=== PATIENT | female | born 1950 | race Caucasian/White ===

== ENCOUNTER → 2016-10-23 | Day surgery (SDC) | payer MEDICARE ==
[2016-10-18 12:47] VITALS: BMI 34.7
[~2016-10-23] MED LIST: ALPRAZolam 0.25 MG TAB PO PRN; ASPIRIN 325 MG TAB PO STA; IODIXANOL 320 MG/ML 100 ML INTRAARTER ONE; LIDOCAINE 2% INJ 20 MG/ML SQ ONE; LISINOPRIL 10 MG TAB PO STA; METOPROLOL TARTRATE 50 MG TAB PO STA; MIDAZOLAM 2 MG/2 ML VIAL IV ONE; SODIUM CHLORIDE 0.9% 1,000 ML IV SCH; SODIUM CHLORIDE 0.9% 1,000 ML in EMPTY BAG 1 BAG IV ONE; VERAPAMIL SYRINGE (5 MG/10 ML) INTRAARTER ONE
[2016-10-23 07:08] VITALS: TEMP 97.9
[2016-10-23 07:23] LABS: INR 1.1 (<1.1); Prothrombin Time 11.2 sec (9.0-12.0)
--- NOTE | 2016-10-23 09:34 | IR ---
EXAMINATION TYPE: IR angio abdominal w runoff DATE OF EXAM: 10/23/2016 9:15 AM CLINICAL HISTORY: Bilateral leg pain TECHNIQUE: Fluoroscopy. COMPARISON: None. FINDINGS: Fluoroscopic guidance was provided during abdominal angiogram with extremity runoff proced ure performed by Dr. Kingsley. A total of 240 seconds of fluoroscopic time was utilized during the proce dure and multiple spot images are acquired. Access is from upper extremity. Please refer to procedure note for further details as I was not present nor performed procedure. IMPRESSION: As Above.
[2016-10-23 13:07] VITALS: RESP 18
[2016-10-23 13:10] VITALS: PULSE 60
[2016-10-23 14:16] VITALS: BP 176/79
--- NOTE | 2016-10-23 17:39 | PCN ---
DATE OF PROCEDURE: 10/23/2016 Performing physician: Geovanni Kingsley, mail handlers supervisor. PROCEDURES PERFORMED: 1. Abdominal aortogram. 2. Bilateral lower extremity runoff. INDICATION: This is a pleasant 66-year-old female patient who sees Dr. Lala as an outpatient who was experiencing bilateral lower extremity discomfort consistent with intermittent claudication. She underwent an arterial duplex study which showed severe bilateral SFA disease. She was admitted today to undergo a peripheral angiogram for more clarification. Approach: Right radial artery. COMPLICATIONS: None. Level of sedation: Moderate. PROCEDURE DESCRIPTION: After obtaining informed, the patient was brought to the cardiac porcelain enamel laborer. Right radial artery was cannulated using micropuncture technique. Micropuncture wire passed easily and then I placed 5 Italian sheath in the right radial artery. Subsequently I gave the patient 2 mg of Verapamil IM and 3000 mL heparin IV. After that, I did an abdominal aortogram and bilateral lower extremity runoff using 5 Italian pigtail catheter which was initially placed at the level of the renal arteries and it was advanced into above the bifurcation of the aorta to right and left common iliac arteries: The procedure was completed without any complication. SELECTIVE PERIPHERAL ANGIOGRAM: 1. The aorta seems to be angiographically normal. 2. Common iliac arteries. The right and left common iliac arteries appeared to be angiographically normal. 3. The external iliac arteries: The right and left external iliac arteries appeared to be angiographically normal. 4. Internal iliac arteries: Right and left internal iliac arteries appeared to be angiographically normal. 5. Common femoral arteries. The right and left common femoral arteries are angiographically normal. 6. PROFUNDA: The right and left profunda are angiographically normal. 7. SFA: The right and left SFA appeared to have short area of severe disease in the range of 70%. 8. Popliteal: The right and left popliteal appeared to be angiographically normal. 9. Below the knee: There is likely 3 vessel runoff below the knee bilaterally. CONCLUSION: Severe bilateral SFA disease with calcified SFA and short area of severe disease. POSTPROCEDURE MANAGEMENT: I will discuss with the patient the symptoms and if her symptoms consistent with re-claudication, I will consider doing a SPEED READING TEACHER of the right and left SFA.
== END ==
LOC: CATHCVL 06:17
PROVIDERS: ATTEND Internal Medicine Interventional Cardiology
DX: I70.213 Atherosclerosis of native arteries of extremities with intermittent claudication, bilateral legs (principal); I73.9 Peripheral vascular disease, unspecified; I25.10 Atherosclerotic heart disease of native coronary artery without angina pectoris; Z95.2 Presence of prosthetic heart valve; I10 Essential (primary) hypertension; E78.5 Hyperlipidemia, unspecified; M19.90 Unspecified osteoarthritis, unspecified site; Z95.1 Presence of aortocoronary bypass graft; Z86.718 Personal history of other venous thrombosis and embolism; Z79.01 Long term (current) use of anticoagulants; Z79.82 Long term (current) use of aspirin; Z79.891 Long term (current) use of opiate analgesic; Z79.899 Other long term (current) drug therapy; Z88.1 Allergy status to other antibiotic agents; Z91.040 Latex allergy status; Z88.2 Allergy status to sulfonamides; Z91.048 Other nonmedicinal substance allergy status; Z87.891 Personal history of nicotine dependence
CPT/HCPCS: 36200; 75625; 75716; 85610; 99156; 99157; C1769; C1894; J2001; J2250; Q9967; J1644

== ENCOUNTER 2016-11-21 07:12 | Day surgery (SDC) | payer MEDICARE ==
[2016-11-16 14:20] VITALS: BMI 39.3
[~2016-11-21 07:12] MED LIST changes: -ALPRAZolam 0.25 MG TAB PO PRN; -IODIXANOL 320 MG/ML 100 ML INTRAARTER ONE; -LIDOCAINE 2% INJ 20 MG/ML SQ ONE; -LISINOPRIL 10 MG TAB PO STA; -METOPROLOL TARTRATE 50 MG TAB PO STA; -MIDAZOLAM 2 MG/2 ML VIAL IV ONE; -SODIUM CHLORIDE 0.9% 1,000 ML IV SCH; -VERAPAMIL SYRINGE (5 MG/10 ML) INTRAARTER ONE
[2016-11-21] MEDS ORDERED: HYDROcodone/APAP 10-325MG 1 EACH TAB ONE ×2 (07:51→13:00)
[2016-11-21] MEDS ORDERED: METOPROLOL TARTRATE 50 MG TAB ONE (07:52)
[2016-11-21] MEDS ORDERED: ALPRAZolam 0.25 MG TAB ONE (07:53)
[2016-11-21 08:12] LABS: Basophils # (A) 0.1 k/uL (0-0.2); Basophils % (A) 1 %; CH 29.6; CHCM 32.6; Eosinophils # (A) 0.2 k/uL (0-0.7); Eosinophils % (A) 3 %; HDW 2.51; HGB 14.5 gm/dL (11.4-16.0); Luc # (Auto) 0.22; Luc % (Auto) 3; Lymphocytes # (A) 2.3 k/uL (1.0-4.8); Lymphocytes % (A) 31 %; MCH 29.3 pg (25.0-35.0); MCHC 32.1 g/dL (31.0-37.0); MCV 91.2 fL (80.0-100.0); Mean Platelet Volume 8.2; Monocytes # (A) 0.4 k/uL (0-1.0); Monocytes % (A) 6 %; Neutrophils # (A) 4.3 k/uL (1.3-7.7); Neutrophils % (A) 57 %; RBC 4.94 m/uL (3.80-5.40); RDW 14.6 % (11.5-15.5); WBC 7.5 k/uL (3.8-10.6); WBC (Perox) 7.37
[2016-11-21 08:18] LABS: Anion Gap 15 mmol/L; Calcium 9.9 mg/dL (8.4-10.2); Carbon Dioxide 24 mmol/L (22-30); Chloride 102 mmol/L (98-107); Glucose 124 mg/dL (74-99); Non-African American GFR(MDRD) 53 (>60 ml/min/1.73 sqM); Sodium 141 mmol/L (137-145)
[2016-11-21 08:21] LABS: INR 1.1 (<1.1); Prothrombin Time 11.4 sec (9.0-12.0)
[2016-11-21 08:23] LABS: Blood Urea Nitrogen 19 mg/dL (7-17); Potassium 4.4 mmol/L (3.5-5.1)
[2016-11-21] MEDS ORDERED: LIDOCAINE 2% INJ 20 MG/ML SQ ONE (08:51)
[2016-11-21] MEDS ORDERED: MIDAZOLAM 2 MG/2 ML VIAL IV ONE ×2 (08:53→13:50)
[2016-11-21] MEDS ORDERED: HEPARIN SODIUM 1,000 UNIT/ML VIAL IV ONE (08:59)
[2016-11-21] MEDS ORDERED: CLOPIDOGREL 75 MG TAB PO ONE (09:12)
[2016-11-21] MEDS: NITROGLYCERIN 1000MCG/10ML SYRINGE INTRAARTER ONE ×3 (09:37→09:47)
[2016-11-21] MEDS ORDERED: fentaNYL (PF) 50 MCG/ML 2 ML AMP IV ONE (09:44)
[2016-11-21] MEDS ORDERED: hydrALAZINE HCL 20 MG/ML 1 ML VIAL IV ONE (09:47)
[2016-11-21] MEDS ORDERED: niCARdipine Syringe (1,000 mcg/10 mL) INTRACORON ONE (09:48)
[2016-11-21] MEDS ORDERED: IODIXANOL 320 MG/ML 100 ML INTRAARTER ONE (09:49)
[2016-11-21] MEDS ORDERED: SYMBICORT 160-4.5 MCG INHALER INHALATION PRN (10:01)
[2016-11-21] MEDS ORDERED: CYCLOBENZAPRINE 10 MG TAB PO PRN (10:01)
[2016-11-21] MEDS ORDERED: SODIUM CHLORIDE 0.9% 1,000 ML IV SCH (10:15)
--- NOTE | 2016-11-21 10:40 | PTCA ---
DATE OF SERVICE: PERFORMING PHYSICIAN: Blanche Nielsen, Slag Wheeler. PROCEDURE PERFORMED: 1. Selective left okqfj-zuu-oygk angiogram. 2. Selective left SFA angiogram. 3. An atherectomy of the left SFA using the TurboHawk device. 4. Successful balloon angioplasty of the left SFA using 6.0 x 80 and 6.0 x 60 mm drug-coated balloon with a good angiographic results. 5. Selective right common femoral artery angiogram. INDICATION: This is a pleasant 66-year-old female patient who sees Dr. Lala as an outpatient with a known history of coronary artery disease, hypertension, dyslipidemia, was experiencing bilateral lower extremity discomfort consistent with claudication. She underwent an arterial duplex study which showed severe bilateral SFA disease. Subsequently she underwent a peripheral angiogram which showed severe bilateral SFA disease worse on the right side. APPROACH: Right common femoral artery. COMPLICATIONS: None. LEVEL OF SEDATION: Moderate with a sedation length of 2 hours. PROCEDURE DESCRIPTION: After obtaining an informed consent, the patient was brought to the Cardiac Stock Preparer. Right common femoral artery was cannulated using micropuncture technique. The micropuncture wire passed easily. Then I placed 6 Guamanian sheath in the right common femoral artery. Subsequently, I did the left SFA using a 0.035 advantage wire with a 5 Guamanian rim catheter. Subsequently, I exchanged my 11 cm 6 Guamanian sheath into 55 cm 6 Guamanian Rabi sheath using Amplatzer wire because I was unable to advance the sheath over the Advantage wire and for support I used over the Amplatzer wire a 5 Guamanian multipurpose catheter. I positioned the long sheath at the left common femoral artery. Subsequently, I did selective left dtkye-szi-fqhj angiogram and selective left SFA angiogram. Subsequently, I did exchange my 0.035 Amplatzer wire into 0.014 Advantage wire using a 0.035 catheter. Of course, in the beginning we started anticoagulation using heparin. The patient was given 10,000 units of heparin IV. Subsequently, I did multiple runs of directional atherectomy using the TurboHawk device. I was able to extract plaque from the left SFA. Subsequently, I did balloon angioplasty of the left SFA using 6.0 x 60, 6.0 x 80 mm drug-coated balloon. The following angiogram showed good angiographic results. After that, I did exchange my 55 cm 6 Guamanian Rabi sheath to a 6 Guamanian 11 cm sheath over the Advantage wire. The procedure was completed without any complication. By the end of the procedure, I took selective right common femoral artery angiogram. POSTPROCEDURE MANAGEMENT: 1. Dual antiplatelet therapy. 2. Risk factor modifications. 3. CUSTOMER SUPPORT CONSULTANT of the right SFA in the next couple of weeks.
--- NOTE | 2016-11-21 10:55 | LTR ---
November 21, 2016 CÉSAR PANDYA MD RE: Adali lOivia Dear Billy: Ms. Adali Olivia underwent successful atherectomy and balloon angioplasty of the left femoral artery with a good angiographic result and without any complication. Thank you for allowing me to participate in her care and please do not hesitate to call if you have any questions or concerns. Sincerely, CARINA RIZO MD
[2016-11-21] MEDS ORDERED: LISINOPRIL 10 MG TAB PO STA (11:14)
[2016-11-21] MEDS ORDERED: amLODIPine 10 MG TAB PO STA (11:32)
[2016-11-21] MEDS ORDERED: amLODIPine 5 MG TAB ONE (11:33)
[2016-11-21] MEDS: HYDROcodone/APAP 10-325MG 1 EACH TAB PO SCH ×2 (13:00→23:30)
[2016-11-21] MEDS ORDERED: hydrALAZINE HCL 20 MG/ML 1 ML VIAL IVP STA (13:05)
[2016-11-21] MEDS ORDERED: hydrALAZINE HCL 20 MG/ML 1 ML VIAL ONE (13:06)
--- NOTE | 2016-11-21 14:44 | IR ---
Fluoroscopy HISTORY: Pain 14.8 minutes fluoroscopy time supplied to the referring clinician. 487 intraoperative C-arm images d ocument the procedure. See dictated report from cardiology.
[2016-11-21] MEDS: FUROSEMIDE 40 MG TAB PO SCH (17:16)
[2016-11-21] MEDS: METOPROLOL TARTRATE 50 MG TAB PO SCH (20:33)
[2016-11-21] MEDS: GABAPENTIN 100 MG CAP PO SCH (20:33)
[2016-11-21] MEDS ORDERED: ATORVASTATIN 10 MG TAB PO SCH (21:00)
[2016-11-21] MEDS: HYDROmorphone 1 MG/ML 1 ML SYRINGE IVP PRN (23:30)
[2016-11-22 00:14] VITALS: RESP 18
[2016-11-22 04:25] VITALS: PULSE 94
[2016-11-22 06:35] LABS: Non-African American GFR(MDRD) 56 (>60 ml/min/1.73 sqM)
[2016-11-22] MEDS: HYDROmorphone 1 MG/ML 1 ML SYRINGE IVP PRN (06:56)
[2016-11-22] MEDS: HYDROcodone/APAP 10-325MG 1 EACH TAB PO SCH (07:47)
[2016-11-22] MEDS: METOPROLOL TARTRATE 50 MG TAB PO SCH (07:48)
[2016-11-22] MEDS: GABAPENTIN 100 MG CAP PO SCH (07:49)
[2016-11-22] MEDS: FUROSEMIDE 40 MG TAB PO SCH (07:49)
[2016-11-22 07:54] VITALS: BP 139/85; TEMP 98.1
[2016-11-22 08:51] LABS: Basophils % (A) 1 %; CH 29.1; CHCM 31.7; Eosinophils # (A) 0.1 k/uL (0-0.7); Eosinophils % (A) 2 %; HCT 44.8 % (34.0-46.0); HDW 2.35; HGB 13.9 gm/dL (11.4-16.0); Luc # (Auto) 0.18; Luc % (Auto) 2; Lymphocytes # (A) 1.6 k/uL (1.0-4.8); Lymphocytes % (A) 21 %; MCH 28.6 pg (25.0-35.0); MCHC 31.1 g/dL (31.0-37.0); MCV 92.1 fL (80.0-100.0); Mean Platelet Volume 7.5; Monocytes # (A) 0.5 k/uL (0-1.0); Monocytes % (A) 7 %; Neutrophils % (A) 67 %; RBC 4.86 m/uL (3.80-5.40); RDW 14.6 % (11.5-15.5); WBC 7.5 k/uL (3.8-10.6); WBC (Perox) 7.68
[2016-11-22] MEDS ORDERED: DOXYCYCLINE 50 MG CAP PO SCH (09:00)
[2016-11-22] MEDS ORDERED: CLOPIDOGREL 75 MG TAB PO SCH (09:00)
[2016-11-22] MEDS ORDERED: ASPIRIN 325 MG TAB PO SCH (09:00)
[2016-11-22] MEDS ORDERED: LISINOPRIL 20 MG TAB PO SCH (09:00)
[2016-11-22 09:06] LABS: Anion Gap 13 mmol/L; Blood Urea Nitrogen 14 mg/dL (7-17); Calcium 9.3 mg/dL (8.4-10.2); Carbon Dioxide 24 mmol/L (22-30); Chloride 102 mmol/L (98-107); Glucose 116 mg/dL (74-99); Potassium 4.3 mmol/L (3.5-5.1); Sodium 139 mmol/L (137-145)
--- NOTE | 2016-11-23 08:22 | DS ---
DATE OF ADMISSION: 11/21/2016 DATE OF DISCHARGE: 11/22/2016 BRIEF HISTORY: This is a pleasant 66-year-old female patient who sees me in the office as an outpatient who was experiencing bilateral lower extremity discomfort consistent with claudication and underwent a peripheral angiogram showed severe bilateral SFA disease. The patient was admitted to the hospital yesterday and underwent successful balloon angioplasty of the left SFA with good angiographic results and without any complication. She is going to discharge home on dual antiplatelet therapy and I will follow up with the patient as an outpatient in the office.
[2016-11-25] MEDS ORDERED: ERGOCALCIFEROL 50,000 UNIT CAP PO SCH (12:00)
== END 2016-11-22 09:26 ==
LOC: CATHCVL 07:12 → 6SEL 14:04 → CATHCVL 11-22 09:26
PROVIDERS: ATTEND Internal Medicine Interventional Cardiology
DX: I73.9 Peripheral vascular disease, unspecified (principal); I25.10 Atherosclerotic heart disease of native coronary artery without angina pectoris; Z95.1 Presence of aortocoronary bypass graft; E78.5 Hyperlipidemia, unspecified; I10 Essential (primary) hypertension; Z95.2 Presence of prosthetic heart valve; Z86.718 Personal history of other venous thrombosis and embolism; Z79.01 Long term (current) use of anticoagulants; Z79.82 Long term (current) use of aspirin; Z79.891 Long term (current) use of opiate analgesic; Z79.899 Other long term (current) drug therapy; Z88.1 Allergy status to other antibiotic agents; Z91.040 Latex allergy status; Z88.2 Allergy status to sulfonamides; Z91.048 Other nonmedicinal substance allergy status; Z87.891 Personal history of nicotine dependence
CPT/HCPCS: 37225; 85347; 80048 ×2; 85025 ×2; 85610; 99152; 99153; C1769 ×6; C1894 ×2; C1725; C1714; C2623; J2001; J2250; J0360; Q9967; J3010; J1644; J1170 ×2

== ENCOUNTER 2016-12-19 10:45 | Day surgery (SDC) | payer MEDICARE ==
[2016-12-17 12:13] VITALS: BMI 40.9
[2016-12-19] MEDS ORDERED: ALPRAZolam 0.25 MG TAB ONE (11:31)
[2016-12-19] MEDS ORDERED: ALPRAZolam 0.25 MG TAB PO STA (11:32)
[2016-12-19] MEDS ORDERED: ALPRAZolam 0.25 MG TAB PO ONE (11:32)
[2016-12-19] MEDS ORDERED: IV FLUID CONTINUATION 1,000 ML IV ONE (12:07)
[2016-12-19] MEDS ORDERED: MIDAZOLAM 2 MG/2 ML VIAL ONE (12:18)
[2016-12-19] MEDS ORDERED: MIDAZOLAM 2 MG/2 ML VIAL IV ONE (12:22)
[2016-12-19] MEDS ORDERED: LIDOCAINE 2% INJ 20 MG/ML SQ ONE (12:30)
[2016-12-19] MEDS ORDERED: HEPARIN SODIUM 1,000 UNIT/ML VIAL ONE (12:34)
[2016-12-19] MEDS: NITROGLYCERIN 1000MCG/10ML SYRINGE INTRAARTER ONE ×2 (13:07→13:19)
[2016-12-19] MEDS ORDERED: hydrALAZINE HCL 20 MG/ML 1 ML VIAL ONE ×2 (13:11→13:22)
[2016-12-19] MEDS ORDERED: METOPROLOL TARTRATE 5 MG/5 ML VIAL IVP ONE ×2 (13:12→13:18)
[2016-12-19] MEDS ORDERED: HYDROmorphone 2 MG/ML 1 ML SYRINGE ONE (13:16)
[2016-12-19] MEDS ORDERED: hydrALAZINE HCL 20 MG/ML 1 ML VIAL IV ONE (13:18)
[2016-12-19] MEDS ORDERED: HYDROmorphone 2 MG/ML 1 ML SYRINGE IV ONE (13:19)
[2016-12-19] MEDS ORDERED: niCARdipine Syringe (1,000 mcg/10 mL) INTRACORON ONE (13:20)
[2016-12-19] MEDS ORDERED: IODIXANOL 320 MG/ML 100 ML INTRAARTER ONE (13:39)
[2016-12-19] MEDS ORDERED: CYCLOBENZAPRINE 10 MG TAB PO PRN (13:50)
[2016-12-19] MEDS ORDERED: SODIUM CHLORIDE 0.9% 1,000 ML IV SCH (14:00)
[2016-12-19] MEDS: HYDROcodone/APAP 10-325MG 1 EACH TAB PO SCH ×2 (17:00→21:24)
[2016-12-19] MEDS: HYDROmorphone 1 MG/ML 1 ML SYRINGE IVP PRN ×2 (18:09→22:47)
--- NOTE | 2016-12-19 19:26 | PCN ---
DATE OF PROCEDURE: 12/19/2016 PERFORMING PHYSICIAN: Geovanni Kingsley M.D., air conditioning service technician. PROCEDURES PERFORMED: 1. Selective right superficial femoral artery angiogram. 2. Atherectomy of the right superficial femoral artery using the CSI device. 3. Successful balloon angioplasty of the right superficial femoral artery using a 6.0 x 60 drug-coated balloon which was ( ) balloon, with good angiographic results. 4. Selective left superficial femoral artery angiogram. INDICATION: This is a pleasant 66-year-old female patient who was experiencing bilateral lower extremity intermittent claudication. She underwent peripheral angiogram a few weeks ago and that showed severe bilateral SFA disease where she underwent balloon angioplasty of the left SFA and she was brought today to undergo balloon angioplasty of the right SFA. APPROACH: Left common femoral artery. LEVEL OF SEDATION: Moderate with a sedation length about an hour and a half. PROCEDURE DESCRIPTION: After obtaining informed consent, the patient was brought to the cardiac photo lab manager. The left common femoral artery was cannulated using micropuncture technique. The micropuncture wire passed easily. Then I placed an 11 cm 6 Saudi Arabian sheath in the left common femoral artery. Subsequently I started anticoagulation using heparin, and the patient was given 10,000 units of heparin intravenously. After that, I selected the right SFA using an 0.035 Advantage wire with a 5 Saudi Arabian RIM catheter. The Advantage wire was advanced all the way to the right popliteal. After that I exchanged my 11 cm 6 Saudi Arabian sheath for a 70 cm 6 Saudi Arabian Rabi sheath over the Advantage wire. I had some difficulties in making the sheath turn up the aortic bifurcation, so I had to use a 5 Saudi Arabian multipurpose catheter to give me support. The tip of the long sheath was positioned in the right external iliac artery. After that I did selective right SFA angiogram. After that I exchanged my 0.035 Advantage wire for an 0.014 ViperWire, preparing for rotational atherectomy using the CSI device. After that I did 4 runs of rotational atherectomy using the CSI device. The atherectomy was performed at low, medium and two high speeds. After that I did balloon angioplasty, initially using a 5.0 x 60 and then a 6 x 60 mm drug-coated balloon, where the balloon was inflated under 8 atmospheres for 3 minutes. The following angiogram showed good angiographic results with [id number] dissection, which I left alone. After that I did selective left SFA angiogram after I exchanged my 70 cm 6 Saudi Arabian sheath for an 11 cm 6 Saudi Arabian sheath over the Advantage wire. Subsequently I did selective left SFA angiogram. After that I closed the groin using the Perclose device. I achieved good hemostasis. POST-PROCEDURE MANAGEMENT: 1. Dual antiplatelet therapy. 2. Risk factor modification. 3. ( ) with possible stenting of the left SFA from the brachial approach or an antegrade approach on the left side, keeping in mind that the patient has an ALLERGY TO NICKEL.
--- NOTE | 2016-12-19 19:28 | LTR ---
December 19, 2016 RE: Adali Olivia Dear Nick, Ms. Adali Olivia underwent successful atherectomy and balloon angioplasty of the right superficial femoral artery with good angiographic results and without any complication. I want to thank you for allowing me to participate in her care. Please do not hesitate to call with questions or concerns. Sincerely, CARINA RIZO MD
[2016-12-19] MEDS ORDERED: ATORVASTATIN 10 MG TAB PO SCH (21:00)
[2016-12-19] MEDS: GABAPENTIN 100 MG CAP PO SCH (21:24)
[2016-12-19] MEDS: METOPROLOL TARTRATE 50 MG TAB PO SCH (21:24)
[2016-12-19] MEDS: FUROSEMIDE 40 MG TAB PO SCH (21:24)
[2016-12-20] MEDS: HYDROmorphone 1 MG/ML 1 ML SYRINGE IVP PRN (02:09)
[2016-12-20 06:43] LABS: Basophils % (A) 1 %; CH 29.3; CHCM 31.4; Eosinophils # (A) 0.2 k/uL (0-0.7); Eosinophils % (A) 3 %; HCT 38.9 % (34.0-46.0); HDW 2.35; HGB 12.3 gm/dL (11.4-16.0); Luc # (Auto) 0.13; Luc % (Auto) 2; Lymphocytes # (A) 1.2 k/uL (1.0-4.8); Lymphocytes % (A) 22 %; MCH 29.8 pg (25.0-35.0); MCHC 31.7 g/dL (31.0-37.0); MCV 93.9 fL (80.0-100.0); Mean Platelet Volume 7.4; Monocytes # (A) 0.4 k/uL (0-1.0); Monocytes % (A) 6 %; Neutrophils # (A) 3.6 k/uL (1.3-7.7); Neutrophils % (A) 66 %; RBC 4.14 m/uL (3.80-5.40); RDW 14.9 % (11.5-15.5); WBC 5.6 k/uL (3.8-10.6); WBC (Perox) 5.92
[2016-12-20 07:02] LABS: Anion Gap 9 mmol/L; Blood Urea Nitrogen 11 mg/dL (7-17); Calcium 8.6 mg/dL (8.4-10.2); Carbon Dioxide 26 mmol/L (22-30); Chloride 105 mmol/L (98-107); Glucose 114 mg/dL (74-99); Non-African American GFR(MDRD) >60 (>60 ml/min/1.73 sqM); Potassium 4.1 mmol/L (3.5-5.1); Sodium 140 mmol/L (137-145)
[2016-12-20 08:24] VITALS: BP 127/85; PULSE 85; RESP 20; TEMP 98.3
[2016-12-20] MEDS ORDERED: CLOPIDOGREL 75 MG TAB PO SCH (09:00)
[2016-12-20] MEDS ORDERED: LISINOPRIL 20 MG TAB PO SCH (09:00)
[2016-12-20] MEDS ORDERED: DOXYCYCLINE 50 MG CAP PO SCH (09:00)
[2016-12-20] MEDS ORDERED: ASPIRIN 325 MG TAB PO SCH (09:00)
[2016-12-20] MEDS: HYDROcodone/APAP 10-325MG 1 EACH TAB PO SCH (10:20)
[2016-12-20] MEDS: GABAPENTIN 100 MG CAP PO SCH (10:20)
[2016-12-20] MEDS: FUROSEMIDE 40 MG TAB PO SCH (10:20)
[2016-12-20] MEDS: METOPROLOL TARTRATE 50 MG TAB PO SCH (10:21)
--- NOTE | 2016-12-21 07:31 | DS ---
DATE OF ADMISSION: 12/19/2016 DATE OF DISCHARGE: 12/20/2016 BRIEF HISTORY: This is a pleasant 66-year-old female patient who was admitted to the hospital and underwent successful balloon angioplasty and successful atherectomy and balloon angioplasty of the right superficial femoral artery from a left groin approach. The procedure was performed with a good angiographic result and without any complication. The patient is going to be discharged home on dual antiplatelet therapy and I will follow up with the patient as an outpatient in the office.
[2016-12-23] MEDS ORDERED: ERGOCALCIFEROL 50,000 UNIT CAP PO SCH (12:00)
== END 2016-12-20 11:20 | disposition home or self-care (01) ==
LOC: CATHCVL 10:45 → 6SEL 13:33 → CATHCVL 12-20 11:20
PROVIDERS: ATTEND Internal Medicine Interventional Cardiology
DX: I73.9 Peripheral vascular disease, unspecified (principal); I77.9 Disorder of arteries and arterioles, unspecified; Z98.62 Peripheral vascular angioplasty status; I25.10 Atherosclerotic heart disease of native coronary artery without angina pectoris; Z95.1 Presence of aortocoronary bypass graft; Z95.2 Presence of prosthetic heart valve; M19.90 Unspecified osteoarthritis, unspecified site; I10 Essential (primary) hypertension; E78.5 Hyperlipidemia, unspecified; Z86.718 Personal history of other venous thrombosis and embolism; Z79.01 Long term (current) use of anticoagulants; Z79.02 Long term (current) use of antithrombotics/antiplatelets; Z79.82 Long term (current) use of aspirin; Z79.891 Long term (current) use of opiate analgesic; Z79.899 Other long term (current) drug therapy; Z88.1 Allergy status to other antibiotic agents; Z91.040 Latex allergy status; Z88.2 Allergy status to sulfonamides; Z91.048 Other nonmedicinal substance allergy status; Z87.891 Personal history of nicotine dependence
CPT/HCPCS: 37225; 85347; 80048; 85025; 99152; 99153; C1769 ×8; C1894 ×2; C1714; C1725; C1887; C2623; C1760; J2001; J2250; J1170 ×3; J0360; Q9967; J1644

== ENCOUNTER → 2017-01-21 | Outpatient (CLI) | payer MEDICARE ==
[2017-01-21 08:20] LABS: CHCM 31.4; HCT 41.3 % (34.0-46.0); HDW 2.62; HGB 13.3 gm/dL (11.4-16.0); Hypochromasia Slight; MCH 29.9 pg (25.0-35.0); MCHC 32.3 g/dL (31.0-37.0); MCV 92.6 fL (80.0-100.0); Mean Platelet Volume 6.9; RBC 4.46 m/uL (3.80-5.40); RDW 14.4 % (11.5-15.5); WBC 6.4 k/uL (3.8-10.6)
[2017-01-21 08:44] LABS: Anion Gap 10 mmol/L; Blood Urea Nitrogen 14 mg/dL (7-17); Carbon Dioxide 27 mmol/L (22-30); Chloride 108 mmol/L (98-107); Non-African American GFR(MDRD) >60 (>60 ml/min/1.73 sqM); Potassium 4.4 mmol/L (3.5-5.1); Sodium 145 mmol/L (137-145)
== END | disposition home or self-care (01) ==
LOC: LABWHC1 07:55
PROVIDERS: ATTEND Internal Medicine Interventional Cardiology
DX: Z01.812 Encounter for preprocedural laboratory examination (principal); I73.9 Peripheral vascular disease, unspecified
CPT/HCPCS: 80051; 82565; 84520; 85027

== ENCOUNTER 2017-01-30 07:47 | Day surgery (SDC) | payer MEDICARE ==
[2017-01-25 10:34] VITALS: BMI 30.7
[~2017-01-30 07:47] MED LIST changes: +ALPRAZolam 0.25 MG TAB PO PRN; +ALPRAZolam 0.5 MG TAB PO PRN
[2017-01-30 08:45] LABS: INR 1.1 (<1.1); Prothrombin Time 10.8 sec (9.0-12.0)
[2017-01-30] MEDS ORDERED: MIDAZOLAM 2 MG/2 ML VIAL IVP ONE ×2 (10:50→11:15)
[2017-01-30] MEDS ORDERED: fentaNYL (PF) 50 MCG/ML 2 ML AMP IV ONE (11:15)
[2017-01-30] MEDS ORDERED: HEPARIN SODIUM 1,000 UNIT/ML VIAL IV ONE ×2 (11:18→12:15)
[2017-01-30] MEDS: NITROGLYCERIN 1000MCG/10ML SYRINGE INTRAARTER ONE ×2 (12:24→12:42)
[2017-01-30] MEDS: niCARdipine Syringe (1,000 mcg/10 mL) INTRAARTER ONE ×2 (12:24→12:42)
[2017-01-30] MEDS ORDERED: IODIXANOL 320 MG/ML 100 ML INTRAARTER ONE (12:45)
[2017-01-30] MEDS ORDERED: CLOPIDOGREL 75 MG TAB PO ONE (12:45)
[2017-01-30] MEDS ORDERED: SODIUM CHLORIDE 0.9% 1,000 ML IV SCH (13:00)
--- NOTE | 2017-01-30 13:16 | LTR ---
January 30, 2017 CÉSAR PANDYA MD RE: Adali Olviia Dear Billy: Ms. Adali Olivia underwent successful balloon angioplasty of the left femoral artery with a good angiographic result and without any complication. Thank you for allowing me to participate in her care. Sincerely, CARINA RIZO MD
[2017-01-30] MEDS ORDERED: PROTAMINE SULFATE 10 MG/ML 5 ML VIAL IV STA (13:27)
[2017-01-30] MEDS ORDERED: hydrALAZINE HCL 20 MG/ML 1 ML VIAL ONE (13:49)
[2017-01-30] MEDS ORDERED: hydrALAZINE HCL 20 MG/ML 1 ML VIAL IVP STA ×2 (13:50→14:43)
[2017-01-30] MEDS ORDERED: METOPROLOL TARTRATE 5 MG/5 ML VIAL IVP ONE (15:20)
[2017-01-30] MEDS: HYDROcodone/APAP 10-325MG 1 EACH TAB PO PRN (15:49)
[2017-01-30] MEDS ORDERED: FUROSEMIDE 40 MG TAB PO SCH (18:00)
[2017-01-30] MEDS: CYCLOBENZAPRINE 10 MG TAB PO SCH ×2 (18:38→21:29)
[2017-01-30] MEDS ORDERED: ATORVASTATIN 10 MG TAB PO SCH (21:00)
[2017-01-30] MEDS: METOPROLOL TARTRATE 50 MG TAB PO SCH (21:29)
[2017-01-30] MEDS: GABAPENTIN 100 MG CAP PO SCH (21:29)
[2017-01-31] MEDS: HYDROcodone/APAP 10-325MG 1 EACH TAB PO PRN (03:43)
[2017-01-31 04:48] VITALS: PULSE 87
[2017-01-31 07:05] LABS: Basophils % (A) 1 %; CH 28.7; CHCM 31.8; Eosinophils # (A) 0.1 k/uL (0-0.7); Eosinophils % (A) 2 %; HCT 39.1 % (34.0-46.0); HDW 2.43; HGB 12.6 gm/dL (11.4-16.0); Luc % (Auto) 4; Lymphocytes # (A) 1.2 k/uL (1.0-4.8); Lymphocytes % (A) 24 %; MCH 29.1 pg (25.0-35.0); MCHC 32.1 g/dL (31.0-37.0); MCV 90.6 fL (80.0-100.0); Monocytes # (A) 0.4 k/uL (0-1.0); Monocytes % (A) 9 %; Neutrophils # (A) 2.9 k/uL (1.3-7.7); Neutrophils % (A) 60 %; RBC 4.31 m/uL (3.80-5.40); RDW 14.7 % (11.5-15.5); WBC 4.8 k/uL (3.8-10.6); WBC (Perox) 4.92
[2017-01-31 07:09] LABS: Anion Gap 8 mmol/L; Blood Urea Nitrogen 11 mg/dL (7-17); Calcium 8.8 mg/dL (8.4-10.2); Carbon Dioxide 24 mmol/L (22-30); Chloride 107 mmol/L (98-107); Glucose 107 mg/dL (74-99); Non-African American GFR(MDRD) >60 (>60 ml/min/1.73 sqM); Potassium 4.1 mmol/L (3.5-5.1); Sodium 139 mmol/L (137-145)
[2017-01-31] MEDS: METOPROLOL TARTRATE 50 MG TAB PO SCH (08:17)
[2017-01-31] MEDS: GABAPENTIN 100 MG CAP PO SCH (08:18)
[2017-01-31] MEDS: CYCLOBENZAPRINE 10 MG TAB PO SCH (08:18)
[2017-01-31 08:35] VITALS: BP 142/76; RESP 19; TEMP 97.6
[2017-01-31] MEDS ORDERED: CLOPIDOGREL 75 MG TAB PO SCH (09:00)
[2017-01-31] MEDS ORDERED: LISINOPRIL 20 MG TAB PO SCH (09:00)
[2017-01-31] MEDS ORDERED: ASPIRIN 325 MG TAB PO SCH (09:00)
[2017-01-31] MEDS ORDERED: FUROSEMIDE 80 MG TAB PO SCH (09:00)
--- NOTE | 2017-01-31 15:03 | IR ---
EXAMINATION TYPE: IR water taxi captain femoral popliteal DATE OF EXAM: 01/30/2017 7:39 PM COMPARISON: NONE HISTORY: Peripheral vascular occlusive disease. Fluoroscopy was provided to the referring clinician. See dictated report from cardiology.
--- NOTE | 2017-02-01 09:49 | DS ---
DATE OF ADMISSION: 01/30/2017 DATE OF DISCHARGE: 01/31/2017 BRIEF HISTORY: This is a pleasant 66-year-old female patient who was admitted to the hospital and underwent successful balloon angioplasty of the left superficial femoral artery with a good angiographic result and without any complication from right brachial artery approach. On follow up with the patient the following day, she is doing good and she is asymptomatic. She has some bruises above the right brachial artery, but there is no discrete hematoma and she has good right brachial pulse. The patient is going to be discharged home on dual antiplatelet therapy and I will follow up with the patient as an outpatient in the office.
[2017-02-03] MEDS ORDERED: ERGOCALCIFEROL 50,000 UNIT CAP PO SCH (09:00)
--- NOTE | 2017-02-08 14:22 | PTCA ---
DATE OF SERVICE: 01/30/2017 PROCEDURE PERFORMED: 1. Selective left superficial femoral artery angiogram. 2. Atherectomy of the left SFA. 3. Intravascular ultrasound (IVUS) of the left SFA. 4. Successful balloon angioplasty of the left SFA using 5.0 x 80 mm balloon with a good angiographic results. INDICATION: This is a pleasant 66-year-old female patient who was admitted to the hospital to undergo a HYDROPULPER of the left SFA. She underwent a HYDROPULPER several months ago, but she continues to have discomfort and I did an angiogram on her which showed restenosis again. APPROACH: Right radial artery. COMPLICATIONS: None. SEDATION: Moderate. PROCEDURE DESCRIPTION: After obtaining an informed consent, the patient was brought to the Cardiac Procedures Tech. The right brachial artery was cannulated using micropuncture technique and micropuncture wire passed easily, then I placed a 6 Serbian sheath 11 cm in the right brachial artery. Subsequently, I did exchange my 11 cm 6 Serbian sheath into a 110 cm 6 Serbian sheath using 0.035 Advantage wire. After that, I did exchange my wire into a Viper wire. I did atherectomy using the CSI device. After that, I did an intravascular ultrasound of the left SFA. Subsequently, I did balloon angioplasty initially using 4.0 x 40 and then 5.0 x 80 mm balloon. The following angiogram showed good angiographic results. POSTPROCEDURE MANAGEMENT: 1. Dual antiplatelet therapy. 2. Risk factor modification. 3. Follow up with the patient.
== END 2017-01-31 09:34 | disposition home or self-care (01) ==
LOC: CATHCVL 07:47 → 6SEL 12:46 → CATHCVL 01-31 09:34
PROVIDERS: ATTEND Internal Medicine Interventional Cardiology
DX: I70.212 Atherosclerosis of native arteries of extremities with intermittent claudication, left leg (principal); I47.1 Supraventricular tachycardia; I10 Essential (primary) hypertension; E78.5 Hyperlipidemia, unspecified; I82.511 Chronic embolism and thrombosis of right femoral vein; E66.9 Obesity, unspecified; Z68.41 Body mass index [BMI] 40.0-44.9, adult; Z95.2 Presence of prosthetic heart valve; Z79.01 Long term (current) use of anticoagulants; Z87.891 Personal history of nicotine dependence; Z79.02 Long term (current) use of antithrombotics/antiplatelets; Z79.82 Long term (current) use of aspirin; Z79.899 Other long term (current) drug therapy; Z91.040 Latex allergy status; Z88.0 Allergy status to penicillin; Z88.2 Allergy status to sulfonamides; Z91.09 Other allergy status, other than to drugs and biological substances
CPT/HCPCS: 99152; 99153 ×6; 93005; 37225; 85347; 37252; 80048; 85025; 85610; C1894 ×4; C1714; C1769 ×6; C1725 ×3; C1887; C1753; J2250; J2720; J0360; Q9967; J3010; J1644

== ENCOUNTER 2021-05-01 10:38 | Observation (INO) | payer MEDICARE ==
[2021-05-01 12:50] LABS: Basophils % (A) 0 %; Eosinophils # (A) 0.2 k/uL (0-0.7); Eosinophils % (A) 3 %; HCT 37.4 % (34.0-46.0); HGB 11.7 gm/dL (11.4-16.0); Hypochromasia Moderate; Lymphocytes # (A) 1.3 k/uL (1.0-4.8); Lymphocytes % (A) 22 %; MCH 28.1 pg (25.0-35.0); MCHC 31.2 g/dL (31.0-37.0); Mean Platelet Volume 8.2; Monocytes # (A) 0.5 k/uL (0-1.0); Monocytes % (A) 7 %; Neutrophils % (A) 65 %; Platelet Count 231 k/uL (150-450); RBC 4.15 m/uL (3.80-5.40); RDW 15.3 % (11.5-15.5); WBC 6.2 k/uL (3.8-10.6)
[2021-05-01 13:13] LABS: Albumin 3.7 g/dL (3.5-5.0); C Reactive Protein 0.7 mg/dL (<1.0); Calcium 9.3 mg/dL (8.4-10.2); Potassium 4.1 mmol/L (3.5-5.1); Total Bilirubin 0.6 mg/dL (0.2-1.3); Total Protein 6.5 g/dL (6.3-8.2)
[2021-05-01] MEDS ORDERED: VANCOMYCIN IV PER PHARMACY 1 EACH MISC MISCELLANE PRN (13:35)
--- NOTE | 2021-05-01 13:35 | ED ---
General Adult HPI - General Chief complaint: Wound/Laceration Stated complaint: lt calf ulcer Time Seen by Provider: 05/01/21 11:55 Source: patient, RN notes reviewed Mode of arrival: ambulatory Limitations: no limitations - History of Present Illness Initial comments: This a 70-year-old female presents emergency Department from PCPs office chief complaint of left leg ulceration, cellulitis. Patient was hospitalized in the past for this states that she was getting better but now is greatly worsened. She's been on doxycycline for several months she reports. Patient had increasing pain discomfort to left calf no reported fevers chills no other ass ociated complaints. - Related Data Home Medications Medication Instructions Recorded Confirmed Atorvastatin [Lipitor] 10 mg PO HS 10/18/16 05/01/21 Cyclobenzaprine [Flexeril] 10 mg PO TID PRN 10/18/16 05/01/21 Enalapril [Vasotec] 10 mg PO DAILY 10/18/16 05/01/21 Ergocalciferol (Vitamin D2) 50,000 unit PO CARDENAS 10/18/16 05/01/21 [Vitamin D2] Gabapentin [Neurontin] 100 mg PO DAILY 10/18/16 05/01/21 HYDROcodone/APAP 10-325MG [[place] 1 tab PO Q6HR PRN 10/18/16 05/01/21 10-325] Metoprolol Tartrate [Lopressor] 50 mg PO BID 10/18/16 05/01/21 Warfarin [Coumadin] 2.5 mg PO WEFR 01/25/17 05/01/21 Warfarin [Coumadin] 5 mg PO SUMOTUTHSA 01/25/17 05/01/21 Aspirin EC [Ecotrin Low Dose] 81 mg PO DAILY 05/01/21 05/01/21 Doxycycline Hyclate [Vibramycin] 100 mg PO DAILY 05/01/21 05/01/21 Gabapentin [Neurontin] 200 mg PO HS 05/01/21 05/01/21 Oxybutynin Chloride 5 mg PO BID 05/01/21 05/01/21 Potassium Gluconate [Potassium 99 mg PO DAILY 05/01/21 05/01/21 Gluconate ER] Allergies Allergy/AdvReac Type Severity Reaction Status Date / Time amoxicillin Allergy Severe Dyspnea Verified 05/01/21 13:56 latex Allergy Severe Anaphylaxis Verified 05/01/21 13:56 nickel Allergy Unknown Rash/Hives Verified 05/01/21 13:56 Sulfa (Sulfonamide Allergy Rash/Hives Verified 05/01/21 13:56 Antibiotics) Review of Systems ROS Statement: Those systems with pertinent positive or pertinent negative responses have been documented in the HPI. ROS Other: All systems not noted in ROS Statement are negative. Past Medical History Past Medical History: Coronary Artery Disease (CAD), COPD, Deep Vein Thrombosis (DVT), Hyperlipidemia, Hypertension, Osteoarthritis (OA), Pneumonia, Skin Disorder, Vascular Disorder Additional Past Medical History / Comment(s): varicose veins. pneumonia 10 yrs ago. occ use knee brace(left) walker and cane. open sores on both legs(largest on left leg) LEAKING FLUID, poor circulation/blockage in both legs. urinary leakage. psoriasis. HX DVT'S IN LEGS. PAD. 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 Aortogram 10/23/16. Rt knee replacement. 11/21/16 PTBA W/ SENT LT. Past Anesthesia/Blood Transfusion Reactions: Motion Sickness Past Psychological History: No Psychological Hx Reported Smoking Status: Never smoker Past Alcohol Use History: Rare Past Drug Use History: None Reported - Past Family History Father Family Medical History: No Reported History Mother Family Medical History: Cancer General Exam Limitations: no limitations General appearance: alert, in no apparent distress Head exam: Present: atraumatic, normocephalic, normal inspection Neck exam: Present: normal inspection, full ROM. Absent: tenderness, m eningismus, lymphadenopathy Respiratory exam: Present: normal lung sounds bilaterally. Absent: respiratory distress, wheezes, rales, rhonchi, stridor Cardiovascular Exam: Present: regular rate, normal rhythm, normal heart sounds. Absent: systolic murmur, diastolic murmur, rubs, gallop, clicks Extremities exam: Present: other (Left calf posterior aspect there is a large 4 cm ulcerated area with surrounding erythematous changes) Neurological exam: Present: alert Skin exam: Present: warm, dry, intact, normal color. Absent: rash Course Vital Signs 05/01/21 05/01/21 11:13 13:16 Temperature 97.7 F Pulse Rate 65 73 Respiratory 16 18 Rate Blood Pressure 134/77 146/67 O2 Sat by Pulse 98 98 Oximetry Medical Decision Making - Medical Decision Making Patient sent for left calf ulceration cellulitis. Patient be admitted for IV and buttocks, wound care - Lab Data Result diagrams: 05/01/21 12:37 05/01/21 12:37 Lab Results 05/01/21 05/01/21 05/01/21 Range/Units 12:37 12:37 12:37 WBC 6.2 (3.8-10.6) k/uL RBC 4.15 (3.80-5.40) m/uL Hgb 11.7 (11.4-16.0) gm/dL Hct 37.4 (34.0-46.0) % MCV 90.0 (80.0-100.0) fL MCH 28.1 (25.0-35.0) pg MCHC 31.2 (31.0-37.0) g/dL RDW 15.3 (11.5-15.5) % Plt Count 231 (150-450) k/uL MPV 8.2 Neutrophils % 65 % Lymphocytes % 22 % Monocytes % 7 % Eosinophils % 3 % Basophils % 0 % Neutrophils # 4.0 (1.3-7.7) k/uL Lymphocytes # 1.3 (1.0-4.8) k/uL Monocytes # 0.5 (0-1.0) k/uL Eosinophils # 0.2 (0-0.7) k/uL Basophils # 0.0 (0-0.2) k/uL Hypochromasia Moderate Sodium 136 L (137-145) mmol/L Potassium 4.1 (3.5-5.1) mmol/L Chloride 105 (98-107) mmol/L Carbon Dioxide 25 (22-30) mmol/L Anion Gap 6 mmol/L BUN 16 (7-17) mg/dL Creatinine 0.88 (0.52-1.04) mg/dL Est GFR (CKD-EPI)AfAm 76 (>60 ml/min/1.73 sqM) Est GFR (CKD-EPI)NonAf 66 (>60 ml/min/1.73 sqM) Glucose 105 H (74-99) mg/dL Plasma Lactic Acid Jaron 1.1 (0.7-2.0) mmol/L Calcium 9.3 (8.4-10.2) mg/dL Total Bilirubin 0.6 (0.2-1.3) mg/dL AST 23 (14-36) U/L ALT 15 (4-34) U/L Alkaline Phosphatase 103 (38-126) U/L C-Reactive Protein 0.7 (<1.0) mg/dL Total Protein 6.5 (6.3-8.2) g/dL Albumin 3.7 (3.5-5.0) g/dL Disposition Clinical Impression: Left leg cellulitis, Leg ulcer, left Disposition: ADMITTED IP TO THIS HOSP Condition: Fair Referrals: Odell Lala MD [Primary Care Provider] - 1-2 days
[2021-05-01] MEDS ORDERED: VANCOMYCIN 1,750 MG in SODIUM CHLORIDE 0.9% 500 ML 500 ML IVPB STA (13:44)
--- NOTE | 2021-05-01 13:57 | XR ---
EXAMINATION TYPE: XR tibia fibula LT DATE OF EXAM: 05/01/2021 CLINICAL HISTORY: pain TECHNIQUE: AP and lateral images of the left tibia and fibula are obtained. COMPARISON: None. FINDINGS: There is no acute fracture/dislocation evident. Severe degenerative change about the knee joint. Soft tissue edema may reflect cellulitis. No evidence for osteomyelitis. IMPRESSION: There is no acute fracture or dislocation seen. ICD 10 NO FRACTURE, INITIAL EVALUATION
[2021-05-01] MEDS ORDERED: ONDANSETRON 4 MG/2 ML VIAL IVP PRN (14:05)
[2021-05-01] MEDS ORDERED: ACETAMINOPHEN TAB 325 MG TAB PO PRN (14:05)
[2021-05-01] MEDS ORDERED: NALOXONE 0.4 MG/ML 1 ML VIAL IV PRN (14:05)
[2021-05-01] MEDS ORDERED: CYCLOBENZAPRINE 10 MG TAB PO PRN (16:10)
[2021-05-01 16:47] LABS: INR 2.5 (<1.2); Prothrombin Time 23.9 sec (9.0-12.0)
[2021-05-01] MEDS: WARFARIN 5 MG TAB PO SCH (17:22)
[2021-05-01] MEDS: HYDROcodone/APAP 10-325MG 1 EACH TAB PO PRN (20:27)
[2021-05-01] MEDS: OXYBUTYNIN CHLORIDE 5 MG TAB PO SCH (22:09)
[2021-05-01] MEDS: METOPROLOL TARTRATE 50 MG TAB PO SCH (22:09)
[2021-05-01] MEDS: GABAPENTIN 100 MG CAP PO SCH ×2 (22:09→23:35)
[2021-05-01] MEDS: ATORVASTATIN 10 MG TAB PO SCH (22:09)
[2021-05-02] MEDS: VANCOMYCIN 1,750 MG in SODIUM CHLORIDE 0.9% 500 ML 500 ML IVPB SCH ×2 (05:17→21:17)
[2021-05-02 06:46] LABS: INR 2.9 (<1.2)
[2021-05-02] MEDS: METOPROLOL TARTRATE 50 MG TAB PO SCH ×2 (08:39→21:17)
[2021-05-02] MEDS: OXYBUTYNIN CHLORIDE 5 MG TAB PO SCH ×2 (08:39→21:17)
[2021-05-02] MEDS: POTASSIUM CHLORIDE ER 10 MEQ TAB.ER.PRT PO SCH (08:39)
[2021-05-02] MEDS: GABAPENTIN 100 MG CAP PO SCH ×2 (08:39→21:18)
[2021-05-02] MEDS: ASPIRIN 81 MG PO SCH (08:39)
[2021-05-02] MEDS: lisinopriL 20 MG TAB PO SCH (08:40)
--- NOTE | 2021-05-02 12:10 | P.GSCN ---
History of Present Illness Consult date: 05/02/21 Reason for Consult: Lower extremity cellulitis, left leg ulcer Requesting physician: Nura Suarez History of present illness: This is a 70-year-old female with a past medical history of referral arterial disease, coronary artery disease status post CABG and valve replacement, COPD, DVT, hyperlipidemia, hypertension, and former smoker of 4 pack per day 20 years who quit 10 years ago. The patient states she's had a wound to her left calf for a few months that she's been treating herself at home. She previously had a left lower extremity wound that she was seen Dr. Doherty from the wound clinic. The patient also had seen in the past by Dr. Kingsley who has done bilateral lower extremity SFA balloon angioplasty in 2017. The patient states that she did not have much improvement and stopped seeing him. She is currently on [place] aspirin and Lipitor 10 mg. States she had been on Plavix but when she no longer follow with Dr. Kingsley she stopped. Patient states she has decreased mobility due to claudication and left knee has [id number] and needs replacement. She denies any fevers, chills, abdominal pain, nausea, vomiting, shortness of breath or chest pain. Review of Systems A 14 point review of systems was completed, all pertinent positives and negatives as stated in the HPI. Past Medical History Past Medical History: Coronary Artery Disease (CAD), COPD, Deep Vein Thrombosis (DVT), Hyperlipidemia, Hypertension, Osteoarthritis (OA), Pneumonia, Skin Disorder, Vascular Disorder Additional Past Medical History / Comment(s): varicose veins. pneumonia 10 yrs ago. occ use knee brace(left) walker and cane. open sores on both legs(largest on left leg) LEAKING FLUID, poor circulation/blockage in both legs. urinary leakage. psoriasis. HX DVT'S IN LEGS. PAD. 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 Aortogram 10/23/16. Rt knee replacement. 11/21/16 PTBA W/ SENT LT. Past Anesthesia/Blood Transfusion Reactions: Motion Sickness Past Psychological History: No Psychological Hx Reported Additional Psychological History / Comment(s): "fear of heights" Smoking Status: Never smoker Past Alcohol Use History: Rare Additional Past Alcohol Use History / Comment(s): smoked 4 PPD- quit 2011, started smoking age 12. does use E-cigarette Past Drug Use History: None Reported - Past Family History Father Family Medical History: No Reported History Mother Family Medical History: Cancer Medications and Allergies Home Medications Medication Instructions Recorded Confirmed Type Atorvastatin [Lipitor] 10 mg PO HS 10/18/16 05/01/21 History Cyclobenzaprine [Flexeril] 10 mg PO TID PRN 10/18/16 05/01/21 History Enalapril [Vasotec] 10 mg PO DAILY 10/18/16 05/01/21 History Ergocalciferol (Vitamin D2) 50,000 unit PO CARDENAS 10/18/16 05/01/21 History [Vitamin D2] Gabapentin [Neurontin] 100 mg PO DAILY 10/18/16 05/01/21 History HYDROcodone/APAP 10-325MG [[place] 1 tab PO Q6HR PRN 10/18/16 05/01/21 History 10-325] Metoprolol Tartrate [Lopressor] 50 mg PO BID 10/18/16 05/01/21 History Warfarin [Coumadin] 2.5 mg PO WEFR 01/25/17 05/01/21 History Warfarin [Coumadin] 5 mg PO SUMOTUTHSA 01/25/17 05/01/21 History Aspirin EC [Ecotrin Low Dose] 81 mg PO DAILY 05/01/21 05/01/21 History Doxycycline Hyclate [Vibramycin] 100 mg PO DAILY 05/01/21 05/01/21 History Gabapentin [Neurontin] 200 mg PO HS 05/01/21 05/01/21 History Oxybutynin Chloride 5 mg PO BID 05/01/21 05/01/21 History Potassium Gluconate [Potassium 99 mg PO DAILY 05/01/21 05/01/21 History Gluconate ER] Allergies Allergy/AdvReac Type Severity Reaction Status Date / Time amoxicillin Allergy Severe Dyspnea Verified 05/01/21 13:56 latex Allergy Severe Anaphylaxis Verified 05/01/21 13:56 nickel Allergy Unknown Rash/Hives Verified 05/01/21 13:56 Sulfa (Sulfonamide Allergy Rash/Hives Verified 05/01/21 13:56 Antibiotics) Surgical - Exam Vital Signs Temp Pulse Resp BP Pulse Ox 97.7 F 65 16 134/77 98 05/01/21 11:13 05/01/21 11:13 05/01/21 11:13 05/01/21 11:13 05/01/21 11:13 General appearance: The patient is alert, oriented, appears n no acute distress. HET: Head is normocephalic and atraumatic. Pupils are equal and reactive. Oropharynx is clear without lesions. Neck: Supple without lymphadenopathy. Trachea midline. Heart: S1 S2. Regular rate and rhythm. Lungs: Diminished. Abdomen: Soft, nontender, nondistended. Extremities: Bilateral lower extremity venous stasis, cellulitis, ulcer to left calf with serosanguineous drainage, no odor noted. Bilateral multiphasic dorsalis pedis, posterior tibialis, popliteal, and femoral Doppler signals. Neurological: No focal deficits. Strength and sensation are grossly intact. Results - Labs 05/01/21 12:37 05/01/21 12:37 Abnormal Lab Results - Last 24 Hours (Table) 05/01/21 05/01/21 05/01/21 Range/Units 12:37 13:00 13:00 ESR 28 H (0-20) mm/hr PT 23.9 H (9.0-12.0) sec INR 2.5 H (<1.2) Sodium 136 L (137-145) mmol/L Glucose 105 H (74-99) mg/dL 05/02/21 Range/Units 05:51 ESR (0-20) mm/hr PT 28.0 H (9.0-12.0) sec INR 2.9 H (<1.2) Sodium (137-145) mmol/L Glucose (74-99) mg/dL Microbiology - Last 24 Hours (Table) 05/01/21 13:18 Gram Stain - Preliminary Leg - Left Wound Culture - Preliminary Diabetes panel 05/01/21 Range/Units 12:37 Sodium 136 L (137-145) mmol/L Potassium 4.1 (3.5-5.1) mmol/L Chloride 105 (98-107) mmol/L Carbon Dioxide 25 (22-30) mmol/L BUN 16 (7-17) mg/dL Creatinine 0.88 (0.52-1.04) mg/dL Glucose 105 H (74-99) mg/dL Calcium 9.3 (8.4-10.2) mg/dL AST 23 (14-36) U/L ALT 15 (4-34) U/L Alkaline Phosphatase 103 (38-126) U/L Total Protein 6.5 (6.3-8.2) g/dL Albumin 3.7 (3.5-5.0) g/dL Calcium panel 05/01/21 Range/Units 12:37 Calcium 9.3 (8.4-10.2) mg/dL Albumin 3.7 (3.5-5.0) g/dL Pituitary panel 05/01/21 Range/Units 12:37 Sodium 136 L (137-145) mmol/L Potassium 4.1 (3.5-5.1) mmol/L Chloride 105 (98-107) mmol/L Carbon Dioxide 25 (22-30) mmol/L BUN 16 (7-17) mg/dL Creatinine 0.88 (0.52-1.04) mg/dL Glucose 105 H (74-99) mg/dL Calcium 9.3 (8.4-10.2) mg/dL Adrenal panel 05/01/21 Range/Units 12:37 Sodium 136 L (137-145) mmol/L Potassium 4.1 (3.5-5.1) mmol/L Chloride 105 (98-107) mmol/L Carbon Dioxide 25 (22-30) mmol/L BUN 16 (7-17) mg/dL Creatinine 0.88 (0.52-1.04) mg/dL Glucose 105 H (74-99) mg/dL Calcium 9.3 (8.4-10.2) mg/dL Total Bilirubin 0.6 (0.2-1.3) mg/dL AST 23 (14-36) U/L ALT 15 (4-34) U/L Alkaline Phosphatase 103 (38-126) U/L Total Protein 6.5 (6.3-8.2) g/dL Albumin 3.7 (3.5-5.0) g/dL - Imaging Comments: Arterial ultrasound multilevel bilateral lower extremities: Right SYD 0.77, left SYD 0.54, patient unable to tolerate left lower extremity pressures Assessment and Plan Assessment: 1. Left lower extremity venous stasis ulcer 2. Lower extremity cellulitis 3. History of peripheral arterial disease, status post angioplasty bilateral SFA (2017, Dr. Kingsley) 4. Coronary artery disease status post CABG and valve replacement 5. COPD 6. Former smoker for packs per day 20 years 7. Hyperlipidemia 8. Hypertension Plan: 1. Bilateral lower extremity arterial duplex study ordered 2. Elevate bilateral lower extremities 3. Recommend compression stockings to bilateral lower extremities 4. Dressing changes to left lower extremity per recommendations from wound care 5. Recommend weight loss 6. Further recommendations to follow Thank you for this consultation and allowing us take part in the plan of care of your patient during her hospital stay. The impression and plan of care has been dictated as directed. I performed a history and examination of this patient, discussed the same with the dictator. I agree with the dictator's note ,documented as a scribe. Any additional findings or plans will be noted.
[2021-05-02 13:21] VITALS: BMI 42.9
[2021-05-02] MEDS ORDERED: FUROSEMIDE 10 MG/ML 4 ML VIAL IV SCH (13:45)
--- NOTE | 2021-05-02 14:15 | P.HPIM ---
History of Present Illness H&P Date: 05/02/21 Chief Complaint: Nonhealing left lower extremity wound with surrounding cell ulitis History of present illness 70 years old female with past medical history of coronary artery disease status post CABG with repair of aneurysm, biased headache aortic valve replacement, history of COPD, DVT, peripheral artery disease, hyperlipidemia, varicose veins, former some smoker present with nonhealing wound in the left lower extremity for the past 3 months. Patient did not see her primary care physician for the past 3 months until she decided to go see him in the office as the wound ulcer was increasing in size. Patient also endorses shortness of breath on exertion. Patient has seen wound center for wound in the left lower extremity which healed until recently when a new ulcer developed on the lower extremity. Patient uses a walker around the house and is limited in her mobility due to severe knee arthritis and pain in the lower extremity on exertion. Patient has seen Dr. Shah for bilateral lower extremity SFA balloon angioplasty in 2017. She does have a follow-up appointment with him. On evaluation in the ER. Patient had a temp of 98.5 pulse 85 respiratory rate 18 blood pressure 131/68. Saturating 99% on room air. Lab assessment suggest a WBC of 6.2 hemoglobin 11.7 and ESR 28 INR 2.5 sodium 136 potassium 4.1 chloride 105 bicarb 25 BUN 16 creatinine 0.8 glucose 105 lactic acid 1.1 CRP of 0.7. Ultrasound lower extremity ordered. Vascular surgery and infectious disease has been consulted. Vancomycin been initiated. Lasix initiated 40 IV twice a day. Echocardiogram ordered to rule out CHF ROS Constitutional: Denies chills, Denies fever, endorses lethargy, Denies poor appetite Denies weight loss Eyes: denies decreased vision, denies diplopia, denies discharge, denies pain Ears: deny: decreased hearing Ears, nose, mouth and throat: Denies dental pain, Denies headache, Denies nasal discharge, Denies nose pain Cardiovascular: Denies chest pain, Denies decreased exercise tolerance, Denies edema, Denies high blood pressure, Denies irregular heart beat, Denies palpitations, Denies paroxysmal nocturnal dyspnea, Denies rapid heart beat, Denies shortness of breath Respiratory: Denies congestion, Denies cough, Denies cough with sputum, Denies dyspnea, Denies home oxygen, Denies wheezing Gastrointestinal: Denies abdominal pain, Denies change in bowel habits, Denies coffee ground emesis, Denies early satiety, Denies excessive gas, Denies heartburn, Denies hematemesis, Denies hematochezia, Denies loss of appetite, Denies nausea, Denies vomiting Genitourinary: Denies dysuria, Denies flank pain, Denies kidney stones, Denies menorrhagia, Denies urgency, Denies urinary frequency Musculoskeletal: Endorses gait dysfunction, endorses limitation of motion, Denies morning stiffness, Denies muscle cramps Integumentary: Endorses rash, endorses wounds, endorses swelling in the lower extremities Denies brittle nails, Denies change in hair/nails, Denies darkening of skin Neurological: Denies balance difficulties, Denies change in speech, Denies double vision, Denies gait dysfunction, Denies loss of vision, endorses motor disturbance, Denies numbness, Denies paralysis, Denies paresthesias, Denies seizures Psychiatric: Denies anxiety, Denies depression Endocrine: Denies excessive sweating, Denies excessive thirst, Denies high blood sugars, Denies palpitations Hematologic/Lymphatic: Denies easy bruising, Denies lymphadenopathy Social history Patient lives with her . Uses a walker at home. Ex-smoker quit smoking 10 years ago when she had her cardiac bypass. She smoked for by the day since she was 14 denies any alcohol use Family history Mother of COVID at aged 90 Did not know her father Half-brother and half-sister healthy And 1 girl and a boy both are healthy Physical exam - Constitutional General appearance: cooperative, no acute distress, obese - EENT Eyes: anicteric sclerae, PERRLA, normal appearance ENT: hearing grossly normal - Neck Neck: no lymphadenopathy, normal ROM, no other, no rigidity, no stridor, no thyromegaly - Respiratory Respiratory: bilateral: CTA, negative: diminished, dullness, rales, rhonchi - Cardiovascular Rhythm: regular Heart sounds: normal: S1, S2 Abnormal Heart Sounds: 3/ 6 systolic murmur, 2/6 diastolic murmur, no rub, no S3 Gallop, no S4 Gallop, no click, decreased peripheral pulses in the left lower extremity- Gastrointestinal General gastrointestinal: normal bowel sounds, soft nontender - Integumentary Integumentary: Bilateral lower extremity swelling with increased redness noted in the left lower extremity 15 cm into 7 cm size wound present in the left lower extremity with purulent drainage - Neurologic Neurologic: No motor or sensory deficit - Musculoskeletal Musculoskeletal: strength decreased bilaterally - Psychiatric Psychiatric: A&O x's 3, appropriate affect Assessment and plan #1 lower extremity cellulitis sepsis ruled out continue vancomycin. Infectious disease recommendation appreciated. #2 lower extremity venous stasis ulcer with lower extremity swelling. Plan for debridement with vascular surgery. Wound care consult placed. Vascular surgery surgery consulted and recommended elevation of bilateral lower extremities and compression stockings for bilateral lower extremity. Lasix 80 by mouth twice a day. #3 history of peripheral artery disease status post angioplasty bilateral SFA [address] Shah. No follow-up appointment. Lower extremity arterial duplex study ordered #4 history of coronary artery disease status post CABG 10 years ago. Echocardiogram ordered. Continue aspirin, atorvastatin, lisinopril, metoprolol tartrate #5 history of bioprosthetic aortic valve stable echocardiogram ordered #6 history of DVT on Coumadin #7 generalized debility with lower extremity weakness. PTOT consult. #8 COPD stable #9 hyperlipidemia continue atorvastatin 20 mg daily #10 hypertension continue lisinopril and metoprolol. Low-salt diet #11 former smoker stable #12 aortic aneurysm repair stable and continued to maintain systolic blood pressure less than 120 #13 CODE STATUS full code #14 DVT prophylaxis with warfarin #15 GI prophylaxis Pepcid 20 daily #16 disposition patient need 1-2 inpatient nights for stabilization Past Medical History Past Medical History: Coronary Artery Disease (CAD), COPD, Deep Vein Thrombosis (DVT), Hyperlipidemia, Hypertension, Osteoarthritis (OA), Pneumonia, Skin Disorder, Vascular Disorder Additional Past Medical History / Comment(s): varicose veins. pneumonia 10 yrs ago. occ use knee brace(left) walker and cane. open sores on both legs(largest on left leg) LEAKING FLUID, poor circulation/blockage in both legs. urinary leakage. psoriasis. HX DVT'S IN LEGS. PAD. 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 Aortogram 10/23/16. Rt knee replacement. 11/21/16 PTBA W/ SENT LT. Past Anesthesia/Blood Transfusion Reactions: Motion Sickness Past Psychological History: No Psychological Hx Reported Additional Psychological History / Comment(s): "fear of heights" Smoking Status: Never smoker Past Alcohol Use History: Rare Additional Past Alcohol Use History / Comment(s): smoked 4 PPD- quit 2011, started smoking age 12. does use E-cigarette Past Drug Use History: None Reported - Past Family History Father Family Medical History: No Reported History Mother Family Medical History: Cancer Medications and Allergies Home Medications Medication Instructions Recorded Confirmed Type Atorvastatin [Lipitor] 10 mg PO HS 10/18/16 05/01/21 History Cyclobenzaprine [Flexeril] 10 mg PO TID PRN 10/18/16 05/01/21 History Enalapril [Vasotec] 10 mg PO DAILY 10/18/16 05/01/21 History Ergocalciferol (Vitamin D2) 50,000 unit PO CARDENAS 10/18/16 05/01/21 History [Vitamin D2] Gabapentin [Neurontin] 100 mg PO DAILY 10/18/16 05/01/21 History HYDROcodone/APAP 10-325MG [[place] 1 tab PO Q6HR PRN 10/18/16 05/01/21 History 10-325] Metoprolol Tartrate [Lopressor] 50 mg PO BID 10/18/16 05/01/21 History Warfarin [Coumadin] 2.5 mg PO WEFR 01/25/17 05/01/21 History Warfarin [Coumadin] 5 mg PO SUMOTUTHSA 01/25/17 05/01/21 History Aspirin EC [Ecotrin Low Dose] 81 mg PO DAILY 05/01/21 05/01/21 History Doxycycline Hyclate [Vibramycin] 100 mg PO DAILY 05/01/21 05/01/21 History Gabapentin [Neurontin] 200 mg PO HS 05/01/21 05/01/21 History Oxybutynin Chloride 5 mg PO BID 05/01/21 05/01/21 History Potassium Gluconate [Potassium 99 mg PO DAILY 05/01/21 05/01/21 History Gluconate ER] Allergies Allergy/AdvReac Type Severity Reaction Status Date / Time amoxicillin Allergy Severe Dyspnea Verified 05/01/21 13:56 latex Allergy Severe Anaphylaxis Verified 05/01/21 13:56 nickel Allergy Unknown Rash/Hives Verified 05/01/21 13:56 Sulfa (Sulfonamide Allergy Rash/Hives Verified 05/01/21 13:56 Antibiotics) Physical Exam Vitals: Vital Signs Temp Pulse Pulse Resp BP BP Pulse Ox 05/02/21 08:00 98.5 F 87 18 172/78 97 05/02/21 02:45 98.9 F 72 19 154/82 97 05/02/21 00:50 80 17 05/02/21 00:45 99.0 F 80 17 131/68 98 05/01/21 23:40 99.4 F 72 18 133/60 95 05/01/21 22:08 87 18 176/78 99 05/01/21 21:10 16 05/01/21 19:36 97.9 F 82 18 159/83 98 05/01/21 18:55 92 18 184/78 97 05/01/21 14:13 74 18 156/89 99 05/01/21 13:16 73 18 146/67 98 05/01/21 11:13 97.7 F 65 16 134/77 98 Intake and Output 05/01/21 05/02/21 05/02/21 22:59 06:59 14:59 Other: Voiding Method Incontinent # Voids 2 Weight 117.027 kg Results CBC & Chem 7: 05/01/21 12:37 05/01/21 12:37 Labs: Abnormal Lab Results - Last 24 Hours (Table) 05/01/21 05/01/21 05/01/21 Range/Units 12:37 13:00 13:00 ESR 28 H (0-20) mm/hr PT 23.9 H (9.0-12.0) sec INR 2.5 H (<1.2) Sodium 136 L (137-145) mmol/L Glucose 105 H (74-99) mg/dL 05/02/21 Range/Units 05:51 ESR (0-20) mm/hr PT 28.0 H (9.0-12.0) sec INR 2.9 H (<1.2) Sodium (137-145) mmol/L Glucose (74-99) mg/dL Microbiology - Last 24 Hours (Table) 05/01/21 13:18 Gram Stain - Preliminary Leg - Left Wound Culture - Preliminary Group D Enterococcus Gram Neg Bacilli Gram Neg Bacilli#2 Thrombosis Risk Factor Assmnt - Choose All That Apply Each Factor Represents 1 point: Obesity (BMI >25), Swollen legs (current) Each Risk Factor Represents 2 Points: Age 61-74 years Each Risk Factor Represents 3 Points: Elevated Serum Homocysteine, Family history of DVT/PE, History of DVT/PE Thrombosis Risk Factor Assessment Total Risk Factor Score: 13 Thrombosis Risk Factor Assessment Level: High Risk
[2021-05-02] MEDS: FUROSEMIDE 80 MG TAB PO SCH (15:31)
[2021-05-02] MEDS ORDERED: MENTHOL-ZINC OXIDE OINT 113 GM TUBE TOPICAL PRN (16:00)
[2021-05-02] MEDS: WARFARIN 5 MG TAB PO SCH (17:56)
[2021-05-02] MEDS: ATORVASTATIN 10 MG TAB PO SCH (21:18)
[2021-05-03] MEDS: FUROSEMIDE 80 MG TAB PO SCH ×2 (01:43→09:03)
--- NOTE | 2021-05-03 06:07 | P.CONS ---
History of Present Illness - Reason for Consult Consult date: 05/02/21 left leg cellulitis Requesting physician: Mike Larson - Chief Complaint left leg pain and worsening redness x few days - History of Present Illness History of present illness : Patient is a 70-year-old female with a past medical history significant for chronic swelling to the lower extremity and history of venous stasis ulcer presented to the ER yesterday afternoon for evaluation of increasing swelling and redness to the lower extremity especially to the left leg patient was having more swelling and redness especially to the left leg also complaining of pain to like to be more of a dull aching to throbbing 6-7 out of 10 had no radiation patient did have a increasing drainage from the left leg patient has been on oral doxycycline in the outpatient without any improvement with the symptom per the patient has been evaluated by the ER physician on arrival to the ER patient was afebrile patient did have a normal white count kidney function was normal no blood cultures were obtained which demonstrated Enterococcus and gram-negative bacilli blood culture has been negative x-ray did not show any bony changes patient was started on vancomycin infectious disease was consulted for further management of antibiotic therapy Review of system: CONSTITUTIONAL: Positive for weakness did have some chills but denies high- grade fever. EYES: No complaint. ENT: No complaint. RESPIRATORY: No complaint. CARDIOVASCULAR: No complaint. GENITOURINARY: No complaint. GASTROINTESTINAL: No complaint. MUSCULOSKELETAL: No complaint. INTEGUMENTARY: As per history of present illness. PSYCHOLOGIC: No complaint. ENDOCRINE: No complaint. NEUROLOGIC: No complaint. Past medical history : Reviewed, documented below Past surgical history : Reviewed, documented below Social history: Reviewed, documented below Medications: Reviewed, as documented below GENERAL DESCRIPTION: Elderly female lying in bed, no distress. No tachypnea or accessory muscle of respiration use. HEENT: Shows Pallor , no scleral icterus. Oral mucous membrane is dry. NECK: Trachea central, no thyromegaly. LUNGS: Unlabored breathing. Clear to auscultation anteriorly. No wheeze or crack le. HEART: S1, S2, regular rate and rhythm. ABDOMEN: Soft, no tenderness , guarding or rigidity EXTREMITIES: Diffuse swelling of lower extremity left leg did have a superficial ulceration with some slough tissue minimal surrounding redness and drainage no foul-smelling. SKIN: No rash, no masses palpable. NEUROLOGICAL: The patient is awake, alert, oriented x3, mood and affect normal. LABS AND RADIOLOGY: Reviewed results see below Assessment :1- Patient with bilateral lower extremity venous stasis ulcer and cellulitis more marked on the left leg and concern for secondary cellulitis, superficial cultures are now showing gram-negative bacilli and Enterococcus 2-patient with multiple antibiotic allergies that would limit the number of antibiotics safe to use Plan: 1-vancomycin pharmacy to dose her with a target trough of 15 while watching her kidney function and Vanco trough closely. 2-cefepime 2 g every 8 hours 3-local wound care to the left leg ulceration with the Medihoney and Keegan wrap for compression We will follow on clinical condition and cultures to further adjust medication i f needed Thank you for this consultation we will follow the patient along with you Past Medical History Past Medical History: Coronary Artery Disease (CAD), COPD, Deep Vein Thrombosis (DVT), Hyperlipidemia, Hypertension, Osteoarthritis (OA), Pneumonia, Skin D isorder, Vascular Disorder Additional Past Medical History / Comment(s): varicose veins. pneumonia 10 yrs ago. occ use knee brace(left) walker and cane. open sores on both legs(largest on left leg) LEAKING FLUID, poor circulation/blockage in both legs. urinary leakage. psoriasis. HX DVT'S IN LEGS. PAD. 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 Aortogram 10/23/16. Rt knee replacement. 11/21/16 PTBA W/ SENT LT. Past Anesthesia/Blood Transfusion Reactions: Motion Sickness Past Psychological History: No Psychological Hx Reported Additional Psychological History / Comment(s): "fear of heights" Smoking Status: Never smoker Past Alcohol Use History: Rare Additional Past Alcohol Use History / Comment(s): smoked 4 PPD- quit 2011, started smoking age 12. does use E-cigarette Past Drug Use History: None Reported - Past Family History Father Family Medical History: No Reported History Mother Family Medical History: Cancer Medications and Allergies Home Medications Medication Instructions Recorded Confirmed Type Atorvastatin [Lipitor] 10 mg PO HS 10/18/16 05/01/21 History Cyclobenzaprine [Flexeril] 10 mg PO TID PRN 10/18/16 05/01/21 History Enalapril [Vasotec] 10 mg PO DAILY 10/18/16 05/01/21 History Ergocalciferol (Vitamin D2) 50,000 unit PO CARDENAS 10/18/16 05/01/21 History [Vitamin D2] Gabapentin [Neurontin] 100 mg PO DAILY 10/18/16 05/01/21 History HYDROcodone/APAP 10-325MG [[place] 1 tab PO Q6HR PRN 10/18/16 05/01/21 History 10-325] Metoprolol Tartrate [Lopressor] 50 mg PO BID 10/18/16 05/01/21 History Warfarin [Coumadin] 2.5 mg PO WEFR 01/25/17 05/01/21 History Warfarin [Coumadin] 5 mg PO SUMOTUTHSA 01/25/17 05/01/21 History Aspirin EC [Ecotrin Low Dose] 81 mg PO DAILY 05/01/21 05/01/21 History Doxycycline Hyclate [Vibramycin] 100 mg PO DAILY 05/01/21 05/01/21 History Gabapentin [Neurontin] 200 mg PO HS 05/01/21 05/01/21 History Oxybutynin Chloride 5 mg PO BID 05/01/21 05/01/21 History Potassium Gluconate [Potassium 99 mg PO DAILY 05/01/21 05/01/21 History Gluconate ER] Allergies Allergy/AdvReac Type Severity Reaction Status Date / Time amoxicillin Allergy Severe Dyspnea Verified 05/01/21 13:56 latex Allergy Severe Anaphylaxis Verified 05/01/21 13:56 nickel Allergy Unknown Rash/Hives Verified 05/01/21 13:56 Sulfa (Sulfonamide Allergy Rash/Hives Verified 05/01/21 13:56 Antibiotics) Physical Exam Vitals: Vital Signs Temp Pulse Pulse Resp BP BP Pulse Ox 05/02/21 08:00 98.5 F 87 18 172/78 97 05/02/21 02:45 98.9 F 72 19 154/82 97 05/02/21 00:50 80 17 05/02/21 00:45 99.0 F 80 17 131/68 98 05/01/21 23:40 99.4 F 72 18 133/60 95 05/01/21 22:08 87 18 176/78 99 05/01/21 21:10 16 05/01/21 19:36 97.9 F 82 18 159/83 98 05/01/21 18:55 92 18 184/78 97 05/01/21 14:13 74 18 156/89 99 05/01/21 13:16 73 18 146/67 98 Intake and Output 05/01/21 05/02/21 05/02/21 22:59 06:59 14:59 Other: Voiding Method Incontinent # Voids 2 Weight 117.027 kg Results CBC & Chem 7: 05/01/21 12:37 05/01/21 12:37 Labs: Abnormal Lab Results - Last 24 Hours (Table) 05/01/21 05/01/21 05/01/21 Range/Units 12:37 13:00 13:00 ESR 28 H (0-20) mm/hr PT 23.9 H (9.0-12.0) sec INR 2.5 H (<1.2) Sodium 136 L (137-145) mmol/L Glucose 105 H (74-99) mg/dL 05/02/21 Range/Units 05:51 ESR (0-20) mm/hr PT 28.0 H (9.0-12.0) sec INR 2.9 H (<1.2) Sodium (137-145) mmol/L Glucose (74-99) mg/dL Microbiology - Last 24 Hours (Table) 05/01/21 13:18 Gram Stain - Preliminary Leg - Left Wound Culture - Preliminary Group D Enterococcus Gram Neg Bacilli Gram Neg Bacilli#2
[2021-05-03 07:34] LABS: INR 2.6 (<1.2); Prothrombin Time 25.1 sec (9.0-12.0)
--- NOTE | 2021-05-03 07:40 | ECHOF ---
Referral Reason:CHF MEASUREMENTS -------- HEIGHT: 165.1 cm WEIGHT: 117.0 kg BP: IVSd: 1.0 cm (0.6 - 1.1) LVIDd: 4.0 cm (3.9 - 5.3) LVPWd: 0.9 cm (0.6 - 1.1) IVSs: 1.5 cm LVIDs: 1.5 cm LVPWs: 1.4 cm Ao Diam: 2.8 cm (2.0 - 3.7) AV Cusp: 0.7 cm (1.5 - 2.6) LA Diam: 3.8 cm (2.7 - 3.8) MV EXCURSION: 16.312 mm (> 18.000) MV EF SLOPE: 60 mm/s (70 - 150) EPSS: 0.7 cm MV E Daniel: 1.04 m/s MV DecT: 254 ms MV A Daniel: 1.26 m/s MV E/A Ratio: 0.83 AV maxP.07 mmHg AV meanP.21 mmHg RAP: 5.00 mmHg RVSP: 14.31 mmHg FINDINGS -------- This was a technically difficult study with suboptimal views. The left ventricular size is normal. Left ventricular wall thickness is normal. Overall left vent ricular systolic function is normal with, an EF between 55 - 60 %. The right ventricle is normal in size. The left atrial size is normal. The right atrial size is normal. Lumason used Trace amount of aortic regurgitation. Peak/mean gradient across the Aortic Valve is 70.07mmHg / 39 .21mmHg. The mitral valve is normal. The mitral valve leaflets are moderately thickened. Moderate mitral a nnular calcification present. Mild mitral regurgitation is present. The peak and mean MV gradien ts are 8.42mmHg 3.03mmHg as measured by doppler. Oeas-im-cppeiqkx mitral stenosis. The tricuspid valve appears structurally normal. Mild tricuspid regurgitation present. Right vent ricular systolic pressure is normal at < 35 mmHg. There is no pulmonic regurgitation present. The aortic root size is normal. IVC Not well visulized. There is no pericardial effusion. CONCLUSIONS -------- 1. The left ventricular size is normal. 2. Left ventricular wall thickness is normal. 3. Overall left ventricular systolic function is normal with, an EF between 55 - 60 %. 4. Trace amount of aortic regurgitation. 5. Peak/mean gradient across the Aortic Valve is 70.07mmHg / 39.21mmHg. 6. The mitral valve leaflets are moderately thickened. 7. Moderate mitral annular calcification present. 8. Mild mitral regurgitation is present. 9. The peak and mean MV gradients are 8.42mmHg 3.03mmHg as measured by doppler. 10. Nrya-ae-inclwxde mitral stenosis. 11. Mild tricuspid regurgitation present. 12. There is no pericardial effusion. PATTERN ATTENDANT: Linda Cadena RDCS
[2021-05-03] MEDS: CEFEPIME 2 GM in SODIUM CHLORIDE 0.9% 100 ML IVPB SCH ×3 (08:55→23:04)
[2021-05-03] MEDS: ASPIRIN 81 MG PO SCH (09:02)
[2021-05-03] MEDS: lisinopriL 20 MG TAB PO SCH (09:02)
[2021-05-03] MEDS: OXYBUTYNIN CHLORIDE 5 MG TAB PO SCH ×2 (09:02→20:31)
[2021-05-03] MEDS: GABAPENTIN 100 MG CAP PO SCH ×2 (09:02→20:30)
[2021-05-03] MEDS: POTASSIUM CHLORIDE ER 10 MEQ TAB.ER.PRT PO SCH (09:02)
[2021-05-03] MEDS: METOPROLOL TARTRATE 50 MG TAB PO SCH ×2 (09:03→20:31)
[2021-05-03] MEDS: HYDROcodone/APAP 10-325MG 1 EACH TAB PO PRN ×2 (11:46→20:31)
--- NOTE | 2021-05-03 11:58 | P.ARTDOP ---
Arterial Doppler LOWER EXTREMITY ARTERIAL DOPPLER: DATE OF SERVICE: 05/02/2021 Reason for study: Left calf ulcer. Doppler waveforms: Atypical bilaterally throughout except the digital on the left and popliteal bilaterally which are more monophasic.. Pulse volume recording: Pressure gradients: Above the knee on the left and below the knee bilaterally. Ankle-brachial indices: 0.77 on the right and 0.54 on the left. Toe brachial indices: 0.27 on the right Impression: Moderate bilateral fem-pop disease. Cannot exclude iliac components bilaterally. Vascular specialty consult recommended..
--- NOTE | 2021-05-03 12:01 | P.PN ---
Subjective Progress Note Date: 05/03/21 Principal diagnosis: Left lower extremity ulcer, cellulitis Patient is seen and examined sitting at the bedside just worked with physical therapy. Left lower extremity wrapped with Keegan wrap, infectious disease has seen patient and started her on vancomycin and cefapime, awaiting final culture results. Wound care is not available. Dr. Trejo ordered medihoney to left lower extremity. Objective - Vital Signs Vital signs: Vital Signs Temp 98.0 F 05/03/21 07:22 Pulse 85 05/03/21 07:22 Resp 17 05/03/21 07:22 BP 130/79 05/03/21 07:22 Pulse Ox 96 05/03/21 07:22 Intake & Output 05/02/21 05/03/21 05/03/21 18:59 06:59 18:59 Output Total 1100 4750 Balance -1100 -4750 Weight 117.027 kg Output: Urine 1100 4750 Other: Voiding Method Diaper Diaper Incontinent External Catheter External Catheter - Exam General appearance: The patient is alert, oriented, in no acute distress. HET: Head is normocephalic and atraumatic. s. Extremities: Left lower extremity with Keegan wrap intact, patient has bilateral multiphasic femoral, popliteal, dorsalis pedis, and posterior tibialis Doppler signals. Good capillary refill. Neurological: No focal deficits. Alert and oriented 3. - Labs CBC & Chem 7: 05/01/21 12:37 05/03/21 06:59 Labs: Abnormal Lab Results - Last 24 Hours (Table) 05/03/21 Range/Units 06:59 PT 25.1 H (9.0-12.0) sec INR 2.6 H (<1.2) Microbiology - Last 24 Hours (Table) 05/01/21 12:30 Blood Culture - Preliminary Blood No Growth after 24 hours 05/01/21 12:15 Blood Culture - Preliminary Blood No Growth after 24 hours 05/01/21 13:18 Gram Stain - Preliminary Leg - Left Wound Culture - Preliminary Group D Enterococcus Gram Neg Bacilli Gram Neg Bacilli#2 Assessment and Plan Assessment: 1. Left lower extremity venous stasis ulcer 2. Lower extremity cellulitis 3. History of peripheral arterial disease, status post angioplasty bilateral SFA (2017, Dr. Kingsley) 4. Coronary artery disease status post CABG and valve replacement 5. COPD 6. Former smoker for packs per day 20 years 7. Hyperlipidemia 8. Hypertension Plan: 1. Bilateral lower extremity arterial duplex study ordered and reviewed 2. Elevate bilateral lower extremities 3. Recommend compression stockings to bilateral lower extremities 4. Continue dressing change to left lower extremity as ordered by infectious disease 5. Recommend weight loss 6. There is no indication for any vascular surgical intervention. Continue outpatient wound care. Patient can follow-up with vascular surgery as needed. Thank you for this consultation, we will sign off at this time. The impression and plan of care has been dictated as directed. I performed a history and examination of this patient, discussed the same with the dictator. I agree with the dictator's note ,documented as a scribe. Any additional findings or plans will be noted.
[2021-05-03] MEDS: VANCOMYCIN 2,000 MG in SODIUM CHLORIDE 0.9% 500 ML 500 ML IVPB SCH (14:42)
--- NOTE | 2021-05-03 15:02 | PN ---
PROGRESS NOTE DATE OF SERVICE: 05/03/2021 REASON FOR FOLLOWUP: Left lower extremity venostasis ulcer and cellulitis. INTERVAL HISTORY: The patient is afebrile. The patient is feeling better, breathing comfortably. Denies having any chest pain or cough. No abdominal pain or any worsening pain in the left leg wound area. PHYSICAL EXAMINATION: Blood pressure 111/71 with a pulse of 93, temperature 98.5. She is 97% on room air. GENERAL DESCRIPTION: General description is an elderly female lying in bed in no distress. RESPIRATORY SYSTEM: Unlabored breathing. Clear to auscultation anteriorly. HEART: S1, S2. Regular rate and rhythm. ABDOMEN: Soft. No tenderness. Left leg is currently dressed. No drainage on the dressing. LABS: Wound culture has been finalized with pseudomonas, klebsiella, enterococcus. DIAGNOSTIC IMPRESSION AND PLAN: Patient with left leg venostasis ulcer with secondary cellulitis. The patient has shown overall clinical improvement, insisting on going home. She does have MULTIPLE ANTIBIOTIC ALLERGIES. She will be given Cipro for about a week. INR needs to be monitored closely. Local care to continue per Vascular Surgery, ideally with Medihoney and compression and close outpatient followup. MMODL / IJN: [id number] / MTDD
--- NOTE | 2021-05-03 17:07 | P.PN ---
Subjective Progress Note Date: 05/03/21 Chief Complaint: Nonhealing left lower extremity wound with surrounding cellulitis History of present illness 70 years old female with past medical history of coronary artery disease status post CABG with repair of aneurysm, biased headache aortic valve replacement, history of COPD, DVT, peripheral artery disease, hyperlipidemia, varicose veins, former some smoker present with nonhealing wound in the left lower extremity for the past 3 months. Patient did not see her primary care physician for the past 3 months until she decided to go see him in the office as the wound ulcer was increasing in size. Patient also endorses shortness of breath on exertion. Patient has seen wound center for wound in the left lower extremity which healed until recently when a new ulcer developed on the lower extremity. Patient uses a walker around the house and is limited in her mobility due to severe knee arthritis and pain in the lower extremity on exertion. Patient has seen Dr. Shah for bilateral lower extremity SFA balloon angioplasty in 2017. She does have a follow-up appointment with him. On evaluation in the ER. Patient had a temp of 98.5 pulse 85 respiratory rate 18 blood pressure 131/68. Saturating 99% on room air. Lab assessment suggest a WBC of 6.2 hemoglobin 11.7 and ESR 28 INR 2.5 sodium 136 potassium 4.1 chloride 105 bicarb 25 BUN 16 creatinine 0.8 glucose 105 lactic acid 1.1 CRP of 0.7. Ultrasound lower extremity ordered. Vascular surgery and infectious disease has been consulted. Vancomycin been initiated. Lasix initiated 40 IV twice a day. Echocardiogram ordered to rule out CHF 05/03 patient examined for side. Patient insists on going home today. Denies any pain in the lower extremity. Does have swelling in the lower extremity. Underwent wound care. Patient underwent arterial study that suggested moderate bilateral [id number] disease. Vessel surgery seen patient and recommends compression stocking bilateral lower extremity and dressing changes to the left lower extremity. No surgical intervention recommended. Patient to follow-up with vascular surgeon as outpatient. Wound culture suggestive enterococcus Pseudomonas and Klebsiella. Infectious disease recommends ciprofloxacin for 10 days. Patient likely discharge tomorrow ROS Constitutional: Denies chills, Denies fever, endorses lethargy, Denies poor appetite Denies weight loss Eyes: denies decreased vision, denies diplopia, denies discharge, denies pain Ears: deny: decreased hearing Ears, nose, mouth and throat: Denies dental pain, Denies headache, Denies nasal discharge, Denies nose pain Cardiovascular: Denies chest pain, Denies decreased exercise tolerance, Denies edema, Denies high blood pressure, Denies irregular heart beat, Denies pal pitations, Denies paroxysmal nocturnal dyspnea, Denies rapid heart beat, Denies shortness of breath Respiratory: Denies congestion, Denies cough, Denies cough with sputum, Denies dyspnea, Denies home oxygen, Denies wheezing Gastrointestinal: Denies abdominal pain, Denies change in bowel habits, Denies coffee ground emesis, Denies early satiety, Denies excessive gas, Denies heartburn, Denies hematemesis, Denies hematochezia, Denies loss of appetite, Denies nausea, Denies vomiting Genitourinary: Denies dysuria, Denies flank pain, Denies kidney stones, Denies menorrhagia, Denies urgency, Denies urinary frequency Musculoskeletal: Endorses gait dysfunction, endorses limitation of motion, Denies morning stiffness, Denies muscle cramps Integumentary: Endorses rash, endorses wounds, endorses swelling in the lower extremities Denies brittle nails, Denies change in hair/nails, Denies darkening of skin Neurological: Denies balance difficulties, Denies change in speech, Denies double vision, Denies gait dysfunction, Denies loss of vision, endorses motor disturbance, Denies numbness, Denies paralysis, Denies paresthesias, Denies seizures Psychiatric: Denies anxiety, Denies depression Endocrine: Denies excessive sweating, Denies excessive thirst, Denies high blood sugars, Denies palpitations Hematologic/Lymphatic: Denies easy bruising, Denies lymphadenopathy Physical exam - Constitutional General appearance: cooperative, no acute distress, obese - EENT Eyes: anicteric sclerae, PERRLA, normal appearance ENT: hearing grossly normal - Neck Neck: no lymphadenopathy, normal ROM, no other, no rigidity, no stridor, no thyromegaly - Respiratory Respiratory: bilateral: CTA, negative: diminished, dullness, rales, rhonchi - Cardiovascular Rhythm: regular Heart sounds: normal: S1, S2 Abnormal Heart Sounds: 3/ 6 systolic murmur, 2/6 diastolic murmur, no rub, no S3 Gallop, no S4 Gallop, no click, decreased peripheral pulses in the left lower extremity- Gastrointestinal General gastrointestinal: normal bowel sounds, soft nontender - Integumentary Integumentary: Bilateral lower extremity swelling with increased redness noted in the left lower extremity 15 cm into 7 cm size wound present in the left lower extremity with purulent drainage - Neurologic Neurologic: No motor or sensory deficit - Musculoskeletal Musculoskeletal: strength decreased bilaterally - Psychiatric Psychiatric: A&O x's 3, appropriate affect Assessment and plan #1 lower extremity cellulitis sepsis ruled out continue vancomycin. Wound culture suggestive of enterococcus, Klebsiella and Pseudomonas Infectious disease recommendation appreciated. #2 lower extremity venous stasis ulcer with lower extremity swelling. Wound care with calmoseptine Vascular surgery surgery consulted and recommended elevation of bilateral lower extremities and compression stockings for bilateral lower extremity. Lasix increased to 40 twice a day #3 history of peripheral artery disease status post angioplasty bilateral SFA [address] Shah. No follow-up appointment. Lower extremity arterial duplex study just above bilateral [id number] disease that is affecting patient's healing of the ulcers #4 history of coronary artery disease status post CABG 10 years ago. Echocardiogram EF 55-60% moderate mitral calcification mild to moderate mitral stenosis Continue aspirin, atorvastatin, lisinopril, metoprolol tartrate #5 history of bioprosthetic aortic valve stable echocardiogram EF 55-60% moderate mitral annular calcification and moderate mitral stenosis #6 history of DVT on Coumadin Patient denies need for rehab #7 generalized debility with lower extremity weakness. PTOT consult. Patient denies the need for rehab. She would benefit from PT OT with home care #8 COPD stable #9 hyperlipidemia continue atorvastatin 20 mg daily #10 hypertension continue lisinopril and metoprolol. Low-salt diet #11 former smoker stable #12 aortic aneurysm repair stable and continued to maintain systolic blood pressure less than 120 #13 CODE STATUS full code #14 DVT prophylaxis with warfarin #15 GI prophylaxis Pepcid 20 daily #16 disposition home tomorrow Objective - Vital Signs Vital signs: Vital Signs Temp 98.7 F 05/03/21 15:26 Pulse 78 05/03/21 15:26 Resp 17 05/03/21 15:26 BP 100/67 05/03/21 15:26 Pulse Ox 93 L 05/03/21 15:26 Intake & Output 05/02/21 05/03/21 05/03/21 18:59 06:59 18:59 Output Total 1100 4750 Balance -1100 -4750 Weight 117.027 kg Output: Urine 1100 4750 Other: Voiding Method Diaper Diaper External Catheter Incontinent External Catheter External Catheter - Labs CBC & Chem 7: 05/01/21 12:37 05/03/21 06:59 Labs: Abnormal Lab Results - Last 24 Hours (Table) 05/03/21 Range/Units 06:59 PT 25.1 H (9.0-12.0) sec INR 2.6 H (<1.2) Microbiology - Last 24 Hours (Table) 05/01/21 12:30 Blood Culture - Preliminary Blood No Growth after 48 hours 05/01/21 12:15 Blood Culture - Preliminary Blood No Growth after 48 hours 05/01/21 13:18 Gram Stain - Final Leg - Left Wound Culture - Final Enterococcus faecalis Pseudomonas aeruginosa Klebsiella pneumoniae
[2021-05-03] MEDS ORDERED: WARFARIN 2.5 MG TAB PO SCH (18:00)
[2021-05-03] MEDS: ATORVASTATIN 10 MG TAB PO SCH (20:29)
[2021-05-03] MEDS: FUROSEMIDE 40 MG TAB PO SCH (20:29)
[2021-05-03] MEDS: CIPROFLOXACIN HCL 250 MG TAB PO SCH (21:26)
[2021-05-04] MEDS ORDERED: VANCOMYCIN TROUGH DUE 1 EACH MISC MISCELLANE ONE (05:00)
[2021-05-04 07:17] LABS: INR 2.7 (<1.2); Prothrombin Time 26.3 sec (9.0-12.0)
[2021-05-04 07:39] VITALS: BP 112/66; PULSE 78; RESP 18; TEMP 98.9
[2021-05-04] MEDS: CEFEPIME 2 GM in SODIUM CHLORIDE 0.9% 100 ML IVPB SCH (09:53)
[2021-05-04] MEDS: VANCOMYCIN 2,000 MG in SODIUM CHLORIDE 0.9% 500 ML 500 ML IVPB SCH (09:53)
[2021-05-04] MEDS: FUROSEMIDE 40 MG TAB PO SCH (09:59)
[2021-05-04] MEDS: OXYBUTYNIN CHLORIDE 5 MG TAB PO SCH (10:00)
[2021-05-04] MEDS: METOPROLOL TARTRATE 50 MG TAB PO SCH (10:00)
[2021-05-04] MEDS: POTASSIUM CHLORIDE ER 10 MEQ TAB.ER.PRT PO SCH (10:00)
[2021-05-04] MEDS: ASPIRIN 81 MG PO SCH (10:00)
[2021-05-04] MEDS: lisinopriL 20 MG TAB PO SCH (10:00)
[2021-05-04] MEDS: GABAPENTIN 100 MG CAP PO SCH (10:00)
[2021-05-04] MEDS: HYDROcodone/APAP 10-325MG 1 EACH TAB PO PRN (10:15)
[2021-05-04] MEDS: CIPROFLOXACIN HCL 250 MG TAB PO SCH (10:15)
--- NOTE | 2021-05-04 12:43 | P.DS ---
Providers Date of admission: 05/01/21 14:05 Attending physician: Odell Lala Consults: 05/01/21 14:19 Consult Physician Routine Consulting Provider: Roseanna Hardy Consult Reason/Comments: Left leg cellulitis, ulceration Do you want consulting provider notified?: Yes Consult Physician Urgent Consulting Provider: Duane Trejo Consult Reason/Comments: Left leg cellulitis, ulceration Do you want consulting provider notified?: Yes Primary care physician: Odell Spike [facility] Course: 70 years old female with past medical history of coronary artery disease status post CABG with repair of aneurysm, biased headache aortic valve replacement, history of COPD, DVT, peripheral artery disease, hyperlipidemia, varicose veins, former some smoker present with nonhealing wound in the left lower extremity for the past 3 months. Patient did not see her primary care physician for the past 3 months until she decided to go see him in the office as the wound ulcer was increasing in size. Patient also endorses shortness of breath on exertion. Patient has seen wound center for wound in the left lower extremity which healed until recently when a new ulcer developed on the lower extremity. Patient uses a walker around the house and is limited in her mobility due to severe knee arthritis and pain in the lower extremity on exertion. Patient has seen Dr. Shah for bilateral lower extremity SFA balloon angioplasty in 2017. She does have a follow-up appointment with him. On evaluation in the ER. Patient had a temp of 98.5 pulse 85 respiratory rate 18 blood pressure 131/68. Saturating 99% on room air. Lab assessment suggest a WBC of 6.2 hemoglobin 11.7 and ESR 28 INR 2.5 sodium 136 potassium 4.1 chloride 105 bicarb 25 BUN 16 creatinine 0.8 glucose 105 lactic acid 1.1 CRP of 0.7. Ultrasound lower extremity ordered. Vascular surgery and infectious disease has been consulted. Vancomycin been initiated. Lasix initiated 40 IV twice a day. Echocardiogram ordered to rule out CHF 05/03 patient examined for side. Patient insists on going home today. Denies any pain in the lower extremity. Does have swelling in the lower extremity. Underwent wound care. Patient underwent arterial study that suggested moderate bilateral [id number] disease. Vessel surgery seen patient and recommends compression stocking bilateral lower extremity and dressing changes to the left lower extremity. No surgical intervention recommended. Patient to follow-up with vascular surgeon as outpatient. Wound culture suggestive enterococcus Pseudomonas and Klebsiella. Infectious disease recommends ciprofloxacin for 10 days. Patient likely discharge tomorrow 05/04 patient examined bedside. Denies any chest pain shortness of breath breathing difficulty. Patient's lower extremity swelling is improved since yesterday. She still have significant involvement involving the hand side of the left lower extremity. Patient to continue with wound care on with the nurse practitioner. Antibiotics switched to ciprofloxacin for 10 days. Patient had significant [id number] occlusion involving bilateral lower extremity for which patient was seen Dr. Malone as outpatient ROS Constitutional: Denies chills, Denies fever, endorses lethargy, Denies poor appetite Denies weight loss Cardiovascular: Denies chest pain, Denies decreased exercise tolerance, Denies edema, Denies high blood pressure, Denies irregular heart beat, Denies palpitations, Denies paroxysmal nocturnal dyspnea, Denies rapid heart beat, Denies shortness of breath Respiratory: Denies congestion, Denies cough, Denies cough with sputum, Denies dyspnea, Denies home oxygen, Denies wheezing Gastrointestinal: Denies abdominal pain, Denies change in bowel habits, Denies coffee ground emesis, Denies early satiety, Denies excessive gas, Denies heartburn, Denies hematemesis, Denies hematochezia, Denies loss of appetite, Denies nausea, Denies vomiting Genitourinary: Denies dysuria, Denies flank pain, Denies kidney stones, Denies menorrhagia, Denies urgency, Denies urinary frequency Musculoskeletal: Endorses gait dysfunction, endorses limitation of motion, Denies morning stiffness, Denies muscle cramps Integumentary: Endorses rash, endorses wounds, endorses swelling in the lower extremities Denies brittle nails, Denies change in hair/nails, Denies darkening of skin Physical exam - Constitutional General appearance: cooperative, no acute distress, obese - EENT Eyes: anicteric sclerae, PERRLA, normal appearance ENT: hearing grossly normal - Neck Neck: no lymphadenopathy, normal ROM, no other, no rigidity, no stridor, no thyromegaly - Respiratory Respiratory: bilateral: CTA, negative: diminished, dullness, rales, rhonchi - Cardiovascular Rhythm: regular Heart sounds: normal: S1, S2 Abnormal Heart Sounds: 3/ 6 systolic murmur, 2/6 diastolic murmur, no rub, no S3 Gallop, no S4 Gallop, no click, decreased peripheral pulses in the left lower extremity- Gastrointestinal General gastrointestinal: normal bowel sounds, soft nontender - Integumentary Integumentary: Bilateral lower extremity swelling with increased redness noted in the left lower extremity 15 cm into 7 cm size wound present in the left lower extremity with purulent drainage - Neurologic Neurologic: No motor or sensory deficit - Musculoskeletal Musculoskeletal: strength decreased bilaterally - Psychiatric Psychiatric: A&O x's 3, appropriate affect Assessment and plan #1 lower extremity cellulitis sepsis ruled out #2 lower extremity venous stasis ulcer with lower extremity swelling. #3 history of peripheral artery disease status post angioplasty bilateral SFA [address] Shah. #4 history of coronary artery disease status post CABG 10 years ago. #5 history of bioprosthetic aortic valve stable echocardiogram EF 55-60% moderate mitral annular calcification and moderate mitral stenosis #6 history of DVT on Coumadin #7 generalized debility with lower extremity weakness. #8 COPD stable #9 hyperlipidemia #10 hypertension #11 former smoker #12 aortic aneurysm repair stable Disposition home with home care with home PT Objective Patient Condition at Discharge: Fair Plan - Discharge Summary Discharge Rx Participant: Yes New Discharge Prescriptions: New Menthol-Zinc Oxide Oint [Calmoseptine Oint] 1 applic TOPICAL DAILY PRN #30 applic PRN Reason: Skin Irritation Ciprofloxacin HCl [Cipro] 750 mg PO Q12H 7 Days #14 tab Furosemide [Lasix] 40 mg PO BID #60 tablet Continue Ergocalciferol (Vitamin D2) [Vitamin D2] 50,000 unit PO CARDENAS Gabapentin [Neurontin] 100 mg PO DAILY Cyclobenzaprine [Flexeril] 10 mg PO TID PRN PRN Reason: Muscle Spasm HYDROcodone/APAP 10-325MG [Altheimer 10-325] 1 tab PO Q6HR PRN PRN Reason: Pain Enalapril [Vasotec] 10 mg PO DAILY Metoprolol Tartrate [Lopressor] 50 mg PO BID Atorvastatin [Lipitor] 10 mg PO HS Warfarin [Coumadin] 2.5 mg PO WEFR Warfarin [Coumadin] 5 mg PO SUMOTUTHSA Oxybutynin Chloride 5 mg PO BID Doxycycline Hyclate [Vibramycin] 100 mg PO DAILY Gabapentin [Neurontin] 200 mg PO HS Aspirin EC [Ecotrin Low Dose] 81 mg PO DAILY Potassium Gluconate [Potassium Gluconate ER] 99 mg PO DAILY Discharge Medication List Atorvastatin [Lipitor] 10 mg PO HS 10/18/16 [History] Cyclobenzaprine [Flexeril] 10 mg PO TID PRN 10/18/16 [History] Enalapril [Vasotec] 10 mg PO DAILY 10/18/16 [History] Ergocalciferol (Vitamin D2) [Vitamin D2] 50,000 unit PO CARDENAS 10/18/16 [History] Gabapentin [Neurontin] 100 mg PO DAILY 10/18/16 [History] HYDROcodone/APAP 10-325MG [Altheimer 10-325] 1 tab PO Q6HR PRN 10/18/16 [History] Metoprolol Tartrate [Lopressor] 50 mg PO BID 10/18/16 [History] Warfarin [Coumadin] 2.5 mg PO WEFR 01/25/17 [History] Warfarin [Coumadin] 5 mg PO SUMOTUTHSA 01/25/17 [History] Aspirin EC [Ecotrin Low Dose] 81 mg PO DAILY 05/01/21 [History] Doxycycline Hyclate [Vibramycin] 100 mg PO DAILY 05/01/21 [History] Gabapentin [Neurontin] 200 mg PO HS 05/01/21 [History] Oxybutynin Chloride 5 mg PO BID 05/01/21 [History] Potassium Gluconate [Potassium Gluconate ER] 99 mg PO DAILY 05/01/21 [History] Ciprofloxacin HCl [Cipro] 750 mg PO Q12H 7 Days #14 tab 05/03/21 [Rx] Furosemide [Lasix] 40 mg PO BID #60 tablet 05/03/21 [Rx] Menthol-Zinc Oxide Oint [Calmoseptine Oint] 1 applic TOPICAL DAILY PRN #30 applic 05/03/21 [Rx] Follow up Appointment(s)/Referral(s): Odell Lala MD [Primary Care Provider] - 05/08/21 9:45 am (With Yoon) Artur Malone MD [STAFF PHYSICIAN] - 05/11/21 9:30 am Patient Instructions/Handouts: Cellulitis (DC) Activity/Diet/Wound Care/Special Instructions: Need to have PT/INR checked twice a week secondary to antibiotic administration. Discharge Disposition: HOME WITH HOME HEALTH SERVICES
[2021-05-07] MEDS ORDERED: ERGOCALCIFEROL 1,250 MCG (50,000 IU) CAPSULE PO SCH (09:00)
== END 2021-05-04 12:23 | disposition home or self-care (01) ==
LOC: EC 10:38 → INTOOBSV 14:05 → 1SOBS 14:05 → 5NMEDONC 17:18 → 4SSUR 23:14 → UNDODISIN 05-04 12:23
PROVIDERS: ADMIT Internal Medicine Geriatric Medicine; ATTEND Internal Medicine Geriatric Medicine
DX: L03.116 Cellulitis of left lower limb (principal); L97.229 Non-pressure chronic ulcer of left calf with unspecified severity; L97.919 Non-pressure chronic ulcer of unspecified part of right lower leg with unspecified severity; I83.019 Varicose veins of right lower extremity with ulcer of unspecified site; I73.9 Peripheral vascular disease, unspecified; J44.9 Chronic obstructive pulmonary disease, unspecified; I25.10 Atherosclerotic heart disease of native coronary artery without angina pectoris; Z95.1 Presence of aortocoronary bypass graft; E78.5 Hyperlipidemia, unspecified; I10 Essential (primary) hypertension; E66.9 Obesity, unspecified; Z68.41 Body mass index [BMI] 40.0-44.9, adult; M17.10 Unilateral primary osteoarthritis, unspecified knee; I05.0 Rheumatic mitral stenosis; R32 Unspecified urinary incontinence; M79.89 Other specified soft tissue disorders; E72.11 Homocystinuria; Z95.820 Peripheral vascular angioplasty status with implants and grafts; I83.90 Asymptomatic varicose veins of unspecified lower extremity; L40.9 Psoriasis, unspecified; I83.022 Varicose veins of left lower extremity with ulcer of calf; F17.290 Nicotine dependence, other tobacco product, uncomplicated; R51.9 Headache, unspecified; R53.1 Weakness; R53.81 Other malaise; Z87.01 Personal history of pneumonia (recurrent); Z86.718 Personal history of other venous thrombosis and embolism; Z86.711 Personal history of pulmonary embolism; Z95.3 Presence of xenogenic heart valve; Z86.79 Personal history of other diseases of the circulatory system; Z96.651 Presence of right artificial knee joint; Z79.01 Long term (current) use of anticoagulants; Z79.899 Other long term (current) drug therapy; Z79.82 Long term (current) use of aspirin; Z79.2 Long term (current) use of antibiotics; Z88.2 Allergy status to sulfonamides; Z91.040 Latex allergy status; Z88.0 Allergy status to penicillin; Z91.048 Other nonmedicinal substance allergy status; Z90.710 Acquired absence of both cervix and uterus; Z98.890 Other specified postprocedural states; Z80.9 Family history of malignant neoplasm, unspecified; Z82.49 Family history of ischemic heart disease and other diseases of the circulatory system
CPT/HCPCS: 96366 ×3; 96367; 96365; 99285; 36415; 97161; 97165; 83880; 80053; 85652; 82565 ×2; 83605; 85025; 80202; 85610 ×4; 86140; 87040; 87070; 87205; 87077; 87186; 73590; 93923; G0378 ×6; C8929; J3370 ×3; J0692; 93306

== ENCOUNTER 2021-05-09 16:46 | Inpatient (IN) | payer MEDICARE ==
[2021-05-09] MEDS ORDERED: SODIUM CHLORIDE 0.9% 500 ML 500 ML IV STA (17:08)
[2021-05-09 17:28] LABS: Anisocytosis Slight; Basophils # (A) 0.1 k/uL (0-0.2); Basophils % (A) 0 %; Eosinophils # (A) 0.2 k/uL (0-0.7); Eosinophils % (A) 2 %; HCT 41.8 % (34.0-46.0); HGB 13.3 gm/dL (11.4-16.0); Hypochromasia Slight; Lymphocytes # (A) 1.3 k/uL (1.0-4.8); Lymphocytes % (A) 9 %; MCH 27.9 pg (25.0-35.0); MCHC 31.8 g/dL (31.0-37.0); MCV 87.9 fL (80.0-100.0); Mean Platelet Volume 8.6; Monocytes # (A) 0.7 k/uL (0-1.0); Monocytes % (A) 5 %; Neutrophils # (A) 11.6 k/uL (1.3-7.7); Neutrophils % (A) 82 %; Platelet Count 320 k/uL (150-450); RBC 4.75 m/uL (3.80-5.40); WBC 14.1 k/uL (3.8-10.6)
[2021-05-09 17:36] LABS: INR 3.8 (<1.2); Partial Thromboplastin Time 44.6 sec (22.0-30.0); Prothrombin Time 36.6 sec (9.0-12.0)
[2021-05-09 17:37] LABS: Albumin 4.1 g/dL (3.5-5.0); Calcium 9.1 mg/dL (8.4-10.2); Potassium 5.1 mmol/L (3.5-5.1); Total Bilirubin 0.5 mg/dL (0.2-1.3); Total Protein 6.9 g/dL (6.3-8.2)
[2021-05-09 18:22] LABS: Erythrocyte Sedimentation Rate 46 mm/hr (0-20)
--- NOTE | 2021-05-09 18:25 | XR ---
EXAMINATION TYPE: XR chest 2V DATE OF EXAM: 05/09/2021 COMPARISON: 11/16/2011 HISTORY: Weakness TECHNIQUE: FINDINGS: There is no heart failure nor confluent pneumonic infiltrate. Thoracic aorta is atheromatou s. There are chest leads. IMPRESSION: No active cardiac pulmonary disease. There is clearing of the pleural fluid and pulmonary edema compared to old exam.
[2021-05-09] MEDS ORDERED: SODIUM CHLORIDE 0.9% 500 ML 500 ML IV ONE (19:06)
[2021-05-09] MEDS: SODIUM CHLORIDE 0.9% 1,000 ML IV SCH (19:29)
[2021-05-09] MEDS ORDERED: NALOXONE 0.4 MG/ML 1 ML VIAL IV PRN (19:49)
--- NOTE | 2021-05-09 19:49 | ED ---
Weakness HPI - General Chief complaint: Weakness Stated complaint: Weakness Time Seen by Provider: 05/09/21 16:50 Source: patient, EMS Mode of arrival: EMS - History of Present Illness Initial comments: The patient is a 70-year-old female with past medical history of COPD, DVT on Coumadin, hypertension who presents to the emergency room with reported weakness for the past 2 days. Patient was recently hospitalized from May 01 to the for a left lower externally cellulitis. She reports that she was discharged home but did not qualify for home care. She has been taking her Cipro as directed however it has been upsetting her stomach to the point where she has not been eating or drinking. She has still attempted to take her home medications including her Coumadin and Lasix. She has been unable to get up and ambulate. States that she has gotten so progressively weak that she call an ambulance. Upon EMS arrival they found that the patient had notable low blood pressures. IV was established and the patient was started on fluids. She presents denying any chest pain or shortness of breath. No abdominal pain. No fevers or chills. Patient admits to nausea without any recent vomiting. No other alleviating, precipitating or modifying factors - Related Data Home Medications Medication Instructions Recorded Confirmed Atorvastatin [Lipitor] 10 mg PO HS 10/18/16 05/09/21 Cyclobenzaprine [Flexeril] 10 mg PO TID PRN 10/18/16 05/09/21 Enalapril [Vasotec] 10 mg PO DAILY 10/18/16 05/09/21 Ergocalciferol (Vitamin D2) 50,000 unit PO CARDENAS 10/18/16 05/09/21 [Vitamin D2] Gabapentin [Neurontin] 100 mg PO DAILY 10/18/16 05/09/21 HYDROcodone/APAP 10-325MG [Floyd 1 tab PO Q6HR PRN 10/18/16 05/09/21 10-325] Metoprolol Tartrate [Lopressor] 50 mg PO BID 10/18/16 05/09/21 Warfarin [Coumadin] 2.5 mg PO WEFR 01/25/17 05/09/21 Warfarin [Coumadin] 5 mg PO SUMOTUTHSA 01/25/17 05/09/21 Aspirin EC [Ecotrin Low Dose] 81 mg PO DAILY 05/01/21 05/09/21 Doxycycline Hyclate [Vibramycin] 100 mg PO DAILY 05/01/21 05/09/21 Gabapentin [Neurontin] 200 mg PO HS 05/01/21 05/09/21 Oxybutynin Chloride 5 mg PO BID 05/01/21 05/09/21 Potassium Gluconate [Potassium 99 mg PO DAILY 05/01/21 05/09/21 Gluconate ER] Ciprofloxacin HCl [Cipro] 500 mg PO BID 05/09/21 05/09/21 Previous Rx's Medication Instructions Recorded Furosemide [Lasix] 40 mg PO BID #60 tablet 05/03/21 Menthol-Zinc Oxide Oint 1 applic TOPICAL DAILY PRN #30 05/03/21 [Calmoseptine Oint] applic Allergies Allergy/AdvReac Type Severity Reaction Status Date / Time amoxicillin Allergy Severe Dyspnea Verified 05/09/21 18:59 latex Allergy Severe Anaphylaxis Verified 05/09/21 18:59 nickel Allergy Unknown Rash/Hives Verified 05/09/21 18:59 Sulfa (Sulfonamide Allergy Rash/Hives Verified 05/09/21 18:59 Antibiotics) Review of Systems ROS Statement: Those systems with pertinent positive or pertinent negative responses have been documented in the HPI. ROS Other: All systems not noted in ROS Statement are negative. Past Medical History Past Medical History: Coronary Artery Disease (CAD), COPD, Deep Vein Thrombosis (DVT), Hyperlipidemia, Hypertension, Osteoarthritis (OA), Pneumonia, Skin Disorder, Vascular Disorder Additional Past Medical History / Comment(s): varicose veins. pneumonia 10 yrs ago. occ use knee brace(left) walker and cane. open sores on both legs(largest on left leg) LEAKING FLUID, poor circulation/blockage in both legs. urinary leakage. psoriasis. HX DVT'S IN LEGS. PAD. 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 Aortogram 10/23/16. Rt knee replacement. 11/21/16 PTBA W/ SENT LT. Past Anesthesia/Blood Transfusion Reactions: Motion Sickness Past Psychological History: No Psychological Hx Reported Smoking Status: Never smoker Past Alcohol Use History: Rare Past Drug Use History: None Reported - Past Family History Father Family Medical History: No Reported History Mother Family Medical History: Cancer General Exam General appearance: alert, in no apparent distress Head exam: Present: atraumatic, normocephalic, normal inspection Eye exam: Present: normal appearance, PERRL, EOMI. Absent: scleral icterus, conjunctival injection, periorbital swelling ENT exam: Present: normal exam, mucous membranes moist Neck exam: Present: normal inspection. Absent: tenderness, meningismus, lymphadenopathy Respiratory exam: Present: normal lung sounds bilaterally. Absent: respiratory distress, wheezes, rales, rhonchi, stridor Cardiovascular Exam: Present: regular rate, normal rhythm, normal heart sounds. Absent: systolic murmur, diastolic murmur, rubs, gallop, clicks GI/Abdominal exam: Present: soft, normal bowel sounds. Absent: distended, tenderness, guarding, rebound, rigid Extremities exam: Present: full ROM, tenderness (b/l le), normal capillary refill, pedal edema, other (brawny edema, left>right). Absent: joint swelling, calf tenderness Back exam: Present: normal inspection Neurological exam: Present: alert, oriented X3, CN II-XII intact Psychiatric exam: Present: normal affect, normal mood Skin exam: Present: warm, dry, intact, normal color. Absent: rash Course Vital Signs 05/09/21 05/09/21 05/09/21 16:47 17:25 18:37 Temperature 97.4 F L Pulse Rate 64 65 68 Respiratory 18 18 18 Rate Blood Pressure 96/60 100/83 105/42 O2 Sat by Pulse 92 L 96 98 Oximetry 05/09/21 05/09/21 05/09/21 19:31 20:14 20:24 Temperature Pulse Rate 67 75 134 H Respiratory 18 26 H 67 H Rate Blood Pressure 90/42 70/49 92/57 O2 Sat by Pulse 91 L 89 L 86 L Oximetry 05/09/21 05/09/21 05/09/21 20:40 20:55 21:10 Temperature Pulse Rate 133 H 102 H 110 H Respiratory 20 20 20 Rate Blood Pressure 92/56 74/49 73/38 O2 Sat by Pulse 100 100 100 Oximetry 05/09/21 05/09/21 05/09/21 21:15 21:30 21:45 Temperature Pulse Rate 112 H 110 H 99 Respiratory 20 20 20 Rate Blood Pressure 70/34 78/50 90/37 O2 Sat by Pulse 95 96 95 Oximetry 05/09/21 05/09/21 05/09/21 22:00 22:15 22:30 Temperature Pulse Rate 98 95 94 Respiratory 20 20 20 Rate Blood Pressure 68/56 75/55 94/43 O2 Sat by Pulse 98 98 97 Oximetry 05/09/21 05/09/21 05/09/21 22:45 23:00 23:15 Temperature Pulse Rate 91 90 82 Respiratory 20 20 20 Rate Blood Pressure 75/52 90/44 68/55 O2 Sat by Pulse 100 98 100 Oximetry 05/09/21 23:30 Temperature Pulse Rate 86 Respiratory 20 Rate Blood Pressure 112/46 O2 Sat by Pulse 100 Oximetry EKG Findings - EKG Comments: EKG Findings:: EKG performed at 1723 demonstrates a normal sinus rhythm with a ventricular rate of 65. IA interval 162. QRS 90. QTC of 490. No acute ST segment elevations or depressions. Repeat EKG demonstrates a sinus rhythm with frequent PVCs. Rate of 89. IA interval 140. QRS 82. QTC of 433. No acute ST segment elevations. Procedures - [place] Protocol (Time Out) Nurse: John Collier - Central Line Placement Right IJ Consent Obtained: emergent situation Patient Placed on Monitor/Pulse Ox: Yes Prep: mask, gown, gloves Central Line Prep: Chlorhexidine scrub Ultrasound Used for Placement: Yes Central Line Lumen Inserted: triple Bloods Obtained for Lab: Yes Central Line Position: good blood return, all ports aspirated, flushed, capped, sutured in place with nylon Dressing Applied: Tegaderm Post Procedure X-Ray: tip of catheter in good position Patient Tolerated Procedure: well, no complications - Intubation Sedative: Etomidate Mg Given: 20 Paralytic: Rocuronium Mg Given: 50 Laryngoscope: fiber optic video scope Size: 3 ET Tube Size: 7.5 ET Tube Uncuffed: No Tube Secured Depth (cm): 22 Tube Secured Location: lips Tube Placement Confirmation: visualized tube passing through cords, equal breath sounds bilaterally, no breath sounds over epigastrium, confirmation by capnometry Patient Tolerated Procedure: well, no complications Medical Decision Making - Medical Decision Making Upon arrival patient was placed in a trauma bay 2. A thorough history and physical exam was performed. Patient is given a 500 mL bolus of normal saline followed by 30 mL/h. Laboratory studies were conducted and a chest x-ray was performed. Laboratory says reviewed and demonstrate a white count of 14.1. INR is 3.8. Sodium 129. Creatinine 9.8. Lactic acid 2.5. Troponin 0.036. BNP 3200. Urinalysis demonstrated rare bacteria. Chest x-ray demonstrates no active cardiopulmonary disease. Clearing of pleural fluid. I did call and speak with Dr. Lala who accepted admission. Patient will remain on IV fluids. We did place a Hardy and the patient did have return of 300 mL of urine. Bridging orders were placed and a consultation was placed for Dr. Farris. She is started on Unasyn for her left lower extremity cellulitis. Patient had improvement in her blood pressures and was currently awaiting a bed on the floor. At 8:10 I am called into the patient room by family. Patient has a large bowel movement in bed, went unsponsive and began shaking. I attempt to sternal rub the patient however she is unresponsive with agonal breathing. We did repeat the patient's vitals. Blood pressure has dropped to 70/30. Respiratory is call the bedside. Accu-Chek was performed and is 105. The patient is given a push dose of epi without improvement in her blood pressure. The push dose is repeated 3 additional times while awaiting respiratory assistance. Patient is bagged and continues to be unresponsive. Pupils are 3 mm and fixed. Patient remained hypotensive and therefore is given a cardiac dose of epinephrine IV and an amp of bicarb. She does have response with an improved blood pressure of 90 systolic. Patient monitored for 15 minutes, remains with agonal breathing with assistance of bagged ventilations. No change in mentation, patient continues to be unresponsive to sternal rub and verbal stimuli. Because of this, she is then given 20 of etomidate and 50 mg of rocuronium. Intubation was performed. 7-2 ET tube was placed at 22 cm at the lip. Breath sounds are heard bilaterally. Right internal jugular central venous catheters placed. Repeat laboratory st udies were performed. Portable chest x-ray demonstrates pulmonary interstitial edema and atelectasis. ET tube is 1.3 cm from the gali. Right jugular catheter tip within the superior vena cava. CT of the patient's brain is performed due to acute altered mental status which demonstrates chronic. Vessels ischemia with no acute intracranial abnormality. Repeat laboratory studies are performed creatinine mildly improved to 8.8. Sodium is now 130. INR 4.1. Patient is placed on Levophed drip. She remained vented for approximately one hour. She then began having spontaneous movement of her extremities. She is placed on a propofol drip. I did call and update Dr. Lala and Dr. Farris. Patient will be admitted to the ICU. Spoke with Dr. Xiao who agreed to admit the patient. Patient taken to the floor in critical condition. - Lab Data Result diagrams: 05/13/21 03:00 05/13/21 03:00 Lab Results 05/09/21 05/09/21 05/09/21 Range/Units 17:13 17:13 17:13 WBC 14.1 H (3.8-10.6) k/uL RBC 4.75 (3.80-5.40) m/uL Hgb 13.3 (11.4-16.0) gm/dL Hct 41.8 (34.0-46.0) % MCV 87.9 (80.0-100.0) fL MCH 27.9 (25.0-35.0) pg MCHC 31.8 (31.0-37.0) g/dL RDW 16.0 H (11.5-15.5) % Plt Count 320 (150-450) k/uL MPV 8.6 Neutrophils % 82 % Lymphocytes % 9 % Monocytes % 5 % Eosinophils % 2 % Basophils % 0 % Neutrophils # 11.6 H (1.3-7.7) k/uL Lymphocytes # 1.3 (1.0-4.8) k/uL Monocytes # 0.7 (0-1.0) k/uL Eosinophils # 0.2 (0-0.7) k/uL Basophils # 0.1 (0-0.2) k/uL Hypochromasia Slight Anisocytosis Slight ESR 46 H (0-20) mm/hr PT 36.6 H (9.0-12.0) sec INR 3.8 H (<1.2) APTT 44.6 H (22.0-30.0) sec Sodium 129 L (137-145) mmol/L Potassium 5.1 (3.5-5.1) mmol/L Chloride 88 L (98-107) mmol/L Carbon Dioxide 21 L (22-30) mmol/L Anion Gap 20 mmol/L BUN 97 H (7-17) mg/dL Creatinine 9.86 H* (0.52-1.04) mg/dL Est GFR (CKD-EPI)AfAm 4 (>60 ml/min/1.73 sqM) Est GFR (CKD-EPI)NonAf 4 (>60 ml/min/1.73 sqM) Glucose 120 H (74-99) mg/dL Lactic Ac Sepsis Rflx Plasma Lactic Acid Jaron (0.7-2.0) mmol/L Calcium 9.1 (8.4-10.2) mg/dL Total Bilirubin 0.5 (0.2-1.3) mg/dL AST 34 (14-36) U/L ALT 23 (4-34) U/L Alkaline Phosphatase 105 (38-126) U/L Troponin I (0.000-0.034) ng/mL NT-Pro-B Natriuret Pep pg/mL Total Protein 6.9 (6.3-8.2) g/dL Albumin 4.1 (3.5-5.0) g/dL Lipase 87 (23-300) U/L Urine Color Urine Appearance (Clear) Urine pH (5.0-8.0) Ur Specific Roark (1.001-1.035) Urine Protein (Negative) Urine Glucose (UA) (Negative) Urine Ketones (Negative) Urine Blood (Negative) Urine Nitrite (Negative) Urine Bilirubin (Negative) Urine Urobilinogen (<2.0) mg/dL Ur Leukocyte Esterase (Negative) Urine RBC (0-5) /hpf Urine WBC (0-5) /hpf Urine WBC Clumps (None) /hpf Ur Squamous Epith Cells (0-4) /hpf Urine Bacteria (None) /hpf Hyaline Casts (0-2) /lpf Urine Mucus (None) /hpf Urine Yeast (Budding) (None) /hpf 05/09/21 05/09/21 05/09/21 Range/Units 17:13 17:13 17:43 WBC (3.8-10.6) k/uL RBC (3.80-5.40) m/uL Hgb (11.4-16.0) gm/dL Hct (34.0-46.0) % MCV (80.0-100.0) fL MCH (25.0-35.0) pg MCHC (31.0-37.0) g/dL RDW (11.5-15.5) % Plt Count (150-450) k/uL MPV Neutrophils % % Lymphocytes % % Monocytes % % Eosinophils % % Basophils % % Neutrophils # (1.3-7.7) k/uL Lymphocytes # (1.0-4.8) k/uL Monocytes # (0-1.0) k/uL Eosinophils # (0-0.7) k/uL Basophils # (0-0.2) k/uL Hypochromasia Anisocytosis ESR (0-20) mm/hr PT (9.0-12.0) sec INR (<1.2) APTT (22.0-30.0) sec Sodium (137-145) mmol/L Potassium (3.5-5.1) mmol/L Chloride (98-107) mmol/L Carbon Dioxide (22-30) mmol/L Anion Gap mmol/L BUN (7-17) mg/dL Creatinine (0.52-1.04) mg/dL Est GFR (CKD-EPI)AfAm (>60 ml/min/1.73 sqM) Est GFR (CKD-EPI)NonAf (>60 ml/min/1.73 sqM) Glucose (74-99) mg/dL Lactic Ac Sepsis Rflx Plasma Lactic Acid Jaron 2.5 H* (0.7-2.0) mmol/L Calcium (8.4-10.2) mg/dL Total Bilirubin (0.2-1.3) mg/dL AST (14-36) U/L ALT (4-34) U/L Alkaline Phosphatase (38-126) U/L Troponin I 0.036 H* (0.000-0.034) ng/mL NT-Pro-B Natriuret Pep 3200 pg/mL Total Protein (6.3-8.2) g/dL Albumin (3.5-5.0) g/dL Lipase (23-300) U/L Urine Color Urine Appearance (Clear) Urine pH (5.0-8.0) Ur Specific Roark (1.001-1.035) Urine Protein (Negative) Urine Glucose (UA) (Negative) Urine Ketones (Negative) Urine Blood (Negative) Urine Nitrite (Negative) Urine Bilirubin (Negative) Urine Urobilinogen (<2.0) mg/dL Ur Leukocyte Esterase (Negative) Urine RBC (0-5) /hpf Urine WBC (0-5) /hpf Urine WBC Clumps (None) /hpf Ur Squamous Epith Cells (0-4) /hpf Urine Bacteria (None) /hpf Hyaline Casts (0-2) /lpf Urine Mucus (None) /hpf Urine Yeast (Budding) (None) /hpf 05/09/21 05/09/21 Range/Units 17:51 19:31 WBC (3.8-10.6) k/uL RBC (3.80-5.40) m/uL Hgb (11.4-16.0) gm/dL Hct (34.0-46.0) % MCV (80.0-100.0) fL MCH (25.0-35.0) pg MCHC (31.0-37.0) g/dL RDW (11.5-15.5) % Plt Count (150-450) k/uL MPV Neutrophils % % Lymphocytes % % Monocytes % % Eosinophils % % Basophils % % Neutrophils # (1.3-7.7) k/uL Lymphocytes # (1.0-4.8) k/uL Monocytes # (0-1.0) k/uL Eosinophils # (0-0.7) k/uL Basophils # (0-0.2) k/uL Hypochromasia Anisocytosis ESR (0-20) mm/hr PT (9.0-12.0) sec INR (<1.2) APTT (22.0-30.0) sec Sodium (137-145) mmol/L Potassium (3.5-5.1) mmol/L Chloride (98-107) mmol/L Carbon Dioxide (22-30) mmol/L Anion Gap mmol/L BUN (7-17) mg/dL Creatinine (0.52-1.04) mg/dL Est GFR (CKD-EPI)AfAm (>60 ml/min/1.73 sqM) Est GFR (CKD-EPI)NonAf (>60 ml/min/1.73 sqM) Glucose (74-99) mg/dL Lactic Ac Sepsis Rflx Y Plasma Lactic Acid Jaron (0.7-2.0) mmol/L Calcium (8.4-10.2) mg/dL Total Bilirubin (0.2-1.3) mg/dL AST (14-36) U/L ALT (4-34) U/L Alkaline Phosphatase (38-126) U/L Troponin I (0.000-0.034) ng/mL NT-Pro-B Natriuret Pep pg/mL Total Protein (6.3-8.2) g/dL Albumin (3.5-5.0) g/dL Lipase (23-300) U/L Urine Color Yellow Urine Appearance Cloudy H (Clear) Urine pH 5.0 (5.0-8.0) Ur Specific Roark 1.016 (1.001-1.035) Urine Protein 1+ H (Negative) Urine Glucose (UA) Negative (Negative) Urine Ketones Negative (Negative) Urine Blood Moderate H (Negative) Urine Nitrite Negative (Negative) Urine Bilirubin Negative (Negative) Urine Urobilinogen <2.0 (<2.0) mg/dL Ur Leukocyte Esterase Large H (Negative) Urine RBC 43 H (0-5) /hpf Urine WBC 146 H (0-5) /hpf Urine WBC Clumps Few H (None) /hpf Ur Squamous Epith Cells 1 (0-4) /hpf Urine Bacteria Rare H (None) /hpf Hyaline Casts 24 H (0-2) /lpf Urine Mucus Rare H (None) /hpf Urine Yeast (Budding) Many H (None) /hpf Critical Care Time Critical Care Time: Yes Critical Care Time: 45 minutes Disposition Clinical Impression: Left leg cellulitis, MIAH (acute kidney injury), Hypotension, Nausea and vomiting, Acute encephalopathy, Ventilator dependence Disposition: ADMITTED IP TO THIS [facility] Condition: Stable Is patient prescribed a controlled substance at d/c from ED?: No Decision to Admit Reason: Admit from EC Decision Date: 05/09/21 Decision Time: 19:49
[2021-05-09 19:52] LABS: Appearance,Urine Cloudy (Clear); Bacteria,Urine Rare /hpf; Bilirubin,Urine Negative (Negative); Blood,Urine Moderate (Negative); Budding Yeast,Urine Many /hpf; Color,Urine Yellow; Glucose,Urine (UA) Negative (Negative); Hyaline Casts,Urine 24 /lpf (0-2); Ketones,Urine Negative (Negative); Leukocyte Esterase,Urine Large (Negative); Mucus,Urine Rare /hpf; Nitrite,Urine Negative (Negative); Protein,Urine 1+ (Negative); RBC,Urine 43 /hpf (0-5); Specific Gravity,Urine 1.016 (1.001-1.035); Squamous Epithelial Cell,Urine 1 /hpf (0-4); Urobilinogen,Urine <2.0 mg/dL (<2.0); WBC,Urine 146 /hpf (0-5)
[2021-05-09] MEDS ORDERED: AMPICILLIN-SULBACTAM 3 GM in SODIUM CHLORIDE 0.9% 100 ML IVPB STA (19:53)
[2021-05-09 20:14] LABS: Glucose,Whole Blood 105 mg/dL (75-99)
[2021-05-09] MEDS ORDERED: SODIUM BICARB 8.4% 50 ML SYR (1 MEQ/ML) ONE (20:18)
[2021-05-09] MEDS ORDERED: EPINEPHrine 10 ML SYRINGE (0.1 MG/ML) ONE (20:18)
[2021-05-09] MEDS ORDERED: ETOMIDATE 2 MG/ML 10 ML VIAL IVP ONE (20:27)
[2021-05-09] MEDS ORDERED: ROCURONIUM 10 MG/ML (5 ML VIAL) IV ONE (20:27)
[2021-05-09] MEDS: NOREPINEPHRINE 32 MG in SODIUM CHLORIDE 0.9% 218 ML IV ONE (20:40)
--- NOTE | 2021-05-09 21:16 | XR ---
EXAMINATION TYPE: XR chest 1V portable DATE OF EXAM: 05/09/2021 COMPARISON: 05/09/2021 HISTORY: Check tube placement TECHNIQUE: Single view FINDINGS: There are some pulmonary interstitial edema. There is mild atelectasis in the mid lung fiel ds. Endotracheal tube is 1.3 cm from the gali. There is right jugular catheter with tip in the supe rior vena cava. IMPRESSION: There is new pulmonary interstitial edema and atelectasis compared to exam 3 hours ago.
[2021-05-09 21:33] LABS: INR 4.1 (<1.2); Potassium 3.9 mmol/L (3.5-5.1); Prothrombin Time 39.6 sec (9.0-12.0)
[2021-05-09 21:34] LABS: Albumin 2.4 g/dL (3.5-5.0); Calcium 7.6 mg/dL (8.4-10.2); Total Bilirubin 0.3 mg/dL (0.2-1.3); Total Protein 4.8 g/dL (6.3-8.2)
[2021-05-09 21:48] LABS: Basophils % (A) 0 %; Eosinophils % (A) 0 %; HCT 39.4 % (34.0-46.0); HGB 12.8 gm/dL (11.4-16.0); Lymphocytes # (A) 2.9 k/uL (1.0-4.8); Lymphocytes % (A) 24 %; MCH 28.2 pg (25.0-35.0); MCHC 32.4 g/dL (31.0-37.0); MCV 86.9 fL (80.0-100.0); Mean Platelet Volume 8.2; Monocytes # (A) 0.7 k/uL (0-1.0); Monocytes % (A) 6 %; Neutrophils # (A) 8.1 k/uL (1.3-7.7); Neutrophils % (A) 67 %; Platelet Count 333 k/uL (150-450); RBC 4.54 m/uL (3.80-5.40); RDW 15.7 % (11.5-15.5)
--- NOTE | 2021-05-09 22:03 | CT ---
EXAMINATION TYPE: CT brain wo con DATE OF EXAM: 05/09/2021 COMPARISON: None HISTORY: AMS, Creat almost 10, LT leg infection. Not responding. Seizure like activity. Hypotensive. CT DLP: 1234.1 mGycm Automated exposure control for dose reduction was used. There is some hypodensity in the periventricular white matter. There is no mass effect nor midline sh ift. There is no sign of intracranial hemorrhage. Calvarium is intact. Skull base is intact. Exam ventura ited slightly by motion. IMPRESSION: Chronic small vessel ischemia. No acute intracranial abnormality.
[2021-05-09 22:12] LABS: ABG Base Excess -7.3 mmol/L; ABG HCO3 19 mmol/L (21-25); ABG Oxygen Saturation 96.6 % (94-97); ABG PCO2 40 mmHg (35-45); ABG PH 7.29 (7.35-7.45); ABG PO2 101 mmHg (83-108); ABG TCO2 21 mmol/L (19-24); Allen Test Performed? Yes
[2021-05-09] MEDS ORDERED: MIDAZOLAM 1 MG/ML 5 ML VIAL IV STA (22:53)
[2021-05-09 23:52] LABS: Glucose,Whole Blood 168 mg/dL (75-99)
--- NOTE | 2021-05-10 00:53 | XR ---
EXAMINATION TYPE: XR chest 1V portable DATE OF EXAM: 05/10/2021 COMPARISON: Yesterday HISTORY: Tube placement TECHNIQUE: FINDINGS: There is nasogastric tube well into the stomach. The endotracheal tube is 2.7 cm from the c magdy. There is right jugular catheter with tip in the superior vena cava. There is some mild atelect asis at the lung bases. There are chest leads. IMPRESSION: There is improvement in aeration of the lungs compared to the exam 3 hours ago. No heart failure. There is significant clearing of the patchy atelectasis in both lungs.
[2021-05-10 01:27] LABS: Albumin 3.1 g/dL (3.5-5.0); Potassium 4.3 mmol/L (3.5-5.1); Total Bilirubin 0.7 mg/dL (0.2-1.3); Total Protein 5.6 g/dL (6.3-8.2)
[2021-05-10] MEDS: SODIUM CHLORIDE 0.9% 1,000 ML IV SCH ×3 (03:44→17:01)
[2021-05-10 03:58] LABS: INR 4.7 (<1.2); Prothrombin Time 45.7 sec (9.0-12.0)
[2021-05-10 04:14] LABS: Albumin 2.9 g/dL (3.5-5.0); Calcium 8.2 mg/dL (8.4-10.2); Potassium 4.3 mmol/L (3.5-5.1); Total Bilirubin 0.8 mg/dL (0.2-1.3); Total Protein 5.5 g/dL (6.3-8.2)
[2021-05-10 04:24] LABS: HCT 44.9 % (34.0-46.0); HGB 14.3 gm/dL (11.4-16.0); MCH 27.7 pg (25.0-35.0); MCHC 31.7 g/dL (31.0-37.0); MCV 87.4 fL (80.0-100.0); Mean Platelet Volume 8.6; Platelet Count 366 k/uL (150-450); RBC 5.14 m/uL (3.80-5.40); RDW 15.6 % (11.5-15.5); WBC 14.3 k/uL (3.8-10.6)
[2021-05-10 05:11] LABS: ABG Base Excess -7.2 mmol/L; ABG HCO3 19 mmol/L (21-25); ABG Oxygen Saturation 99.8 % (94-97); ABG PCO2 40 mmHg (35-45); ABG PH 7.29 (7.35-7.45); ABG PO2 327 mmHg (83-108); ABG TCO2 21 mmol/L (19-24); Allen Test Performed? Yes
[2021-05-10 05:21] LABS: Anisocytosis (M) Present; Band Neutrophils % 22 %; Eosinophils # (M) 0.14 k/uL (0-0.7); Lymphocytes # (M) 0.72 k/uL (1.0-4.8); Neutrophils % (M) 67 %; Nucleated Red Blood Cells 0 /100 WBC (0-0); Total Cells Counted 200
[2021-05-10 05:23] LABS: Large Platelets Present; Poikilocytosis (M) Present; Polychromasia Present
[2021-05-10 05:52] LABS: Glucose,Whole Blood 175 mg/dL (75-99)
--- NOTE | 2021-05-10 06:59 | XR ---
EXAMINATION TYPE: XR chest 1V portable DATE OF EXAM: 05/10/2021 COMPARISON: 05/10/2021 HISTORY: SOB, Follow Up FINDINGS: Indwelling tubes and catheters are unchanged. No change in bibasilar opacities. Stable appearance of the cardio-mediastinal structures at this time. IMPRESSION: 1. Stable portable chest. Clinical correlation and follow up until resolution is recommended.
[2021-05-10] MEDS ORDERED: SODIUM CHLORIDE 0.9% 2,000 ML IV ONE (08:35)
[2021-05-10] MEDS: CHLORHEXIDINE GLUCONATE 15 ML CUP MUCOUS MEM SCH ×2 (08:49→20:11)
[2021-05-10] MEDS: FAMOTIDINE 20 MG/2 ML VIAL IV SCH ×2 (08:49→20:11)
[2021-05-10] MEDS ORDERED: METOPROLOL TARTRATE 50 MG TAB PO SCH (09:00)
[2021-05-10] MEDS: IPRATROPIUM-ALBUTEROL 3 ML NEB INHALATION SCH ×5 (09:19→23:49)
--- NOTE | 2021-05-10 10:28 | PCN ---
PROCEDURE NOTE PROCEDURE: Right radial arterial line insertion. ARTERIAL LINE PLACEMENT: PREOPERATIVE DIAGNOSIS: Hypotension, hemodynamic monitoring, ABG draws. POSTOPERATIVE DIAGNOSIS: Hypotension, hemodynamic monitoring, ABG draws. A time-out was completed verifying correct patient, procedure, site, positioning, and implant(s) or special equipment if applicable. Dalton's test was performed to ensure adequate perfusion. The patient's right wrist was prepped and draped in sterile fashion. 1% Lidocaine was used to anesthetize the area. An 18G Arrow arterial line was introduced into the radial artery. The catheter was threaded over the guide wire and the needle was removed with appropriate pulsatile blood return. Blood loss was minimal. The catheter was then sutured in place to the skin and a sterile dressing applied. Perfusion to the extremity distal to the point of catheter insertion was checked and found to be adequate. The patient tolerated the procedure well and there were no immediate complications. MMODL / IJN: [id number] /
[2021-05-10] MEDS: NOREPINEPHRINE 32 MG in SODIUM CHLORIDE 0.9% 218 ML IV ONE (10:31)
--- NOTE | 2021-05-10 10:31 | US ---
EXAMINATION TYPE: US kidneys/renal and bladder DATE OF EXAM: 05/10/2021 COMPARISON: NONE CLINICAL HISTORY: RF. EXAM MEASUREMENTS: Right Kidney: 10.1 x 4.6 x 5.5 cm Left Kidney: 9.3 x 5.9 x 6.3 cm Technically difficult, performed portably in ICU on patient unable to cooperate for exam. Right Kidney: No hydronephrosis or masses seen Left Kidney: No hydronephrosis or masses seen Bladder: not seen , patient has catheter There is no evidence for hydronephrosis at this point in time. No nephrolithiasis is seen. No naz s are identified. IMPRESSION: No distinct abnormality seen.
[2021-05-10] MEDS ORDERED: HYDROCORTISONE SUCCINATE 100 MG/2 ML VIAL IV STA (10:41)
[2021-05-10 11:31] LABS: Glucose,Whole Blood 161 mg/dL (75-99)
[2021-05-10] MEDS: INSULIN ASPART (NovoLOG) 100 UNIT/ML VIAL SQ SCH ×3 (12:00→20:12)
--- NOTE | 2021-05-10 12:08 | P.CNPUL ---
History of Present Illness Consult date: 05/10/21 Requesting physician: Odell Lala Reason for consult: dyspnea, hypoxemia Chief complaint: Respiratory failure. History of present illness: Pulmonary consultation dated 05/10/2021. 71-year-old female who presented to the emergency department via EMS, on May 09. She was seen there by . The patient apparently came in complaining of profound weakness for 2 or 3 days prior to admission. She apparently was recently hospitalized between May 01 and May 04 for left lower extremity cellulitis. She was discharged home, but did not qualify for home care. She been taking her medications at home, but because of upset stomach, she was not eating or drinking. She apparently became extremely weak. For that reason, EMS was called. Apparently when they arrived, her blood pressure was low. They established an IV started IV fluids. She apparently denied any chest pain or chest discomfort. She also apparently denied shortness of breath, abdominal pain, fever, chills, or any other complaints for that matter. Subsequently, she was evaluated in the emergency room, and apparently either after a bowel movement or may be a seizure, the patient became apneic, and required intubation and mechanical ventilation. I was called by the ER physician, and the patient was accepted into the intensive care unit. The patient's currently on volume assist control, rate 14, tidal volume 450, FiO2 50%, with a PEEP of 5. Blood gases on the same settings, except 100%, showed a pO2 337, pCO2 40, pH 7.29. Blood gases are consistent with metabolic acidosis. Currently, she is on saline at 130 mL an hour, propofol is on hold for a daily interruption of sedation, and she is receiving norepinephrine at 30 mcg/m. White count 14.3, hemoglobin 14.3, hematocrit 44.9, and platelet count 366,000. PT 45.7, and INR 4.7. Sodium 133, potassium 4.3, chlorides 94, CO2 21, anion gap is 18, and BUN and creatinine are 94 and 9.87. Lactic acid is 3.5. Troponin was 0.031 and 0.465, and N-terminal proBNP was 3200. Albumin was 2.9. Urinalysis is consistent in my opinion with a urinary tract infection at the urine is cloudy, leukocyte esterase is large positive, there is 146 WBCs and few white blood cell clumps, and there are bacteria. Coronavirus testing was negative. Chest x-ray my opinion show some minimal bilateral atelectasis. Review of Systems A 14 point review of system is not able to be obtained, the patient is currently sedated and on the mechanical ventilator. Her chief complaint coming into the emergency room was that of weakness. Past Medical History Past Medical History: Coronary Artery Disease (CAD), COPD, Deep Vein Thrombosis (DVT), Hyperlipidemia, Hypertension, Osteoarthritis (OA), Pneumonia, Skin Disorder, Vascular Disorder Additional Past Medical History / Comment(s): varicose veins. pneumonia 10 yrs ago. occ use knee brace(left) walker and cane. open sores on both legs(largest on left leg) LEAKING FLUID, poor circulation/blockage in both legs. urinary leakage. psoriasis. HX DVT'S IN LEGS. PAD. 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 Aortogram 10/23/16. Rt knee replacement. 11/21/16 PTBA W/ SENT LT. Past Anesthesia/Blood Transfusion Reactions: Motion Sickness Past Psychological History: No Psychological Hx Reported Additional Psychological History / Comment(s): "fear of heights" Smoking Status: Former smoker, Vaper Past Alcohol Use History: Rare Additional Past Alcohol Use History / Comment(s): smoked 4 PPD- quit 2011, started smoking age 12. does use E-cigarette Past Drug Use History: None Reported - Past Family History Father Family Medical History: No Reported History Mother Family Medical History: Cancer Medications and Allergies Home Medications Medication Instructions Recorded Confirmed Type Atorvastatin [Lipitor] 10 mg PO HS 10/18/16 05/09/21 History Cyclobenzaprine [Flexeril] 10 mg PO TID PRN 10/18/16 05/09/21 History Enalapril [Vasotec] 10 mg PO DAILY 10/18/16 05/09/21 History Ergocalciferol (Vitamin D2) 50,000 unit PO CARDENAS 10/18/16 05/09/21 History [Vitamin D2] Gabapentin [Neurontin] 100 mg PO DAILY 10/18/16 05/09/21 History HYDROcodone/APAP 10-325MG [Blair 1 tab PO Q6HR PRN 10/18/16 05/09/21 History 10-325] Metoprolol Tartrate [Lopressor] 50 mg PO BID 10/18/16 05/09/21 History Warfarin [Coumadin] 2.5 mg PO WEFR 01/25/17 05/09/21 History Warfarin [Coumadin] 5 mg PO SUMOTUTHSA 01/25/17 05/09/21 History Aspirin EC [Ecotrin Low Dose] 81 mg PO DAILY 05/01/21 05/09/21 History Doxycycline Hyclate [Vibramycin] 100 mg PO DAILY 05/01/21 05/09/21 History Gabapentin [Neurontin] 200 mg PO HS 05/01/21 05/09/21 History Oxybutynin Chloride 5 mg PO BID 05/01/21 05/09/21 History Potassium Gluconate [Potassium 99 mg PO DAILY 05/01/21 05/09/21 History Gluconate ER] Furosemide [Lasix] 40 mg PO BID #60 tablet 05/03/21 05/09/21 Rx Menthol-Zinc Oxide Oint 1 applic TOPICAL DAILY PRN #30 05/03/21 05/09/21 Rx [Calmoseptine Oint] applic Ciprofloxacin HCl [Cipro] 500 mg PO BID 05/09/21 05/09/21 History Allergies Allergy/AdvReac Type Severity Reaction Status Date / Time amoxicillin Allergy Severe Dyspnea Verified 05/09/21 18:59 latex Allergy Severe Anaphylaxis Verified 05/09/21 18:59 nickel Allergy Unknown Rash/Hives Verified 05/09/21 18:59 Sulfa (Sulfonamide Allergy Rash/Hives Verified 05/09/21 18:59 Antibiotics) Physical Exam Osteopathic Statement: *. No significant issues noted on an osteopathic structural exam other than those noted in the History and Physical/Consult. Vitals: Vital Signs Temp Pulse Resp BP Pulse Ox 05/10/21 11:00 70 17 112/33 99 05/10/21 10:45 73 127/46 100 05/10/21 10:30 70 120/45 100 05/10/21 10:15 70 120/53 98 05/10/21 10:00 72 22 138/98 100 05/10/21 09:45 76 129/51 100 05/10/21 09:34 68 05/10/21 09:30 67 116/45 92 L 05/10/21 09:20 68 05/10/21 09:15 69 83/38 95 05/10/21 09:00 73 19 134/54 98 05/10/21 08:45 71 117/57 100 05/10/21 08:30 74 119/88 100 05/10/21 08:15 80 119/46 99 05/10/21 08:00 97.8 F 76 23 114/43 99 05/10/21 07:45 76 105/51 99 05/10/21 07:30 75 114/83 98 05/10/21 07:15 76 124/44 99 05/10/21 07:00 75 14 117/51 98 05/10/21 06:30 77 14 119/60 97 05/10/21 06:00 78 14 97/60 94 L 05/10/21 05:30 77 14 115/83 98 05/10/21 05:00 74 14 122/51 100 05/10/21 04:30 76 14 118/54 100 05/10/21 04:00 97.6 F 81 14 119/59 99 05/10/21 03:30 71 14 126/43 100 05/10/21 03:00 80 14 114/40 100 05/10/21 02:30 85 14 113/51 100 05/10/21 02:00 82 14 124/53 100 05/10/21 01:30 84 14 102/60 05/10/21 01:00 80 14 105/59 97 05/10/21 00:30 80 14 87/38 100 05/10/21 00:00 98.3 F 85 14 107/55 99 05/09/21 23:50 98 05/09/21 23:40 89 20 96/51 99 05/09/21 23:30 86 20 112/46 100 05/09/21 23:15 82 20 68/55 100 05/09/21 23:00 90 20 90/44 98 05/09/21 22:45 91 20 75/52 100 05/09/21 22:30 94 20 94/43 97 05/09/21 22:15 95 20 75/55 98 05/09/21 22:00 98 20 68/56 98 05/09/21 21:45 99 20 90/37 95 08/31/21 21:30 110 H 20 78/50 96 05/09/21 21:15 112 H 20 70/34 95 05/09/21 21:10 110 H 20 73/38 100 05/09/21 20:55 102 H 20 74/49 100 05/09/21 20:40 133 H 20 92/56 100 05/09/21 20:24 134 H 67 H 92/57 86 L 05/09/21 20:14 75 26 H 70/49 89 L 05/09/21 19:31 67 18 90/42 91 L 05/09/21 18:37 68 18 105/42 98 05/09/21 17:25 65 18 100/83 96 05/09/21 16:47 97.4 F L 64 18 96/60 92 L Intake and Output 05/09/21 05/10/21 05/10/21 22:59 06:59 14:59 Intake Total 1.084 525.105 1307.752 Output Total 600 275 49 Balance -598.916 117.639 5637.752 Intake: IV 780 2570 Sodium Chloride 0.9% 1, 780 520 000 ml @ 130 mls/hr IV . Q7H42M [facility] Rx#:[id number] Sodium Chloride 0.9% 2, 2000 000 ml @ 999 mls/hr IV . Q2H1M [facility] Rx#:[id number] cefTRIAXone 1 gm In 50 Sodium Chloride 0.9% 50 ml @ 100 mls/hr IVPB Q24HR [facility] Rx#:[id number] Intake, IV Titration 1.084 80.721 193.752 Amount Norepinephrine 32 mg In 1.084 13.868 168.162 Sodium Chloride 0.9% 218 ml @ 0.05 MCG/KG/MIN 1. 807 mls/hr IV .Q24H [facility] Rx#:[id number] propofoL 1,000 mg In 66.853 25.590 Empty Bag 1 bag @ Titrate IV .Q0M [facility] Rx#: [id number] Output: Gastric Drainage 200 Urine 600 75 49 Other: Voiding Method Indwelling Catheter Indwelling Catheter Weight 77.111 kg 114.4 kg 114.4 kg ABP, PAP, CO, CI - Last 8 Hours Arterial Blood Pressure 107/38 Arterial Blood Pressure 115/41 Arterial Blood Pressure 126/41 Arterial Blood Pressure 128/51 Arterial Blood Pressure 153/53 No acute distress, currently sedated, with an orally placed endotracheal tube. HEENT examination is grossly unremarkable. Neck supple. Full range of motion. No adenopathy thyromegaly or neck vein distention. Cardiovascular examination reveals regular rhythm rate. S1-S2 normal. No S3 or S4. No discernible murmur noted. Heart sounds are distant. Heart rate 70 bpm. Lungs reveal mostly clear breath sounds. Scattered rhonchi are noted. No wheezes or crackles. Breath sounds equal bilaterally. Abdomen soft without bowel sounds. No masses or tenderness. Extremities are intact. No cyanosis clubbing or edema. Skin is without rash or lesion. Neurologic examination cannot be adequately assessed as the patient's currently sedated and on the mechanical ventilator. Results - Laboratory Findings CBC and BMP: 05/10/21 03:25 05/10/21 03:25 ABG ABG pH 7.29 (7.35-7.45) L 05/10/21 05:05 ABG pCO2 40 mmHg (35-45) 05/10/21 05:05 ABG pO2 327 mmHg (83-108) H 05/10/21 05:05 ABG O2 Saturation 99.8 % (94-97) H 05/10/21 05:05 PT/INR, D-dimer PT 45.7 sec (9.0-12.0) H 05/10/21 03:25 INR 4.7 (<1.2) H 05/10/21 03:25 Abnormal lab findings: Abnormal Labs 05/09/21 05/09/21 05/09/21 17:13 17:13 17:13 WBC 14.1 H RDW 16.0 H Neutrophils # 11.6 H Neutrophils # (Manual) Lymphocytes # (Manual) ESR 46 H PT 36.6 H INR 3.8 H APTT 44.6 H ABG pH ABG pO2 ABG HCO3 ABG O2 Saturation Sodium 129 L Chloride 88 L Carbon Dioxide 21 L BUN 97 H Creatinine 9.86 H* Glucose 120 H POC Glucose (mg/dL) Plasma Lactic Acid Jaron Calcium AST Troponin I Total Protein Albumin Urine Appearance Urine Protein Urine Blood Ur Leukocyte Esterase Urine RBC Urine WBC Urine WBC Clumps Urine Bacteria Hyaline Casts Urine Mucus Urine Yeast (Budding) 05/09/21 05/09/21 05/09/21 17:13 17:13 19:31 WBC RDW Neutrophils # Neutrophils # (Manual) Lymphocytes # (Manual) ESR PT INR APTT ABG pH ABG pO2 ABG HCO3 ABG O2 Saturation Sodium Chloride Carbon Dioxide BUN Creatinine Glucose POC Glucose (mg/dL) Plasma Lactic Acid Jaron 2.5 H* Calcium AST Troponin I 0.036 H* Total Protein Albumin Urine Appearance Cloudy H Urine Protein 1+ H Urine Blood Moderate H Ur Leukocyte Esterase Large H Urine RBC 43 H Urine WBC 146 H Urine WBC Clumps Few H Urine Bacteria Rare H Hyaline Casts 24 H Urine Mucus Rare H Urine Yeast (Budding) Many H 05/09/21 05/09/21 05/09/21 20:13 21:20 21:20 WBC 12.0 H RDW 15.7 H Neutrophils # 8.1 H Neutrophils # (Manual) Lymphocytes # (Manual) ESR PT INR APTT ABG pH ABG pO2 ABG HCO3 ABG O2 Saturation Sodium 130 L Chloride 96 L Carbon Dioxide 16 L BUN 91 H Creatinine 8.86 H* Glucose 178 H POC Glucose (mg/dL) 105 H Plasma Lactic Acid Jaron Calcium 7.6 L AST Troponin I Total Protein 4.8 L Albumin 2.4 L Urine Appearance Urine Protein Urine Blood Ur Leukocyte Esterase Urine RBC Urine WBC Urine WBC Clumps Urine Bacteria Hyaline Casts Urine Mucus Urine Yeast (Budding) 05/09/21 05/09/21 05/09/21 21:20 21:20 21:55 WBC RDW Neutrophils # Neutrophils # (Manual) Lymphocytes # (Manual) ESR PT 39.6 H INR 4.1 H APTT 36.0 H ABG pH 7.29 L ABG pO2 ABG HCO3 19 L ABG O2 Saturation Sodium Chloride Carbon Dioxide BUN Creatinine Glucose POC Glucose (mg/dL) Plasma Lactic Acid Jaron 4.9 H* Calcium AST Troponin I Total Protein Albumin Urine Appearance Urine Protein Urine Blood Ur Leukocyte Esterase Urine RBC Urine WBC Urine WBC Clumps Urine Bacteria Hyaline Casts Urine Mucus Urine Yeast (Budding) 05/09/21 05/10/21 05/10/21 23:51 00:33 00:33 WBC RDW Neutrophils # Neutrophils # (Manual) Lymphocytes # (Manual) ESR PT INR APTT ABG pH ABG pO2 ABG HCO3 ABG O2 Saturation Sodium Chloride Carbon Dioxide BUN Creatinine Glucose POC Glucose (mg/dL) 168 H Plasma Lactic Acid Jaron 3.7 H* Calcium AST Troponin I 0.465 H* Total Protein Albumin Urine Appearance Urine Protein Urine Blood Ur Leukocyte Esterase Urine RBC Urine WBC Urine WBC Clumps Urine Bacteria Hyaline Casts Urine Mucus Urine Yeast (Budding) 05/10/21 05/10/21 05/10/21 00:33 03:25 03:25 WBC 14.3 H RDW 15.6 H Neutrophils # Neutrophils # (Manual) 12.70 H Lymphocytes # (Manual) 0.72 L ESR PT INR APTT ABG pH ABG pO2 ABG HCO3 ABG O2 Saturation Sodium 130 L 133 L Chloride 93 L 94 L Carbon Dioxide 19 L 21 L BUN 93 H 94 H Creatinine 9.55 H* 9.87 H* Glucose 169 H 181 H POC Glucose (mg/dL) Plasma Lactic Acid Jaron Calcium 8.0 L 8.2 L AST 40 H 40 H Troponin I Total Protein 5.6 L 5.5 L Albumin 3.1 L 2.9 L Urine Appearance Urine Protein Urine Blood Ur Leukocyte Esterase Urine RBC Urine WBC Urine WBC Clumps Urine Bacteria Hyaline Casts Urine Mucus Urine Yeast (Budding) 05/10/21 05/10/21 05/10/21 03:25 03:25 05:05 WBC RDW Neutrophils # Neutrophils # (Manual) Lymphocytes # (Manual) ESR PT 45.7 H INR 4.7 H APTT ABG pH 7.29 L ABG pO2 327 H ABG HCO3 19 L ABG O2 Saturation 99.8 H Sodium Chloride Carbon Dioxide BUN Creatinine Glucose POC Glucose (mg/dL) Plasma Lactic Acid Jaron 4.2 H* Calcium AST Troponin I Total Protein Albumin Urine Appearance Urine Protein Urine Blood Ur Leukocyte Esterase Urine RBC Urine WBC Urine WBC Clumps Urine Bacteria Hyaline Casts Urine Mucus Urine Yeast (Budding) 05/10/21 05/10/21 05/10/21 05:51 06:14 08:49 WBC RDW Neutrophils # Neutrophils # (Manual) Lymphocytes # (Manual) ESR PT INR APTT ABG pH ABG pO2 ABG HCO3 ABG O2 Saturation Sodium Chloride Carbon Dioxide BUN Creatinine Glucose POC Glucose (mg/dL) 175 H Plasma Lactic Acid Jaron 3.8 H* 3.5 H* Calcium AST Troponin I Total Protein Albumin Urine Appearance Urine Protein Urine Blood Ur Leukocyte Esterase Urine RBC Urine WBC Urine WBC Clumps Urine Bacteria Hyaline Casts Urine Mucus Urine Yeast (Budding) 05/10/21 11:30 WBC RDW Neutrophils # Neutrophils # (Manual) Lymphocytes # (Manual) ESR PT INR APTT ABG pH ABG pO2 ABG HCO3 ABG O2 Saturation Sodium Chloride Carbon Dioxide BUN Creatinine Glucose POC Glucose (mg/dL) 161 H Plasma Lactic Acid Jaron Calcium AST Troponin I Total Protein Albumin Urine Appearance Urine Protein Urine Blood Ur Leukocyte Esterase Urine RBC Urine WBC Urine WBC Clumps Urine Bacteria Hyaline Casts Urine Mucus Urine Yeast (Budding) - Diagnostic Findings Chest x-ray: image reviewed Assessment and Plan Assessment: Acute hypoxemic respiratory failure, requiring intubation and mechanical ventilation, of unclear etiology, on 05/09/2021. Recent hospitalization, between May 01 of May 04, for left lower extremity cellulitis. History of hyperlipidemia. History of hypertension. History of CAD. History of deep venous thrombosis. History of DJD. History of stress urinary incontinence. History of psoriasis. History of bypass grafting and valve replacement surgery. Plan: Plan dated 05/10/2021. An arterial line was placed on this patient today. In addition, we'll start tube feedings. The patient's ventilator study. The patient's peak airway pressure is 23. A plateau pressure is 15. The peak to plateau difference is 8 cm water. The patient's airways resistance is calculated 8 cm water per liter per second. The patient will have daily chest x-rays, and labs for the time being. The patient will have a daily interruption of sedation. We feel the patient is ready, the patient will be moved towards weaning and extubation. Because of the persistent hypotension, we'll check a TSH level and a cortisol level. We'll also check a pro-calcitonin level, and give the patient a couple liters of fluid, to see if we can wean down the norepinephrine. Additional recommendations and suggestions are forthcoming. Prognosis is guarded. Time with Patient: Greater than 30
--- NOTE | 2021-05-10 12:57 | CONS ---
CONSULTATION REASON FOR CONSULTATION: Renal failure. HISTORY OF PRESENT ILLNESS: The patient is a 70-year-old female who presented to the hospital with complaints of increased weakness for the past 2-3 days prior to admission. The patient also has cellulitis of her left lower extremity with an ulcer. The patient was recently discharged from the hospital on 05/04/2021. She was seen by ID and Vascular Surgery at that time. Patient was admitted. The patient was noted to have a serum creatinine of 9.8 mg/dL this admission, when her creatinine on discharge on 05/04/2021 was 1.17. Patient received Unasyn in the ER, as her urine showed evidence of pyuria and there was concern for ALLERGY TO PENICILLIN. The patient is also ALLERGIC TO LATEX and she did have a latex catheter placed. While patient was in the ER, it appears that she crashed with significant hypotension and was started on Levophed and eventually intubated. Levophed is currently being decreased. Patient remains on the vent. Urine output has just now started to hot die picker. The patient has received about 3-4 L of fluid boluses and is currently receiving aggressive IV hydration. There was no history of cough or hemoptysis at the time of admission. The patient was treated with Cipro from her last hospitalization and she continued Cipro as outpatient as well. There was no major rash noted on this admission. PAST MEDICAL HISTORY: Past medical history is significant for coronary artery disease, COPD, DVT, hyperlipidemia, hypertension, osteoarthritis, pneumonia, varicose veins, psoriasis, previous history of DVTs. PAST SURGICAL HISTORY: Valvular heart replacement; details not known. Cardiac catheterization, hysterectomy, tubal ligation, coronary artery bypass surgery, right knee arthroplasty, and lower extremity intervention for peripheral vascular disease. SOCIAL HISTORY: Negative for smoking, drug abuse or alcohol abuse. MEDICATIONS: Medications prior to admission included Lipitor, Flexeril, Vasotec, vitamin D, Neurontin, [place], Lopressor, Coumadin, aspirin, mycin, Neurontin, potassium, Cipro, Lasix. ALLERGIES: ALLERGIES include AMOXICILLIN, LATEX, NICKEL. SULFA causes rash and hives and latex causes anaphylaxis. REVIEW OF SYSTEMS: As per HPI. Other systems negative. PHYSICAL EXAMINATION: Patient is currently comfortable. She is on the vent. She had been responding to nursing staff earlier. Patient is currently sedated. Blood pressure 112/33, heart rate 70 per minute. She is afebrile. EXAMINATION OF THE HEART: S1 and S2. EXAMINATION OF LUNGS: Bilateral breath sounds are heard. ABDOMEN: Soft, nontender. LOWER EXTREMITIES: Examination of lower extremities shows chronic skin changes. No significant edema noted. BUILDING CUSTODIAN EXAM: BUILDING CUSTODIAN exam cannot be performed. LABS: Sodium 133, potassium 4.3, chloride 94. CO2 is 21, BUN 94, serum creatinine 9.87. Lactic acid 4.2. Troponin 0.465. UA shows 1+ protein, large leukocyte esterase, WBC clumps noted. Budding yeast seen as well. ASSESSMENT: 1. Acute kidney injury, acute tubular necrosis versus acute interstitial nephritis associated with recent use of antibiotics, particularly ciprofloxacin. Serum creatinine was 1.1 on 05/04/2021 at the time of discharge from last hospitalization. Patient is currently oliguric. However, urine output has started to hot die picker. She is getting aggressive IV hydration and Levophed dose has been decreased. I will hold off on dialysis at this point and re-evaluate in a.m. Continue with aggressive IV hydration and avoid any nephrotoxic medications. I will check urine for eosinophiles and give one dose of hydrocortisone. 2. Acute hypotension, possibly related to anaphylactic reaction to antibiotics/latex. Levophed is currently being decreased. The latex Hardy catheter was changed and antibiotics have been switched. Again, one dose of hydrocortisone will be given. 3. Lactic acidosis secondary to hypotension, hypoperfusion. 4. Pyuria. Rule out urinary tract infection versus acute interstitial nephritis. 5. Acute hypoxic respiratory failure, currently on the vent, FiO2 at 50%. No evidence of congestive heart failure. PLAN: Check urine for eosinophiles. One dose of hydrocortisone x1. I will hold off on dialysis, as urine output is starting to hot die picker and there is no intractable hyperkalemia or acidosis or volume overload noted at this time. If renal function is not further improved by tomorrow, patient will need renal replacement therapy. Thank you for this consultation. Will continue to follow the patient with you during her hospitalization. MMODL / IJN: [id number] /
--- NOTE | 2021-05-10 15:17 | P.HPIM ---
History of Present Illness H&P Date: 05/10/21 HISTORY OF PRESENT ILLNESS This is a 70-year-old female patient of Dr. Lala with past medical history of coronary artery disease status post CABG and repair of aneurysm, aortic valve replacement, COPD, DVT, peripheral artery disease, hyperlipidemia, former tobacco use, nonhealing ulcer to the left lower extremity under the care of the wound healing Center. Patient had recent hospitalization from May 01 through May 04 at which time she was treated for cellulitis and ulcer of the lower extremity. Patient presented to [facility] emergency center yesterday afternoon with complaints of upset stomach, not eating or drinking which she related to ciprofloxacin. Patient developed increasing weakness and inability to ambulate. Patient was brought in by EMS found her blood pressure to be exceptionally low. On presentation, blood pressure was 96/60, afebrile, heart rate in the 60s, pulse ox 92% on 2 L nasal cannula. EKG was a sinus rhythm at 65 bpm with no acute ST changes. WBC 12.0, hemoglobin 12.8, platelet count 333. Sodium 130, potassium 3.9, chloride 96, CO2 16, BUN 91 creatinine 8.86. Blood sugar 178. Troponin 0.036. BNP 3200. Lactic acid 2.5. Chest x- ray showed no acute cardiopulmonary process. Renal ultrasound showed no d istinct abnormality. Hardy catheter was placed with return of 300 ML's. Patient was being prepared for admission and staff was called into the patient's room, she had had a large bowel movement in her bed and became unresponsive and was shaking. Patient was unresponsive with agonal respirations and blood pressure was 70/30. Patient was immediately intubated, provided ample of appendectomy and repeated 3, right jugular catheter was placed. Patient underwent CAT scan of the brain which revealed no acute intracranial abnormality. Patient was started on Levophed drip and admitted into the i ntensive care unit, consult with nephrology, summer counselor, patient is currently on propofol but when this was weaned earlier in the day she was able to follow some commands. She has been started on IV Rocephin REVIEW OF SYSTEMS Unable to obtain due to intubation SOCIAL HISTORY Patient lives with her . Uses a walker at home. Patient quit smoking 10 years ago when she had her cardiac bypass. No alcohol use. FAMILY HISTORY Mother of Covid infection at age 90. Patient did not know her father. Patient is half-brother and half-sister with no major medical problems. Patient has one daughter and one son with no major medical problems. PHYSICAL EXAMINATION Gen: This is this is a 70-year-old female, intubated and on mechanical ventilation in the ICU. Patient appears to be comfortable. HEENT: Head is atraumatic, normocephalic. Pupils equal, round. Sclerae is anicte melina. Oral 8T tube. NECK: Supple. No JVD. No lymphadenopathy. No thyromegaly. LUNGS: Few scattered rhonchi. No intercostal retractions. HEART: Regular rate and rhythm. No murmur. ABDOMEN: Soft. Bowel sounds are present. No masses. No tenderness. EXTREMITIES: No pedal edema. No calf tenderness. NEUROLOGICAL: Patient is awake, alert and oriented x3. Cranial nerves 2 through 12 are grossly intact. ASSESSMENT AND PLAN 1. Acute hypoxic respiratory failure requiring intubation and mechanical ventilation. Patient maintained in the intensive care unit, consult with in tensivist appreciated, weaning as appropriate. Patient is to start tube feedings. 2. Acute kidney injury, acute tubular necrosis versus acute interstitial nephritis associated with recent antibiotic use ciprofloxacin, Lasix. Consult with nephrology appreciated. Continue IV hydration. Plan to monitor closely without plan for dialysis at this point if she improves. Urine sent for eosinophils and she is status post 1 dose of hydrocortisone. 3. Hypovolemic shock. Patient admitted into the intensive care unit, continue vasopressors. 4. Lactic acidosis secondary to hypotension, hypoperfusion and renal failure. 5. 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 Consult with wound healing Center. Continue Rocephin. 6. Hypertension, currently hypotensive. Hold antihypertensive medications. 7. Hyperlipidemia. Continue atorvastatin 10 mg at bedtime. 8. Coronary artery disease status post CABG and repair of aneurysm and aortic valve replacement, stable. 9. COPD, stable. Continue DuoNeb treatments every 4 hours. 10. Peripheral artery disease. 11. History of DVT. 12. GI prophylaxis. Continue Pepcid 20 mg IV every 12 hours. Patient will be admitted to the hospital for a minimum of 2 night stay. DISCHARGE PLAN TBD. Impression and plan of care have been directed as dictated by the signing physician. Amirah Lopez nurse practitioner acting as scribe for signing physician. Past Medical History Past Medical History: Coronary Artery Disease (CAD), COPD, Deep Vein Thrombosis (DVT), Hyperlipidemia, Hypertension, Osteoarthritis (OA), Pneumonia, Skin Disorder, Vascular Disorder Additional Past Medical History / Comment(s): varicose veins. pneumonia 10 yrs ago. occ use knee brace(left) walker and cane. open sores on both legs(largest on left leg) LEAKING FLUID, poor circulation/blockage in both legs. urinary leakage. psoriasis. HX DVT'S IN LEGS. PAD. 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 Aortogram 10/23/16. Rt knee replacement. 11/21/16 PTBA W/ SENT LT. Past Anesthesia/Blood Transfusion Reactions: Motion Sickness Past Psychological History: No Psychological Hx Reported Additional Psychological History / Comment(s): "fear of heights" Smoking Status: Former smoker, Vaper Past Alcohol Use History: Rare Additional Past Alcohol Use History / Comment(s): smoked 4 PPD- quit 2011, started smoking age 12. does use E-cigarette Past Drug Use History: None Reported - Past Family History Father Family Medical History: No Reported History Mother Family Medical History: Cancer Medications and Allergies Home Medications Medication Instructions Recorded Confirmed Type Atorvastatin [Lipitor] 10 mg PO HS 10/18/16 05/09/21 History Cyclobenzaprine [Flexeril] 10 mg PO TID PRN 10/18/16 05/09/21 History Enalapril [Vasotec] 10 mg PO DAILY 10/18/16 05/09/21 History Ergocalciferol (Vitamin D2) 50,000 unit PO CARDENAS 10/18/16 05/09/21 History [Vitamin D2] Gabapentin [Neurontin] 100 mg PO DAILY 10/18/16 05/09/21 History HYDROcodone/APAP 10-325MG [[place]ound 1 tab PO Q6HR PRN 10/18/16 05/09/21 History 10-325] Metoprolol Tartrate [Lopressor] 50 mg PO BID 10/18/16 05/09/21 History Warfarin [Coumadin] 2.5 mg PO WEFR 01/25/17 05/09/21 History Warfarin [Coumadin] 5 mg PO SUMOTUTHSA 01/25/17 05/09/21 History Aspirin EC [Ecotrin Low Dose] 81 mg PO DAILY 05/01/21 05/09/21 History Doxycycline Hyclate [Vibramycin] 100 mg PO DAILY 05/01/21 05/09/21 History Gabapentin [Neurontin] 200 mg PO HS 05/01/21 05/09/21 History Oxybutynin Chloride 5 mg PO BID 05/01/21 05/09/21 History Potassium Gluconate [Potassium 99 mg PO DAILY 05/01/21 05/09/21 History Gluconate ER] Furosemide [Lasix] 40 mg PO BID #60 tablet 05/03/21 05/09/21 Rx Menthol-Zinc Oxide Oint 1 applic TOPICAL DAILY PRN #30 05/03/21 05/09/21 Rx [Calmoseptine Oint] applic Ciprofloxacin HCl [Cipro] 500 mg PO BID 05/09/21 05/09/21 History Allergies Allergy/AdvReac Type Severity Reaction Status Date / Time amoxicillin Allergy Severe Dyspnea Verified 05/09/21 18:59 latex Allergy Severe Anaphylaxis Verified 05/09/21 18:59 nickel Allergy Unknown Rash/Hives Verified 05/09/21 18:59 Sulfa (Sulfonamide Allergy Rash/Hives Verified 05/09/21 18:59 Antibiotics) Physical Exam Vitals: Vital Signs Temp Pulse Resp BP Pulse Ox 05/10/21 09:34 68 05/10/21 09:20 68 05/10/21 09:00 73 19 134/54 98 05/10/21 08:45 71 117/57 100 05/10/21 08:30 74 119/88 100 05/10/21 08:15 80 119/46 99 05/10/21 08:00 97.8 F 76 23 114/43 99 05/10/21 07:45 76 105/51 99 05/10/21 07:30 75 114/83 98 05/10/21 07:15 76 124/44 99 05/10/21 07:00 75 14 117/51 98 05/10/21 06:30 77 14 119/60 97 05/10/21 06:00 78 14 97/60 94 L 05/10/21 05:30 77 14 115/83 98 05/10/21 05:00 74 14 122/51 100 05/10/21 04:30 76 14 118/54 100 05/10/21 04:00 97.6 F 81 14 119/59 99 05/10/21 03:30 71 14 126/43 100 05/10/21 03:00 80 14 114/40 100 05/10/21 02:30 85 14 113/51 100 05/10/21 02:00 82 14 124/53 100 05/10/21 01:30 84 14 102/60 05/10/21 01:00 80 14 105/59 97 05/10/21 00:30 80 14 87/38 100 05/10/21 00:00 98.3 F 85 14 107/55 99 05/09/21 23:50 98 05/09/21 23:40 89 20 96/51 99 05/09/21 23:30 86 20 112/46 100 05/09/21 23:15 82 20 68/55 100 05/09/21 23:00 90 20 90/44 98 05/09/21 22:45 91 20 75/52 100 05/09/21 22:30 94 20 94/43 97 05/09/21 22:15 95 20 75/55 98 05/09/21 22:00 98 20 68/56 98 05/09/21 21:45 99 20 90/37 95 05/09/21 21:30 110 H 20 78/50 96 05/09/21 21:15 112 H 20 70/34 95 05/09/21 21:10 110 H 20 73/38 100 05/09/21 20:55 102 H 20 74/49 100 05/09/21 20:40 133 H 20 92/56 100 05/09/21 20:24 134 H 67 H 92/57 86 L 05/09/21 20:14 75 26 H 70/49 89 L 05/09/21 19:31 67 18 90/42 91 L 05/09/21 18:37 68 18 105/42 98 05/09/21 17:25 65 18 100/83 96 05/09/21 16:47 97.4 F L 64 18 96/60 92 L Intake and Output 05/09/21 05/10/21 05/10/21 22:59 06:59 14:59 Intake Total 1.084 787.429 9101.631 Output Total 600 275 17 Balance -598.916 375.282 4590.631 Intake: IV 780 2310 Sodium Chloride 0.9% 1, 780 260 000 ml @ 130 mls/hr IV . Q7H42M [facility] Rx#:[id number] Sodium Chloride 0.9% 2, 2000 000 ml @ 999 mls/hr IV . Q2H1M [facility] Rx#:[id number] cefTRIAXone 1 gm In 50 Sodium Chloride 0.9% 50 ml @ 100 mls/hr IVPB Q24HR [facility] Rx#:[id number] Intake, IV Titration 1.084 80.721 182.631 Amount Norepinephrine 32 mg In 1.084 13.868 157.041 Sodium Chloride 0.9% 218 ml @ 0.05 MCG/KG/MIN 1. 807 mls/hr IV .Q24H [facility] Rx#:[id number] propofoL 1,000 mg In 66.853 25.590 Empty Bag 1 bag @ Titrate IV .Q0M [facility] Rx#: [id number] Output: Gastric Drainage 200 Urine 600 75 17 Other: Voiding Method Indwelling Catheter Indwelling Catheter Weight 77.111 kg 114.4 kg Results CBC & Chem 7: 05/10/21 03:25 05/10/21 03:25 Labs: Abnormal Lab Results - Last 24 Hours (Table) 05/09/21 05/09/21 05/09/21 Range/Units 17:13 17:13 17:13 WBC 14.1 H (3.8-10.6) k/uL RDW 16.0 H (11.5-15.5) % Neutrophils # 11.6 H (1.3-7.7) k/uL Neutrophils # (Manual) (1.3-7.7) k/uL Lymphocytes # (Manual) (1.0-4.8) k/uL ESR 46 H (0-20) mm/hr PT 36.6 H (9.0-12.0) sec INR 3.8 H (<1.2) APTT 44.6 H (22.0-30.0) sec ABG pH (7.35-7.45) ABG pO2 (83-108) mmHg ABG HCO3 (21-25) mmol/L ABG O2 Saturation (94-97) % Sodium 129 L (137-145) mmol/L Chloride 88 L (98-107) mmol/L Carbon Dioxide 21 L (22-30) mmol/L BUN 97 H (7-17) mg/dL Creatinine 9.86 H* (0.52-1.04) mg/dL Glucose 120 H (74-99) mg/dL POC Glucose (mg/dL) (75-99) mg/dL Plasma Lactic Acid Jaron (0.7-2.0) mmol/L Calcium (8.4-10.2) mg/dL AST (14-36) U/L Troponin I (0.000-0.034) ng/mL Total Protein (6.3-8.2) g/dL Albumin (3.5-5.0) g/dL Urine Appearance (Clear) Urine Protein (Negative) Urine Blood (Negative) Ur Leukocyte Esterase (Negative) Urine RBC (0-5) /hpf Urine WBC (0-5) /hpf Urine WBC Clumps (None) /hpf Urine Bacteria (None) /hpf Hyaline Casts (0-2) /lpf Urine Mucus (None) /hpf Urine Yeast (Budding) (None) /hpf 05/09/21 05/09/21 05/09/21 Range/Units 17:13 17:13 19:31 WBC (3.8-10.6) k/uL RDW (11.5-15.5) % Neutrophils # (1.3-7.7) k/uL Neutrophils # (Manual) (1.3-7.7) k/uL Lymphocytes # (Manual) (1.0-4.8) k/uL ESR (0-20) mm/hr PT (9.0-12.0) sec INR (<1.2) APTT (22.0-30.0) sec ABG pH (7.35-7.45) ABG pO2 (83-108) mmHg ABG HCO3 (21-25) mmol/L ABG O2 Saturation (94-97) % Sodium (137-145) mmol/L Chloride (98-107) mmol/L Carbon Dioxide (22-30) mmol/L BUN (7-17) mg/dL Creatinine (0.52-1.04) mg/dL Glucose (74-99) mg/dL POC Glucose (mg/dL) (75-99) mg/dL Plasma Lactic Acid Jaron 2.5 H* (0.7-2.0) mmol/L Calcium (8.4-10.2) mg/dL AST (14-36) U/L Troponin I 0.036 H* (0.000-0.034) ng/mL Total Protein (6.3-8.2) g/dL Albumin (3.5-5.0) g/dL Urine Appearance Cloudy H (Clear) Urine Protein 1+ H (Negative) Urine Blood Moderate H (Negative) Ur Leukocyte Esterase Large H (Negative) Urine RBC 43 H (0-5) /hpf Urine WBC 146 H (0-5) /hpf Urine WBC Clumps Few H (None) /hpf Urine Bacteria Rare H (None) /hpf Hyaline Casts 24 H (0-2) /lpf Urine Mucus Rare H (None) /hpf Urine Yeast (Budding) Many H (None) /hpf 05/09/21 05/09/21 05/09/21 Range/Units 20:13 21:20 21:20 WBC 12.0 H (3.8-10.6) k/uL RDW 15.7 H (11.5-15.5) % Neutrophils # 8.1 H (1.3-7.7) k/uL Neutrophils # (Manual) (1.3-7.7) k/uL Lymphocytes # (Manual) (1.0-4.8) k/uL ESR (0-20) mm/hr PT (9.0-12.0) sec INR (<1.2) APTT (22.0-30.0) sec ABG pH (7.35-7.45) ABG pO2 (83-108) mmHg ABG HCO3 (21-25) mmol/L ABG O2 Saturation (94-97) % Sodium 130 L (137-145) mmol/L Chloride 96 L (98-107) mmol/L Carbon Dioxide 16 L (22-30) mmol/L BUN 91 H (7-17) mg/dL Creatinine 8.86 H* (0.52-1.04) mg/dL Glucose 178 H (74-99) mg/dL POC Glucose (mg/dL) 105 H (75-99) mg/dL Plasma Lactic Acid Jaron (0.7-2.0) mmol/L Calcium 7.6 L (8.4-10.2) mg/dL AST (14-36) U/L Troponin I (0.000-0.034) ng/mL Total Protein 4.8 L (6.3-8.2) g/dL Albumin 2.4 L (3.5-5.0) g/dL Urine Appearance (Clear) Urine Protein (Negative) Urine Blood (Negative) Ur Leukocyte Esterase (Negative) Urine RBC (0-5) /hpf Urine WBC (0-5) /hpf Urine WBC Clumps (None) /hpf Urine Bacteria (None) /hpf Hyaline Casts (0-2) /lpf Urine Mucus (None) /hpf Urine Yeast (Budding) (None) /hpf 05/09/21 05/09/21 05/09/21 Range/Units 21:20 21:20 21:55 WBC (3.8-10.6) k/uL RDW (11.5-15.5) % Neutrophils # (1.3-7.7) k/uL Neutrophils # (Manual) (1.3-7.7) k/uL Lymphocytes # (Manual) (1.0-4.8) k/uL ESR (0-20) mm/hr PT 39.6 H (9.0-12.0) sec INR 4.1 H (<1.2) APTT 36.0 H (22.0-30.0) sec ABG pH 7.29 L (7.35-7.45) ABG pO2 (83-108) mmHg ABG HCO3 19 L (21-25) mmol/L ABG O2 Saturation (94-97) % Sodium (137-145) mmol/L Chloride (98-107) mmol/L Carbon Dioxide (22-30) mmol/L BUN (7-17) mg/dL Creatinine (0.52-1.04) mg/dL Glucose (74-99) mg/dL POC Glucose (mg/dL) (75-99) mg/dL Plasma Lactic Acid Jaron 4.9 H* (0.7-2.0) mmol/L Calcium (8.4-10.2) mg/dL AST (14-36) U/L Troponin I (0.000-0.034) ng/mL Total Protein (6.3-8.2) g/dL Albumin (3.5-5.0) g/dL Urine Appearance (Clear) Urine Protein (Negative) Urine Blood (Negative) Ur Leukocyte Esterase (Negative) Urine RBC (0-5) /hpf Urine WBC (0-5) /hpf Urine WBC Clumps (None) /hpf Urine Bacteria (None) /hpf Hyaline Casts (0-2) /lpf Urine Mucus (None) /hpf Urine Yeast (Budding) (None) /hpf 05/09/21 05/10/21 05/10/21 Range/Units 23:51 00:33 00:33 WBC (3.8-10.6) k/uL RDW (11.5-15.5) % Neutrophils # (1.3-7.7) k/uL Neutrophils # (Manual) (1.3-7.7) k/uL Lymphocytes # (Manual) (1.0-4.8) k/uL ESR (0-20) mm/hr PT (9.0-12.0) sec INR (<1.2) APTT (22.0-30.0) sec ABG pH (7.35-7.45) ABG pO2 (83-108) mmHg ABG HCO3 (21-25) mmol/L ABG O2 Saturation (94-97) % Sodium (137-145) mmol/L Chloride (98-107) mmol/L Carbon Dioxide (22-30) mmol/L BUN (7-17) mg/dL Creatinine (0.52-1.04) mg/dL Glucose (74-99) mg/dL POC Glucose (mg/dL) 168 H (75-99) mg/dL Plasma Lactic Acid Jaron 3.7 H* (0.7-2.0) mmol/L Calcium (8.4-10.2) mg/dL AST (14-36) U/L Troponin I 0.465 H* (0.000-0.034) ng/mL Total Protein (6.3-8.2) g/dL Albumin (3.5-5.0) g/dL Urine Appearance (Clear) Urine Protein (Negative) Urine Blood (Negative) Ur Leukocyte Esterase (Negative) Urine RBC (0-5) /hpf Urine WBC (0-5) /hpf Urine WBC Clumps (None) /hpf Urine Bacteria (None) /hpf Hyaline Casts (0-2) /lpf Urine Mucus (None) /hpf Urine Yeast (Budding) (None) /hpf 05/10/21 05/10/21 05/10/21 Range/Units 00:33 03:25 03:25 WBC 14.3 H (3.8-10.6) k/uL RDW 15.6 H (11.5-15.5) % Neutrophils # (1.3-7.7) k/uL Neutrophils # (Manual) 12.70 H (1.3-7.7) k/uL Lymphocytes # (Manual) 0.72 L (1.0-4.8) k/uL ESR (0-20) mm/hr PT (9.0-12.0) sec INR (<1.2) APTT (22.0-30.0) sec ABG pH (7.35-7.45) ABG pO2 (83-108) mmHg ABG HCO3 (21-25) mmol/L ABG O2 Saturation (94-97) % Sodium 130 L 133 L (137-145) mmol/L Chloride 93 L 94 L (98-107) mmol/L Carbon Dioxide 19 L 21 L (22-30) mmol/L BUN 93 H 94 H (7-17) mg/dL Creatinine 9.55 H* 9.87 H* (0.52-1.04) mg/dL Glucose 169 H 181 H (74-99) mg/dL POC Glucose (mg/dL) (75-99) mg/dL Plasma Lactic Acid Jaron (0.7-2.0) mmol/L Calcium 8.0 L 8.2 L (8.4-10.2) mg/dL AST 40 H 40 H (14-36) U/L Troponin I (0.000-0.034) ng/mL Total Protein 5.6 L 5.5 L (6.3-8.2) g/dL Albumin 3.1 L 2.9 L (3.5-5.0) g/dL Urine Appearance (Clear) Urine Protein (Negative) Urine Blood (Negative) Ur Leukocyte Esterase (Negative) Urine RBC (0-5) /hpf Urine WBC (0-5) /hpf Urine WBC Clumps (None) /hpf Urine Bacteria (None) /hpf Hyaline Casts (0-2) /lpf Urine Mucus (None) /hpf Urine Yeast (Budding) (None) /hpf 05/10/21 05/10/21 05/10/21 Range/Units 03:25 03:25 05:05 WBC (3.8-10.6) k/uL RDW (11.5-15.5) % Neutrophils # (1.3-7.7) k/uL Neutrophils # (Manual) (1.3-7.7) k/uL Lymphocytes # (Manual) (1.0-4.8) k/uL ESR (0-20) mm/hr PT 45.7 H (9.0-12.0) sec INR 4.7 H (<1.2) APTT (22.0-30.0) sec ABG pH 7.29 L (7.35-7.45) ABG pO2 327 H (83-108) mmHg ABG HCO3 19 L (21-25) mmol/L ABG O2 Saturation 99.8 H (94-97) % Sodium (137-145) mmol/L Chloride (98-107) mmol/L Carbon Dioxide (22-30) mmol/L BUN (7-17) mg/dL Creatinine (0.52-1.04) mg/dL Glucose (74-99) mg/dL POC Glucose (mg/dL) (75-99) mg/dL Plasma Lactic Acid Jaron 4.2 H* (0.7-2.0) mmol/L Calcium (8.4-10.2) mg/dL AST (14-36) U/L Troponin I (0.000-0.034) ng/mL Total Protein (6.3-8.2) g/dL Albumin (3.5-5.0) g/dL Urine Appearance (Clear) Urine Protein (Negative) Urine Blood (Negative) Ur Leukocyte Esterase (Negative) Urine RBC (0-5) /hpf Urine WBC (0-5) /hpf Urine WBC Clumps (None) /hpf Urine Bacteria (None) /hpf Hyaline Casts (0-2) /lpf Urine Mucus (None) /hpf Urine Yeast (Budding) (None) /hpf 05/10/21 05/10/21 05/10/21 Range/Units 05:51 06:14 08:49 WBC (3.8-10.6) k/uL RDW (11.5-15.5) % Neutrophils # (1.3-7.7) k/uL Neutrophils # (Manual) (1.3-7.7) k/uL Lymphocytes # (Manual) (1.0-4.8) k/uL ESR (0-20) mm/hr PT (9.0-12.0) sec INR (<1.2) APTT (22.0-30.0) sec ABG pH (7.35-7.45) ABG pO2 (83-108) mmHg ABG HCO3 (21-25) mmol/L ABG O2 Saturation (94-97) % Sodium (137-145) mmol/L Chloride (98-107) mmol/L Carbon Dioxide (22-30) mmol/L BUN (7-17) mg/dL Creatinine (0.52-1.04) mg/dL Glucose (74-99) mg/dL POC Glucose (mg/dL) 175 H (75-99) mg/dL Plasma Lactic Acid Jaron 3.8 H* 3.5 H* (0.7-2.0) mmol/L Calcium (8.4-10.2) mg/dL AST (14-36) U/L Troponin I (0.000-0.034) ng/mL Total Protein (6.3-8.2) g/dL Albumin (3.5-5.0) g/dL Urine Appearance (Clear) Urine Protein (Negative) Urine Blood (Negative) Ur Leukocyte Esterase (Negative) Urine RBC (0-5) /hpf Urine WBC (0-5) /hpf Urine WBC Clumps (None) /hpf Urine Bacteria (None) /hpf Hyaline Casts (0-2) /lpf Urine Mucus (None) /hpf Urine Yeast (Budding) (None) /hpf Microbiology - Last 24 Hours (Table) 05/09/21 19:31 Urine Culture - Preliminary Urine,Voided Thrombosis Risk Factor Assmnt - Choose All That Apply Any of the Below Risk Factors Present?: Yes Each Factor Represents 1 point: Abnormal pulmonary function (COPD), Medical pt on bed rest, Obesity (BMI >25), Swollen legs (current), Varicose veins Other Risk Factors: Yes Each Risk Factor Represents 2 Points: Age 61-74 years, Central venous access, Patient confined to bed Each Risk Factor Represents 3 Points: History of DVT/PE Other congenital or acquired thrombophilia - If yes, enter type in comment: No Thrombosis Risk Factor Assessment Total Risk Factor Score: 14 Thrombosis Risk Factor Assessment Level: High Risk
[2021-05-10 15:53] LABS: Glucose,Whole Blood 195 mg/dL (75-99)
[2021-05-10 20:07] LABS: Glucose,Whole Blood 147 mg/dL (75-99)
[2021-05-10] MEDS: ATORVASTATIN 10 MG TAB PO SCH (20:11)
[2021-05-10 23:38] LABS: Allen Test Performed? Yes
[2021-05-10 23:39] LABS: ABG Base Excess -7.9 mmol/L; ABG HCO3 18 mmol/L (21-25); ABG Oxygen Saturation 98.9 % (94-97); ABG PCO2 33 mmHg (35-45); ABG PH 7.34 (7.35-7.45); ABG PO2 129 mmHg (83-108); ABG TCO2 19 mmol/L (19-24)
[2021-05-11 00:04] LABS: Glucose,Whole Blood 138 mg/dL (75-99)
[2021-05-11] MEDS ORDERED: HYDROmorphone 1 MG/ML 1 ML SYRINGE IVP STA (00:53)
[2021-05-11] MEDS: SODIUM CHLORIDE 0.9% 1,000 ML IV SCH ×3 (01:08→20:36)
[2021-05-11] MEDS ORDERED: NOREPINEPHRINE 32 MG in SODIUM CHLORIDE 0.9% 218 ML IV SCH (01:15)
[2021-05-11] MEDS ORDERED: ADENOSINE 3 MG/ML 2 ML VIAL IVP STA ×2 (01:25)
[2021-05-11] MEDS ORDERED: DEXTROSE 5% IN WATER 100 ML with AMIODARONE 150 MG IV ONE (02:00)
[2021-05-11] MEDS: INSULIN ASPART (NovoLOG) 100 UNIT/ML VIAL SQ SCH ×7 (02:17→23:18)
[2021-05-11] MEDS ORDERED: AMIODARONE 360 MG in DEXTROSE 5% IN WATER 200 ML IV ONE ×2 (02:30)
[2021-05-11 03:52] LABS: Glucose,Whole Blood 133 mg/dL (75-99)
[2021-05-11] MEDS: IPRATROPIUM-ALBUTEROL 3 ML NEB INHALATION SCH ×2 (03:59→07:42)
[2021-05-11 04:31] LABS: HCT 32.8 % (34.0-46.0); MCH 29.2 pg (25.0-35.0); MCHC 33.7 g/dL (31.0-37.0); MCV 86.6 fL (80.0-100.0); Mean Platelet Volume 7.9; Platelet Count 206 k/uL (150-450); RBC 3.79 m/uL (3.80-5.40); RDW 15.9 % (11.5-15.5); WBC 12.4 k/uL (3.8-10.6)
[2021-05-11 04:40] LABS: Calcium 7.5 mg/dL (8.4-10.2); HGB 11.1 gm/dL (11.4-16.0); Potassium 3.9 mmol/L (3.5-5.1)
[2021-05-11 04:49] LABS: INR 3.9 (<1.2); Prothrombin Time 37.2 sec (9.0-12.0)
--- NOTE | 2021-05-11 06:07 | XR ---
EXAMINATION TYPE: XR chest 1V portable DATE OF EXAM: 05/11/2021 COMPARISON: 05/10/2021 HISTORY: Check tube placement TECHNIQUE: Single view FINDINGS: There is right jugular catheter with tip in the superior vena cava. There is some mild atel ectasis at the left lung base. There is no heart failure. There is no pleural effusion. There are adelaida st leads. IMPRESSION: Atelectasis left lung base without much change compared to yesterday. No heart failure.
--- NOTE | 2021-05-11 08:40 | P.CRDCN ---
History of Present Illness Consult date: 05/11/21 Chief complaint: Cardiac arrhythmia History of present illness: This is a 70-year-old female patient who requested to see in the intensive care unit for further evaluation of tachyarrhythmia. The patient is known to or service before. She does have history of coronary artery disease and prior revascularization and also she does have history of peripheral arterial disease of the lower extremities and she underwent peripheral revascularization as well in the past. Beside that she does have valvular heart disease and prior aortic valve replacement as well as hypertension and dyslipidemia and chronic kidney disease and also lower extremities venous insufficiency. The patient somewhat is a poor historian. We requested to see the patient for further evaluation of tachyarrhythmia. Apparently the patient was not feeling well at home where she was feeling weak and tired and for that reason ambulance was called to see the patient for she was found to be hypotensive and subsequently she was started on IV fluid and brought to the emergency department. In the ER her pressure was in the 90s and her heart rate was in the 60s. Apparently in the emergency department the patient did have an episode of unresponsiveness required intubati on and mechanical ventilation. Subsequently the patient was extubated. Currently she is requiring small doses of norepinephrine. We consulted to see the patient for tachyarrhythmia where the patient according to the nurse taking care of the patient went into a fast heart rate. No documentation of any atrial fibrillation or atrial flutter in the system. The first EKG she had showed sinus rhythm with PVC and the second EKG showed only sinus rhythm without any ischemic ST or T-wave abnormalities. During that episode in the ER the patient was given a bolus of amiodarone only but currently she is not on amiodarone there are on IV. Beside that as a mentioned earlier she remains slightly uns table and requiring small dose of norepinephrine. The troponin came in to be slightly elevated. Creatinine is elevated and nephrology is on the case. The patient denies any symptoms of chest pain or chest discomfort at this point and denies any dizziness or lightheadedness or any feeling of heart racing or fluttering. On examination she does have significant systolic murmur at the right upper sternal border. Beside that she does have chronic bilateral lower 70 skin changes consistent with saphenous insufficiency. The last echo from earlier this year revealed normal left ventricular systolic function with evidence of moderate to severe aortic stenosis with a mean gradient almost 40 mmHg. Definitely that need to be addressed down the line once the patient to recover from the current situation. Past Medical History Past Medical History: Coronary Artery Disease (CAD), COPD, Deep Vein Thrombosis (DVT), Hyperlipidemia, Hypertension, Osteoarthritis (OA), Pneumonia, Skin Disorder, Vascular Disorder Additional Past Medical History / Comment(s): varicose veins. pneumonia 10 yrs ago. occ use knee brace(left) walker and cane. open sores on both legs(largest on left leg) LEAKING FLUID, poor circulation/blockage in both legs. urinary leakage. psoriasis. HX DVT'S IN LEGS. PAD. 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 Aortogram 10/23/16. Rt knee replacement. 11/21/16 PTBA W/ SENT LT. Past Anesthesia/Blood Transfusion Reactions: Motion Sickness Past Psychological History: No Psychological Hx Reported Additional Psychological History / Comment(s): "fear of heights" Smoking Status: Former smoker, Vaper Past Alcohol Use History: Rare Additional Past Alcohol Use History / Comment(s): smoked 4 PPD- quit 2011, started smoking age 12. does use E-cigarette Past Drug Use History: None Reported - Past Family History Father Family Medical History: No Reported History Mother Family Medical History: Cancer Medications and Allergies Home Medications Medication Instructions Recorded Confirmed Type Atorvastatin [Lipitor] 10 mg PO HS 10/18/16 05/09/21 History Cyclobenzaprine [Flexeril] 10 mg PO TID PRN 10/18/16 05/09/21 History Enalapril [Vasotec] 10 mg PO DAILY 10/18/16 05/09/21 History Ergocalciferol (Vitamin D2) 50,000 unit PO CARDENAS 10/18/16 05/09/21 History [Vitamin D2] Gabapentin [Neurontin] 100 mg PO DAILY 10/18/16 05/09/21 History HYDROcodone/APAP 10-325MG [[place] 1 tab PO Q6HR PRN 10/18/16 05/09/21 History 10-325] Metoprolol Tartrate [Lopressor] 50 mg PO BID 10/18/16 05/09/21 History Warfarin [Coumadin] 2.5 mg PO WEFR 01/25/17 05/09/21 History Warfarin [Coumadin] 5 mg PO SUMOTUTHSA 01/25/17 05/09/21 History Aspirin EC [Ecotrin Low Dose] 81 mg PO DAILY 05/01/21 05/09/21 History Doxycycline Hyclate [Vibramycin] 100 mg PO DAILY 05/01/21 05/09/21 History Gabapentin [Neurontin] 200 mg PO HS 05/01/21 05/09/21 History Oxybutynin Chloride 5 mg PO BID 05/01/21 05/09/21 History Potassium Gluconate [Potassium 99 mg PO DAILY 05/01/21 05/09/21 History Gluconate ER] Furosemide [Lasix] 40 mg PO BID #60 tablet 05/03/21 05/09/21 Rx Menthol-Zinc Oxide Oint 1 applic TOPICAL DAILY PRN #30 05/03/21 05/09/21 Rx [Calmoseptine Oint] applic Ciprofloxacin HCl [Cipro] 500 mg PO BID 05/09/21 05/09/21 History Allergies Allergy/AdvReac Type Severity Reaction Status Date / Time amoxicillin Allergy Severe Dyspnea Verified 05/09/21 18:59 latex Allergy Severe Anaphylaxis Verified 05/09/21 18:59 nickel Allergy Unknown Rash/Hives Verified 05/09/21 18:59 Sulfa (Sulfonamide Allergy Rash/Hives Verified 05/09/21 18:59 Antibiotics) Physical Exam Vitals: Vital Signs Temp Pulse Resp BP Pulse Ox 05/11/21 07:00 82 12 99 05/11/21 06:30 88 20 99 05/11/21 06:00 81 14 98 05/11/21 05:30 88 14 99 05/11/21 05:00 86 12 98 05/11/21 04:30 86 11 L 98 05/11/21 04:00 98.9 F 89 11 L 97 05/11/21 03:30 89 12 97 05/11/21 03:00 90 12 98 05/11/21 02:30 86 14 97 05/11/21 02:00 134 H 05/11/21 01:30 154 H 16 96 05/11/21 01:00 161 H 15 94 L 05/11/21 00:45 98 05/11/21 00:32 96 05/11/21 00:30 179 H 18 100 05/11/21 00:00 98.8 F 158 H 22 99 05/10/21 23:30 156 H 14 100 05/10/21 23:00 168 H 20 100 05/10/21 22:30 161 H 24 100 05/10/21 22:00 95 15 99 05/10/21 21:30 95 14 100 05/10/21 21:00 96 20 100 05/10/21 20:30 96 15 100 05/10/21 20:00 98.0 F 90 16 100 05/10/21 19:47 89 05/10/21 19:30 87 19 100 05/10/21 19:00 89 15 99 05/10/21 18:30 87 14 100 05/10/21 18:00 90 16 100 05/10/21 17:30 91 16 99 05/10/21 17:00 86 14 100 05/10/21 16:30 81 14 100 05/10/21 16:00 79 15 100 05/10/21 15:32 77 05/10/21 15:30 77 14 100 05/10/21 15:24 79 05/10/21 15:00 76 15 100 05/10/21 14:45 75 14 122/51 100 05/10/21 14:30 74 14 100 05/10/21 14:15 75 14 99 05/10/21 14:00 76 14 99 05/10/21 13:45 71 14 99 05/10/21 13:30 73 14 99 05/10/21 13:15 73 14 98 05/10/21 13:00 76 19 125/48 98 05/10/21 12:45 69 118/55 99 05/10/21 12:30 78 132/46 100 05/10/21 12:15 69 123/49 99 05/10/21 12:14 68 05/10/21 12:03 69 05/10/21 12:00 98.1 F 67 19 112/75 99 05/10/21 11:45 74 122/48 99 05/10/21 11:30 75 125/42 99 05/10/21 11:15 70 109/50 100 05/10/21 11:00 70 17 112/33 99 05/10/21 10:45 73 127/46 100 05/10/21 10:30 70 120/45 100 05/10/21 10:15 70 120/53 98 05/10/21 10:00 72 22 138/98 100 05/10/21 09:45 76 129/51 100 05/10/21 09:34 68 05/10/21 09:30 67 116/45 92 L 05/10/21 09:20 68 05/10/21 09:15 69 83/38 95 05/10/21 09:00 73 19 134/54 98 05/10/21 08:45 71 117/57 100 Intake and Output 05/10/21 05/11/21 05/11/21 22:59 06:59 14:59 Intake Total 1254.41 1221.685 5.22 Output Total 500 510 Balance 754.41 711.685 5.22 Intake: IV 1040 1170 Sodium Chloride 0.9% 1, 1040 1170 000 ml @ 130 mls/hr IV . Q7H42M [facility] Rx#:[id number] Intake, IV Titration 74.41 31.685 5.22 Amount Norepinephrine 32 mg In 31.685 5.22 Sodium Chloride 0.9% 218 ml @ 0.2 MCG/KG/MIN 10. 725 mls/hr IV .[id number] [facility] Rx#:[id number] propofoL 1,000 mg In 74.41 Empty Bag 1 bag @ Titrate IV .Q0M [facility] Rx#: [id number] Tube Feeding 80 20 Other 60 Output: Urine 500 510 Other: Voiding Method Indwelling Catheter Indwelling Catheter Weight 117.2 kg ABP, PAP, CO, CI - Last 8 Hours Arterial Blood Pressure 131/44 Arterial Blood Pressure 130/46 Arterial Blood Pressure 114/41 Arterial Blood Pressure 128/45 Arterial Blood Pressure 116/39 Arterial Blood Pressure 110/39 Arterial Blood Pressure 104/37 Arterial Blood Pressure 119/42 Arterial Blood Pressure 123/43 Arterial Blood Pressure 124/44 Arterial Blood Pressure 106/46 Arterial Blood Pressure 95/45 Arterial Blood Pressure 88/46 - Constitutional General appearance: no acute distress - Respiratory Respiratory: bilateral: diminished - Cardiovascular Rhythm: regular Heart sounds: normal: S1, S2 Abnormal Heart Sounds: systolic murmur Results 05/11/21 03:50 05/11/21 03:50 Coagulation 05/11/21 Range/Units 04:28 PT 37.2 H (9.0-12.0) sec CBC 05/11/21 Range/Units 03:50 WBC 12.4 H (3.8-10.6) k/uL RBC 3.79 L (3.80-5.40) m/uL Hgb 11.1 L D (11.4-16.0) gm/dL Hct 32.8 L (34.0-46.0) % Plt Count 206 (150-450) k/uL Comprehensive Metabolic Panel 05/11/21 Range/Units 03:50 Sodium 134 L (137-145) mmol/L Potassium 3.9 (3.5-5.1) mmol/L Chloride 104 (98-107) mmol/L Carbon Dioxide 18 L (22-30) mmol/L BUN 89 H (7-17) mg/dL Creatinine 7.23 H* (0.52-1.04) mg/dL Glucose 129 H (74-99) mg/dL Calcium 7.5 L (8.4-10.2) mg/dL Current Medications Generic Name Dose Route Start Last Admin Trade Name Freq PRN Reason Stop Dose Admin Albuterol/Ipratropium 3 ml 05/10/21 08:00 05/11/21 07:42 Ipratropium-Albuterol 3 Ml Neb INHALATION Not Given RT-Q4H [facility] Atorvastatin Calcium 10 mg 05/10/21 21:00 05/10/21 20:11 Atorvastatin 10 Mg Tab PO 10 mg HS [facility] Administration Famotidine 20 mg 05/10/21 09:00 05/10/21 20:11 Famotidine 20 Mg/2 Ml Vial IV 20 mg Q12HR [facility] Administration Sodium Chloride 1,000 mls @ 130 mls/hr 05/09/21 19:30 05/11/21 01:08 Saline 0.9% IV 130 mls/hr .Q7H42M [facility] Administration Ceftriaxone Sodium 1 gm/ 50 mls @ 100 mls/hr 05/10/21 09:00 05/10/21 08:49 Sodium Chloride IVPB 100 mls/hr Q24HR [facility] Administration Norepinephrine Bitartrate 32 250 mls @ 10.725 mls/hr 05/11/21 01:15 05/11/21 07:07 mg/ Sodium Chloride IV 0.05 mcg/kg/min .[id number] [facility] 2.681 mls/hr Titration Protocol 0.2 MCG/KG/MIN Amiodarone HCl 450 mg/ 250 mls @ 16.667 mls/hr 05/11/21 08:00 Dextrose/Water IV 05/12/21 01:59 .Q15H [facility] Protocol 0.5 MG/MIN Insulin Aspart 0 unit 05/10/21 12:00 05/11/21 05:18 Insulin Aspart (Novolog) 100 Unit/Ml Vial SQ Not Given Q4H [facility] Protocol Naloxone HCl 0.2 mg 05/09/21 19:49 Naloxone 0.4 Mg/Ml 1 Ml Vial IV Q2M PRN Opioid Reversal Intake and Output 05/10/21 05/11/21 05/11/21 22:59 06:59 14:59 Intake Total 1254.41 1221.685 5.22 Output Total 500 510 Balance 754.41 711.685 5.22 Intake: IV 1040 1170 Sodium Chloride 0.9% 1, 1040 1170 000 ml @ 130 mls/hr IV . Q7H42M [facility] Rx#:[id number] Intake, IV Titration 74.41 31.685 5.22 Amount Norepinephrine 32 mg In 31.685 5.22 Sodium Chloride 0.9% 218 ml @ 0.2 MCG/KG/MIN 10. 725 mls/hr IV .[id number] [facility] Rx#:[id number] propofoL 1,000 mg In 74.41 Empty Bag 1 bag @ Titrate IV .Q0M [facility] Rx#: [id number] Tube Feeding 80 20 Other 60 Output: Urine 500 510 Other: Voiding Method Indwelling Catheter Indwelling Catheter Weight 117.2 kg 05/11/21 03:50 05/11/21 03:50 Assessment and Plan Assessment: Assessment #1 hypotension require vasopressor support #2 an episode of tachycardia arrhythmia. No documentation noted in the chart. #3 an episode of unresponsiveness. Likely represent vasovagal or related to v asovagal symptoms happened after a poor movement #4 valvular heart disease. #5 coronary artery disease #6 lower extremities peripheral arterial disease #7 chronic kidney disease #8 multiple comorbid conditions Plan #1 continue monitor the patient for arrhythmia. Rule out atrial fibrillation/atrial flutter giving her age and the prior cardiovascular comorbidities #2 try to wean the patient from norepinephrine #3 consider medical treatment for the mildly abnormal troponin and evidence of myocardial injury. No evidence of ischemia by EKG or clinically #4 the aortic valve definitely need to be addressed as an outpatient #5 restart the patient back on antiplatelet and anti-ischemic medications once she is stable hemodynamically #6 follow-up with the patient
[2021-05-11] MEDS: FAMOTIDINE 20 MG/2 ML VIAL IV SCH (09:35)
[2021-05-11] MEDS: AMIODARONE 450 MG in DEXTROSE 5% IN WATER 250 ML IV SCH ×4 (09:36→23:10)
[2021-05-11 09:43] LABS: Glucose,Whole Blood 99 mg/dL (75-99)
--- NOTE | 2021-05-11 10:27 | P.PN ---
Subjective Progress Note Date: 05/11/21 Principal diagnosis: Respiratory failure. Pulmonary consultation dated 05/10/2021. 71-year-old female who presented to the emergency department via EMS, on May 09. She was seen there by . The patient apparently came in complaining of profound weakness for 2 or 3 days prior to admission. She apparently was recently hospitalized between May 01 and May 04 for left lower extremity cellulitis. She was discharged home, but did not qualify for home care. She been taking her medications at home, but because of upset stomach, she was not eating or drinking. She apparently became extremely weak. For that reason, EMS was called. Apparently when they arrived, her blood pressure was low. They established an IV started IV fluids. She apparently denied any chest pain or chest discomfort. She also apparently denied shortness of breath, abdominal pain, fever, chills, or any other complaints for that matter. Subsequently, she was evaluated in the emergency room, and apparently either after a bowel movement or may be a seizure, the patient became apneic, and required intubation and mechanical ventilation. I was called by the ER physician, and the patient was accepted into the intensive care unit. The patient's currently on volume assist control, rate 14, tidal volume 450, FiO2 50%, with a PEEP of 5. Blood gases on the same settings, except 100%, showed a pO2 337, pCO2 40, pH 7.29. Blood gases are consistent with metabolic acidosis. Currently, she is on saline at 130 mL an hour, propofol is on hold for a daily interruption of sedation, and she is receiving norepinephrine at 30 mcg/m. White count 14.3, hemoglobin 14.3, hematocrit 44.9, and platelet count 366,000. PT 45.7, and INR 4.7. Sodium 133, potassium 4.3, chlorides 94, CO2 21, anion gap is 18, and BUN and creatinine are 94 and 9.87. Lactic acid is 3.5. Troponin was 0.031 and 0.465, and N-terminal proBNP was 3200. Albumin was 2.9. Urinalysis is consistent in my opinion with a urinary tract infection at the urine is cloudy, leukocyte esterase is large positive, there is 146 WBCs and few white blood cell clumps, and there are bacteria. Coronavirus testing was negative. Chest x-ray my opinion show some minimal bilateral atelectasis. Progress note dated 05/11/2021. 71-year-old female that we saw yesterday in consultation. She presented to the emergency department on May 09. The patient was initially being evaluated for weakness. After a while, she apparently was found to be unresponsive, required intubation and mechanical ventilation. She was recently at this hospital between May 01 and May 04 for left lower extremity cellulitis. Anyway, last night, we went ahead and did a spontaneous breathing trial after a daily interruption of sedation. Her weaning parameters, were excellent. She had a very low rapid shallow breathing index, and she had a positive cuff leak. For those reasons, she was extubated. Currently on 2 L. She's getting saline at 130 mL an hour. Yesterday, she was up quite a bit of norepinephrine, up to 30 mcg/m. We did give her some additional fluid boluses, and I'm happy to report that the norepinephrine is currently on hold. White count 12.4, hemoglobin 11.1, hematocrit 32.8, platelet count 206,000. PTT 37.2, INR 3.9. Sodium 134, potassium 3.9, chlorides 104, CO2 18, anion gap 12, BUN 89, creatinine 7.23. Glucose 129. Calcium 7.5. Chest x-ray shows bibasilar atelectasis, left greater than right. Objective - Vital Signs Vital signs: Vital Signs Temp 98.9 F 05/11/21 04:00 Pulse 82 05/11/21 07:00 Resp 12 05/11/21 07:00 BP 122/51 05/10/21 14:45 Pulse Ox 99 05/11/21 07:00 Intake & Output 05/10/21 05/11/21 05/11/21 18:59 06:59 18:59 Intake Total 3766.916 1896.095 9.599 Output Total 519 770 Balance 3247.916 1126.095 9.599 Weight 114.4 kg 117.2 kg Intake: IV 3480 1690 Sodium Chloride 0.9% 1, 1430 1690 000 ml @ 130 mls/hr IV . Q7H42M [facility] Rx#:[id number] Sodium Chloride 0.9% 2, 2000 000 ml @ 999 mls/hr IV . Q2H1M [facility] Rx#:[id number] cefTRIAXone 1 gm In 50 Sodium Chloride 0.9% 50 ml @ 100 mls/hr IVPB Q24HR [facility] Rx#:[id number] Intake, IV Titration 206.916 106.095 9.599 Amount Norepinephrine 32 mg In 181.326 Sodium Chloride 0.9% 218 ml @ 0.05 MCG/KG/MIN 1. 807 mls/hr IV .Q24H [facility] Rx#:[id number] Norepinephrine 32 mg In 31.685 9.599 Sodium Chloride 0.9% 218 ml @ 0.2 MCG/KG/MIN 10. 725 mls/hr IV .[id number] [facility] Rx#:[id number] propofoL 1,000 mg In 25.590 74.41 Empty Bag 1 bag @ Titrate IV .Q0M [facility] Rx#: [id number] Tube Feeding 50 70 Other 30 30 Output: Gastric Drainage 100 Urine 419 770 Other: Voiding Method Indwelling Catheter Indwelling Catheter ABP, PAP, CO, CI - Last Documented Arterial Blood Pressure 131/44 - Exam No acute distress, currently on 2 L nasal cannula, with excellent saturations. HEENT examination is grossly unremarkable. Neck supple. Full range of motion. No adenopathy thyromegaly or neck vein distention. Cardiovascular examination reveals regular rhythm rate. S1-S2 normal. No S3 or S4. No discernible murmur noted. Heart sounds are distant. Heart rate 82 bpm. Lungs reveal mostly clear breath sounds. Scattered rhonchi are noted. No wheezes or crackles. Breath sounds equal bilaterally. Abdomen soft without bowel sounds. No masses or tenderness. Extremities are intact. No cyanosis clubbing or edema. Skin is without rash or lesion. Neurologic examination is brief but nonfocal. - Labs CBC & Chem 7: 05/11/21 03:50 05/11/21 03:50 Labs: Abnormal Lab Results - Last 24 Hours (Table) 05/10/21 05/10/21 05/10/21 Range/Units 08:43 11:30 15:51 WBC (3.8-10.6) k/uL RBC (3.80-5.40) m/uL Hgb (11.4-16.0) gm/dL Hct (34.0-46.0) % RDW (11.5-15.5) % PT (9.0-12.0) sec INR (<1.2) ABG pH (7.35-7.45) ABG pCO2 (35-45) mmHg ABG pO2 (83-108) mmHg ABG HCO3 (21-25) mmol/L ABG O2 Saturation (94-97) % Sodium (137-145) mmol/L Carbon Dioxide (22-30) mmol/L BUN (7-17) mg/dL Creatinine (0.52-1.04) mg/dL Glucose (74-99) mg/dL POC Glucose (mg/dL) 161 H 195 H (75-99) mg/dL Calcium (8.4-10.2) mg/dL Procalcitonin 29.61 H (0.02-0.09) ng/mL 05/10/21 05/10/21 05/11/21 Range/Units 20:05 23:35 00:02 WBC (3.8-10.6) k/uL RBC (3.80-5.40) m/uL Hgb (11.4-16.0) gm/dL Hct (34.0-46.0) % RDW (11.5-15.5) % PT (9.0-12.0) sec INR (<1.2) ABG pH 7.34 L (7.35-7.45) ABG pCO2 33 L (35-45) mmHg ABG pO2 129 H (83-108) mmHg ABG HCO3 18 L (21-25) mmol/L ABG O2 Saturation 98.9 H (94-97) % Sodium (137-145) mmol/L Carbon Dioxide (22-30) mmol/L BUN (7-17) mg/dL Creatinine (0.52-1.04) mg/dL Glucose (74-99) mg/dL POC Glucose (mg/dL) 147 H 138 H (75-99) mg/dL Calcium (8.4-10.2) mg/dL Procalcitonin (0.02-0.09) ng/mL 05/11/21 05/11/21 05/11/21 Range/Units 03:50 03:50 03:51 WBC 12.4 H (3.8-10.6) k/uL RBC 3.79 L (3.80-5.40) m/uL Hgb 11.1 L D (11.4-16.0) gm/dL Hct 32.8 L (34.0-46.0) % RDW 15.9 H (11.5-15.5) % PT (9.0-12.0) sec INR (<1.2) ABG pH (7.35-7.45) ABG pCO2 (35-45) mmHg ABG pO2 (83-108) mmHg ABG HCO3 (21-25) mmol/L ABG O2 Saturation (94-97) % Sodium 134 L (137-145) mmol/L Carbon Dioxide 18 L (22-30) mmol/L BUN 89 H (7-17) mg/dL Creatinine 7.23 H* (0.52-1.04) mg/dL Glucose 129 H (74-99) mg/dL POC Glucose (mg/dL) 133 H (75-99) mg/dL Calcium 7.5 L (8.4-10.2) mg/dL Procalcitonin (0.02-0.09) ng/mL 05/11/21 Range/Units 04:28 WBC (3.8-10.6) k/uL RBC (3.80-5.40) m/uL Hgb (11.4-16.0) gm/dL Hct (34.0-46.0) % RDW (11.5-15.5) % PT 37.2 H (9.0-12.0) sec INR 3.9 H (<1.2) ABG pH (7.35-7.45) ABG pCO2 (35-45) mmHg ABG pO2 (83-108) mmHg ABG HCO3 (21-25) mmol/L ABG O2 Saturation (94-97) % Sodium (137-145) mmol/L Carbon Dioxide (22-30) mmol/L BUN (7-17) mg/dL Creatinine (0.52-1.04) mg/dL Glucose (74-99) mg/dL POC Glucose (mg/dL) (75-99) mg/dL Calcium (8.4-10.2) mg/dL Procalcitonin (0.02-0.09) ng/mL Microbiology - Last 24 Hours (Table) 05/10/21 00:18 Gram Stain - Preliminary Sputum Sputum Culture - Preliminary 05/09/21 19:31 Urine Culture - Final Urine,Voided Sangita albicans Assessment and Plan Assessment: Acute hypoxemic respiratory failure, requiring intubation and mechanical ventilation, of unclear etiology, on 05/09/2021, with successful extubation on 05/11/2021. Recent hospitalization, between May 01 of May 04, for left lower extremity cellulitis. History of hyperlipidemia. History of hypertension. History of CAD. Possible urinary tract infection, currently on IV Rocephin. History of deep venous thrombosis. History of DJD. History of stress urinary incontinence. History of psoriasis. History of bypass grafting and valve replacement surgery. Plan: Plan dated 05/10/2021. An arterial line was placed on this patient today. In addition, we'll start tube feedings. The patient's ventilator study. The patient's peak airway pressure is 23. A plateau pressure is 15. The peak to plateau difference is 8 cm water. The patient's airways resistance is calculated 8 cm water per liter per second. The patient will have daily chest x-rays, and labs for the time being. The patient will have a daily interruption of sedation. We feel the patient is ready, the patient will be moved towards weaning and extubation. Because of the persistent hypotension, we'll check a TSH level and a cortisol level. We'll also check a pro-calcitonin level, and give the patient a couple liters of fluid, to see if we can wean down the norepinephrine. Additional recommendations and suggestions are forthcoming. Prognosis is guarded. Plan dated 05/11/2021. The patient was successfully extubated last night. It occurred after midnight, on May 11. The patient had excellent weaning parameters, a very low rapid shallow breathing index, and also a cuff leak that was positive. The patient his been weaned off norepinephrine as she has received additional fluid resuscitation. Labs, x-rays, and medications are all reviewed. Prognosis is guarded. We'll continue to follow make recommendations where appropriate. The patient did have some tachycardia yesterday. It was thought to be sinus tachycardia but may of been atrial flutter. The patient did receive some adenosine per cardiology. Currently she is in sinus rhythm. Additional recommendations and suggestions are forthcoming. Time with Patient: Greater than 30
--- NOTE | 2021-05-11 10:50 | P.CONS ---
History of Present Illness - Reason for Consult Consult date: 05/11/21 wound care - History of Present Illness This is a 70-year-old patient known to the wound care center with nonhealing ulceration to the left lower extremity anterior aspect. The ulceration measures approximately 7 x 4 x 0.1 cm. Patient states that the ulceration opened approximately 8 months ago however she did not seek any treatment because she felt she could handle it at home. Ulceration has fat layer exposure with g ranulation and minimal slough seen throughout the wound bed. The peiwound shows staining and edema. Patient's past medical history significant for coronary artery disease, deep vein thrombosis, COPD, hyperlipidemia, hypertension, venous insufficiency, and osteoarthritis. Review Of Systems: Constitutional: No fever, no chills, no night sweats. No weight change. No weakness, fatigue or lethargy. No daytime sleepiness. Integumentary:reports wounds, no lesions. No rash or pruritus. No unusual bruising. No change in hair or nails. Physical exam: General Appearance: Alert, cooperative, no distress, appears stated age. Skin: See HPI all other Skin color, texture, tugor normal, no rashes or lesions. Neurologic: Alert oriented x3 Assessment: 1. Nonhealing ulceration left lower extremity with fat layer exposure 2. Chronic venous hypertension with edema and ulceration 3. Venous insufficiency Plan: 1. Apply absorptive silver, saline moistened gauze, dry gauze, rolled gauze and secure with paper tape. Wrap with Keegan wrap. She would benefit from outpatient advance wound treatment. Discussed with patient and she is unsure if she would like to return to the wound care center. Thank you for the consultation any questions please contact the wound care center DNP note has been reviewed and discussed with Dr. Melendez and the impression and plan of care has been directed as dictated. Past Medical History Past Medical History: Coronary Artery Disease (CAD), COPD, Deep Vein Thrombosis (DVT), Hyperlipidemia, Hypertension, Osteoarthritis (OA), Pneumonia, Skin Disorder, Vascular Disorder Additional Past Medical History / Comment(s): varicose veins. pneumonia 10 yrs ago. occ use knee brace(left) walker and cane. open sores on both legs(largest on left leg) LEAKING FLUID, poor circulation/blockage in both legs. urinary leakage. psoriasis. HX DVT'S IN LEGS. PAD. 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 Aortogram 10/23/16. Rt knee replacement. 11/21/16 PTBA W/ SENT LT. Past Anesthesia/Blood Transfusion Reactions: Motion Sickness Past Psychological History: No Psychological Hx Reported Additional Psychological History / Comment(s): "fear of heights" Smoking Status: Former smoker, Vaper Past Alcohol Use History: Rare Additional Past Alcohol Use History / Comment(s): smoked 4 PPD- quit 2011, started smoking age 12. does use E-cigarette Past Drug Use History: None Reported - Past Family History Father Family Medical History: No Reported History Mother Family Medical History: Cancer Medications and Allergies Home Medications Medication Instructions Recorded Confirmed Type Atorvastatin [Lipitor] 10 mg PO HS 10/18/16 05/09/21 History Cyclobenzaprine [Flexeril] 10 mg PO TID PRN 10/18/16 05/09/21 History Enalapril [Vasotec] 10 mg PO DAILY 10/18/16 05/09/21 History Ergocalciferol (Vitamin D2) 50,000 unit PO CARDENAS 10/18/16 05/09/21 History [Vitamin D2] Gabapentin [Neurontin] 100 mg PO DAILY 10/18/16 05/09/21 History HYDROcodone/APAP 10-325MG [[place] 1 tab PO Q6HR PRN 10/18/16 05/09/21 History 10-325] Metoprolol Tartrate [Lopressor] 50 mg PO BID 10/18/16 05/09/21 History Warfarin [Coumadin] 2.5 mg PO WEFR 01/25/17 05/09/21 History Warfarin [Coumadin] 5 mg PO SUMOTUTHSA 01/25/17 05/09/21 History Aspirin EC [Ecotrin Low Dose] 81 mg PO DAILY 05/01/21 05/09/21 History Doxycycline Hyclate [Vibramycin] 100 mg PO DAILY 05/01/21 05/09/21 History Gabapentin [Neurontin] 200 mg PO HS 05/01/21 05/09/21 History Oxybutynin Chloride 5 mg PO BID 05/01/21 05/09/21 History Potassium Gluconate [Potassium 99 mg PO DAILY 05/01/21 05/09/21 History Gluconate ER] Furosemide [Lasix] 40 mg PO BID #60 tablet 05/03/21 05/09/21 Rx Menthol-Zinc Oxide Oint 1 applic TOPICAL DAILY PRN #30 05/03/21 05/09/21 Rx [Calmoseptine Oint] applic Ciprofloxacin HCl [Cipro] 500 mg PO BID 05/09/21 05/09/21 History Allergies Allergy/AdvReac Type Severity Reaction Status Date / Time amoxicillin Allergy Severe Dyspnea Verified 05/09/21 18:59 latex Allergy Severe Anaphylaxis Verified 05/09/21 18:59 nickel Allergy Unknown Rash/Hives Verified 05/09/21 18:59 Sulfa (Sulfonamide Allergy Rash/Hives Verified 05/09/21 18:59 Antibiotics) Physical Exam Vitals: Vital Signs Temp Pulse Resp BP Pulse Ox 05/11/21 07:00 82 12 99 05/11/21 06:30 88 20 99 05/11/21 06:00 81 14 98 05/11/21 05:30 88 14 99 05/11/21 05:00 86 12 98 05/11/21 04:30 86 11 L 98 05/11/21 04:00 98.9 F 89 11 L 97 05/11/21 03:30 89 12 97 05/11/21 03:00 90 12 98 05/11/21 02:30 86 14 97 05/11/21 02:00 134 H 05/11/21 01:30 154 H 16 96 05/11/21 01:00 161 H 15 94 L 05/11/21 00:45 98 05/11/21 00:32 96 05/11/21 00:30 179 H 18 100 05/11/21 00:00 98.8 F 158 H 22 99 05/10/21 23:30 156 H 14 100 05/10/21 23:00 168 H 20 100 05/10/21 22:30 161 H 24 100 05/10/21 22:00 95 15 99 05/10/21 21:30 95 14 100 05/10/21 21:00 96 20 100 05/10/21 20:30 96 15 100 05/10/21 20:00 98.0 F 90 16 100 05/10/21 19:47 89 05/10/21 19:30 87 19 100 05/10/21 19:00 89 15 99 05/10/21 18:30 87 14 100 05/10/21 18:00 90 16 100 05/10/21 17:30 91 16 99 05/10/21 17:00 86 14 100 05/10/21 16:30 81 14 100 05/10/21 16:00 79 15 100 05/10/21 15:32 77 05/10/21 15:30 77 14 100 05/10/21 15:24 79 05/10/21 15:00 76 15 100 05/10/21 14:45 75 14 122/51 100 05/10/21 14:30 74 14 100 05/10/21 14:15 75 14 99 05/10/21 14:00 76 14 99 05/10/21 13:45 71 14 99 05/10/21 13:30 73 14 99 05/10/21 13:15 73 14 98 05/10/21 13:00 76 19 125/48 98 05/10/21 12:45 69 118/55 99 05/10/21 12:30 78 132/46 100 05/10/21 12:15 69 123/49 99 05/10/21 12:14 68 05/10/21 12:03 69 05/10/21 12:00 98.1 F 67 19 112/75 99 05/10/21 11:45 74 122/48 99 05/10/21 11:30 75 125/42 99 05/10/21 11:15 70 109/50 100 05/10/21 11:00 70 17 112/33 99 05/10/21 10:45 73 127/46 100 Intake and Output 05/10/21 05/11/21 05/11/21 22:59 06:59 14:59 Intake Total 1254.41 1221.685 9.599 Output Total 500 510 Balance 754.41 711.685 9.599 Intake: IV 1040 1170 Sodium Chloride 0.9% 1, 1040 1170 000 ml @ 130 mls/hr IV . Q7H42M [facility] Rx#:[id number] Intake, IV Titration 74.41 31.685 9.599 Amount Norepinephrine 32 mg In 31.685 9.599 Sodium Chloride 0.9% 218 ml @ 0.2 MCG/KG/MIN 10. 725 mls/hr IV .[id number] [facility] Rx#:[id number] propofoL 1,000 mg In 74.41 Empty Bag 1 bag @ Titrate IV .Q0M [facility] Rx#: [id number] Tube Feeding 80 20 Other 60 Output: Urine 500 510 Other: Voiding Method Indwelling Catheter Indwelling Catheter Weight 117.2 kg ABP, PAP, CO, CI - Last 8 Hours Arterial Blood Pressure 131/44 Arterial Blood Pressure 130/46 Arterial Blood Pressure 114/41 Arterial Blood Pressure 128/45 Arterial Blood Pressure 116/39 Arterial Blood Pressure 110/39 Arterial Blood Pressure 104/37 Arterial Blood Pressure 119/42 Arterial Blood Pressure 123/43 Results CBC & Chem 7: 05/11/21 03:50 05/11/21 03:50 Labs: Abnormal Lab Results - Last 24 Hours (Table) 05/10/21 05/10/21 05/10/21 Range/Units 08:43 11:30 15:51 WBC (3.8-10.6) k/uL RBC (3.80-5.40) m/uL Hgb (11.4-16.0) gm/dL Hct (34.0-46.0) % RDW (11.5-15.5) % PT (9.0-12.0) sec INR (<1.2) ABG pH (7.35-7.45) ABG pCO2 (35-45) mmHg ABG pO2 (83-108) mmHg ABG HCO3 (21-25) mmol/L ABG O2 Saturation (94-97) % Sodium (137-145) mmol/L Carbon Dioxide (22-30) mmol/L BUN (7-17) mg/dL Creatinine (0.52-1.04) mg/dL Glucose (74-99) mg/dL POC Glucose (mg/dL) 161 H 195 H (75-99) mg/dL Calcium (8.4-10.2) mg/dL Procalcitonin 29.61 H (0.02-0.09) ng/mL 05/10/21 05/10/21 05/11/21 Range/Units 20:05 23:35 00:02 WBC (3.8-10.6) k/uL RBC (3.80-5.40) m/uL Hgb (11.4-16.0) gm/dL Hct (34.0-46.0) % RDW (11.5-15.5) % PT (9.0-12.0) sec INR (<1.2) ABG pH 7.34 L (7.35-7.45) ABG pCO2 33 L (35-45) mmHg ABG pO2 129 H (83-108) mmHg ABG HCO3 18 L (21-25) mmol/L ABG O2 Saturation 98.9 H (94-97) % Sodium (137-145) mmol/L Carbon Dioxide (22-30) mmol/L BUN (7-17) mg/dL Creatinine (0.52-1.04) mg/dL Glucose (74-99) mg/dL POC Glucose (mg/dL) 147 H 138 H (75-99) mg/dL Calcium (8.4-10.2) mg/dL Procalcitonin (0.02-0.09) ng/mL 05/11/21 05/11/21 05/11/21 Range/Units 03:50 03:50 03:51 WBC 12.4 H (3.8-10.6) k/uL RBC 3.79 L (3.80-5.40) m/uL Hgb 11.1 L D (11.4-16.0) gm/dL Hct 32.8 L (34.0-46.0) % RDW 15.9 H (11.5-15.5) % PT (9.0-12.0) sec INR (<1.2) ABG pH (7.35-7.45) ABG pCO2 (35-45) mmHg ABG pO2 (83-108) mmHg ABG HCO3 (21-25) mmol/L ABG O2 Saturation (94-97) % Sodium 134 L (137-145) mmol/L Carbon Dioxide 18 L (22-30) mmol/L BUN 89 H (7-17) mg/dL Creatinine 7.23 H* (0.52-1.04) mg/dL Glucose 129 H (74-99) mg/dL POC Glucose (mg/dL) 133 H (75-99) mg/dL Calcium 7.5 L (8.4-10.2) mg/dL Procalcitonin (0.02-0.09) ng/mL 05/11/21 Range/Units 04:28 WBC (3.8-10.6) k/uL RBC (3.80-5.40) m/uL Hgb (11.4-16.0) gm/dL Hct (34.0-46.0) % RDW (11.5-15.5) % PT 37.2 H (9.0-12.0) sec INR 3.9 H (<1.2) ABG pH (7.35-7.45) ABG pCO2 (35-45) mmHg ABG pO2 (83-108) mmHg ABG HCO3 (21-25) mmol/L ABG O2 Saturation (94-97) % Sodium (137-145) mmol/L Carbon Dioxide (22-30) mmol/L BUN (7-17) mg/dL Creatinine (0.52-1.04) mg/dL Glucose (74-99) mg/dL POC Glucose (mg/dL) (75-99) mg/dL Calcium (8.4-10.2) mg/dL Procalcitonin (0.02-0.09) ng/mL Microbiology - Last 24 Hours (Table) 05/10/21 00:18 Gram Stain - Preliminary Sputum Sputum Culture - Preliminary 05/09/21 19:31 Urine Culture - Final Urine,Voided Sangita albicans Assessment and Plan (1) Nonhealing ulcer of left lower extremity with fat layer exposed Current Visit: Yes Status: Acute Code(s): L97.922 - NON-PRS CHR ULC UNSP PRT OF L LOW LEG W FAT LAYER EXPOSED SNOMED Code(s): 05778125 (2) Chronic venous hypertension w/ulcer and inflammation involv left side Current Visit: Yes Status: Acute Code(s): I87.332 - CHRONIC VENOUS HTN W ULCER AND INFLAMMATION OF L LOW EXTREM; L97.929 - NON-PRS CHRONIC ULC UNSP PRT OF L LOW LEG W UNSP SEVERITY SNOMED Code(s): 816369224 (3) Venous insufficiency Current Visit: Yes Status: Acute Code(s): I87.2 - VENOUS INSUFFICIENCY (CHRONIC) (PERIPHERAL) SNOMED Code(s): 34603191
--- NOTE | 2021-05-11 12:00 | PN ---
PROGRESS NOTE Patient is seen for followup for acute kidney injury. She was admitted to the hospital with a significantly elevated creatinine of about 9.8 from 1.17 about 5 days prior to this admission. The patient had been on Cipro as outpatient and subsequently her blood pressure had also dropped during the hospitalization requiring large amount of pressors yesterday. The patient had been on the vent. She is currently extubated. Her urine output has improved to about 50-60 mL/hour. Creatinine has decreased to 7.2 now. The patient is off of Levophed. She did get a dose of hydrocortisone yesterday. There was concern for possible allergic reaction yesterday as well. There is concern for possible acute interstitial nephritis causing her acute kidney injury on this admission. UA shows pyuria; no eosinophiles were noted on the urinalysis. Urine culture has grown Sangita. On examination today, patient is awake, comfortable. She is not in any acute distress. She is answering questions appropriately. VITAL SIGNS: Blood pressure is 131/44, heart rate 82 per minute. She is afebrile. EXAMINATION OF THE HEART: S1 and S2. EXAMINATION OF LUNGS: Bilateral breath sounds are heard. ABDOMEN: Soft, nontender. LOWER EXTREMITIES: Examination of lower extremities shows chronic skin changes with no significant edema noted. Left lower extremity was recently treated for cellulitis and ulceration. JOB HONER EXAM: Grossly intact. Labs show sodium 134, potassium 3.9, chloride 104. CO2 is 18, BUN 89, creatinine 7.2, hemoglobin 11.1 g/dL. ASSESSMENT: 1. Acute kidney injury, acute tubular necrosis versus acute interstitial nephritis, currently improving. No need for renal replacement therapy at this time. I will add prednisone for possible acute interstitial nephritis. Urine eosinophiles are negative, but that does not rule out AIN. If her renal function does not improve further, patient will need a kidney biopsy. 2. Acute hypotension, possibly related to an allergic reaction. Currently it is significantly improved. There is concern for possible underlying infection and volume depletion as well. Patient has received aggressive IV hydration. Serum cortisol was not low. I will decrease the IV fluids. 3. Metabolic acidosis associated with renal failure. Expect improvement with improving renal function. 4. Acute hypoxic respiratory failure, currently extubated, doing much better. 5. Sangita albicans in the urine culture. PLAN: Decrease IV fluids. Add prednisone. Repeat labs in a.m. Continue to avoid nephrotoxic agents. Encourage increased oral intake. If renal function does not improve, patient will need a kidney biopsy. No need for renal replacement therapy at this time. MMODL / IJN: [id number] /
--- NOTE | 2021-05-11 12:24 | P.PN ---
Subjective Progress Note Date: 05/11/21 HISTORY OF PRESENT ILLNESS This is a 70-year-old female patient of Dr. Lala with past medical history of coronary artery disease status post CABG and repair of aneurysm, aortic valve replacement, COPD, DVT, peripheral artery disease, hyperlipidemia, former tobacco use, nonhealing ulcer to the left lower extremity under the care of the wound healing Center. Patient had recent hospitalization from May 01 through May 04 at which time she was treated for cellulitis and ulcer of the lower extremity. Patient presented to [facility] emergency center yesterday afternoon with complaints of upset stomach, not eating or drinking which she related to ciprofloxacin. Patient developed increasing weakness and inability to ambulate. Patient was brought in by EMS found her blood pressure to be exceptionally low. On presentation, blood pressure was 96/60, afebrile, heart rate in the 60s, pulse ox 92% on 2 L nasal cannula. EKG was a sinus rhythm at 65 bpm with no acute ST changes. WBC 12.0, hemoglobin 12.8, platelet count 333. Sodium 130, potassium 3.9, chloride 96, CO2 16, BUN 91 creatinine 8.86. Blood sugar 178. Troponin 0.036. BNP 3200. Lactic acid 2.5. Chest x- ray showed no acute cardiopulmonary process. Renal ultrasound showed no distinc t abnormality. Hardy catheter was placed with return of 300 ML's. Patient was being prepared for admission and staff was called into the patient's room, she had had a large bowel movement in her bed and became unresponsive and was shaking. Patient was unresponsive with agonal respirations and blood pressure was 70/30. Patient was immediately intubated, provided ample of appendectomy and repeated 3, right jugular catheter was placed. Patient underwent CAT scan of the brain which revealed no acute intracranial abnormality. Patient was started on Levophed drip and admitted into the intensive care unit, consult with nephrology, driver service technician, patient is currently on propofol but when this was weaned earlier in the day she was able to follow some commands. She has been started on IV Rocephin. 05/11: She remains in the intensive care unit, she was successfully extubated around midnight and is currently on 2 L nasal cannula with pulse ox of 99%. Patient is currently on small dose of and being weaned off. She has alert and oriented 3. She has related to her that she had a near experience. She's been afebrile, heart rate 82, blood pressure 131/44. Repeat blood work reveals WBC 12.4, hemoglobin 11.1, platelet count 206. INR 3.9. Sodium 134, potassium 3.9, chloride 104, CO2 18, BUN 89 creatinine 7.23. Capillary blood glucose running between 99-138. Sputum culture is in process. Urine culture is positive for Sangita albicans. At that time Dr. Farris does not plan to start dialysis treatment. Patient has been seen by the wound healing Center regarding the left lower extremity ulceration and plan is to apply absorptive silver, saline moistening gauze, dry gauze, rolled gauze and secure. Cardiology is on consult for tachyarrhythmia without atrial fibrillation or atrial flutter. She was given a bolus of amiodarone. Patient's is at bedside and all questions have been answered. REVIEW OF SYSTEMS Constitutional: No fever, no chills, no night sweats. No weight change. Reports weakness, reports fatigue reports ethargy. No daytime sleepiness. EENT: No headache. No blurred vision or double vision, no loss of vision. No loss of Hearing, no ringing in the ears, no dizziness. No nasal drainage or congestion. No epistaxis. No sore throat. Lungs: No shortness of breath, cough, no sputum production. No wheezing. Cardiovascular: No chest pain, no lower extremity edema. No palpitations. No paroxysmal nocturnal dyspnea. No orthopnea. No lightheadedness or dizziness. No syncopal episodes. Abdominal: No abdominal pain. No nausea, vomiting. No diarrhea. No constipation. No bloody or tarry stools. No loss of appetite. Genitourinary: No dysuria, increased frequency, urgency. No urinary retention. Musculoskeletal: No myalgias. No muscle weakness, no gait dysfunction, no frequent falls. No back pain. No neck pain. Integumentary: No wounds, no lesions. No rash or pruritus. No unusual bruisi ng. No change in hair or nails. Neurologic: No aphasia. No facial droop. No change in mentation. No head injury. No headache. No paralysis. No paresthesia. Psychiatric: No depression. No anxiety. No mood swings. Endocrine: No abnormal blood sugars. No weight change. PHYSICAL EXAMINATION Gen: This is this is a 70-year-old female, patient is resting in the ICU bed Patient appears to be comfortable. is at bedside. HEENT: Head is atraumatic, normocephalic. Pupils equal, round. Sclerae is anicteric. NECK: Supple. No JVD. No lymphadenopathy. No thyromegaly. LUNGS: Few scattered rhonchi. No intercostal retractions. HEART: Regular rate and rhythm. No murmur. ABDOMEN: Soft. Bowel sounds are present. No masses. No tenderness. EXTREMITIES: No pedal edema. No calf tenderness. NEUROLOGICAL: Patient is awake, alert and oriented x3. Cranial nerves 2 through 12 are grossly intact. ASSESSMENT AND PLAN 1. Acute hypoxic respiratory failure requiring intubation and mechanical ventilation. Patient maintained in the intensive care unit, consult with driver service technician appreciated, successfully weaned off ventilator 2. Acute kidney injury, acute tubular necrosis versus acute interstitial nephritis associated with recent antibiotic use ciprofloxacin, Lasix. Consult with nephrology appreciated. Continue IV hydration. Plan to monitor closely without plan for dialysis at this point if she improves. Urine sent for eosinophils and she is status post 1 dose of hydrocortisone. 3. Hypovolemic shock. Patient admitted into the intensive care uniweaned offsopressors. 4. Lactic acidosis secondary to hypotension, hypoperfusion and renal failure. 5. 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 Consult with wound healing Center. Continue Rocephin, local wound care . 6. Hypertension, currently hypotensive. Hold antihypertensive medications. 7. Hyperlipidemia. Continue atorvastatin 10 mg at bedtime. 8. Coronary artery disease status post CABG and repair of aneurysm and aortic valve replacement, stable. 9. COPD, stable. Continue DuoNeb treatments every 4 hours. 10. Peripheral artery disease. 11. History of DVT. 12. GI prophylaxis. Continue Pepcid 20 mg IV every 12 hours. DISCHARGE PLAN TBD. Impression and plan of care have been directed as dictated by the signing physician. Amirah Lopez nurse practitioner acting as scribe for signing physician. Objective - Vital Signs Vital signs: Vital Signs Temp 98.9 F 05/11/21 04:00 Pulse 82 05/11/21 07:00 Resp 12 05/11/21 07:00 BP 122/51 05/10/21 14:45 Pulse Ox 99 05/11/21 07:00 Intake & Output 05/10/21 05/11/21 05/11/21 18:59 06:59 18:59 Intake Total 3766.916 1896.095 9.599 Output Total 519 770 Balance 3247.916 1126.095 9.599 Weight 114.4 kg 117.2 kg Intake: IV 3480 1690 Sodium Chloride 0.9% 1, 1430 1690 000 ml @ 130 mls/hr IV . Q7H42M [facility] Rx#:[id number] Sodium Chloride 0.9% 2, 2000 000 ml @ 999 mls/hr IV . Q2H1M [facility] Rx#:[id number] cefTRIAXone 1 gm In 50 Sodium Chloride 0.9% 50 ml @ 100 mls/hr IVPB Q24HR [facility] Rx#:[id number] Intake, IV Titration 206.916 106.095 9.599 Amount Norepinephrine 32 mg In 181.326 Sodium Chloride 0.9% 218 ml @ 0.05 MCG/KG/MIN 1. 807 mls/hr IV .Q24H [facility] Rx#:[id number] Norepinephrine 32 mg In 31.685 9.599 Sodium Chloride 0.9% 218 ml @ 0.2 MCG/KG/MIN 10. 725 mls/hr IV .[id number] [facility] Rx#:[id number] propofoL 1,000 mg In 25.590 74.41 Empty Bag 1 bag @ Titrate IV .Q0M [facility] Rx#: [id number] Tube Feeding 50 70 Other 30 30 Output: Gastric Drainage 100 Urine 419 770 Other: Voiding Method Indwelling Catheter Indwelling Catheter ABP, PAP, CO, CI - Last Documented Arterial Blood Pressure 131/44 - Labs CBC & Chem 7: 05/11/21 03:50 05/11/21 03:50 Labs: Abnormal Lab Results - Last 24 Hours (Table) 05/10/21 05/10/21 05/10/21 Range/Units 08:43 11:30 15:51 WBC (3.8-10.6) k/uL RBC (3.80-5.40) m/uL Hgb (11.4-16.0) gm/dL Hct (34.0-46.0) % RDW (11.5-15.5) % PT (9.0-12.0) sec INR (<1.2) ABG pH (7.35-7.45) ABG pCO2 (35-45) mmHg ABG pO2 (83-108) mmHg ABG HCO3 (21-25) mmol/L ABG O2 Saturation (94-97) % Sodium (137-145) mmol/L Carbon Dioxide (22-30) mmol/L BUN (7-17) mg/dL Creatinine (0.52-1.04) mg/dL Glucose (74-99) mg/dL POC Glucose (mg/dL) 161 H 195 H (75-99) mg/dL Calcium (8.4-10.2) mg/dL Procalcitonin 29.61 H (0.02-0.09) ng/mL 05/10/21 05/10/21 05/11/21 Range/Units 20:05 23:35 00:02 WBC (3.8-10.6) k/uL RBC (3.80-5.40) m/uL Hgb (11.4-16.0) gm/dL Hct (34.0-46.0) % RDW (11.5-15.5) % PT (9.0-12.0) sec INR (<1.2) ABG pH 7.34 L (7.35-7.45) ABG pCO2 33 L (35-45) mmHg ABG pO2 129 H (83-108) mmHg ABG HCO3 18 L (21-25) mmol/L ABG O2 Saturation 98.9 H (94-97) % Sodium (137-145) mmol/L Carbon Dioxide (22-30) mmol/L BUN (7-17) mg/dL Creatinine (0.52-1.04) mg/dL Glucose (74-99) mg/dL POC Glucose (mg/dL) 147 H 138 H (75-99) mg/dL Calcium (8.4-10.2) mg/dL Procalcitonin (0.02-0.09) ng/mL 05/11/21 05/11/21 05/11/21 Range/Units 03:50 03:50 03:51 WBC 12.4 H (3.8-10.6) k/uL RBC 3.79 L (3.80-5.40) m/uL Hgb 11.1 L D (11.4-16.0) gm/dL Hct 32.8 L (34.0-46.0) % RDW 15.9 H (11.5-15.5) % PT (9.0-12.0) sec INR (<1.2) ABG pH (7.35-7.45) ABG pCO2 (35-45) mmHg ABG pO2 (83-108) mmHg ABG HCO3 (21-25) mmol/L ABG O2 Saturation (94-97) % Sodium 134 L (137-145) mmol/L Carbon Dioxide 18 L (22-30) mmol/L BUN 89 H (7-17) mg/dL Creatinine 7.23 H* (0.52-1.04) mg/dL Glucose 129 H (74-99) mg/dL POC Glucose (mg/dL) 133 H (75-99) mg/dL Calcium 7.5 L (8.4-10.2) mg/dL Procalcitonin (0.02-0.09) ng/mL 05/11/21 Range/Units 04:28 WBC (3.8-10.6) k/uL RBC (3.80-5.40) m/uL Hgb (11.4-16.0) gm/dL Hct (34.0-46.0) % RDW (11.5-15.5) % PT 37.2 H (9.0-12.0) sec INR 3.9 H (<1.2) ABG pH (7.35-7.45) ABG pCO2 (35-45) mmHg ABG pO2 (83-108) mmHg ABG HCO3 (21-25) mmol/L ABG O2 Saturation (94-97) % Sodium (137-145) mmol/L Carbon Dioxide (22-30) mmol/L BUN (7-17) mg/dL Creatinine (0.52-1.04) mg/dL Glucose (74-99) mg/dL POC Glucose (mg/dL) (75-99) mg/dL Calcium (8.4-10.2) mg/dL Procalcitonin (0.02-0.09) ng/mL Microbiology - Last 24 Hours (Table) 05/10/21 00:18 Gram Stain - Preliminary Sputum Sputum Culture - Preliminary 05/09/21 19:31 Urine Culture - Final Urine,Voided Sangita albicans
[2021-05-11] MEDS: predniSONE 50 MG TAB PO SCH (12:49)
[2021-05-11 18:07] LABS: Glucose,Whole Blood 99 mg/dL (75-99)
[2021-05-11] MEDS: ATORVASTATIN 10 MG TAB PO SCH (20:35)
[2021-05-11 20:39] LABS: Glucose,Whole Blood 89 mg/dL (75-99)
[2021-05-11 23:16] LABS: Glucose,Whole Blood 84 mg/dL (75-99)
[2021-05-12] MEDS: INSULIN ASPART (NovoLOG) 100 UNIT/ML VIAL SQ SCH ×2 (04:39→09:07)
[2021-05-12 04:54] LABS: WBC 7.4 k/uL (3.8-10.6)
[2021-05-12 04:55] LABS: Basophils % (A) 0 %; Eosinophils # (A) 0.3 k/uL (0-0.7); Eosinophils % (A) 4 %; Hypochromasia Slight; Lymphocytes # (A) 0.9 k/uL (1.0-4.8); Lymphocytes % (A) 12 %; MCHC 32.1 g/dL (31.0-37.0); MCV 87.3 fL (80.0-100.0); Mean Platelet Volume 8.5; Monocytes # (A) 0.4 k/uL (0-1.0); Monocytes % (A) 5 %; Neutrophils # (A) 5.7 k/uL (1.3-7.7); Neutrophils % (A) 77 %; Platelet Count 137 k/uL (150-450); RBC 3.55 m/uL (3.80-5.40); RDW 15.7 % (11.5-15.5)
[2021-05-12 05:11] LABS: Albumin 2.1 g/dL (3.5-5.0); Calcium 7.5 mg/dL (8.4-10.2); Potassium 3.6 mmol/L (3.5-5.1); Total Bilirubin 0.3 mg/dL (0.2-1.3); Total Protein 4.4 g/dL (6.3-8.2)
--- NOTE | 2021-05-12 07:35 | XR ---
EXAMINATION TYPE: XR chest 1V portable DATE OF EXAM: 05/12/2021 COMPARISON: 05/11/2021 INDICATION: Tube placement TECHNIQUE: Single frontal view of the chest is obtained. FINDINGS: The heart size is normal. The pulmonary vasculature is normal. Some mild subsegmental atelectasis may remain at the left lung base. There is a right-sided central venous catheter with the tip in the distal superior vena cava region. IMPRESSION: 1. Mild left lower lobe atelectasis. 2. Stable right central venous catheter
--- NOTE | 2021-05-12 07:39 | P.PN ---
Subjective Progress Note Date: 05/12/21 Principal diagnosis: Cardiac arrhythmia The patient was seen this morning. She seems to be stable from a cardiac vascular standpoint of view and she is not on any vasopressors anymore. She denies any symptoms of chest pain or chest discomfort. She has been maintaining normal sinus mechanism. No arrhythmia was noted overnight. Objective - Vital Signs Vital signs: Vital Signs Temp 98.8 F 05/12/21 04:00 Pulse 80 05/12/21 07:00 Resp 24 05/12/21 07:00 BP 109/51 05/12/21 07:00 Pulse Ox 92 L 05/12/21 07:00 Intake & Output 05/11/21 05/12/21 05/12/21 18:59 06:59 18:59 Intake Total 1319.599 990 70 Output Total 945 1300 125 Balance 374.599 -310 -55 Weight 119.3 kg Intake: IV 950 840 70 Sodium Chloride 0.9% 1, 950 840 70 000 ml @ 70 mls/hr IV . [id number] REPLACED BY [facility] Rx#:[id number] Intake, IV Titration 9.599 Amount Norepinephrine 32 mg In 9.599 Sodium Chloride 0.9% 218 ml @ 0.2 MCG/KG/MIN 10. 725 mls/hr IV .[id number] [facility] Rx#:[id number] Oral 360 150 Output: Urine 945 1300 125 Other: Voiding Method Indwelling Catheter Indwelling Catheter ABP, PAP, CO, CI - Last Documented Arterial Blood Pressure 107/43 - Constitutional General appearance: Present: no acute distress - Respiratory Respiratory: bilateral: diminished - Cardiovascular Rhythm: regular Abnormal Heart Sounds: Present: systolic murmur - Labs CBC & Chem 7: 05/12/21 04:15 05/12/21 04:15 Labs: Abnormal Lab Results - Last 24 Hours (Table) 05/12/21 05/12/21 Range/Units 04:15 04:15 RBC 3.55 L (3.80-5.40) m/uL Hgb 10.0 L (11.4-16.0) gm/dL Hct 31.0 L (34.0-46.0) % RDW 15.7 H (11.5-15.5) % Plt Count 137 L (150-450) k/uL Lymphocytes # 0.9 L (1.0-4.8) k/uL Chloride 110 H (98-107) mmol/L Carbon Dioxide 20 L (22-30) mmol/L BUN 81 H (7-17) mg/dL Creatinine 5.35 H (0.52-1.04) mg/dL Calcium 7.5 L (8.4-10.2) mg/dL Total Protein 4.4 L (6.3-8.2) g/dL Albumin 2.1 L (3.5-5.0) g/dL Microbiology - Last 24 Hours (Table) 05/10/21 08:43 Blood Culture - Preliminary Blood No Growth after 24 hours 05/10/21 08:49 Blood Culture - Preliminary Blood No Growth after 24 hours 05/10/21 00:18 Gram Stain - Preliminary Sputum Sputum Culture - Preliminary Assessment and Plan Assessment: Assessment #1 hypotension which was resolved. The patient is off norepinephrine #2 an episode of tachycardia arrhythmia. No documentation noted in the chart. #3 an episode of unresponsiveness. Likely represent vasovagal or related to vasovagal symptoms happened after a poor movement #4 valvular heart disease. #5 coronary artery disease #6 lower extremities peripheral arterial disease #7 chronic kidney disease #8 multiple comorbid conditions Plan #1 continue monitor the patient for arrhythmia. Rule out atrial fibrillation/atrial flutter giving her age and the prior cardiovascular comorbidities #2 continue the current medical regimen #3 consider medical treatment for the mildly abnormal troponin and evidence of myocardial injury. No evidence of ischemia by EKG or clinically #4 the aortic valve definitely need to be addressed as an outpatient #5 restart the patient back on antiplatelet and anti-ischemic medications once she is stable hemodynamically #6 follow-up with the patient
[2021-05-12 08:38] LABS: Glucose,Whole Blood 84 mg/dL (75-99)
[2021-05-12] MEDS ORDERED: FAMOTIDINE 20 MG/2 ML VIAL IV SCH (09:00)
[2021-05-12 09:27] LABS: INR 3.1 (<1.2)
[2021-05-12] MEDS: SODIUM CHLORIDE 0.9% 1,000 ML IV SCH ×2 (09:34→23:50)
[2021-05-12] MEDS: LEVOFLOXACIN 250 MG TAB PO SCH (09:36)
[2021-05-12] MEDS: predniSONE 50 MG TAB PO SCH (09:36)
--- NOTE | 2021-05-12 10:53 | P.PN ---
Subjective Progress Note Date: 05/12/21 71-year-old female who presented to the emergency department via EMS, on May 09. She was seen there by . The patient apparently came in complaining of profound weakness for 2 or 3 days prior to admission. She apparently was recently hospitalized between May 01 and May 04 for left lower extremity cellulitis. She was discharged home, but did not qualify for home care. She been taking her medications at home, but because of upset stomach, she was not eating or drinking. She apparently became extremely weak. For that reason, EMS was called. Apparently when they arrived, her blood pressure was low. They established an IV started IV fluids. She apparently denied any chest pain or chest discomfort. She also apparently denied shortness of breath, abdominal pain, fever, chills, or any other complaints for that matter. Subsequently, she was evaluated in the emergency room, and apparently either after a bowel movement or may be a seizure, the patient became apneic, and required intubation and mechanical ventilation. I was called by the ER physician, and the patient was accepted into the intensive care unit. The patient's currently on volume assist control, rate 14, tidal volume 450, FiO2 50%, with a PEEP of 5. Blood gases on the same settings, except 100%, showed a pO2 337, pCO2 40, pH 7.29. Blood gases are consistent with metabolic acidosis. Currently, she is on saline at 130 mL an hour, propofol is on hold for a daily interruption of sedation, and she is receiving norepinephrine at 30 mcg/m. White count 14.3, hemoglobin 14.3, hematocrit 44.9, and platelet count 366,000. PT 45.7, and INR 4.7. Sodium 133, potassium 4.3, chlorides 94, CO2 21, anion gap is 18, and BUN and creatinine are 94 and 9.87. Lactic acid is 3.5. Troponin was 0.031 and 0.465, and N-terminal proBNP was 3200. Albumin was 2.9. Urinalysis is consistent in my opinion with a urinary tract infection at the urine is cloudy, leukocyte esterase is large positive, there is 146 WBCs and few white blood cell clumps, and there are bacteria. Coronavirus testing was negative. Chest x-ray my opinion show some minimal bilateral atelectasis. Progress note dated 05/11/2021. 71-year-old female that we saw yesterday in consultation. She presented to the emergency department on May 09. The patient was initially being evaluated for weakness. After a while, she apparently was found to be unresponsive, required intubation and mechanical ventilation. She was recently at [facility] between May 01 and May 04 for left lower extremity cellulitis. Anyway, last night, we went ahead and did a spontaneous breathing trial after a daily interruption of sedation. Her weaning parameters, were excellent. She had a very low rapid shallow breathing index, and she had a positive cuff leak. For those reasons, she was extubated. Currently on 2 L. She's getting saline at 130 mL an hour. Yesterday, she was up quite a bit of norepinephrine, up to 30 mcg/m. We did give her some additional fluid boluses, and I'm happy to report that the norepinephrine is currently on hold. White count 12.4, hemoglobin 11.1, hematocrit 32.8, platelet count 206,000. PTT 37.2, INR 3.9. Sodium 134, potassium 3.9, chlorides 104, CO2 18, anion gap 12, BUN 89, creatinine 7.23. Glucose 129. Calcium 7.5. Chest x-ray shows bibasilar atelectasis, left greater than right. The patient is seen today 05/12/2021 in follow-up in the intensive care unit. She is currently awake and alert in no acute distress. Maintaining O2 saturations in the mid 90s on room air. She's been afebrile. Hemodynamically stable. 0.9 normal saline at 75 mL per hour. Blood cultures reveal no growth. White count 7.4. Hemoglobin 10.0. INR 3.1. Sodium 130. Potassium 3.6. Creatinine 5.35. Glucose 84. AST 22. ALT 13. She remains on ceftriaxone, 0.9 normal saline at 70 ML's per hour. She is on prednisone 50 mg daily per nephrology. Chest x-ray revealed some mild left lower lobe atelectasis. Objective - Vital Signs Vital signs: Vital Signs Temp 97.8 F 05/12/21 09:00 Pulse 76 05/12/21 10:00 Resp 17 05/12/21 10:00 BP 109/65 05/12/21 09:00 Pulse Ox 98 05/12/21 10:00 Intake & Output 05/11/21 05/12/21 05/12/21 18:59 06:59 18:59 Intake Total 1319.599 990 280 Output Total 945 1300 545 Balance 374.599 -310 -265 Weight 119.3 kg 119.3 kg Intake: IV 950 840 280 Sodium Chloride 0.9% 1, 950 840 280 000 ml @ 70 mls/hr IV . [id number] [facility] Rx#:[id number] Intake, IV Titration 9.599 Amount Norepinephrine 32 mg In 9.599 Sodium Chloride 0.9% 218 ml @ 0.2 MCG/KG/MIN 10. 725 mls/hr IV .[id number] [facility] Rx#:[id number] Oral 360 150 Output: Urine 945 1300 545 Other: Voiding Method Indwelling Catheter Indwelling Catheter ABP, PAP, CO, CI - Last Documented Arterial Blood Pressure 156/68 - Exam GENERAL EXAM: Alert, oriented, pleasant 70-year-old female patient, on room air, comfortable in no apparent distress. HEAD: Normocephalic. EYES: Normal reaction of pupils, equal size. NOSE: Clear with pink turbinates. THROAT: No erythema or exudates. NECK: No masses, no JVD. CHEST: No chest wall deformity. LUNGS: Equal air entry with no crackles, wheeze, rhonchi or dullness. CVS: S1 and S2 normal with no audible murmur, regular rhythm. ABDOMEN: No hepatosplenomegaly, normal bowel sounds, no guarding or rigidity. SPINE: No scoliosis or deformity SKIN: No rashes CENTRAL NERVOUS SYSTEM: No focal deficits, tone is normal in all 4 extremities. EXTREMITIES: There is no peripheral edema. No clubbing, no cyanosis. Peripheral pulses are intact. - Labs CBC & Chem 7: 05/12/21 04:15 05/12/21 04:15 Labs: Abnormal Lab Results - Last 24 Hours (Table) 05/12/21 05/12/21 05/12/21 Range/Units 04:15 04:15 08:36 RBC 3.55 L (3.80-5.40) m/uL Hgb 10.0 L (11.4-16.0) gm/dL Hct 31.0 L (34.0-46.0) % RDW 15.7 H (11.5-15.5) % Plt Count 137 L (150-450) k/uL Lymphocytes # 0.9 L (1.0-4.8) k/uL PT 30.0 H (9.0-12.0) sec INR 3.1 H (<1.2) Chloride 110 H (98-107) mmol/L Carbon Dioxide 20 L (22-30) mmol/L BUN 81 H (7-17) mg/dL Creatinine 5.35 H (0.52-1.04) mg/dL Calcium 7.5 L (8.4-10.2) mg/dL Total Protein 4.4 L (6.3-8.2) g/dL Albumin 2.1 L (3.5-5.0) g/dL Microbiology - Last 24 Hours (Table) 05/10/21 00:18 Gram Stain - Final Sputum Sputum Culture - Final Sangita albicans 05/10/21 08:43 Blood Culture - Preliminary Blood No Growth after 24 hours 05/10/21 08:49 Blood Culture - Preliminary Blood No Growth after 24 hours Assessment and Plan Assessment: 1 Acute hypoxemic respiratory failure, requiring intubation and mechanical ventilation, of unclear etiology, on 05/09/2021, with successful extubation on 05/11/2021. On room air today 05/12/2021 2 Recent hospitalization, between May 01 of May 04, for left lower extremity cellulitis. 3 History of hyperlipidemia. 4 History of hypertension. 5 History of CAD. 6 Possible urinary tract infection, currently on IV Rocephin. 7 History of deep venous thrombosis. 8 History of DJD. 9 History of stress urinary incontinence. 10 History of psoriasis. 11 History of bypass grafting and valve replacement surgery. Plan: The patient was seen and evaluated by Dr. Xiao Chest x-ray and labs reviewed Currently stable from the critical care standpoint Could be transferred to the regular medical floor Home once cleared by medicine I, the cosigning physician, performed a history & physical examination of the patient. Lungs sounds are clear. Maintaining good O2 saturations in the 90s on room air. I discussed the assessment and plan of care with my nurse practitioner, Siomara Martinez. I attest to the above note as dictated by her.
--- NOTE | 2021-05-12 11:48 | P.PN ---
Subjective Progress Note Date: 05/12/21 HISTORY OF PRESENT ILLNESS This is a 70-year-old female patient of Dr. Lala with past medical history of coronary artery disease status post CABG and repair of aneurysm, aortic valve replacement 02/08/2014, COPD, DVT, peripheral artery disease, hyperlipidemia, former tobacco use, nonhealing ulcer to the left lower extremity under the care of the wound healing Center. Patient had recent hospitalization from May 01 through May 04 at which time she was treated for cellulitis and ulcer of the lower extremity. Patient presented to [facility] emergency [facility] yesterday afternoon with complaints of upset stomach, not eating or drinking which she related to ciprofloxacin. Patient developed increasing weakness and inability to ambulate. Patient was brought in by EMS found her blood pressure to be exceptionally low. On presentation, blood pressure was 96/60, afebrile, heart rate in the 60s, pulse ox 92% on 2 L nasal cannula. EKG was a sinus rhythm at 65 bpm with no acute ST changes. WBC 12.0, hemoglobin 12.8, platelet count 333. Sodium 130, potassium 3.9, chloride 96, CO2 16, BUN 91 creatinine 8.86. Blood sugar 178. Troponin 0.036. BNP 3200. Lactic acid 2.5. Chest x-ray showed no acute cardiopulmonary process. Renal ultrasound showed no distinct abnormality. Hardy catheter was placed with return of 300 ML's. Patient was being prepared for admission and staff was called into the patient's room, she had had a large bowel movement in her bed and became unresponsive and was shaking. Patient was unresponsive with agonal respirations and blood pressure was 70/30. Patient was immediately intubated, provided ample of appendectomy and repeated 3, right jugular catheter was placed. Patient underwent CAT scan of the brain which revealed no acute intracranial abnormality. Patient was started on Levophed drip and admitted into the intensive care unit, consult with nephrology, airport operations supervisor, patient is currently on propofol but when this was weaned earlier in the day she was able to follow some commands. She has been started on IV Rocephin. 05/11: She remains in the intensive care unit, she was successfully extubated around midnight and is currently on 2 L nasal cannula with pulse ox of 99%. Patient is currently on small dose of and being weaned off. She has alert and oriented 3. She has related to her that she had a near experience. She's been afebrile, heart rate 82, blood pressure 131/44. Repeat blood work reveals WBC 12.4, hemoglobin 11.1, platelet count 206. INR 3.9. Sodium 134, potassium 3.9, chloride 104, CO2 18, BUN 89 creatinine 7.23. Capillary blood glucose running between 99-138. Sputum culture is in process. Urine culture is positive for Sangita albicans. At that time Dr. Farris does not plan to start dialysis treatment. Patient has been seen by the wound healing Center regarding the left lower extremity ulceration and plan is to apply absorptive silver, saline moistening gauze, dry gauze, rolled gauze and secure. Cardiology is on consult for tachyarrhythmia without atrial fibrillation or atrial flutter. She was given a bolus of amiodarone. Patient's is at bedside and all questions have been answered. 05/12: Patient remains in the intensive care unit. Repeat INR today is 3.1. Central lines are to be pulled today but may be postponed until tomorrow due to INR. Additional blood work reveals WBC 7.4, hemoglobin 10.1, platelet count 137. Sodium 138, potassium 3.6, chloride 110, CO2 20, BUN 81 and creatinine 5.35. Blood sugars are running in the 80s. Sputum culture and urine culture finalized with Sangita. Blood culture no growth at 48 hours. Repeat chest x- ray reveals mild left lower lobe atelectasis. Stable right central venous catheter. Patient is off vasopressors. Patient has had no arrhythmias. She denies having any chest pain. Bowel movement today was mostly brown with some maroon colored blood. Patient has been seen by PT and OT with recommendations for subacute rehab. Social work as discussed with the patient and she has r efused rehab planning to go home with her with [facility] care. Anticipate possible discharge over the weekend. REVIEW OF SYSTEMS Constitutional: No fever, no chills, no night sweats. No weight change. Reports weakness, reports fatigue reports ethargy. No daytime sleepiness. EENT: No headache. No blurred vision or double vision, no loss of vision. No loss of Hearing, no ringing in the ears, no dizziness. No nasal drainage or congestion. No epistaxis. No sore throat. Lungs: No shortness of breath, cough, no sputum production. No wheezing. Cardiovascular: No chest pain, no lower extremity edema. No palpitations. No paroxysmal nocturnal dyspnea. No orthopnea. No lightheadedness or dizziness. No syncopal episodes. Abdominal: No abdominal pain. No nausea, vomiting. No diarrhea. No constipation. No bloody or tarry stools. nurse reported maroon stool. No loss of appetite. Genitourinary: No dysuria, increased frequency, urgency. No urinary retention. Musculoskeletal: No myalgias. No muscle weakness, no gait dysfunction, no frequent falls. No back pain. No neck pain. Integumentary: No wounds, no lesions. No rash or pruritus. No unusual bruising. No change in hair or nails. Neurologic: No aphasia. No facial droop. No change in mentation. No head injury. No headache. No paralysis. No paresthesia. Psychiatric: No depression. No anxiety. No mood swings. Endocrine: No abnormal blood sugars. No weight change. PHYSICAL EXAMINATION Gen: This is this is a 70-year-old female, patient is resting in the ICU bed Patient appears to be comfortable. HEENT: Head is atraumatic, normocephalic. Pupils equal, round. Sclerae is anicteric. NECK: Supple. No JVD. No lymphadenopathy. No thyromegaly. LUNGS: Few scattered rhonchi. No intercostal retractions. HEART: Regular rate and rhythm. No murmur. ABDOMEN: Soft. Bowel sounds are present. No masses. No tenderness. EXTREMITIES: No pedal edema. No calf tenderness. NEUROLOGICAL: Patient is awake, alert and oriented x3. Cranial nerves 2 through 12 are grossly intact. ASSESSMENT AND PLAN 1. Acute hypoxic respiratory failure requiring intubation and mechanical ventilation. Patient maintained in the intensive care unit, consult with airport operations supervisor appreciated, successfully extubated and weaned off ventilator 2. Acute kidney injury, acute tubular necrosis versus acute interstitial nephritis associated with recent antibiotic use ciprofloxacin, Lasix. Consult with nephrology appreciated. Continue IV hydration. Plan to monitor closely without plan for dialysis at this point if she improves. Urine sent for eosinophils and she is status post 1 dose of hydrocortisone. 3. Hypovolemic shock. Patient admitted into the intensive care unit weaned off vasopressors. 4. Lactic acidosis secondary to hypotension, hypoperfusion and renal failure. 5. 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 Consult with wound healing Center a ppreciated. Continue Rocephin, local wound care. 6. Hypertension, currently hypotensive. Hold antihypertensive medications. 7. Hyperlipidemia. Continue atorvastatin 10 mg at bedtime. 8. Coronary artery disease status post CABG and repair of aneurysm and aortic valve replacement, stable. 9. COPD, stable. Continue DuoNeb treatments every 4 hours. 10. Peripheral artery disease. 11. History of DVT. 12. GI prophylaxis. Continue Pepcid 20 mg IV every 12 hours. DISCHARGE PLAN Home with [facility] Impression and plan of care have been directed as dictated by the signing physician. Amirah Lopez nurse practitioner acting as scribe for signing physi donald. Objective - Vital Signs Vital signs: Vital Signs Temp 98.8 F 05/12/21 04:00 Pulse 74 05/12/21 09:00 Resp 23 05/12/21 09:00 BP 109/65 05/12/21 09:00 Pulse Ox 96 05/12/21 09:00 Intake & Output 05/11/21 05/12/21 05/12/21 18:59 06:59 18:59 Intake Total 1319.599 990 210 Output Total 945 1300 375 Balance 374.599 -310 -165 Weight 119.3 kg Intake: IV 950 840 210 Sodium Chloride 0.9% 1, 950 840 210 000 ml @ 70 mls/hr IV . [id number] [facility] Rx#:[id number] Intake, IV Titration 9.599 Amount Norepinephrine 32 mg In 9.599 Sodium Chloride 0.9% 218 ml @ 0.2 MCG/KG/MIN 10. 725 mls/hr IV .[id number] [facility] Rx#:[id number] Oral 360 150 Output: Urine 945 1300 375 Other: Voiding Method Indwelling Catheter Indwelling Catheter ABP, PAP, CO, CI - Last Documented Arterial Blood Pressure 146/50 - Labs CBC & Chem 7: 05/12/21 04:15 05/12/21 04:15 Labs: Abnormal Lab Results - Last 24 Hours (Table) 05/12/21 05/12/21 05/12/21 Range/Units 04:15 04:15 08:36 RBC 3.55 L (3.80-5.40) m/uL Hgb 10.0 L (11.4-16.0) gm/dL Hct 31.0 L (34.0-46.0) % RDW 15.7 H (11.5-15.5) % Plt Count 137 L (150-450) k/uL Lymphocytes # 0.9 L (1.0-4.8) k/uL PT 30.0 H (9.0-12.0) sec INR 3.1 H (<1.2) Chloride 110 H (98-107) mmol/L Carbon Dioxide 20 L (22-30) mmol/L BUN 81 H (7-17) mg/dL Creatinine 5.35 H (0.52-1.04) mg/dL Calcium 7.5 L (8.4-10.2) mg/dL Total Protein 4.4 L (6.3-8.2) g/dL Albumin 2.1 L (3.5-5.0) g/dL Microbiology - Last 24 Hours (Table) 05/10/21 08:43 Blood Culture - Preliminary Blood No Growth after 24 hours 05/10/21 08:49 Blood Culture - Preliminary Blood No Growth after 24 hours 05/10/21 00:18 Gram Stain - Preliminary Sputum Sputum Culture - Preliminary
--- NOTE | 2021-05-12 12:33 | CDI ---
Documentation Clarification Form Date: 05/12/2021 11:44:11 AM From: Alejandra Broderick RN, CCDS Admit Date: 05/09/2021 07:49:00 PM Patient Name: Adali Olivia Visit Number: [id number] ATTENTION: The Clinical Documentation Specialists (CDI) and [facility] Coding Staff appreciate your assistance in clarifying documentation. Please respond to the clarification below the line at the bottom and electronically sign. The CDI & [facility] Coding staff will review the response and follow-up if needed. Please note: Queries are made part of the Legal Health Record. If you have any questions, please contact the author of this message via ITS. Dr. Farris Unspecified CKD is documented [05/11 Cardiology Consult. Additional clarification regarding the stage of CKD is requested. History/Risk Factors: 05/01/2021 Patients Historical BUN/CR/GFR: 16/.88/66 Clinical Indicators: 05/11 & 05/12 Cardiology Consult and Progress note: "chronic kidney disease." Current BUN: 97/91/94/81 CR: 9.86/8.86/9.87/5.35 GFR: 12/14 Treatment: 05/10 Nephrology Consult: Acute kidney injury, acute tubular necrosis versus acute interstitial nephritis associated with recent use of antibiotics, particularly ciprofloxacin. Serum creatinine was 1.1 on 05/04/2021 at the time of discharge from last hospitalization." 05/02 Lasix 80 mg Po Q 12 hrs. changed to 40mg Po Q 12 hrs. 05/03-05/04 IV Levophed Gtt titrate for B/P 05/09 0.9% NS IVF bolus 500 cc followed by 70 cc/hr. 05/10 2L 0.9% NS IVF Bolus Please clarify the stage of the CKD, if known: [ ] CKD Ruled Out [ ] CKD Stage 1 (GFR > 90) [ ] CKD Stage 2 (GFR 60-89) [ ] CKD Stage 3 (GFR 30-59) [ ] CKD Stage 3a (GFR 45-59) [ ] CKD Stage 3b (GFR 30-44) [ ] CKD Stage 4 (GFR 15-29) [ ] CKD Stage 5 (GFR <15) [ ] ESRD [ ] Other, please specify stage 3a__ [ ] Unable to determine (Template last revised: October 2020) MTDD
--- NOTE | 2021-05-12 13:04 | PN ---
PROGRESS NOTE Patient is seen for followup for acute kidney injury, possibly acute interstitial nephritis and definitely component of acute tubular necrosis as well. The patient was admitted to the hospital with increased weakness, some shortness of breath. She developed significant hypotension while in the ER and was placed on large amount of Levophed and intubated. There was some concern for possible reaction to latex as patient is allergic to latex and she received Unasyn as there was concern for allergy to penicillin. The patient improved quite rapidly with fluid resuscitation. She received a dose of hydrocortisone. Random cortisol level was not low. Serum creatinine was 9 mg/dL on admission with previous creatinine 1.17 about five days prior to this visit. There is concern for possible acute interstitial nephritis related to Cipro that the patient received during her last hospitalization for lower extremity cellulitis. She was started on prednisone yesterday. Urine eosinophiles were negative but there is underlying pyuria noted. Urine culture did grow Sangita. No other bacteria was noted. Renal function has been improving with creatinine down to 5.3 now with increased urine output. Mentation is also improved. PHYSICAL EXAMINATION: On examination today, blood pressure 109/65, heart rate 74 per minute, she is afebrile. Examination of the heart S1, S2. Examination of the lungs, bilateral breath sounds are heard. Abdomen is soft, nontender. Examination of lower extremities shows no significant edema. METAL MELTER exam grossly intact. LAB: Show sodium 138, potassium 3.6, chloride 110, CO2 is 20, BUN 81, creatinine 5.3, hemoglobin 10.0 g/dL. ASSESSMENT: 1. Acute kidney injury, possible acute interstitial nephritis with component of acute tubular necrosis, currently nonoliguric with improving renal function and improved urine output. Continue with the prednisone for now. If renal function does not improve further, patient will need a kidney biopsy. 2. Acute hypotension possibly related to an allergic reaction, currently improved and off pressors, status post IV fluid administration and aggressive IV hydration. Definitely there is a component of hypovolemia as well. 3. Recent left lower extremity cellulitis status post ciprofloxacin. 4. Metabolic acidosis associated with renal failure, lactic acidosis, currently improved. 5. Acute hypoxic respiratory failure status post extubation, doing better. 6. Sangita albicans in urine culture. PLAN: Continue with the prednisone for now. If renal function does not improve further, patient will need a kidney biopsy. Continue with the IV fluids. Encourage increased oral intake. MMODL / IJN: [id number] /
[2021-05-12] MEDS: ATORVASTATIN 10 MG TAB PO SCH (19:51)
[2021-05-12] MEDS: HYDROcodone/APAP 10-325MG 1 EACH TAB PO PRN (21:14)
[2021-05-13 03:26] LABS: HCT 29.1 % (34.0-46.0); HGB 9.6 gm/dL (11.4-16.0); MCH 28.7 pg (25.0-35.0); MCHC 33.1 g/dL (31.0-37.0); MCV 86.6 fL (80.0-100.0); Mean Platelet Volume 8.5; Platelet Count 153 k/uL (150-450); RBC 3.36 m/uL (3.80-5.40); RDW 15.9 % (11.5-15.5); WBC 6.5 k/uL (3.8-10.6)
[2021-05-13 03:37] LABS: INR 2.7 (<1.2); Prothrombin Time 25.9 sec (9.0-12.0)
[2021-05-13 03:53] LABS: Albumin 2.3 g/dL (3.5-5.0); Calcium 7.7 mg/dL (8.4-10.2); Potassium 3.9 mmol/L (3.5-5.1); Total Bilirubin 0.1 mg/dL (0.2-1.3); Total Protein 4.7 g/dL (6.3-8.2)
[2021-05-13] MEDS: FAMOTIDINE 20 MG TAB PO SCH (08:26)
[2021-05-13] MEDS: predniSONE 50 MG TAB PO SCH (08:26)
[2021-05-13] MEDS: INSULIN ASPART (NovoLOG) 100 UNIT/ML VIAL SQ SCH (08:43)
--- NOTE | 2021-05-13 09:17 | P.PN ---
Subjective Progress Note Date: 05/13/21 Principal diagnosis: this is a 70-year-old female seen in consultation because of acute kidney injury possible acute incision nephritis and or ATN. Her creatinine continues to imp rove she is on steroids She was admittedshortness of breath and the needed intubation and was on levo fed. She improved and currently is on the regular medical floor. She wants to be discharged. She Is on Room Air. Awake Alert Oriented Comfortable. Denies Any Nausea Vomiting but Has Slightly Loose Stools about 1 or 2 a Day. This Morning She Had Just Wants. No Abdominal Pain Good Appetite b ut Does Not like the Food Here. Continues to Have Slight Edema. Objective - Vital Signs Vital signs: Vital Signs Temp 98.0 F 05/13/21 06:31 Pulse 66 05/13/21 06:31 Resp 17 05/13/21 06:31 BP 154/73 05/13/21 06:31 Pulse Ox 97 05/13/21 06:31 Intake & Output 05/12/21 05/13/21 05/13/21 18:59 06:59 18:59 Intake Total 700 Output Total 1445 350 Balance -745 -350 Weight 119.3 kg 117.5 kg Intake: IV 700 Sodium Chloride 0.9% 1, 700 000 ml @ 70 mls/hr IV . [id number] [facility] Rx#:[id number] Output: Urine 1445 350 Other: Voiding Method Indwelling Catheter # Voids 400 # Bowel Movements 1 0 ABP, PAP, CO, CI - Last Documented Arterial Blood Pressure 147/70 on examination awake alert oriented comfortable on room air. HEENT exam no JVP neck is supple. No facial asymmetry Lungs clear to auscultation fair air entry bilaterally Heart sounds unremarkable for any murmur rub gallop Abdomen soft obese Extremity exam was chronic skin changes of cellulitis and mild edema Neurologically awake alert oriented - Labs CBC & Chem 7: 05/13/21 03:00 05/13/21 03:00 Labs: Abnormal Lab Results - Last 24 Hours (Table) 05/12/21 05/13/21 05/13/21 Range/Units 08:36 03:00 03:00 RBC 3.36 L (3.80-5.40) m/uL Hgb 9.6 L (11.4-16.0) gm/dL Hct 29.1 L (34.0-46.0) % RDW 15.9 H (11.5-15.5) % PT 30.0 H 25.9 H (9.0-12.0) sec INR 3.1 H 2.7 H (<1.2) Chloride (98-107) mmol/L Carbon Dioxide (22-30) mmol/L BUN (7-17) mg/dL Creatinine (0.52-1.04) mg/dL Glucose (74-99) mg/dL Calcium (8.4-10.2) mg/dL Total Bilirubin (0.2-1.3) mg/dL Total Protein (6.3-8.2) g/dL Albumin (3.5-5.0) g/dL 05/13/21 Range/Units 03:00 RBC (3.80-5.40) m/uL Hgb (11.4-16.0) gm/dL Hct (34.0-46.0) % RDW (11.5-15.5) % PT (9.0-12.0) sec INR (<1.2) Chloride 109 H (98-107) mmol/L Carbon Dioxide 20 L (22-30) mmol/L BUN 72 H (7-17) mg/dL Creatinine 3.73 H (0.52-1.04) mg/dL Glucose 166 H (74-99) mg/dL Calcium 7.7 L (8.4-10.2) mg/dL Total Bilirubin 0.1 L (0.2-1.3) mg/dL Total Protein 4.7 L (6.3-8.2) g/dL Albumin 2.3 L (3.5-5.0) g/dL Microbiology - Last 24 Hours (Table) 05/10/21 08:43 Blood Culture - Preliminary Blood No Growth after 48 hours 05/10/21 08:49 Blood Culture - Preliminary Blood No Growth after 48 hours 05/10/21 00:18 Gram Stain - Final Sputum Sputum Culture - Final Sangita albicans Assessment and Plan Assessment: impression 1. Acute kidney injury secondary to acute interstitial nephritis and ATN. Improving creatinine. Down from 9.86 on 05/09/2021 to 3.73 today. 2. Baseline creatinine is about 0.8 from 05/03/2021. 3. Mild degree of non-gap acidosis, etiology is acute kidney injury. 4. On prednisone 50 daily. 5. Cellulitis of both lower extremities, improved. 6. History of stress incontinence. 7. History of psoriasis. 8. History of bypass graft 7 years agoand valve replacement. Admission 1. Reduce prednisone to 30 mg a day, to be tapered over the next 2 weeks and completely discontinued. 2. Patient can be discharged fromfrom os. 3. Will hold off starting bicarb as her non-gap acidosis expected to improve. 4. If discharge she needs to be followed up in the office within the next 3-4 days
--- NOTE | 2021-05-13 13:48 | P.PN ---
Subjective Progress Note Date: 05/13/21 71-year-old female who presented to the emergency department via EMS, on May 09. She was seen there by . The patient apparently came in complaining of profound weakness for 2 or 3 days prior to admission. She apparently was recently hospitalized between May 01 and May 04 for left lower extremity cellulitis. She was discharged home, but did not qualify for home care. She been taking her medications at home, but because of upset stomach, she was not eating or drinking. She apparently became extremely weak. For that reason, EMS was called. Apparently when they arrived, her blood pressure was low. They established an IV started IV fluids. She apparently denied any chest pain or chest discomfort. She also apparently denied shortness of breath, abdominal pain, fever, chills, or any other complaints for that matter. Subsequently, she was evaluated in the emergency room, and apparently either after a bowel movement or may be a seizure, the patient became apneic, and required intubation and mechanical ventilation. I was called by the ER physician, and the patient was accepted into the intensive care unit. The patient's currently on volume assist control, rate 14, tidal volume 450, FiO2 50%, with a PEEP of 5. Blood gases on the same settings, except 100%, showed a pO2 337, pCO2 40, pH 7.29. Blood gases are consistent with metabolic acidosis. Currently, she is on saline at 130 mL an hour, propofol is on hold for a daily interruption of sedation, and she is receiving norepinephrine at 30 mcg/m. White count 14.3, hemoglobin 14.3, hematocrit 44.9, and platelet count 366,000. PT 45.7, and INR 4.7. Sodium 133, potassium 4.3, chlorides 94, CO2 21, anion gap is 18, and BUN and creatinine are 94 and 9.87. Lactic acid is 3.5. Troponin was 0.031 and 0.465, and N-terminal proBNP was 3200. Albumin was 2.9. Urinalysis is consistent in my opinion with a urinary tract infection at the urine is cloudy, leukocyte esterase is large positive, there is 146 WBCs and few white blood cell clumps, and there are bacteria. Coronavirus testing was negative. Chest x-ray my opinion show some minimal bilateral atelectasis. Progress note dated 05/11/2021. 71-year-old female that we saw yesterday in consultation. She presented to the emergency department on May 09. The patient was initially being evaluated for weakness. After a while, she apparently was found to be unresponsive, required intubation and mechanical ventilation. She was recently at [facility] between May 01 and May 04 for left lower extremity cellulitis. Anyway, last night, we went ahead and did a spontaneous breathing trial after a daily interruption of sedation. Her weaning parameters, were excellent. She had a very low rapid shallow breathing index, and she had a positive cuff leak. For those reasons, she was extubated. Currently on 2 L. She's getting saline at 130 mL an hour. Yesterday, she was up quite a bit of norepinephrine, up to 30 mcg/m. We did give her some additional fluid boluses, and I'm happy to report that the norepinephrine is currently on hold. White count 12.4, hemoglobin 11.1, hematocrit 32.8, platelet count 206,000. PTT 37.2, INR 3.9. Sodium 134, potassium 3.9, chlorides 104, CO2 18, anion gap 12, BUN 89, creatinine 7.23. Glucose 129. Calcium 7.5. Chest x-ray shows bibasilar atelectasis, left greater than right. The patient is seen today 05/12/2021 in follow-up in the intensive care unit. She is currently awake and alert in no acute distress. Maintaining O2 saturations in the mid 90s on room air. She's been afebrile. Hemodynamically stable. 0.9 normal saline at 75 mL per hour. Blood cultures reveal no growth. White count 7.4. Hemoglobin 10.0. INR 3.1. Sodium 130. Potassium 3.6. Creatinine 5.35. Glucose 84. AST 22. ALT 13. She remains on ceftriaxone, 0.9 normal saline at 70 ML's per hour. She is on prednisone 50 mg daily per nephrology. Chest x-ray revealed some mild left lower lobe atelectasis. Patient is seen today 05/13/2021 in follow-up on the regular medical floor. She is currently resting comfortably in bed. Awake and alert in no acute distress. Oriented 3. Denies any shortness of breath, cough or congestion. Maintaining O2 saturations in the 90s on room air. She's afebrile. Blood cultures revealed no growth. Sputum culture with Sangita. Urine culture Sangita. White count 6 .5. Hemoglobin 9.6. INR 2.7. Sodium 137. Potassium 3.9. Creatinine 3.73. Remains on Levaquin. Objective - Vital Signs Vital signs: Vital Signs Temp 98.0 F 05/13/21 06:31 Pulse 66 05/13/21 07:25 Resp 17 05/13/21 07:25 BP 154/73 05/13/21 06:31 Pulse Ox 97 05/13/21 06:31 Intake & Output 05/12/21 05/13/21 05/13/21 18:59 06:59 18:59 Intake Total 700 Output Total 1445 350 Balance -745 -350 Weight 119.3 kg 117.5 kg Intake: IV 700 Sodium Chloride 0.9% 1, 700 000 ml @ 70 mls/hr IV . [id number] [facility] Rx#:[id number] Output: Urine 1445 350 Other: Voiding Method Indwelling Catheter Indwelling Catheter # Voids 400 # Bowel Movements 1 0 ABP, PAP, CO, CI - Last Documented Arterial Blood Pressure 147/70 - Exam GENERAL EXAM: Alert, oriented, pleasant 70-year-old female patient, on room air, comfortable in no apparent distress. HEAD: Normocephalic. EYES: Normal reaction of pupils, equal size. NOSE: Clear with pink turbinates. THROAT: No erythema or exudates. NECK: No masses, no JVD. CHEST: No chest wall deformity. LUNGS: Equal air entry with no crackles, wheeze, rhonchi or dullness. CVS: S1 and S2 normal with no audible murmur, regular rhythm. ABDOMEN: No hepatosplenomegaly, normal bowel sounds, no guarding or rigidity. SPINE: No scoliosis or deformity SKIN: No rashes CENTRAL NERVOUS SYSTEM: No focal deficits, tone is normal in all 4 extremities. EXTREMITIES: There is no peripheral edema. No clubbing, no cyanosis. Peripheral pulses are intact. - Labs CBC & Chem 7: 05/13/21 03:00 05/13/21 03:00 Labs: Abnormal Lab Results - Last 24 Hours (Table) 05/13/21 05/13/21 05/13/21 Range/Units 03:00 03:00 03:00 RBC 3.36 L (3.80-5.40) m/uL Hgb 9.6 L (11.4-16.0) gm/dL Hct 29.1 L (34.0-46.0) % RDW 15.9 H (11.5-15.5) % PT 25.9 H (9.0-12.0) sec INR 2.7 H (<1.2) Chloride 109 H (98-107) mmol/L Carbon Dioxide 20 L (22-30) mmol/L BUN 72 H (7-17) mg/dL Creatinine 3.73 H (0.52-1.04) mg/dL Glucose 166 H (74-99) mg/dL Calcium 7.7 L (8.4-10.2) mg/dL Total Bilirubin 0.1 L (0.2-1.3) mg/dL Total Protein 4.7 L (6.3-8.2) g/dL Albumin 2.3 L (3.5-5.0) g/dL Microbiology - Last 24 Hours (Table) 05/10/21 08:49 Blood Culture - Preliminary Blood No Growth after 72 hours 05/10/21 08:43 Blood Culture - Preliminary Blood No Growth after 72 hours 05/10/21 00:18 Gram Stain - Final Sputum Sputum Culture - Final Sangita albicans Assessment and Plan Assessment: 1 Acute hypoxemic respiratory failure, requiring intubation and mechanical naila tilation, of unclear etiology, on 05/09/2021, with successful extubation on 05/11/2021. On room air today 05/13/2021 2 Recent hospitalization, between May 01 of May 04, for left lower extremity cellulitis. 3 History of hyperlipidemia. 4 History of hypertension. 5 History of CAD. 6 Possible urinary tract infection, currently on Levaquin. 7 History of deep venous thrombosis. 8 History of DJD. 9 History of stress urinary incontinence. 10 History of psoriasis. 11 History of bypass grafting and valve replacement surgery. Plan: The patient was seen and evaluated by Dr. Xiao Currently stable from the pulmonary standpoint Discharge planning in place Home once cleared by medicine I, the cosigning physician, performed a history & physical examination of the patient. Lungs sounds are clear. Maintaining good O2 saturations in the 90s on room air. I discussed the assessment and plan of care with my nurse practitioner, Siomara Martinez. I attest to the above note as dictated by her.
--- NOTE | 2021-05-13 16:10 | P.PN ---
Subjective Progress Note Date: 05/13/21 HISTORY OF PRESENT ILLNESS This is a 70-year-old female patient of Dr. Lala with past medical history of coronary artery disease status post CABG and repair of aneurysm, aortic valve replacement 02/08/2014, COPD, DVT, peripheral artery disease, hyperlipidemia, former tobacco use, nonhealing ulcer to the left lower extremity under the care of the wound healing Center. Patient had recent hospitalization from May 01 through May 04 at which time she was treated for cellulitis and ulcer of the lower extremity. Patient presented to [facility] emergency [facility] yesterday afternoon with complaints of upset stomach, not eating or drinking which she related to ciprofloxacin. Patient developed increasing weakness and inability to ambulate. Patient was brought in by EMS found her blood pressure to be exceptionally low. On presentation, blood pressure was 96/60, afebrile, heart rate in the 60s, pulse ox 92% on 2 L nasal cannula. EKG was a sinus rhythm at 65 bpm with no acute ST changes. WBC 12.0, hemoglobin 12.8, platelet count 333. Sodium 130, potassium 3.9, chloride 96, CO2 16, BUN 91 creatinine 8.86. Blood sugar 178. Troponin 0.036. BNP 3200. Lactic acid 2.5. Chest x- ray showed no acute cardiopulmonary process. Renal ultrasound showed no distinct abnormality. Hardy catheter was placed with return of 300 ML's. Patient was being prepared for admission and staff was called into the patient's room, she had had a large bowel movement in her bed and became unresponsive and was shaking. Patient was unresponsive with agonal respirations and blood pressure was 70/30. Patient was immediately intubated, provided ample of appendectomy and repeated 3, right jugular catheter was placed. Patient underwent CAT scan of the brain which revealed no acute intracranial abnormality. Patient was started on Levophed drip and admitted into the intensive care unit, consult with nephrology, loan interviewer, patient is currently on propofol but when this was weaned earlier in the day she was able to follow some commands. She has been started on IV Rocephin. 05/11: She remains in the intensive care unit, she was successfully extubated around midnight and is currently on 2 L nasal cannula with pulse ox of 99%. Patient is currently on small dose of and being weaned off. She has alert and oriented 3. She has related to her that she had a near experience. She's been afebrile, heart rate 82, blood pressure 131/44. Repeat blood work reveals WBC 12.4, hemoglobin 11.1, platelet count 206. INR 3.9. Sodium 134, potassium 3.9, chloride 104, CO2 18, BUN 89 creatinine 7.23. Capillary blood glucose running between 99-138. Sputum culture is in process. Urine culture is positive for Sangita albicans. At that time Dr. Farris does not plan to start dialysis treatment. Patient has been seen by the wound healing Center regarding the left lower extremity ulceration and plan is to apply absorptive silver, saline moistening gauze, dry gauze, rolled gauze and secure. Cardiology is on consult for tachyarrhythmia without atrial fibrillation or atrial flutter. She was given a bolus of amiodarone. Patient's is at [facility] and all questions have been answered. 05/12: Patient remains in the intensive care unit. Repeat INR today is 3.1. Central lines are to be pulled today but may be postponed until tomorrow due to INR. Additional blood work reveals WBC 7.4, hemoglobin 10.1, platelet count 137. Sodium 138, potassium 3.6, chloride 110, CO2 20, BUN 81 and creatinine 5.35. Blood sugars are running in the 80s. Sputum culture and urine culture finalized with Sangita. Blood culture no growth at 48 hours. Repeat chest x- ray reveals mild left lower lobe atelectasis. Stable right central venous catheter. Patient is off vasopressors. Patient has had no arrhythmias. She denies having any chest pain. Bowel movement today was mostly brown with some maroon colored blood. Patient has been seen by PT and OT with recommendations for subacute rehab. Social work as discussed with the patient and she has refused rehab planning to go home with her with [facility]. Anticipate possible discharge over the weekend. 05/13, patient has been cleared by pulmonary as well as cardiology, the wants her to go to [facility], therapy recommendations is to go to subacute rehab, patient now has agreed on short-term subacute rehabilitation. Based on safety agrees ongoing to subacute rehab, Sangita growing in his sputum specimen and urine, will treat this with fluconazole 05/14: Patient still okay, however she mentioned about 2-3 episodes of liquidy stool from yesterday, she mentions this occurs usually after her meals, no abdominal pain no cramps, no fever or chills, still awaiting subacute rehabilitation, we'll going to obtain C. diff toxin, vitals are currently stable REVIEW OF SYSTEMS Constitutional: No fever, no chills, no night sweats. No weight change. Reports weakness, reports fatigue reports ethargy. No daytime sleepiness. EENT: No headache. No blurred vision or double vision, no loss of vision. No loss of Hearing, no ringing in the ears, no dizziness. No nasal drainage or congestion. No epistaxis. No sore throat. Lungs: No shortness of breath, cough, no sputum production. No wheezing. Cardiovascular: No chest pain, no lower extremity edema. No palpitations. No paroxysmal nocturnal dyspnea. No orthopnea. No lightheadedness or dizziness. No syncopal episodes. Abdominal: No abdominal pain. No nausea, vomiting. No diarrhea. No constipation. No bloody or tarry stools. nurse reported maroon stool. No loss of appetite. Genitourinary: No dysuria, increased frequency, urgency. No urinary retention. Musculoskeletal: No myalgias. No muscle weakness, no gait dysfunction, no frequent falls. No back pain. No neck pain. Integumentary: No wounds, no lesions. No rash or pruritus. No unusual bruising. No change in hair or nails. Neurologic: No aphasia. No facial droop. No change in mentation. No head injury. No headache. No paralysis. No paresthesia. Psychiatric: No depression. No anxiety. No mood swings. Endocrine: No abnormal blood sugars. No weight change. Objective - Vital Signs Vital signs: Vital Signs Temp 98.0 F 05/13/21 06:31 Pulse 66 05/13/21 07:25 Resp 17 05/13/21 07:25 BP 154/73 05/13/21 06:31 Pulse Ox 97 05/13/21 06:31 Intake & Output 05/12/21 05/13/21 05/13/21 18:59 06:59 18:59 Intake Total 700 Output Total 1445 350 Balance -745 -350 Weight 119.3 kg 117.5 kg Intake: IV 700 Sodium Chloride 0.9% 1, 700 000 ml @ 70 mls/hr IV . [id number] [facility] Rx#:[id number] Output: Urine 1445 350 Other: Voiding Method Indwelling Catheter Indwelling Catheter # Voids 400 # Bowel Movements 1 0 ABP, PAP, CO, CI - Last Documented Arterial Blood Pressure 147/70 - Constitutional General appearance: Present: cooperative, no acute distress - EENT Eyes: Present: EOMI, PERRLA, dentition normal, normal appearance ENT: Present: NA/AT, normal oropharynx - Neck Neck: Present: normal ROM - Respiratory Respiratory: bilateral: CTA, negative: diminished, rales, rhonchi, wheezing - Cardiovascular Rhythm: regular Heart sounds: normal: S1, S2 Abnormal Heart Sounds: Absent: systolic murmur, diastolic murmur, rub, S3 Gallop, S4 Gallop, click, other - Gastrointestinal General gastrointestinal: Present: normal bowel sounds, soft - Integumentary Integumentary: Present: decreased turgor, normal - Neurologic Neurologic: Present: CNII-XII intact - Musculoskeletal Musculoskeletal: Present: gait normal, strength equal bilaterally - Psychiatric Psychiatric: Present: A&O x's 3, appropriate affect - Allied health notes Allied health notes reviewed: case management - Labs CBC & Chem 7: 05/13/21 03:00 05/13/21 03:00 Labs: Abnormal Lab Results - Last 24 Hours (Table) 05/13/21 05/13/21 05/13/21 Range/Units 03:00 03:00 03:00 RBC 3.36 L (3.80-5.40) m/uL Hgb 9.6 L (11.4-16.0) gm/dL Hct 29.1 L (34.0-46.0) % RDW 15.9 H (11.5-15.5) % PT 25.9 H (9.0-12.0) sec INR 2.7 H (<1.2) Chloride 109 H (98-107) mmol/L Carbon Dioxide 20 L (22-30) mmol/L BUN 72 H (7-17) mg/dL Creatinine 3.73 H (0.52-1.04) mg/dL Glucose 166 H (74-99) mg/dL Calcium 7.7 L (8.4-10.2) mg/dL Total Bilirubin 0.1 L (0.2-1.3) mg/dL Total Protein 4.7 L (6.3-8.2) g/dL Albumin 2.3 L (3.5-5.0) g/dL Microbiology - Last 24 Hours (Table) 05/10/21 08:49 Blood Culture - Preliminary Blood No Growth after 72 hours 05/10/21 08:43 Blood Culture - Preliminary Blood No Growth after 72 hours 05/10/21 00:18 Gram Stain - Final Sputum Sputum Culture - Final Sangita albicans Assessment and Plan Plan: 1. Acute hypoxic respiratory failure requiring intubation and mechanical ventilation. Patient maintained in the intensive care unit, consult with loan interviewer appreciated, successfully extubated and weaned off ventilator 2. Acute kidney injury, acute tubular necrosis versus acute interstitial nephritis associated with recent antibiotic use ciprofloxacin, Lasix. Consult with nephrology appreciated. Continue IV hydration. Plan to monitor closely without plan for dialysis at this point if she improves. Urine sent for eosinophils and she is status post 1 dose of hydrocortisone. 3. Hypovolemic shock. Patient admitted into the intensive care unit weaned off vasopressors. 4. Lactic acidosis secondary to hypotension, hypoperfusion and renal failure. 5. 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 Consult with wound healing Center a ppreciated. Continue Rocephin, local wound care. 6. Hypertension, currently hypotensive. Hold antihypertensive medications. 7. Hyperlipidemia. Continue atorvastatin 10 mg at bedtime. 8. Coronary artery disease status post CABG and repair of aneurysm and aortic valve replacement, stable. 9. COPD, stable. Continue DuoNeb treatments every 4 hours. 10. Peripheral artery disease. 11. History of DVT. 12. GI prophylaxis. Continue Pepcid 20 mg IV every 12 hours. DISCHARGE PLAN [facility] subacute rehab
[2021-05-13] MEDS: FLUCONAZOLE 100 MG TAB PO SCH (18:24)
[2021-05-13] MEDS: ATORVASTATIN 10 MG TAB PO SCH (21:17)
[2021-05-14] MEDS: predniSONE 10 MG TAB PO SCH (07:36)
[2021-05-14] MEDS: FLUCONAZOLE 100 MG TAB PO SCH (07:36)
[2021-05-14] MEDS: LEVOFLOXACIN 250 MG TAB PO SCH (07:36)
[2021-05-14] MEDS: FAMOTIDINE 20 MG TAB PO SCH (07:37)
[2021-05-14 07:39] LABS: Glucose,Whole Blood 123 mg/dL (75-99)
--- NOTE | 2021-05-14 08:43 | P.PN ---
Subjective Progress Note Date: 05/14/21 Principal diagnosis: this is a 70-year-old female seen in consultation because of acute kidney injury possible acute incision nephritis and or ATN. Her creatinine continues to imp rove she is on steroids She was admittedshortness of breath and the needed intubation and was on levo fed. She improved and currently is on the regular medical floor. She wants to be discharged. She Is on Room Air. Awake Alert Oriented Comfortable. Denies Any Nausea Vomiting has fair appetite. No other complaints. Objective - Vital Signs Vital signs: Vital Signs Temp 98.5 F 05/14/21 08:00 Pulse 56 L 05/14/21 08:00 Resp 16 05/14/21 08:00 BP 154/69 05/14/21 08:00 Pulse Ox 96 05/14/21 08:00 Intake & Output 05/13/21 05/14/21 05/14/21 18:59 06:59 18:59 Intake Total 910 1020 Balance 910 1020 Weight 117 kg Intake: IV 560 Sodium Chloride 0.9% 1, 560 000 ml @ 70 mls/hr IV . [id number] [facility] Rx#:[id number] Oral 350 1020 Other: Voiding Method Indwelling Catheter Toilet # Voids 3 2 # Bowel Movements 1 ABP, PAP, CO, CI - Last Documented Arterial Blood Pressure 147/70 on examination awake alert oriented comfortable on room air. HEENT exam no JVP neck is supple. No facial asymmetry Lungs clear to auscultation fair air entry bilaterally Heart sounds remarkable for Gr 2 systolic ejection, no murmur rub gallop Abdomen soft obese Extremity exam was chronic skin changes of cellulitis and mimimal edema Neurologically awake alert oriented - Labs CBC & Chem 7: 05/13/21 03:00 05/13/21 03:00 Labs: Abnormal Lab Results - Last 24 Hours (Table) 05/14/21 Range/Units 07:23 POC Glucose (mg/dL) 123 H (75-99) mg/dL Microbiology - Last 24 Hours (Table) 05/10/21 08:49 Blood Culture - Preliminary Blood No Growth after 72 hours 05/10/21 08:43 Blood Culture - Preliminary Blood No Growth after 72 hours Assessment and Plan Assessment: impression 1. Acute kidney injury secondary to acute interstitial nephritis and ATN. Improving creatinine. Down from 9.86 on 05/09/2021 to 3.73 today. Labs are pending today good urine output 2. Baseline creatinine is about 0.8 from 05/03/2021. 3. Mild degree of non-gap acidosis, etiology is acute kidney injury. 4. On prednisone 50 daily. To 30 mg yesterday because of improvement in creatinine 5. Cellulitis of both lower extremities, improved. Edema improved 6. History of stress incontinence. 7. History of psoriasis. 8. History of bypass graft 7 years agoand valve replacement. Admission 1. Continue prednisone to 30 mg a day, to be tapered in one week to 20 mg and continue taper as needed to be his discontinued over 1 month. 2. Patient can be discharged 3. Will hold off starting bicarb as her non-gap acidosis expected to improve. 4. If discharge she needs to be followed up in the office within the next 3-4 days
[2021-05-14] MEDS: SODIUM CHLORIDE 0.9% 1,000 ML IV SCH (08:45)
--- NOTE | 2021-05-14 11:23 | P.PN ---
Subjective Progress Note Date: 05/14/21 This patient with history of ischemic heart disease, hypertension with previous bypass surgery and aortic valve replacement was admitted to the hospital with a what looks like acute renal failure and ATN. Patient was on metoprolol and lisinopril prior to admission patient was hypotensive and required nore pinephrine initially. Currently patient seemed to be doing well. Complaints of mild diarrhea. Her kidney function is improving. Her blood pressures running in the range of 150-160. Denies any chest pain or shortness of breath. Lungs are clear. Heart is regular. There is systolic murmur heard. I'm going to start amlodipine 2.5 mg. Continue the rest of the medication management. Patient is slightly bradycardic and we'll hold off metoprolol Objective - Vital Signs Vital signs: Vital Signs Temp 98.5 F 05/14/21 08:00 Pulse 56 L 05/14/21 08:00 Resp 16 05/14/21 08:00 BP 154/69 05/14/21 08:00 Pulse Ox 96 05/14/21 08:00 Intake & Output 05/13/21 05/14/21 05/14/21 18:59 06:59 18:59 Intake Total 910 1020 Balance 910 1020 Weight 117 kg Intake: IV 560 Sodium Chloride 0.9% 1, 560 000 ml @ 70 mls/hr IV . [id number] [facility] Rx#:[id number] Oral 350 1020 Other: Voiding Method Indwelling Catheter Toilet # Voids 3 2 # Bowel Movements 1 ABP, PAP, CO, CI - Last Documented Arterial Blood Pressure 147/70 - Exam GENERAL EXAM: Patient is alert and oriented and doesn't appear to be in any acute distress HEENT: Normocephalic. Normal reaction of pupils, equal size, normal range of extraocular motion. No erythema or exudates in the throat. NECK: No masses, no nuchal rigidity. CHEST: No chest wall deformity. LUNGS: Equal air entry with no crackles or wheeze. HEART: S1 and S2 normal . Systolic murmur heard ABDOMEN: No hepatosplenomegaly, normal bowel sounds, no guarding or rigidity. SKIN: No rashes CENTRAL NERVOUS SYSTEM: No focal deficits. EXTREMITIES: No cyanosis, clubbing or edema. - Labs CBC & Chem 7: 05/13/21 03:00 05/13/21 03:00 Labs: Abnormal Lab Results - Last 24 Hours (Table) 05/14/21 Range/Units 07:23 POC Glucose (mg/dL) 123 H (75-99) mg/dL Microbiology - Last 24 Hours (Table) 05/10/21 08:49 Blood Culture - Preliminary Blood No Growth after 96 hours 05/10/21 08:43 Blood Culture - Preliminary Blood No Growth after 96 hours Assessment and Plan (1) History of coronary artery bypass graft Current Visit: Yes Status: Acute Code(s): Z95.1 - PRESENCE OF AORTOCORONARY BYPASS GRAFT SNOMED Code(s): 492617447 (2) MIAH (acute kidney injury) Current Visit: Yes Status: Acute Code(s): N17.9 - ACUTE KIDNEY FAILURE, UNSPECIFIED SNOMED Code(s): 22327326 (3) Hypotension Current Visit: Yes Status: Acute Code(s): I95.9 - HYPOTENSION, UNSPECIFIED SNOMED Code(s): 28388784 (4) History of aortic valve replacement Current Visit: Yes Status: Acute Code(s): Z95.2 - PRESENCE OF PROSTHETIC HEART VALVE SNOMED Code(s): 6069540939372 Plan: From cardiac standpoint patient seems stable. Her blood pressure is slightly high. I'm going to start her amlodipine 2.5 mg daily
[2021-05-14 11:52] LABS: Glucose,Whole Blood 97 mg/dL (75-99)
--- NOTE | 2021-05-14 12:52 | P.PN ---
Subjective Progress Note Date: 05/14/21 71-year-old female who presented to the emergency department via EMS, on May 09. She was seen there by . The patient apparently came in complaining of profound weakness for 2 or 3 days prior to admission. She apparently was recently hospitalized between May 01 and May 04 for left lower extremity cellulitis. She was discharged home, but did not qualify for home care. She been taking her medications at home, but because of upset stomach, she was not eating or drinking. She apparently became extremely weak. For that reason, EMS was called. Apparently when they arrived, her blood pressure was low. They established an IV started IV fluids. She apparently denied any chest pain or chest discomfort. She also apparently denied shortness of breath, abdominal pain, fever, chills, or any other complaints for that matter. Subsequently, she was evaluated in the emergency room, and apparently either after a bowel movement or may be a seizure, the patient became apneic, and required intubation and mechanical ventilation. I was called by the ER physician, and the patient was accepted into the intensive care unit. The patient's currently on volume assist control, rate 14, tidal volume 450, FiO2 50%, with a PEEP of 5. Blood gases on the same settings, except 100%, showed a pO2 337, pCO2 40, pH 7.29. Blood gases are consistent with metabolic acidosis. Currently, she is on saline at 130 mL an hour, propofol is on hold for a daily interruption of sedation, and she is receiving norepinephrine at 30 mcg/m. White count 14.3, hemoglobin 14.3, hematocrit 44.9, and platelet count 366,000. PT 45.7, and INR 4.7. Sodium 133, potassium 4.3, chlorides 94, CO2 21, anion gap is 18, and BUN and creatinine are 94 and 9.87. Lactic acid is 3.5. Troponin was 0.031 and 0.465, and N-terminal proBNP was 3200. Albumin was 2.9. Urinalysis is consistent in my opinion with a urinary tract infection at the urine is cloudy, leukocyte esterase is large positive, there is 146 WBCs and few white blood cell clumps, and there are bacteria. Coronavirus testing was negative. Chest x-ray my opinion show some minimal bilateral atelectasis. Progress note dated 05/11/2021. 71-year-old female that we saw yesterday in consultation. She presented to the emergency department on May 09. The patient was initially being evaluated for weakness. After a while, she apparently was found to be unresponsive, required intubation and mechanical ventilation. She was recently at [facility] between May 01 and May 04 for left lower extremity cellulitis. Anyway, last night, we went ahead and did a spontaneous breathing trial after a daily interruption of sedation. Her weaning parameters, were excellent. She had a very low rapid shallow breathing index, and she had a positive cuff leak. For those reasons, she was extubated. Currently on 2 L. She's getting saline at 130 mL an hour. Yesterday, she was up quite a bit of norepinephrine, up to 30 mcg/m. We did give her some additional fluid boluses, and I'm happy to report that the norepinephrine is currently on hold. White count 12.4, hemoglobin 11.1, hematocrit 32.8, platelet count 206,000. PTT 37.2, INR 3.9. Sodium 134, potassium 3.9, chlorides 104, CO2 18, anion gap 12, BUN 89, creatinine 7.23. Glucose 129. Calcium 7.5. Chest x-ray shows bibasilar atelectasis, left greater than right. The patient is seen today 05/12/2021 in follow-up in the intensive care unit. She is currently awake and alert in no acute distress. Maintaining O2 saturations in the mid 90s on room air. She's been afebrile. Hemodynamically stable. 0.9 normal saline at 75 mL per hour. Blood cultures reveal no growth. White count 7.4. Hemoglobin 10.0. INR 3.1. Sodium 130. Potassium 3.6. Creatinine 5.35. Glucose 84. AST 22. ALT 13. She remains on ceftriaxone, 0.9 normal saline at 70 ML's per hour. She is on prednisone 50 mg daily per nephrology. Chest x-ray revealed some mild left lower lobe atelectasis. Patient is seen today 05/13/2021 in follow-up on the regular medical floor. She is currently resting comfortably in bed. Awake and alert in no acute distress. Oriented 3. Denies any shortness of breath, cough or congestion. Maintaining O2 saturations in the 90s on room air. She's afebrile. Blood cultures revealed no growth. Sputum culture with Sangita. Urine culture Sangita. White count 6 .5. Hemoglobin 9.6. INR 2.7. Sodium 137. Potassium 3.9. Creatinine 3.73. Remains on Levaquin. The patient is seen today 05/14/2021 in follow-up on the regular medical floor. She is currently awake and alert in no acute distress. Resting comfortably in bed. She is maintaining good O2 saturations in the mid 90s on room air. She's been afebrile. A bit agitated that she may require subacute rehabilitation. She has been up with assistance. She remains on Levaquin. Blood cultures revealed no growth. Objective - Vital Signs Vital signs: Vital Signs Temp 98.5 F 05/14/21 08:00 Pulse 56 L 05/14/21 08:00 Resp 16 05/14/21 08:00 BP 154/69 05/14/21 08:00 Pulse Ox 96 05/14/21 08:00 Intake & Output 05/13/21 05/14/21 05/14/21 18:59 06:59 18:59 Intake Total 910 1020 Balance 910 1020 Weight 117 kg Intake: IV 560 Sodium Chloride 0.9% 1, 560 000 ml @ 70 mls/hr IV . [id number] [facility] Rx#:[id number] Oral 350 1020 Other: Voiding Method Indwelling Catheter Toilet # Voids 3 2 # Bowel Movements 1 ABP, PAP, CO, CI - Last Documented Arterial Blood Pressure 147/70 - Exam GENERAL EXAM: Alert, oriented, pleasant 70-year-old female patient, on room air, comfortable in no apparent distress. HEAD: Normocephalic. EYES: Normal reaction of pupils, equal size. NOSE: Clear with pink turbinates. THROAT: No erythema or exudates. NECK: No masses, no JVD. CHEST: No chest wall deformity. LUNGS: Equal air entry with no crackles, wheeze, rhonchi or dullness. CVS: S1 and S2 normal with no audible murmur, regular rhythm. ABDOMEN: No hepatosplenomegaly, normal bowel sounds, no guarding or rigidity. SPINE: No scoliosis or deformity SKIN: No rashes CENTRAL NERVOUS SYSTEM: No focal deficits, tone is normal in all 4 extremities. EXTREMITIES: There is no peripheral edema. No clubbing, no cyanosis. Peripheral pulses are intact. - Labs CBC & Chem 7: 05/13/21 03:00 05/13/21 03:00 Labs: Abnormal Lab Results - Last 24 Hours (Table) 05/14/21 Range/Units 07:23 POC Glucose (mg/dL) 123 H (75-99) mg/dL Microbiology - Last 24 Hours (Table) 05/10/21 08:49 Blood Culture - Preliminary Blood No Growth after 96 hours 05/10/21 08:43 Blood Culture - Preliminary Blood No Growth after 96 hours Assessment and Plan Assessment: 1 Acute hypoxemic respiratory failure, requiring intubation and mechanical ventilation, of unclear etiology, on 05/09/2021, with successful extubation on 05/11/2021. On room air today 05/14/2021 2 Recent hospitalization, between May 01 of May 04, for left lower extremity cellulitis. 3 History of hyperlipidemia. 4 History of hypertension. 5 History of CAD. 6 Possible urinary tract infection, currently on Levaquin. 7 History of deep venous thrombosis. 8 History of DJD. 9 History of stress urinary incontinence. 10 History of psoriasis. 11 History of bypass grafting and valve replacement surgery. Plan: The patient was seen and evaluated by Dr. Xiao Currently stable from the pulmonary standpoint On room air We will follow as needed I, the cosigning physician, performed a history & physical examination of the patient. Lungs sounds are clear. Maintaining good O2 saturations in the 90s on room air. I discussed the assessment and plan of care with my nurse practitioner, Siomara Martinez. I attest to the above note as dictated by her.
[2021-05-14] MEDS: amLODIPine 2.5 MG TAB PO SCH (12:53)
[2021-05-14] MEDS: HYDROcodone/APAP 10-325MG 1 EACH TAB PO PRN ×2 (13:15→20:59)
--- NOTE | 2021-05-14 14:38 | P.PN ---
Subjective Progress Note Date: 05/14/21 HISTORY OF PRESENT ILLNESS This is a 70-year-old female patient of Dr. Lala with past medical history of coronary artery disease status post CABG and repair of aneurysm, aortic valve replacement 02/08/2014, COPD, DVT, peripheral artery disease, hyperlipidemia, former tobacco use, nonhealing ulcer to the left lower extremity under the care of the wound healing Center. Patient had recent hospitalization from May 01 through May 04 at which time she was treated for cellulitis and ulcer of the lower extremity. Patient presented to [facility] emergency [facility] yesterday afternoon with complaints of upset stomach, not eating or drinking which she related to ciprofloxacin. Patient developed increasing weakness and inability to ambulate. Patient was brought in by EMS found her blood pressure to be exceptionally low. On presentation, blood pressure was 96/60, afebrile, heart rate in the 60s, pulse ox 92% on 2 L nasal cannula. EKG was a sinus rhythm at 65 bpm with no acute ST changes. WBC 12.0, hemoglobin 12.8, platelet count 333. Sodium 130, potassium 3.9, chloride 96, CO2 16, BUN 91 creatinine 8.86. Blood sugar 178. Troponin 0.036. BNP 3200. Lactic acid 2.5. Chest x- ray showed no acute cardiopulmonary process. Renal ultrasound showed no distinct abnormality. Hardy catheter was placed with return of 300 ML's. Patient was being prepared for admission and staff was called into the patient's room, she had had a large bowel movement in her bed and became unresponsive and was shaking. Patient was unresponsive with agonal respirations and blood pressure was 70/30. Patient was immediately intubated, provided ample of appendectomy and repeated 3, right jugular catheter was placed. Patient underwent CAT scan of the brain which revealed no acute intracranial abnormality. Patient was started on Levophed drip and admitted into the intensive care unit, consult with nephrology, bed manager, patient is currently on propofol but when this was weaned earlier in the day she was able to follow some commands. She has been started on IV Rocephin. 05/11: She remains in the intensive care unit, she was successfully extubated around midnight and is currently on 2 L nasal cannula with pulse ox of 99%. Patient is currently on small dose of and being weaned off. She has alert and oriented 3. She has related to her that she had a near experience. She's been afebrile, heart rate 82, blood pressure 131/44. Repeat blood work reveals WBC 12.4, hemoglobin 11.1, platelet count 206. INR 3.9. Sodium 134, potassium 3.9, chloride 104, CO2 18, BUN 89 creatinine 7.23. Capillary blood glucose running between 99-138. Sputum culture is in process. Urine culture is positive for Sangita albicans. At that time Dr. Farris does not plan to start dialysis treatment. Patient has been seen by the wound healing Center regarding the left lower extremity ulceration and plan is to apply absorptive silver, saline moistening gauze, dry gauze, rolled gauze and secure. Cardiology is on consult for tachyarrhythmia without atrial fibrillation or atrial flutter. She was given a bolus of amiodarone. Patient's is at [facility] and all questions have been answered. 05/12: Patient remains in the intensive care unit. Repeat INR today is 3.1. Central lines are to be pulled today but may be postponed until tomorrow due to INR. Additional blood work reveals WBC 7.4, hemoglobin 10.1, platelet count 137. Sodium 138, potassium 3.6, chloride 110, CO2 20, BUN 81 and creatinine 5.35. Blood sugars are running in the 80s. Sputum culture and urine culture finalized with Sangita. Blood culture no growth at 48 hours. Repeat chest x- ray reveals mild left lower lobe atelectasis. Stable right central venous catheter. Patient is off vasopressors. Patient has had no arrhythmias. She denies having any chest pain. Bowel movement today was mostly brown with some maroon colored blood. Patient has been seen by PT and OT with recommendations for subacute rehab. Social work as discussed with the patient and she has refused rehab planning to go home with her with [facility]. Anticipate possible discharge over the weekend. 05/13, patient has been cleared by pulmonary as well as cardiology, the wants her to go to [facility] [place], therapy recommendations is to go to subacute rehab, patient now has agreed on short-term subacute rehabilitation. Based on safety agrees ongoing to subacute rehab, Sangita growing in his sputum specimen and urine, will treat this with fluconazole 05/14: Patient still okay, however she mentioned about 2-3 episodes of liquidy stool from yesterday, she mentions this occurs usually after her meals, no abdominal pain no cramps, no fever or chills, still awaiting subacute rehabilitation, we'll going to obtain C. diff toxin, vitals are currently stable REVIEW OF SYSTEMS Constitutional: No fever, no chills, no night sweats. No weight change. Reports weakness, reports fatigue reports ethargy. No daytime sleepiness. EENT: No headache. No blurred vision or double vision, no loss of vision. No loss of Hearing, no ringing in the ears, no dizziness. No nasal drainage or congestion. No epistaxis. No sore throat. Lungs: No shortness of breath, cough, no sputum production. No wheezing. Cardiovascular: No chest pain, no lower extremity edema. No palpitations. No paroxysmal nocturnal dyspnea. No orthopnea. No lightheadedness or dizziness. No syncopal episodes. Abdominal: No abdominal pain. No nausea, vomiting. No diarrhea. No constipation. No bloody or tarry stools. nurse reported maroon stool. No loss of appetite. Genitourinary: No dysuria, increased frequency, urgency. No urinary retention. Musculoskeletal: No myalgias. No muscle weakness, no gait dysfunction, no frequent falls. No back pain. No neck pain. Integumentary: No wounds, no lesions. No rash or pruritus. No unusual bruising. No change in hair or nails. Neurologic: No aphasia. No facial droop. No change in mentation. No head injury. No headache. No paralysis. No paresthesia. Psychiatric: No depression. No anxiety. No mood swings. Endocrine: No abnormal blood sugars. No weight change. Objective - Vital Signs Vital signs: Vital Signs Temp 98.5 F 05/14/21 08:00 Pulse 56 L 05/14/21 08:00 Resp 16 05/14/21 08:00 BP 154/69 05/14/21 08:00 Pulse Ox 96 05/14/21 08:00 Intake & Output 05/13/21 05/14/21 05/14/21 18:59 06:59 18:59 Intake Total 910 1020 Balance 910 1020 Weight 117 kg Intake: IV 560 Sodium Chloride 0.9% 1, 560 000 ml @ 70 mls/hr IV . [id number] [facility] Rx#:[id number] Oral 350 1020 Other: Voiding Method Indwelling Catheter Toilet # Voids 3 2 # Bowel Movements 1 ABP, PAP, CO, CI - Last Documented Arterial Blood Pressure 147/70 - Labs CBC & Chem 7: 05/13/21 03:00 05/13/21 03:00 Labs: Abnormal Lab Results - Last 24 Hours (Table) 05/14/21 Range/Units 07:23 POC Glucose (mg/dL) 123 H (75-99) mg/dL Microbiology - Last 24 Hours (Table) 05/10/21 08:49 Blood Culture - Preliminary Blood No Growth after 96 hours 05/10/21 08:43 Blood Culture - Preliminary Blood No Growth after 96 hours Assessment and Plan Plan: 1. Acute hypoxic respiratory failure requiring intubation and mechanical ventilation. Patient maintained in the intensive care unit, consult with bed manager appreciated, successfully extubated and weaned off ventilator 2. Acute kidney injury, acute tubular necrosis versus acute interstitial nephritis associated with recent antibiotic use ciprofloxacin, Lasix. Consult with nephrology appreciated. Continue IV hydration. Plan to monitor closely without plan for dialysis at this point if she improves. Urine sent for eosinophils and she is status post 1 dose of hydrocortisone. 3. Hypovolemic shock. Patient admitted into the intensive care unit weaned off vasopressors. 4. Lactic acidosis secondary to hypotension, hypoperfusion and renal failure. 5. 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 Consult with wound healing Center appreciated. Continue Rocephin, local wound care. 6. Hypertension, currently hypotensive. Hold antihypertensive medications. 7. Hyperlipidemia. Continue atorvastatin 10 mg at bedtime. 8. Coronary artery disease status post CABG and repair of aneurysm and aortic v alve replacement, stable. 9. COPD, stable. Continue DuoNeb treatments every 4 hours. 10. Peripheral artery disease. 11. History of DVT. 12. GI prophylaxis. Continue Pepcid 20 mg IV every 12 hours. 13 Diarrhea, check for C. diff toxin, specimen requested 05/14 DISCHARGE PLAN [facility] rehab
[2021-05-14 16:30] LABS: Glucose,Whole Blood 122 mg/dL (75-99)
[2021-05-14 20:34] LABS: Glucose,Whole Blood 101 mg/dL (75-99)
[2021-05-14] MEDS: ATORVASTATIN 10 MG TAB PO SCH (20:58)
[2021-05-15] MEDS: SODIUM CHLORIDE 0.9% 1,000 ML IV SCH ×2 (05:49→07:44)
[2021-05-15 07:11] LABS: Glucose,Whole Blood 82 mg/dL (75-99)
[2021-05-15] MEDS: FAMOTIDINE 20 MG TAB PO SCH (07:43)
[2021-05-15] MEDS: amLODIPine 2.5 MG TAB PO SCH (07:43)
[2021-05-15] MEDS: predniSONE 10 MG TAB PO SCH (07:43)
[2021-05-15] MEDS: FLUCONAZOLE 100 MG TAB PO SCH (07:43)
[2021-05-15] MEDS: HYDROcodone/APAP 10-325MG 1 EACH TAB PO PRN ×2 (07:44→13:07)
--- NOTE | 2021-05-15 08:50 | P.PN ---
Subjective Progress Note Date: 05/15/21 Principal diagnosis: this is a 70-year-old female seen in consultation because of acute kidney injury possible acute Int nephritis and or ATN from low blood pressure on admission. Her creatinine continues to improve she is on steroids She was admitted with cellulitis of her legs, known with ASHD, COPD, was short of breath and the needed intubation and was on levo fed. She improved and currently is on the regular medical floor. she continues to have mild edema, her legs much better, no cellulitis. She has chronic edema with chronic skin changes. Good appetite no nausea vomiting diarrhea. No dizziness. No shortness of breath.She Is on Room Air. Awake Alert Oriented Comfortable. Denies Any Nausea Vomiting has fair appetite. No other complaints. Objective - Vital Signs Vital signs: Vital Signs Temp 98.5 F 05/15/21 07:55 Pulse 80 05/15/21 07:55 Resp 16 05/15/21 07:55 BP 163/78 05/15/21 07:55 Pulse Ox 99 05/15/21 07:55 Intake & Output 05/14/21 05/15/21 05/15/21 18:59 06:59 18:59 Intake Total 540 540 Balance 540 540 Weight 117 kg Intake: Oral 540 540 Other: Voiding Method Toilet # Voids 3 2 ABP, PAP, CO, CI - Last Documented Arterial Blood Pressure 147/70 on examination awake alert oriented comfortable on room air. HEENT exam no JVP neck is supple. No facial asymmetry Lungs clear to auscultation fair air entry bilaterally Heart sounds remarkable for Gr 2 systolic ejection, no murmur rub gallop Abdomen soft obese Extremity exam was chronic skin changes of cellulitis and mimimal edema Neurologically awake alert oriented - Labs CBC & Chem 7: 05/13/21 03:00 05/13/21 03:00 Labs: Abnormal Lab Results - Last 24 Hours (Table) 05/14/21 05/14/21 Range/Units 16:28 20:32 POC Glucose (mg/dL) 122 H 101 H (75-99) mg/dL Microbiology - Last 24 Hours (Table) 05/10/21 08:49 Blood Culture - Preliminary Blood No Growth after 96 hours 05/10/21 08:43 Blood Culture - Preliminary Blood No Growth after 96 hours Assessment and Plan Assessment: impression 1. Acute kidney injury secondary to acute interstitial nephritis and ATN. Improving creatinine. Down from 9.86 on 05/09/2021 to 3.73 on 05/13/2021 . Labs are not available today will order it today. 2. Baseline creatinine is about 0.8 from 05/03/2021. 3. Mild degree of non-gap acidosis, etiology is acute kidney injury. 4. On prednisone, was on 50 daily.decreased To 30 mg on 05/13/2021 because of improvement in creatinine 5. Cellulitis of both lower extremities, improved. Edema improved 6. History of stress incontinence. 7. History of psoriasis. 8. History of bypass graft 7 years ago and valve replacement. Admission 1. Continue prednisone to 30 mg a day for a week and to be tapered down to 20 mg on approximately 05/20/2021 and further afterwards based on labs and responds and to be discontinued over 1 month. 2. Patient can be discharged 3. discontinue IV fluids. 4. Labs today
[2021-05-15 10:03] LABS: African American GFR (CKD) 30 (>60 ml/min/1.73 sqM); Anion Gap 3 mmol/L; Blood Urea Nitrogen 49 mg/dL (7-17); Calcium 7.8 mg/dL (8.4-10.2); Carbon Dioxide 26 mmol/L (22-30); Chloride 110 mmol/L (98-107); Glucose 93 mg/dL (74-99); Non-African American GFR(CKD) 26 (>60 ml/min/1.73 sqM); Potassium 3.7 mmol/L (3.5-5.1); Sodium 139 mmol/L (137-145)
--- NOTE | 2021-05-15 10:26 | P.PN ---
Subjective Progress Note Date: 05/15/21 This patient with history of ischemic heart disease, hypertension with previous bypass surgery and aortic valve replacement was admitted to the hospital with a what looks like acute renal failure and ATN. Patient was on metoprolol and lisinopril prior to admission patient was hypotensive and required nore pinephrine initially. Currently patient seemed to be doing well. Complaints of mild diarrhea. Her kidney function is improving. Her blood pressures running in the range of 150-160. Denies any chest pain or shortness of breath. Lungs are clear. Heart is regular. There is systolic murmur heard. I'm going to start amlodipine 2.5 mg. Continue the rest of the medication management. Patient is slightly bradycardic and we'll hold off metoprolol. 05/15/2021: Patient states feeling better. Her diarrhea is improved. Complaining some mild headache. No complaints of chest pain or shortness of breath. Blood pressure slightly high. I'm going to increase the dose of the amlodipine to 5 mg. Lungs appeared to be clear. Heart is regular. Patient will be transferred to outpatient rehab center tomorrow. Meanwhile we'll hold off on JANENE inhibitor R's and metoprolol. Continue with amlodipine Objective - Vital Signs Vital signs: Vital Signs Temp 98.5 F 05/15/21 07:55 Pulse 80 05/15/21 07:55 Resp 16 05/15/21 08:00 BP 163/78 05/15/21 07:55 Pulse Ox 99 05/15/21 07:55 Intake & Output 05/14/21 05/15/21 05/15/21 18:59 06:59 18:59 Intake Total 540 540 Balance 540 540 Weight 117 kg Intake: Oral 540 540 Other: Voiding Method Toilet Toilet # Voids 3 2 ABP, PAP, CO, CI - Last Documented Arterial Blood Pressure 147/70 - Exam GENERAL EXAM: Patient is alert and oriented and doesn't appear to be in any acute distress HEENT: Normocephalic. Normal reaction of pupils, equal size, normal range of extraocular motion. No erythema or exudates in the throat. NECK: No masses, no nuchal rigidity. CHEST: No chest wall deformity. LUNGS: Equal air entry with no crackles or wheeze. HEART: S1 and S2 normal . Systolic murmur heard ABDOMEN: No hepatosplenomegaly, normal bowel sounds, no guarding or rigidity. SKIN: No rashes CENTRAL NERVOUS SYSTEM: No focal deficits. EXTREMITIES: Chronic leg edema improving - Labs CBC & Chem 7: 05/13/21 03:00 05/15/21 09:39 Labs: Abnormal Lab Results - Last 24 Hours (Table) 05/14/21 05/14/21 05/15/21 Range/Units 16:28 20:32 09:39 Chloride 110 H (98-107) mmol/L BUN 49 H (7-17) mg/dL Creatinine 1.88 H (0.52-1.04) mg/dL POC Glucose (mg/dL) 122 H 101 H (75-99) mg/dL Calcium 7.8 L (8.4-10.2) mg/dL Microbiology - Last 24 Hours (Table) 05/10/21 08:49 Blood Culture - Preliminary Blood No Growth after 96 hours 05/10/21 08:43 Blood Culture - Preliminary Blood No Growth after 96 hours Assessment and Plan (1) History of coronary artery bypass graft Current Visit: Yes Status: Acute Code(s): Z95.1 - PRESENCE OF AORTOCORONARY BYPASS GRAFT SNOMED Code(s): 323722738 (2) MIAH (acute kidney injury) Current Visit: Yes Status: Acute Code(s): N17.9 - ACUTE KIDNEY FAILURE, UNSPECIFIED SNOMED Code(s): 67856845 (3) Hypotension Current Visit: Yes Status: Acute Code(s): I95.9 - HYPOTENSION, UNSPECIFIED SNOMED Code(s): 15208236 (4) History of aortic valve replacement Current Visit: Yes Status: Acute Code(s): Z95.2 - PRESENCE OF PROSTHETIC HEART VALVE SNOMED Code(s): 7522202245362 Plan: Continue current medical therapy. Increase the dose of amlodipine to 5 mg
[2021-05-15 11:40] VITALS: BMI 42.9
[2021-05-15 11:48] LABS: Glucose,Whole Blood 268 mg/dL (75-99)
--- NOTE | 2021-05-15 13:52 | P.PN ---
Subjective Progress Note Date: 05/15/21 HISTORY OF PRESENT ILLNESS This is a 70-year-old female patient of Dr. Lala with past medical history of coronary artery disease status post CABG and repair of aneurysm, aortic valve replacement 02/08/2014, COPD, DVT, peripheral artery disease, hyperlipidemia, former tobacco use, nonhealing ulcer to the left lower extremity under the care of the wound healing Center. Patient had recent hospitalization from May 01 through May 04 at which time she was treated for cellulitis and ulcer of the lower extremity. Patient presented to [facility] yesterday afternoon with complaints of upset stomach, not eating or drinking which she related to ciprofloxacin. Patient developed increasing weakness and inability to ambulate. Patient was brought in by EMS found her blood pressure to be exceptionally low. On presentation, blood pressure was 96/60, afebrile, heart rate in the 60s, pulse ox 92% on 2 L nasal cannula. EKG was a sinus rhythm at 65 bpm with no acute ST changes. WBC 12.0, hemoglobin 12.8, platelet count 333. Sodium 130, potassium 3.9, chloride 96, CO2 16, BUN 91 creatinine 8.86. Blood sugar 178. Troponin 0.036. BNP 3200. Lactic acid 2.5. Chest x- ray showed no acute cardiopulmonary process. Renal ultrasound showed no distinct abnormality. Hardy catheter was placed with return of 300 ML's. Patient was being prepared for admission and staff was called into the patient's room, she had had a large bowel movement in her bed and became unresponsive and was shaking. Patient was unresponsive with agonal respirations and blood pressure was 70/30. Patient was immediately intubated, provided ample of appendectomy and repeated 3, right jugular catheter was placed. Patient underwent CAT scan of the brain which revealed no acute intracranial abnormality. Patient was started on Levophed drip and admitted into the intensive care unit, consult with nephrology, senior data quality analyst, patient is currently on propofol but when this was weaned earlier in the day she was able to follow some commands. She has been started on IV Rocephin. 05/11: She remains in the intensive care unit, she was successfully extubated around midnight and is currently on 2 L nasal cannula with pulse ox of 99%. Patient is currently on small dose of and being weaned off. She has alert and oriented 3. She has related to her that she had a near experience. She's been afebrile, heart rate 82, blood pressure 131/44. Repeat blood work reveals WBC 12.4, hemoglobin 11.1, platelet count 206. INR 3.9. Sodium 134, potassium 3.9, chloride 104, CO2 18, BUN 89 creatinine 7.23. Capillary blood glucose running between 99-138. Sputum culture is in process. Urine culture is positive for Sangita albicans. At that time Dr. Farris does not plan to start dialysis treatment. Patient has been seen by the wound healing Center regarding the left lower extremity ulceration and plan is to apply absorptive silver, saline moistening gauze, dry gauze, rolled gauze and secure. Cardiology is on consult for tachyarrhythmia without atrial fibrillation or atrial flutter. She was given a bolus of amiodarone. Patient's is at [facility] and all questions have been answered. 05/12: Patient remains in the intensive care unit. Repeat INR today is 3.1. Central lines are to be pulled today but may be postponed until tomorrow due to INR. Additional blood work reveals WBC 7.4, hemoglobin 10.1, platelet count 137. Sodium 138, potassium 3.6, chloride 110, CO2 20, BUN 81 and creatinine 5.35. Blood sugars are running in the 80s. Sputum culture and urine culture finalized with Sangita. Blood culture no growth at 48 hours. Repeat chest x- ray reveals mild left lower lobe atelectasis. Stable right central venous catheter. Patient is off vasopressors. Patient has had no arrhythmias. She denies having any chest pain. Bowel movement today was mostly brown with some maroon colored blood. Patient has been seen by PT and OT with recommendations for subacute rehab. Social work as discussed with the patient and she has refused rehab planning to go home with her with [facility]. Anticipate possible discharge over the weekend. 05/13, patient has been cleared by pulmonary as well as cardiology, the wants her to go to [facility], therapy recommendations is to go to subacute rehab, patient now has agreed on short-term subacute rehabilitation. Based on safety agrees ongoing to subacute rehab, Sangita growing in his sputum specimen and urine, will treat this with fluconazole 05/14: Patient still okay, however she mentioned about 2-3 episodes of liquidy stool from yesterday, she mentions this occurs usually after her meals, no abdominal pain no cramps, no fever or chills, still awaiting subacute rehabilitation, we'll going to obtain C. diff toxin, vitals are currently stable 05/15: Patient has sinus headache today, periorbital pain bilateral, also TMJ pain, norco did not work except for 10 seconds she said. Patient also has some nausea, recommended to take prednisone while on Pepcid and food, increase Pepcid to 40 mg daily, add Flonase, for the sinus headache. Patient has no cold for when necessary pain, C. diff test was negative, no diarrhea today. Awaiting discharge to subacute rehab, [facility] in the morning. REVIEW OF SYSTEMS Constitutional: No fever, no chills, no night sweats. No weight change. Reports weakness, reports fatigue reports ethargy. No daytime sleepiness. EENT: No headache. No blurred vision or double vision, no loss of vision. No loss of Hearing, no ringing in the ears, no dizziness. No nasal drainage or congestion. No epistaxis. No sore throat. Lungs: No shortness of breath, cough, no sputum production. No wheezing. Cardiovascular: No chest pain, no lower extremity edema. No palpitations. No paroxysmal nocturnal dyspnea. No orthopnea. No lightheadedness or dizziness. No syncopal episodes. Abdominal: No abdominal pain. No nausea, vomiting. No diarrhea. No constipation. No bloody or tarry stools. nurse reported maroon stool. No loss of appetite. Genitourinary: No dysuria, increased frequency, urgency. No urinary retention. Musculoskeletal: No myalgias. No muscle weakness, no gait dysfunction, no frequent falls. No back pain. No neck pain. Integumentary: No wounds, no lesions. No rash or pruritus. No unusual bruising. No change in hair or nails. Neurologic: No aphasia. No facial droop. No change in mentation. No head injury. No headache. No paralysis. No paresthesia. Psychiatric: No depression. No anxiety. No mood swings. Endocrine: No abnormal blood sugars. No weight change. Objective - Vital Signs Vital signs: Vital Signs Temp 98.5 F 05/15/21 07:55 Pulse 80 05/15/21 07:55 Resp 16 05/15/21 08:00 BP 163/78 05/15/21 07:55 Pulse Ox 99 05/15/21 07:55 Intake & Output 05/14/21 05/15/21 05/15/21 18:59 06:59 18:59 Intake Total 540 540 Balance 540 540 Weight 117 kg 117 kg Intake: Oral 540 540 Other: Voiding Method Toilet Toilet # Voids 3 2 ABP, PAP, CO, CI - Last Documented Arterial Blood Pressure 147/70 - Constitutional General appearance: Present: cooperative, no acute distress - EENT Eyes: Present: EOMI, PERRLA ENT: Present: NA/AT, normal oropharynx - Neck Neck: Present: normal ROM - Respiratory Respiratory: bilateral: CTA, negative: diminished, dullness, rales - Cardiovascular Rhythm: regular Heart sounds: normal: S1, S2 Abnormal Heart Sounds: Absent: systolic murmur, diastolic murmur, rub, S3 Gallop, S4 Gallop, click, other - Gastrointestinal General gastrointestinal: Present: hyperactive bowel sounds, normal bowel sounds - Integumentary Integumentary: Present: decreased turgor, normal - Neurologic Neurologic: Present: CNII-XII intact - Musculoskeletal Musculoskeletal: Present: gait normal, strength equal bilaterally - Psychiatric Psychiatric: Present: A&O x's 3, appropriate affect, intact judgment & insight - Labs CBC & Chem 7: 05/13/21 03:00 05/15/21 09:39 Labs: Abnormal Lab Results - Last 24 Hours (Table) 05/14/21 05/14/21 05/15/21 Range/Units 16:28 20:32 09:39 Chloride 110 H (98-107) mmol/L BUN 49 H (7-17) mg/dL Creatinine 1.88 H (0.52-1.04) mg/dL POC Glucose (mg/dL) 122 H 101 H (75-99) mg/dL Calcium 7.8 L (8.4-10.2) mg/dL 05/15/21 Range/Units 11:47 Chloride (98-107) mmol/L BUN (7-17) mg/dL Creatinine (0.52-1.04) mg/dL POC Glucose (mg/dL) 268 H (75-99) mg/dL Calcium (8.4-10.2) mg/dL Microbiology - Last 24 Hours (Table) 05/10/21 08:49 Blood Culture - Preliminary Blood No Growth after 120 hours 05/10/21 08:43 Blood Culture - Preliminary Blood No Growth after 120 hours Assessment and Plan Plan: 1. Acute hypoxic respiratory failure requiring intubation and mechanical ventilation. Patient maintained in the intensive care unit, consult with senior data quality analyst appreciated, successfully extubated and weaned off ventilator 2. Acute kidney injury, acute tubular necrosis versus acute interstitial nephritis associated with recent antibiotic use ciprofloxacin, Lasix. Consult with nephrology appreciated. Continue IV hydration. Plan to monitor closely without plan for dialysis at this point if she improves. Urine sent for eosinophils and she is status post 1 dose of hydrocortisone. 3. Hypovolemic shock. Patient admitted into the intensive care unit weaned off vasopressors. 4. Lactic acidosis secondary to hypotension, hypoperfusion and renal failure. 5. 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 Consult with wound healing Center ap preciated. Continue Rocephin, local wound care. 6. Hypertension, pain 7. Hyperlipidemia. Continue atorvastatin 10 mg at bedtime. 8. Coronary artery disease status post CABG and repair of aneurysm and aortic valve replacement, stable. 9. COPD, stable. Continue DuoNeb treatments every 4 hours. 10. Peripheral artery disease. 11. History of DVT. 12. GI prophylaxis. Continue Pepcid 20 mg IV every 12 hours. 13 Diarrhea, check for C. diff toxin, specimen requested 05/14 DISCHARGE PLAN [facility] rehab
[2021-05-15] MEDS: FLUTICASONE 50MCG/SPRAY NASAL 16GM EA NOSTRIL SCH ×2 (14:11→21:34)
[2021-05-15] MEDS: ONDANSETRON 4 MG/2 ML VIAL IVP PRN (15:15)
[2021-05-15 16:33] LABS: Glucose,Whole Blood 162 mg/dL (75-99)
[2021-05-15 20:04] LABS: Glucose,Whole Blood 141 mg/dL (75-99)
[2021-05-15] MEDS: ATORVASTATIN 10 MG TAB PO SCH (21:34)
[2021-05-15] MEDS: MELATONIN 3 MG TABLET PO SCH (21:37)
[2021-05-16 06:41] LABS: Glucose,Whole Blood 96 mg/dL (75-99)
[2021-05-16] MEDS: amLODIPine 5 MG TAB PO SCH (07:08)
[2021-05-16] MEDS: FAMOTIDINE 20 MG TAB PO SCH (07:09)
[2021-05-16] MEDS: FLUCONAZOLE 100 MG TAB PO SCH (07:09)
[2021-05-16] MEDS: predniSONE 10 MG TAB PO SCH (07:09)
[2021-05-16] MEDS: LEVOFLOXACIN 250 MG TAB PO SCH (07:10)
[2021-05-16] MEDS: ONDANSETRON 4 MG/2 ML VIAL IVP PRN (07:10)
[2021-05-16] MEDS: FLUTICASONE 50MCG/SPRAY NASAL 16GM EA NOSTRIL SCH ×2 (07:10→23:02)
--- NOTE | 2021-05-16 10:48 | P.DS ---
Providers Date of admission: 05/09/21 19:49 Expected date of discharge: 05/17/21 Attending physician: Odell Lala Consults: 05/09/21 19:52 Consult Physician Urgent Consulting Provider: Kamlesh Diallo Consult Reason/Comments: juan diego, hypotension Do you want consulting provider notified?: Already Contacted 05/09/21 22:11 Consult Physician Urgent Consulting Provider: Renato Xiao Consult Reason/Comments: acute vent dependance, acute encephalopathy, juan diego Do you want consulting provider notified?: Already Contacted 05/11/21 00:53 Consult Physician Urgent Consulting Provider: Hermes Van Consult Reason/Comments: Elevated HR Do you want consulting provider notified?: Yes, Notify in am Primary care physician: Odell Lala [facility] Course: HISTORY OF PRESENT ILLNESS This is a 70-year-old female patient of Dr. Lala with past medical history of coronary artery disease status post CABG and repair of aneurysm, aortic valve replacement 02/08/2014, COPD, DVT, peripheral artery disease, hyperlipidemia, former tobacco use, nonhealing ulcer to the left lower extremity under the care of the wound healing Center. Patient had recent hospitalization from May 01 through May 04 at which time she was treated for cellulitis and ulcer of the lower extremity. Patient presented to [facility] emergency center yesterday afternoon with complaints of upset stomach, not eating or drinking which she related to ciprofloxacin. Patient developed increasing weakness and inability to ambulate. Patient was brought in by EMS found her blood pressure to be exceptionally low. On presentation, blood pressure was 96/60, afebrile, heart rate in the 60s, pulse ox 92% on 2 L nasal cannula. EKG was a sinus rhythm at 65 bpm with no acute ST changes. WBC 12.0, hemoglobin 12.8, platelet count 333. Sodium 130, potassium 3.9, chloride 96, CO2 16, BUN 91 creatinine 8.86. Blood sugar 178. Troponin 0.036. BNP 3200. Lactic acid 2.5. Chest x-ray showed no acute cardiopulmonary process. Renal ultrasound showed no distinct abnormality. Hardy catheter was placed with return of 300 ML's. Patient was being prepared for admission and staff was called into the patient's room, she had had a large bowel movement in her bed and became unresponsive and was shaking. Patient was unresponsive with agonal respirations and blood pressure was 70/30. Patient was immediately intubated, provided ample of appendectomy and repeated 3, right jugular catheter was placed. Patient underwent CAT scan of the brain which revealed no acute intracranial abnormality. Patient was started on Levophed drip and admitted into the intensive care unit, consult with nephrology, training and development head, patient is currently on propofol but when this was weaned earlier in the day she was able to follow some commands. She has been started on IV Rocephin. 05/11: She remains in the intensive care unit, she was successfully extubated around midnight and is currently on 2 L nasal cannula with pulse ox of 99%. Patient is currently on small dose of and being weaned off. She has alert and oriented 3. She has related to her that she had a near exp erience. She's been afebrile, heart rate 82, blood pressure 131/44. Repeat blood work reveals WBC 12.4, hemoglobin 11.1, platelet count 206. INR 3.9. Sodium 134, potassium 3.9, chloride 104, CO2 18, BUN 89 creatinine 7.23. Capillary blood glucose running between 99-138. Sputum culture is in process. Urine culture is positive for Sangita albicans. At that time Dr. Farris does not plan to start dialysis treatment. Patient has been seen by the wound healing Center regarding the left lower extremity ulceration and plan is to apply absorptive silver, saline moistening gauze, dry gauze, rolled gauze and secure. Cardiology is on consult for tachyarrhythmia without atrial fibrillation or atrial flutter. She was given a bolus of amiodarone. Patient's is at bedside and all questions have been answered. 05/12: Patient remains in the intensive care unit. Repeat INR today is 3.1. Central lines are to be pulled today but may be postponed until tomorrow due to INR. Additional blood work reveals WBC 7.4, hemoglobin 10.1, platelet count 137. Sodium 138, potassium 3.6, chloride 110, CO2 20, BUN 81 and creatinine 5.35. Blood sugars are running in the 80s. Sputum culture and urine culture finalized with Sangita. Blood culture no growth at 48 hours. Repeat chest x- ray reveals mild left lower lobe atelectasis. Stable right central venous catheter. Patient is off vasopressors. Patient has had no arrhythmias. She denies having any chest pain. Bowel movement today was mostly brown with some maroon colored blood. Patient has been seen by PT and OT with recommendations for subacute rehab. Social work as discussed with the patient and she has refused rehab planning to go home with her with [facility]. Anticipate possible discharge over the weekend. 05/13, patient has been cleared by pulmonary as well as cardiology, the wants her to go to [facility], therapy recommendations is to go to subacute rehab, patient now has agreed on short-term subacute rehabilitation. Based on safety agrees ongoing to subacute rehab, Sangita growing in his sputum specimen and urine, will treat this with fluconazole 05/14: Patient still okay, however she mentioned about 2-3 episodes of liquidy stool from yesterday, she mentions this occurs usually after her meals, no abdominal pain no cramps, no fever or chills, still awaiting subacute rehabilitation, we'll going to obtain C. diff toxin, vitals are currently stable 05/15: Patient has sinus headache today, periorbital pain bilateral, also TMJ pain, norco did not work except for 10 seconds she said. Patient also has some nausea, recommended to take prednisone while on Pepcid and food, increase Pepcid to 40 mg daily, add Flonase, for the sinus headache. Patient has no cold for when necessary pain, C. diff test was negative, no diarrhea today. Awaiting discharge to subacute rehab, [facility] in the morning. 05/16: The patient is found ambulating in her room. She denies having any new complaints today. She states she had a little nausea this morning, no vomiting. She has been afebrile, heart rate 54, blood pressure 174/70, pulse ox 97% on room air. Capillary blood glucose running between 79 and 162. C. difficile toxin was negative. Cardiology has increased amlodipine to 5 mg daily. We are anticipating discharge to [facility] today but waiting for insurance authorization. 05/17: Patient states that she has had diarrhea a couple episodes per day, no abdominal pain, no lightheadedness or dizziness. She states she's not eating much because she does not like the food here. C. difficile toxin was negative. Capillary blood glucose running between 85 and 129. Patient has been afebrile, heart rate 56, blood pressure 155/76, pulse ox 94% on room air. Patient has been seen and followed by nephrology for acute kidney injury, plan to taper prednisone over the next 3-4 weeks. No plan for kidney biopsy at this time as renal function has been improving. Patient was scheduled for discharge to [facility] however insurance denied authorization and patient will be discharged home today with home care. DISCHARGE DIAGNOSES 1. Acute hypoxic respiratory failure requiring intubation and mechanical ventilation, successfully extubated and weaned off ventilator 2. Acute kidney injury, acute tubular necrosis versus acute interstitial nephritis associated with recent antibiotic use ciprofloxacin, Lasix. 3. Hypovolemic shock. 4. Lactic acidosis secondary to hypotension, hypoperfusion and renal failure. 5. Chronic nonhealing ulcer to the left lower extremity with recent hospitaliza tions/treatment for cellulitis. 6. Hypertension, pain 7. Hyperlipidemia. 8. Coronary artery disease status post CABG and repair of aneurysm and aortic valve replacement, stable. 9. COPD, stable. 10. Peripheral artery disease. 11. History of DVT. 12. Diarrhea, check for C. diff toxin, specimen requested 05/14 DISCHARGE PLAN Home with Home Care Impression and plan of care have been directed as dictated by the signing physician. Amirah Lopez nurse practitioner acting as scribe for signing physician. Patient Condition at Discharge: Good Plan - Discharge Summary Discharge Rx Participant: No New Discharge Prescriptions: New Fluconazole [Diflucan] 100 mg PO DAILY #6 tab predniSONE 0 mg PO DIRECTED #60 tab amLODIPine [Norvasc] 5 mg PO DAILY #30 tab Famotidine [Pepcid] 40 mg PO DAILY #30 tab Fluticasone Nasal [place] [Flonase Nasal [place]] 2 spray EA NOSTRIL BID gm Loperamide [Imodium] 2 mg PO DAILY PRN #30 cap PRN Reason: Diarrhea Levofloxacin [Levaquin] 250 mg PO Q48H #6 tab Melatonin 6 mg PO HS tablet Continue Ergocalciferol (Vitamin D2) [Vitamin D2] 50,000 unit PO CARDENAS Cyclobenzaprine [Flexeril] 10 mg PO TID PRN PRN Reason: Muscle Spasm Atorvastatin [Lipitor] 10 mg PO HS Warfarin [Coumadin] 2.5 mg PO WEFR Warfarin [Coumadin] 5 mg PO SUMOTUTHSA Menthol-Zinc Oxide Oint [Calmoseptine Oint] 1 applic TOPICAL DAILY PRN #30 applic PRN Reason: Skin Irritation Gabapentin [Neurontin] 100 mg PO DAILY #3 tab Gabapentin [Neurontin] 200 mg PO HS #3 cap Aspirin EC [Ecotrin Low Dose] 81 mg PO DAILY Potassium Gluconate [Potassium Gluconate ER] 99 mg PO DAILY HYDROcodone/APAP 10-325MG [[place] 10-325] 1 tab PO Q6HR PRN #12 cap PRN Reason: Pain Changed Furosemide [Lasix] 40 mg PO DAILY #60 tablet Discontinued Enalapril [Vasotec] 10 mg PO DAILY Metoprolol Tartrate [Lopressor] 50 mg PO BID Oxybutynin Chloride 5 mg PO BID Doxycycline Hyclate [Vibramycin] 100 mg PO DAILY Ciprofloxacin HCl [Cipro] 500 mg PO BID Discharge Medication List Atorvastatin [Lipitor] 10 mg PO HS 10/18/16 [History] Cyclobenzaprine [Flexeril] 10 mg PO TID PRN 10/18/16 [History] Ergocalciferol (Vitamin D2) [Vitamin D2] 50,000 unit PO CARDEANS 10/18/16 [History] Warfarin [Coumadin] 2.5 mg PO WEFR 01/25/17 [History] Warfarin [Coumadin] 5 mg PO SUMOTUTHSA 01/25/17 [History] Aspirin EC [Ecotrin Low Dose] 81 mg PO DAILY 05/01/21 [History] Potassium Gluconate [Potassium Gluconate ER] 99 mg PO DAILY 05/01/21 [History] Menthol-Zinc Oxide Oint [Calmoseptine Oint] 1 applic TOPICAL DAILY PRN #30 applic 05/03/21 [Rx] Fluconazole [Diflucan] 100 mg PO DAILY #6 tab 05/16/21 [Rx] Fluticasone Nasal [place] [Flonase Nasal [place]] 2 spray EA NOSTRIL BID gm 05/16/21 [Rx] Furosemide [Lasix] 40 mg PO DAILY #60 tablet 05/16/21 [Rx] Gabapentin [Neurontin] 100 mg PO DAILY #3 tab 05/16/21 [Rx] Gabapentin [Neurontin] 200 mg PO HS #3 cap 05/16/21 [Rx] HYDROcodone/APAP 10-325MG [[place] 10-325] 1 tab PO Q6HR PRN #12 cap 05/16/21 [Rx] Levofloxacin [Levaquin] 250 mg PO Q48H #6 tab 05/16/21 [Rx] Loperamide [Imodium] 2 mg PO DAILY PRN #30 cap 05/16/21 [Rx] Melatonin 6 mg PO HS tablet 05/16/21 [Rx] predniSONE 0 mg PO DIRECTED #60 tab 05/16/21 [Rx] Famotidine [Pepcid] 40 mg PO DAILY #30 tab 05/17/21 [Rx] amLODIPine [Norvasc] 5 mg PO DAILY #30 tab 05/17/21 [Rx] Follow up Appointment(s)/Referral(s): Vikas [facility], [NON-STAFF] - 1-2 Days Wound Center,[facility] [NON-STAFF] - As Needed Odell Lala MD [Primary Care Provider] - 1 Week (AT [facility]) Discharge Disposition: HOME WITH HOME HEALTH SERVICES
[2021-05-16 11:27] LABS: Glucose,Whole Blood 79 mg/dL (75-99)
--- NOTE | 2021-05-16 12:32 | P.PN ---
Subjective Progress Note Date: 05/16/21 HISTORY OF PRESENT ILLNESS HISTORY OF PRESENT ILLNESS This is a 70-year-old female patient of Dr. Lala with past medical history of coronary artery disease status post CABG and repair of aneurysm, aortic valve replacement 02/08/2014, COPD, DVT, peripheral artery disease, hyperlipidemia, former tobacco use, nonhealing ulcer to the left lower extremity under the care of the wound healing Center. Patient had recent hospitalization from May 01 through May 04 at which time she was treated for cellulitis and ulcer of the lower extremity. Patient presented to [facility] emergency center yesterday afternoon with complaints of upset stomach, not eating or dr inking which she related to ciprofloxacin. Patient developed increasing weakness and inability to ambulate. Patient was brought in by EMS found her blood pressure to be exceptionally low. On presentation, blood pressure was 96/60, afebrile, heart rate in the 60s, pulse ox 92% on 2 L nasal cannula. EKG was a sinus rhythm at 65 bpm with no acute ST changes. WBC 12.0, hemoglobin 12.8, platelet count 333. Sodium 130, potassium 3.9, chloride 96, CO2 16, BUN 91 creatinine 8.86. Blood sugar 178. Troponin 0.036. BNP 3200. Lactic acid 2.5. Chest x-ray showed no acute cardiopulmonary process. Renal ultrasound showed no distinct abnormality. Hardy catheter was placed with return of 300 ML's. Patient was being prepared for admission and staff was called into the patient's room, she had had a large bowel movement in her bed and became unresponsive and was shaking. Patient was unresponsive with agonal respirations and blood pressure was 70/30. Patient was immediately intubated, provided ample of appendectomy and repeated 3, right jugular catheter was placed. Patient underwent CAT scan of the brain which revealed no acute intracranial abnormality. Patient was started on Levophed drip and admitted into the intensive care unit, consult with nephrology, mica layer, patient is currently on propofol but when this was weaned earlier in the day she was able to follow some commands. She has been started on IV Rocephin. 05/11: She remains in the intensive care unit, she was successfully extubated around midnight and is currently on 2 L nasal cannula with pulse ox of 99%. Patient is currently on small dose of and being weaned off. She has alert and oriented 3. She has related to her that she had a near experience. She's been afebrile, heart rate 82, blood pressure 131/44. Repeat blood work reveals WBC 12.4, hemoglobin 11.1, platelet count 206. INR 3.9. Sodium 134, potassium 3.9, chloride 104, CO2 18, BUN 89 creatinine 7.23. Capillary blood glucose running between 99-138. Sputum culture is in process. Urine culture is positive for Sangita albicans. At that time Dr. Farris does not plan to start dialysis treatment. Patient has been seen by the wound healing Center regarding the left lower extremity ulceration and plan is to apply absorptive silver, saline moistening gauze, dry gauze, rolled gauze and secure. Cardiology is on consult for tachyarrhythmia without atrial fibrillation or atrial flutter. She was given a bolus of amiodarone. Patient's is at bedside and all questions have been answered. 05/12: Patient remains in the intensive care unit. Repeat INR today is 3.1. Central lines are to be pulled today but may be postponed until tomorrow due to INR. Additional blood work reveals WBC 7.4, hemoglobin 10.1, platelet count 137. Sodium 138, potassium 3.6, chloride 110, CO2 20, BUN 81 and creatinine 5.35. Blood sugars are running in the 80s. Sputum culture and urine culture finalized with Sangita. Blood culture no growth at 48 hours. Repeat chest x- ray reveals mild left lower lobe atelectasis. Stable right central venous catheter. Patient is off vasopressors. Patient has had no arrhythmias. She denies having any chest pain. Bowel movement today was mostly brown with some maroon colored blood. Patient has been seen by PT and OT with recommendations for subacute rehab. Social work as discussed with the patient and she has refused rehab planning to go home with her with [facility]. Anticipate possible discharge over the weekend. 05/13, patient has been cleared by pulmonary as well as cardiology, the wants her to go to [facility], therapy recommendations is to go to subacute rehab, patient now has agreed on short-term subacute rehabilitation. Based on safety agrees ongoing to subacute rehab, Sangita growing in his sputum specimen and urine, will treat this with fluconazole 05/14: Patient still okay, however she mentioned about 2-3 episodes of liquidy stool from yesterday, she mentions this occurs usually after her meals, no abdominal pain no cramps, no fever or chills, still awaiting subacute rehabilitation, we'll going to obtain C. diff toxin, vitals are currently stable 05/15: Patient has sinus headache today, periorbital pain bilateral, also TMJ pain, norco did not work except for 10 seconds she said. Patient also has some nausea, recommended to take prednisone while on Pepcid and food, increase Pepcid to 40 mg daily, add Flonase, for the sinus headache. Patient has no cold for when necessary pain, C. diff test was negative, no diarrhea today. Awaiting discharge to subacute rehab, [facility] in the morning. 05/16: The patient is found ambulating in her room. She denies having any new complaints today. She states she had a little nausea this morning, no vomiting. She has been afebrile, heart rate 54, blood pressure 174/70, pulse ox 97% on room air. Capillary blood glucose running between 79 and 162. C. difficile toxin was negative. Cardiology has increased amlodipine to 5 mg daily. We are anticipating discharge to [facility] today but waiting for insurance authorization. REVIEW OF SYSTEMS Constitutional: No fever, no chills, no night sweats. No weight change. Reports weakness, reports fatigue denies ethargy. No daytime sleepiness. EENT: No headache. No blurred vision or double vision, no loss of vision. No loss of Hearing, no ringing in the ears, no dizziness. No nasal drainage or congestion. No epistaxis. No sore throat. Lungs: No shortness of breath, cough, no sputum production. No wheezing. Cardiovascular: No chest pain, no lower extremity edema. No palpitations. No paroxysmal nocturnal dyspnea. No orthopnea. No lightheadedness or dizziness. No syncopal episodes. Abdominal: No abdominal pain. No nausea, vomiting. No diarrhea. No constipation. No bloody or tarry stools. nurse reported maroon stool. No loss of appetite. Genitourinary: No dysuria, increased frequency, urgency. No urinary retention. Musculoskeletal: No myalgias. No muscle weakness, no gait dysfunction, no frequent falls. No back pain. No neck pain. Integumentary: No wounds, no lesions. No rash or pruritus. No unusual bruising. No change in hair or nails. Neurologic: No aphasia. No facial droop. No change in mentation. No head injury. No headache. No paralysis. No paresthesia. Psychiatric: No depression. No anxiety. No mood swings. Endocrine: No abnormal blood sugars. No weight change. PHYSICAL EXAMINATION Gen: This is this is a 70-year-old female, Patient appears to be comfortable. HEENT: Head is atraumatic, normocephalic. Pupils equal, round. Sclerae is anicteric. NECK: Supple. No JVD. No lymphadenopathy. No thyromegaly. LUNGS: Few scattered rhonchi. No intercostal retractions. HEART: Regular rate and rhythm. No murmur. ABDOMEN: Soft. Bowel sounds are present. No masses. No tenderness. EXTREMITIES: No pedal edema. No calf tenderness. NEUROLOGICAL: Patient is awake, alert and oriented x3. Cranial nerves 2 through 12 are grossly intact. ASSESSMENT AND PLAN 1. Acute hypoxic respiratory failure requiring intubation and mechanical ventilation, successfully extubated and stable not requiring oxygen. 2. Acute kidney injury, acute tubular necrosis versus acute interstitial nephritis associated with recent antibiotic use ciprofloxacin, Lasix. Consult with nephrology appreciated. Continue to monitor renal function. 3. Hypovolemic shock. Patient admitted into the intensive care unit weaned off vasopressors. 4. Lactic acidosis secondary to hypotension, hypoperfusion and renal failure. 5. 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 Consult with wound healing Center appreciated. Continue Rocephin, local wound care. 6. Hypertension. 7. Hyperlipidemia. Continue atorvastatin 10 mg at bedtime. 8. Coronary artery disease status post CABG and repair of aneurysm and aortic valve replacement, stable. 9. COPD, stable. Continue DuoNeb treatments every 4 hours. 10. Peripheral artery disease. 11. History of DVT. 12. GI prophylaxis. Continue Pepcid 20 mg IV every 12 hours. 13. Diarrhea. C. difficile toxin negative. DISCHARGE PLAN [facility] for subacute rehab Impression and plan of care have been directed as dictated by the signing physician. Aimrah Lopez nurse practitioner acting as scribe for signing physician. Objective - Vital Signs Vital signs: Vital Signs Temp 97.8 F 05/16/21 07:10 Pulse 54 L 05/16/21 07:10 Resp 18 05/16/21 08:00 BP 174/70 05/16/21 07:10 Pulse Ox 97 05/16/21 07:10 Intake & Output 05/15/21 05/16/21 05/16/21 18:59 06:59 18:59 Intake Total 540 Balance 540 Weight 117 kg 117.5 kg Intake: Oral 540 Other: Voiding Method Toilet Toilet Toilet # Voids 3 1 ABP, PAP, CO, CI - Last Documented Arterial Blood Pressure 147/70 - Labs CBC & Chem 7: 05/13/21 03:00 05/15/21 09:39 Labs: Abnormal Lab Results - Last 24 Hours (Table) 05/15/21 05/15/21 Range/Units 16:32 20:03 POC Glucose (mg/dL) 162 H 141 H (75-99) mg/dL Microbiology - Last 24 Hours (Table) 05/10/21 08:43 Blood Culture - Final Blood No Growth after 144 hours 05/10/21 08:49 Blood Culture - Final Blood No Growth after 144 hours
--- NOTE | 2021-05-16 15:21 | PN ---
PROGRESS NOTE Patient is seen for followup for acute kidney injury. Renal function has improved significantly. There was concern for possible acute interstitial nephritis. Patient is maintained on steroids, the dose of which has been decreased, and currently on a tapering schedule. Serum creatinine was 9.8 on initial admission. It is currently down to 1.8 mg/dL. Patient was also volume-depleted and is status post IV fluid resuscitation. On examination, blood pressure 174/70, heart rate 54 per minute. She is afebrile. Examination shows patient is awake, alert, oriented x3. EXAMINATION OF THE HEART: S1 and S2. EXAMINATION OF LUNGS: Bilateral breath sounds are heard. ABDOMEN: Soft, nontender, obese. LOWER EXTREMITIES: Examination of lower extremities shows chronic skin changes. Chronic scaling of the skin noted. Ulcer on the left lower leg is not draining at this time. TRUCK STRIKER exam is grossly intact. Labs show sodium 139, potassium 3.7, chloride 110, BUN 49, creatinine 1.8 mg/dL. ASSESSMENT: 1. Acute kidney injury, acute tubular necrosis and possible AIN, maintained on prednisone, status post IV fluid resuscitation. 2. Mild non-gap metabolic acidosis. 3. Cellulitis, lower extremities. 4. Coronary artery disease, status post coronary artery bypass surgery. PLAN: Follow-up labs as outpatient. Continue to decrease prednisone and taper over the next 3 to 4 weeks. No need for kidney biopsy, as renal function has been improving. MMODL / IJN: [id number] / [id number]
[2021-05-16 16:43] LABS: Glucose,Whole Blood 100 mg/dL (75-99)
[2021-05-16 20:13] LABS: Glucose,Whole Blood 129 mg/dL (75-99)
[2021-05-16] MEDS: ATORVASTATIN 10 MG TAB PO SCH (23:02)
[2021-05-16] MEDS: MELATONIN 3 MG TABLET PO SCH (23:02)
[2021-05-17] MEDS: LOPERAMIDE 2 MG CAP PO PRN ×2 (00:09→08:25)
[2021-05-17 06:50] LABS: Glucose,Whole Blood 85 mg/dL (75-99)
[2021-05-17 07:08] VITALS: BP 155/76; PULSE 56; RESP 18; TEMP 97.9
[2021-05-17] MEDS: FLUCONAZOLE 100 MG TAB PO SCH (08:25)
[2021-05-17] MEDS: amLODIPine 5 MG TAB PO SCH (08:25)
[2021-05-17] MEDS: predniSONE 10 MG TAB PO SCH (08:25)
[2021-05-17] MEDS: FAMOTIDINE 20 MG TAB PO SCH (08:25)
[2021-05-17] MEDS: FLUTICASONE 50MCG/SPRAY NASAL 16GM EA NOSTRIL SCH (08:26)
[2021-05-17 10:58] LABS: Glucose,Whole Blood 89 mg/dL (75-99)
[2021-05-17 13:04] LABS: African American GFR (CKD) 57 (>60 ml/min/1.73 sqM); Anion Gap 9 mmol/L; Blood Urea Nitrogen 24 mg/dL (7-17); Carbon Dioxide 27 mmol/L (22-30); Chloride 105 mmol/L (98-107); Glucose 153 mg/dL (74-99); Non-African American GFR(CKD) 49 (>60 ml/min/1.73 sqM); Potassium 3.8 mmol/L (3.5-5.1); Sodium 141 mmol/L (137-145)
== END 2021-05-17 13:01 | disposition home health service (06) | DRG 682 ==
LOC: EC 16:46 → 3SCARD 19:49 → 2SICU 22:20 → 4SSUR 05-13 04:54
PROVIDERS: ADMIT Internal Medicine Geriatric Medicine; ATTEND Internal Medicine Geriatric Medicine
PROC: 5A1945Z Respiratory Ventilation, 24-96 Consecutive Hours (ICD-10-PCS; principal; 2021-05-09)
PROC: 05HM33Z Insertion of Infusion Device into Right Internal Jugular Vein, Percutaneous Approach (ICD-10-PCS; 2021-05-09)
PROC: 0BH17EZ Insertion of Endotracheal Airway into Trachea, Via Natural or Artificial Opening (ICD-10-PCS; 2021-05-09)
PROC: 3E033XZ Introduction of Vasopressor into Peripheral Vein, Percutaneous Approach (ICD-10-PCS; 2021-05-09)
PROC: 03HY32Z Insertion of Monitoring Device into Upper Artery, Percutaneous Approach (ICD-10-PCS; 2021-05-10)
PROC: 4A133B1 Monitoring of Arterial Pressure, Peripheral, Percutaneous Approach (ICD-10-PCS; 2021-05-10)
PROC: 4A133J1 Monitoring of Arterial Pulse, Peripheral, Percutaneous Approach (ICD-10-PCS; 2021-05-10)
DX: N17.0 Acute kidney failure with tubular necrosis (principal); J96.01 Acute respiratory failure with hypoxia; R57.1 Hypovolemic shock; G93.40 Encephalopathy, unspecified; E87.2 Acidosis; L03.115 Cellulitis of right lower limb; L03.116 Cellulitis of left lower limb; L97.922 Non-pressure chronic ulcer of unspecified part of left lower leg with fat layer exposed; Z99.11 Dependence on respirator [ventilator] status; B37.89 Other sites of candidiasis; J98.11 Atelectasis; N10 Acute pyelonephritis; I25.10 Atherosclerotic heart disease of native coronary artery without angina pectoris; E86.1 Hypovolemia; I49.3 Ventricular premature depolarization; I87.309 Chronic venous hypertension (idiopathic) without complications of unspecified lower extremity; J44.9 Chronic obstructive pulmonary disease, unspecified; E78.5 Hyperlipidemia, unspecified; I73.9 Peripheral vascular disease, unspecified; I35.0 Nonrheumatic aortic (valve) stenosis; N18.9 Chronic kidney disease, unspecified; I12.9 Hypertensive chronic kidney disease with stage 1 through stage 4 chronic kidney disease, or unspecified chronic kidney disease; I87.2 Venous insufficiency (chronic) (peripheral); Z20.822 Contact with and (suspected) exposure to COVID-19; M26.629 Arthralgia of temporomandibular joint, unspecified side; Z79.52 Long term (current) use of systemic steroids; Z79.01 Long term (current) use of anticoagulants; Z79.82 Long term (current) use of aspirin; Z87.891 Personal history of nicotine dependence; Z90.710 Acquired absence of both cervix and uterus; Z91.040 Latex allergy status; Z95.1 Presence of aortocoronary bypass graft; Z95.2 Presence of prosthetic heart valve; Z86.718 Personal history of other venous thrombosis and embolism; Z96.651 Presence of right artificial knee joint; Z79.899 Other long term (current) drug therapy; T36.8X5A Adverse effect of other systemic antibiotics, initial encounter; N39.3 Stress incontinence (female) (male); R00.0 Tachycardia, unspecified; R19.7 Diarrhea, unspecified; T50.1X5A Adverse effect of loop [high-ceiling] diuretics, initial encounter; Z88.1 Allergy status to other antibiotic agents; Z88.2 Allergy status to sulfonamides
CPT/HCPCS: 31500; 36415; 36556; 36600; 70450; 71045; 71046; 76770; 80048; 80053; 81001; 82533; 82805; 83605; 83690; 83880; 84145; 84443; 84484; 85025; 85027; 85610; 85652; 85730; 87040; 87070; 87086; 87205; 87324; 87635; 93005; 94002; 94003; 94640; 96360; 99291

== ENCOUNTER 2022-09-12 23:25 | Inpatient (IN) | payer MEDICARE ==
[2022-09-12] MEDS ORDERED: SODIUM CHLORIDE 0.9% 1,000 ML IV ONE (23:45)
[2022-09-12 23:55] LABS: Glucose,Whole Blood 102 mg/dL (70-110)
[2022-09-13] MEDS ORDERED: SODIUM CHLORIDE 0.9% 1,000 ML IV STA (00:25)
[2022-09-13] MEDS ORDERED: methylPREDNISolone SOD SUCCI 125 MG/2 ML VIAL IV STA (00:26)
--- NOTE | 2022-09-13 00:27 | ED ---
Weakness HPI - General Chief complaint: Fall Stated complaint: WEAKNESS Source: family, RN notes reviewed, old records reviewed Mode of arrival: EMS Limitations: no limitations - History of Present Illness Initial comments: This is a 72-year-old female DF for evaluation patient Dese for evaluation of severe weakness multiple recent falls of recurrent falls on blood thinners. D ecreased appetite and states decreased activities of daily living and he believes maybe decreased will to live MD Complaint: generalized weakness, lack of energy, difficulty walking -: days(s) Location: generalized Severity: severe Severity scale (1-10): 9 Quality: numbness Consistency: constant Improves with: none Worsens with: none Context: recent illness, history of similar, depression Associated Symptoms: confusion (Bhavani otherwise), loss of appetite, nausea/vomiting - Related Data Home Medications Medication Instructions Recorded Confirmed Atorvastatin [Lipitor] 10 mg PO HS 10/18/16 05/09/21 Cyclobenzaprine [Flexeril] 10 mg PO TID PRN 10/18/16 05/09/21 Ergocalciferol (Vitamin D2) 50,000 unit PO CARDENAS 10/18/16 05/09/21 [Vitamin D2] Warfarin [Coumadin] 2.5 mg PO WEFR 01/25/17 05/09/21 Warfarin [Coumadin] 5 mg PO SUMOTUTHSA 01/25/17 05/09/21 Aspirin EC [Ecotrin Low Dose] 81 mg PO DAILY 05/01/21 05/09/21 Potassium Gluconate [Potassium 99 mg PO DAILY 05/01/21 05/09/21 Gluconate ER] Previous Rx's Medication Instructions Recorded Menthol-Zinc Oxide Oint 1 applic TOPICAL DAILY PRN #30 05/03/21 [Calmoseptine Ointment] applic Fluconazole [Diflucan] 100 mg PO DAILY #6 tab 05/16/21 Fluticasone Nasal [place] [Flonase 2 spray EA NOSTRIL BID gm 05/16/21 Nasal [place]] Furosemide [Lasix] 40 mg PO DAILY #60 tablet 05/16/21 Gabapentin [Neurontin] 100 mg PO DAILY #3 tab 05/16/21 Gabapentin [Neurontin] 200 mg PO HS #3 cap 05/16/21 HYDROcodone/APAP 10-325MG [[place] 1 tab PO Q6HR PRN #12 cap 05/16/21 10-325] Levofloxacin [Levaquin] 250 mg PO Q48H #6 tab 05/16/21 Loperamide [Imodium] 2 mg PO DAILY PRN #30 cap 05/16/21 Melatonin 6 mg PO HS tablet 05/16/21 predniSONE 0 mg PO DIRECTED #60 tab 05/16/21 Famotidine [Pepcid] 40 mg PO DAILY #30 tab 05/17/21 amLODIPine [Norvasc] 5 mg PO DAILY #30 tab 05/17/21 Allergies Allergy/AdvReac Type Severity Reaction Status Date / Time amoxicillin Allergy Severe Dyspnea Verified 09/12/22 23:38 latex Allergy Severe Anaphylaxis Verified 09/12/22 23:38 nickel Allergy Unknown Rash/Hives Verified 09/12/22 23:38 Sulfa (Sulfonamide Allergy Rash/Hives Verified 09/12/22 23:38 Antibiotics) Review of Systems ROS Statement: Those systems with pertinent positive or pertinent negative responses have been documented in the HPI. ROS Other: All systems not noted in ROS Statement are negative. Past Medical History Past Medical History: Coronary Artery Disease (CAD), COPD, Deep Vein Thrombosis (DVT), Hyperlipidemia, Hypertension, Osteoarthritis (OA), Pneumonia, Skin Disorder, Vascular Disorder Additional Past Medical History / Comment(s): varicose veins. pneumonia 10 yrs ago. occ use knee brace(left) walker and cane. open sores on both legs(largest on left leg) LEAKING FLUID, poor circulation/blockage in both legs. urinary leakage. psoriasis. HX DVT'S IN LEGS. PAD. 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 Aortogram 10/23/16. Rt knee replacement. 11/21/16 PTBA W/ SENT LT. Past Anesthesia/Blood Transfusion Reactions: Motion Sickness Past Psychological History: No Psychological Hx Reported Smoking Status: Never smoker Past Alcohol Use History: Rare Past Drug Use History: None Reported - Past Family History Father Family Medical History: No Reported History Mother Family Medical History: Cancer General Exam Limitations: altered mental status General appearance: alert, anxious, lethargic, in distress Head exam: Present: atraumatic, normocephalic, normal inspection Eye exam: Present: normal appearance, PERRL, EOMI. Absent: scleral icterus, conjunctival injection, periorbital swelling ENT exam: Present: normal exam, mucous membranes moist Neck exam: Present: normal inspection. Absent: tenderness, meningismus, lymphadenopathy Respiratory exam: Present: normal lung sounds bilaterally. Absent: respiratory distress, wheezes, rales, rhonchi, stridor Cardiovascular Exam: Present: regular rate, normal rhythm, normal heart sounds. Absent: systolic murmur, diastolic murmur, rubs, gallop, clicks GI/Abdominal exam: Present: soft, normal bowel sounds. Absent: distended, tenderness, guarding, rebound, rigid Extremities exam: Present: normal inspection, full ROM, normal capillary refill. Absent: tenderness, pedal edema, joint swelling, calf tenderness Back exam: Present: normal inspection Neurological exam: Present: alert, oriented X3, CN II-XII intact Psychiatric exam: Present: normal affect, normal mood Skin exam: Present: warm, dry, intact, normal color. Absent: rash Course Vital Signs 09/12/22 09/12/22 09/12/22 23:31 23:46 23:50 Temperature 97.4 F L Pulse Rate 68 65 Respiratory 14 14 Rate Blood Pressure 79/35 90/25 O2 Sat by Pulse 96 Oximetry - Reevaluation(s) Reevaluation #1: 09/13/22 02:50 Medical record is reviewed Reevaluation #2: 09/13/22 02:50 Patient informed of results and questions answered Reevaluation #3: 09/13/22 02:50 Patient had significant potassium elevation here in the emergency department with EKG changes Reevaluation #4: 09/13/22 02:50 Differential Weakness: Hypoglycemia, shock, sepsis, hyponatremia, anemia, infection, [place], ETOH, adverse medicine reaction, overdose, stroke, this is not meant to be an all-inclusive list. Reevaluation #5: 09/13/22 02:51 Was pt. sent in by a medical professional or institution? @ -no Did you speak to anyone other than the patient for history? @ -no Did you review nursing and triage notes? @ -agree Were old charts reviewed? @ -no Differential Diagnosis? @ -weak EKG interpreted by me (3pts min.)? @ -yes X-rays interpreted by me (1pt min.)? @ -yes CT interpreted by me (1pt min.)? @ -yes U/S interpreted by me (1pt. min.)? @ -no What testing was considered but not performed? (CT, X-rays, U/S, labs)? Why? @ no What meds were considered but not given? Why? @ -[none] Did you discuss the management of the patient with other professionals? @ -no Did you reconcile home meds? @ -[none] Was smoking cessation discussed for >3mins.? @ -[none] Was critical care preformed (if so, how long)? @ -[none] Were there social determinants of health that impacted care today? How? (Homelessness, low income, unemployed, alcoholism, drug addiction, transportation, low edu. Level, literacy, decrease access to med. care, intermediate, rehab)? @ -no Was there de-escalation of care discussed even if they declined? (Discuss DNR or withdrawal of care, Hospice)? @ -no What co-morbidities impacted this encounter? (DM, HTN, Smoking, COPD, CAD, Cancer, CVA, Hep., AIDS, mental health diagnosis, sleep apnea, morbid obesity)? @ -no Was patient admitted / discharged? @ -admit Undiagnosed new problem with uncertain prognosis? @ -[none] Drug Therapy requiring intensive monitoring for toxicity (Heparin, Nitro, Insulin, Cardizem)? @ -[none] Were any procedures done? @ -[none] Diagnosis/symptom? @ -[default] Acute, or Chronic, or Acute on Chronic? @ -[default] Uncomplicated (without systemic symptoms) or Complicated (systemic symptoms)? @ -[default] Side effects of treatment? @ -[none] Exacerbation, Progression, or Severe Exacerbation] @ -[no] Poses a threat to life or bodily function? @ -[no] - Consultations Consultation #1: Spoke with Dr. chopra agrees to admit this patient Consultation #2: Spoke with Dr. Farris for renal failure EKG Findings - EKG Comments: EKG Findings:: EKG is sinus 65 MA 204 QRS 98 QTc 378 Medical Decision Making - Medical Decision Making 72 female DF for severe weakness dehydration and altered mental status found to be profoundly hyperkalemic with acute renal failure, Hardy is placed patient will be admitted to stepdown - Lab Data Result diagrams: 09/12/22 23:41 09/12/22 23:41 Lab Results 09/12/22 09/12/22 09/12/22 Range/Units 23:41 23:41 23:41 WBC 16.0 H (3.8-10.6) k/uL RBC 3.87 (3.80-5.40) m/uL Hgb 11.2 L (11.4-16.0) gm/dL Hct 34.1 (34.0-46.0) % MCV 88.1 (80.0-100.0) fL MCH 29.0 (25.0-35.0) pg MCHC 32.9 (31.0-37.0) g/dL RDW 15.1 (11.5-15.5) % Plt Count 335 (150-450) k/uL MPV 9.2 Neutrophils % 85 % Lymphocytes % 6 % Monocytes % 7 % Eosinophils % 1 % Basophils % 0 % Neutrophils # 13.6 H (1.3-7.7) k/uL Lymphocytes # 0.9 L (1.0-4.8) k/uL Monocytes # 1.2 H (0-1.0) k/uL Eosinophils # 0.1 (0-0.7) k/uL Basophils # 0.0 (0-0.2) k/uL Hypochromasia Slight PT 18.2 H (9.0-12.0) sec INR 1.8 H (<1.2) APTT 31.9 H (22.0-30.0) sec Sodium 124 L (137-145) mmol/L Potassium 7.7 H* (3.5-5.1) mmol/L Chloride 98 (98-107) mmol/L Carbon Dioxide 14 L (22-30) mmol/L Anion Gap 12 mmol/L BUN 97 H (7-17) mg/dL Creatinine 2.99 H (0.52-1.04) mg/dL Est GFR (CKD-EPI)AfAm 17 (>60 ml/min/1.73 sqM) Est GFR (CKD-EPI)NonAf 15 (>60 ml/min/1.73 sqM) Glucose 93 (74-99) mg/dL POC Glucose (mg/dL) (70-110) mg/dL POC Glu Division Field Inspector ID Plasma Lactic Acid Jaron (0.7-2.0) mmol/L Calcium 10.0 (8.4-10.2) mg/dL Phosphorus 6.1 H (2.5-4.5) mg/dL Magnesium 2.1 (1.6-2.3) mg/dL Total Bilirubin 0.4 (0.2-1.3) mg/dL AST 35 (14-36) U/L ALT 30 (4-34) U/L Alkaline Phosphatase 131 H (38-126) U/L Troponin I (0.000-0.034) ng/mL NT-Pro-B Natriuret Pep pg/mL Total Protein 6.3 (6.3-8.2) g/dL Albumin 3.5 (3.5-5.0) g/dL 09/12/22 09/12/22 09/12/22 Range/Units 23:41 23:41 23:41 WBC (3.8-10.6) k/uL RBC (3.80-5.40) m/uL Hgb (11.4-16.0) gm/dL Hct (34.0-46.0) % MCV (80.0-100.0) fL MCH (25.0-35.0) pg MCHC (31.0-37.0) g/dL RDW (11.5-15.5) % Plt Count (150-450) k/uL MPV Neutrophils % % Lymphocytes % % Monocytes % % Eosinophils % % Basophils % % Neutrophils # (1.3-7.7) k/uL Lymphocytes # (1.0-4.8) k/uL Monocytes # (0-1.0) k/uL Eosinophils # (0-0.7) k/uL Basophils # (0-0.2) k/uL Hypochromasia PT (9.0-12.0) sec INR (<1.2) APTT (22.0-30.0) sec Sodium (137-145) mmol/L Potassium (3.5-5.1) mmol/L Chloride (98-107) mmol/L Carbon Dioxide (22-30) mmol/L Anion Gap mmol/L BUN (7-17) mg/dL Creatinine (0.52-1.04) mg/dL Est GFR (CKD-EPI)AfAm (>60 ml/min/1.73 sqM) Est GFR (CKD-EPI)NonAf (>60 ml/min/1.73 sqM) Glucose (74-99) mg/dL POC Glucose (mg/dL) (70-110) mg/dL POC Glu Division Field Inspector ID Plasma Lactic Acid Jarno 1.6 (0.7-2.0) mmol/L Calcium (8.4-10.2) mg/dL Phosphorus (2.5-4.5) mg/dL Magnesium (1.6-2.3) mg/dL Total Bilirubin (0.2-1.3) mg/dL AST (14-36) U/L ALT (4-34) U/L Alkaline Phosphatase (38-126) U/L Troponin I <0.012 (0.000-0.034) ng/mL NT-Pro-B Natriuret Pep 274 pg/mL Total Protein (6.3-8.2) g/dL Albumin (3.5-5.0) g/dL 09/12/22 Range/Units 23:54 WBC (3.8-10.6) k/uL RBC (3.80-5.40) m/uL Hgb (11.4-16.0) gm/dL Hct (34.0-46.0) % MCV (80.0-100.0) fL MCH (25.0-35.0) pg MCHC (31.0-37.0) g/dL RDW (11.5-15.5) % Plt Count (150-450) k/uL MPV Neutrophils % % Lymphocytes % % Monocytes % % Eosinophils % % Basophils % % Neutrophils # (1.3-7.7) k/uL Lymphocytes # (1.0-4.8) k/uL Monocytes # (0-1.0) k/uL Eosinophils # (0-0.7) k/uL Basophils # (0-0.2) k/uL Hypochromasia PT (9.0-12.0) sec INR (<1.2) APTT (22.0-30.0) sec Sodium (137-145) mmol/L Potassium (3.5-5.1) mmol/L Chloride (98-107) mmol/L Carbon Dioxide (22-30) mmol/L Anion Gap mmol/L BUN (7-17) mg/dL Creatinine (0.52-1.04) mg/dL Est GFR (CKD-EPI)AfAm (>60 ml/min/1.73 sqM) Est GFR (CKD-EPI)NonAf (>60 ml/min/1.73 sqM) Glucose (74-99) mg/dL POC Glucose (mg/dL) 102 (70-110) mg/dL POC Glu Division Field Inspector ID Meri Plunkett Plasma Lactic Acid Jaron (0.7-2.0) mmol/L Calcium (8.4-10.2) mg/dL Phosphorus (2.5-4.5) mg/dL Magnesium (1.6-2.3) mg/dL Total Bilirubin (0.2-1.3) mg/dL AST (14-36) U/L ALT (4-34) U/L Alkaline Phosphatase (38-126) U/L Troponin I (0.000-0.034) ng/mL NT-Pro-B Natriuret Pep pg/mL Total Protein (6.3-8.2) g/dL Albumin (3.5-5.0) g/dL - Radiology Data Radiology results: report reviewed (CT brain C-spine chest and pelvis x-ray are negative for acute disease), image reviewed Critical Care Time Critical Care Time: Yes Total Critical Care Time: 61 Disposition Clinical Impression: Fall, Syncope, Hyperkalemia, MIAH (acute kidney injury), Hypotension, Hyponatremia Disposition: ADMITTED IP TO THIS HOSP Condition: Serious Is patient prescribed a controlled substance at d/c from ED?: No Referrals: Odell Lala MD [Primary Care Provider] - 1-2 days Time of Disposition: 03:00
[2022-09-13 00:58] LABS: Basophils % (A) 0 %; Eosinophils # (A) 0.1 k/uL (0-0.7); Eosinophils % (A) 1 %; HCT 34.1 % (34.0-46.0); HGB 11.2 gm/dL (11.4-16.0); Hypochromasia Slight; Lymphocytes # (A) 0.9 k/uL (1.0-4.8); Lymphocytes % (A) 6 %; MCHC 32.9 g/dL (31.0-37.0); MCV 88.1 fL (80.0-100.0); Mean Platelet Volume 9.2; Monocytes # (A) 1.2 k/uL (0-1.0); Monocytes % (A) 7 %; Neutrophils # (A) 13.6 k/uL (1.3-7.7); Neutrophils % (A) 85 %; Platelet Count 335 k/uL (150-450); RBC 3.87 m/uL (3.80-5.40); RDW 15.1 % (11.5-15.5)
[2022-09-13 01:11] LABS: INR 1.8 (<1.2); Partial Thromboplastin Time 31.9 sec (22.0-30.0); Prothrombin Time 18.2 sec (9.0-12.0)
--- NOTE | 2022-09-13 01:33 | CT ---
EXAMINATION TYPE: CT brain cspine wo con DATE OF EXAM: 09/13/2022 COMPARISON: CT brain 05/09/2021 HISTORY: FALL, AMS CT DLP: 1437.1 mGycm Automated exposure control for dose reduction was used. Images of the brain and cervical spine obtained with no contrast. There is cerebral cortical atrophy. This is more noticeable in the frontal lobes. There is patchy hyp odensity in the periventricular white matter. There is no mass effect or midline shift. No sign of in tracranial hemorrhage. The calvarium is intact. The cervical vertebra have normal alignment. There is mild spurring and disc space narrowing at C5-6. Posterior elements are intact. Facet joints are intact. No compression fracture. Prevertebral soft t issues are intact. IMPRESSION: Cerebral atrophy and chronic small vessel ischemia. No significant change compared to the old exam. N o acute intracranial abnormality. Minor degenerative disc change at C5-6. No fracture.
--- NOTE | 2022-09-13 01:34 | XR ---
EXAMINATION TYPE: XR chest 1V DATE OF EXAM: 09/13/2022 COMPARISON: 05/12/2021 HISTORY: Fall. Pain TECHNIQUE: FINDINGS: There is mild coarsening of interstitial markings. No heart failure seen. Heart size is nor mal. No pleural effusion. There are chest leads. IMPRESSION: Mild pulmonary fibrotic changes. No heart failure. No adverse change compared to old exam .
--- NOTE | 2022-09-13 01:36 | XR ---
EXAMINATION TYPE: XR pelvis AP view DATE OF EXAM: 09/13/2022 COMPARISON: NONE HISTORY: Fall. Pain TECHNIQUE: Single view FINDINGS: The pelvic ring is intact. Proximal femurs and hip joints are intact. Sacroiliac joints dionicio ear intact. There is vascular calcification. IMPRESSION: Negative pelvis x-ray exam. No fracture.
[2022-09-13 02:06] LABS: Albumin 3.5 g/dL (3.5-5.0); Magnesium 2.1 mg/dL (1.6-2.3); Phosphorus 6.1 mg/dL (2.5-4.5); Total Bilirubin 0.4 mg/dL (0.2-1.3); Total Protein 6.3 g/dL (6.3-8.2)
[2022-09-13 02:14] LABS: Potassium 7.7 mmol/L (3.5-5.1)
[2022-09-13] MEDS ORDERED: SODIUM BICARB 8.4% 50 ML SYR (1 MEQ/ML) IV STA ×3 (02:14→02:45)
[2022-09-13] MEDS ORDERED: CALCIUM GLUCONATE IN NACL 2 GM in SALINE 1 100ML.BAG IVPB ONE (02:14)
[2022-09-13] MEDS ORDERED: DEXTROSE 50% SYRINGE 50 ML IVP STA ×2 (02:14→02:45)
[2022-09-13] MEDS ORDERED: INSULIN REGULAR 100 UNIT/ML VIAL (IV) IV ONE ×2 (02:14→02:45)
[2022-09-13] MEDS ORDERED: SODIUM CHLORIDE 0.9% 500 ML 500 ML IV STA (02:45)
[2022-09-13 05:17] LABS: Appearance,Urine Clear (Clear); Bacteria,Urine Many /hpf; Bilirubin,Urine Negative (Negative); Blood,Urine Trace (Negative); Color,Urine Light Yellow; Glucose,Urine (UA) Negative (Negative); Hyaline Casts,Urine 6 /lpf (0-2); Ketones,Urine Negative (Negative); Leukocyte Esterase,Urine Small (Negative); Mucus,Urine Rare /hpf; Nitrite,Urine Negative (Negative); Protein,Urine Negative (Negative); RBC,Urine 2 /hpf (0-5); Specific Gravity,Urine 1.011 (1.001-1.035); Squamous Epithelial Cell,Urine 2 /hpf (0-4); Urobilinogen,Urine <2.0 mg/dL (<2.0); WBC,Urine 2 /hpf (0-5)
[2022-09-13] MEDS: DEXTROSE 5% IN WATER 1,000 ML with SODIUM BICARB (1 MEQ/ML) 150 ML IV SCH (12:00)
[2022-09-13 12:54] LABS: Calcium 9.2 mg/dL (8.4-10.2); Potassium 5.7 mmol/L (3.5-5.1)
[2022-09-13] MEDS ORDERED: HEPARIN SODIUM,PORCINE/PF 5,000 UNIT/0.5 ML SYRINGE SQ SCH (13:15)
--- NOTE | 2022-09-13 14:10 | P.NPCON ---
History of Present Illness - Reason for Consult acute renal failure - History of Present Illness Patient is a 72-year-old female with history of hypertension and episode of acute kidney injury in May 2021 with serum creatinine as high as 9.8 mg/dL., Possibly related to acute interstitial nephritis/ATN he adrenal function had improved with serum creatinine down to 1.1 mg/dL on 05/17/2021 Patient is admitted to the hospital as there was concern for possible gangrene on the right heel from the home care nurse. Serum creatinine was 2.9 with a potassium of 7.7 on initial admission. Potassium has improved to 5.7 and creatinine is down to 1.67. A Hardy catheter was placed in the ER and 2000 mL of urine as documented. It is unclear if this was for the whole shift or when the Hardy was initially inserted. Blood pressure was low with systolic in the 80s but currently improved to about 120-1 30 mmHg. Review of Systems As per HPI, other systems negative Past Medical History Past Medical History: Coronary Artery Disease (CAD), COPD, Deep Vein Thrombosis (DVT), Hyperlipidemia, Hypertension, Osteoarthritis (OA), Pneumonia, Skin Disorder, Vascular Disorder Additional Past Medical History / Comment(s): varicose veins. pneumonia 10 yrs ago. occ use knee brace(left) walker and cane. open sores on both legs(largest on left leg) LEAKING FLUID, poor circulation/blockage in both legs. urinary leakage. psoriasis. HX DVT'S IN LEGS. PAD. 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 Aortogram 10/23/16. Rt knee replacement. 11/21/16 PTBA W/ SENT LT. Past Anesthesia/Blood Transfusion Reactions: Motion Sickness Past Psychological History: No Psychological Hx Reported Smoking Status: Never smoker Past Alcohol Use History: Rare Past Drug Use History: None Reported - Past Family History Father Family Medical History: No Reported History Mother Family Medical History: Cancer Medications and Allergies Home Medications Medication Instructions Recorded Confirmed Type Atorvastatin [Lipitor] 10 mg PO HS 10/18/16 09/13/22 History Cyclobenzaprine [Flexeril] 10 mg PO TID PRN 10/18/16 09/13/22 History Ergocalciferol (Vitamin D2) 50,000 unit PO CARDENAS 10/18/16 09/13/22 History [Vitamin D2] Warfarin [Coumadin] 2.5 mg PO WEFR 01/25/17 09/13/22 History Warfarin [Coumadin] 5 mg PO SUMOTUTHSA 01/25/17 09/13/22 History Aspirin EC [Ecotrin Low Dose] 81 mg PO DAILY 05/01/21 09/13/22 History Gabapentin [Neurontin] 200 mg PO HS #3 cap 05/16/21 09/13/22 Rx HYDROcodone/APAP 10-325MG [[place] 1 tab PO Q6HR PRN #12 cap 05/16/21 09/13/22 Rx 10-325] Enalapril Maleate [Vasotec] 20 mg PO DAILY 09/13/22 09/13/22 History Gabapentin [Neurontin] 100 mg PO QAM 09/13/22 09/13/22 History Metoprolol Tartrate [Lopressor] 50 mg PO BID-W/MEALS 09/13/22 09/13/22 History Allergies Allergy/AdvReac Type Severity Reaction Status Date / Time amoxicillin Allergy Severe Dyspnea Verified 09/13/22 13:12 latex Allergy Severe Anaphylaxis Verified 09/13/22 13:12 nickel Allergy Unknown Rash/Hives Verified 09/13/22 13:12 Sulfa (Sulfonamide Allergy Rash/Hives Verified 09/13/22 13:12 Antibiotics) Physical Exam Vitals: Vital Signs Temp Pulse Pulse Resp BP BP Pulse Ox 09/13/22 11:09 101 H 09/13/22 11:06 98.1 F 101 H 16 134/54 100 09/13/22 10:32 97.8 F 82 18 128/74 97 09/13/22 09:30 104 H 16 116/52 96 09/13/22 09:00 103 H 16 87/67 95 09/13/22 08:30 103 H 16 120/64 95 09/13/22 08:00 103 H 16 108/60 96 09/13/22 07:30 103 H 18 99/59 96 09/13/22 07:00 104 H 12 112/66 95 09/13/22 06:45 101 H 12 111/51 96 09/13/22 06:30 100 12 100/54 95 09/13/22 06:15 102 H 14 95/54 95 09/13/22 06:00 100 14 99/57 95 09/13/22 05:45 100 12 102/70 95 09/13/22 05:30 103 H 14 89/53 99 09/13/22 05:15 96 16 102/57 98 09/13/22 05:00 95 14 103/59 98 09/13/22 04:45 101 H 20 100/68 99 09/13/22 04:30 98 18 100/48 99 09/13/22 04:15 92 12 77/52 100 09/13/22 04:00 94 14 92/45 99 09/13/22 03:45 90 12 92/45 99 09/13/22 03:30 88 12 104/40 98 09/13/22 03:00 86 16 91/35 96 09/13/22 02:45 80 14 107/29 95 09/13/22 02:30 77 19 83/55 96 09/13/22 02:15 75 12 81/53 98 09/13/22 02:00 67 14 89/74 99 09/13/22 01:45 74 14 78/61 95 09/13/22 01:30 73 14 95/65 100 09/13/22 01:15 74 14 116/43 100 09/12/22 23:50 96 09/12/22 23:46 65 14 90/25 09/12/22 23:31 97.4 F L 68 14 79/35 Intake and Output 09/12/22 09/13/22 09/13/22 22:59 06:59 14:59 Intake Total 2700 Output Total 1999 Balance 700 Intake: Intake, IV Titration 2700 Amount Calcium Gluconate in NaCl 100 2 gm In Saline 1 100ml. bag @ 100 mls/hr IVPB ONCE ONE Rx#:[id number] Sodium Chloride 0.9% 1, 1000 000 ml @ 999 mls/hr IV . Q1H1M ONE Rx#:[id number] Sodium Chloride 0.9% 1, 1000 000 ml @ 999 mls/hr IV . Q1H1M STA Rx#:[id number] Sodium Chloride 0.9% 500 500 ml 500 ml @ 999 mls/hr IV .Q31M STA Rx#:[id number] cefTRIAXone 2 gm In 50 Sodium Chloride 0.9% 50 ml @ 100 mls/hr IVPB ONCE ONE Rx#:[id number] cefTRIAXone 2 gm In 50 Sodium Chloride 0.9% 50 ml @ 100 mls/hr IVPB ONCE STA Rx#:[id number] Oral 0 Output: Urine 2000 Uretheral (Hardy) 1300 Other: Voiding Method Indwelling Catheter Weight 108.409 kg Patient is awake, comfortable, no acute distress Alert oriented 3 Examination of the heart S1 and S2 Examination lungs bilateral breath sounds are heard Abdomen is soft nontender Examination lower extremity shows no significant edema. Right heel discoloration and necrotic area noted REGISTERED RADIOGRAPHER exam grossly intact Results - Lab Results Most recent lab results Calcium 9.2 mg/dL (8.4-10.2) 09/13/22 11:31 Phosphorus 6.1 mg/dL (2.5-4.5) H 09/12/22 23:41 Magnesium 2.1 mg/dL (1.6-2.3) 09/12/22 23:41 09/12/22 23:41 09/13/22 11:31 Assessment and Plan Assessment: 1. Acute kidney injury, ATN currently nonoliguric. Possible urine retention as well with indwelling Hardy catheter presently. Renal function is improving. UA is quite benign. 2. Non-gap metabolic acidosis associated with acute kidney injury, currently improving 3. Hyperkalemia associated with acute kidney injury, urine retention, metabolic acidosis and use of JANENE inhibitor as prior to admission 4. Right heel ulcer, necrotic 5. Hypovolemic hyponatremia currently improved Plan: Add IV bicarb Continue with Hardy catheter Repeat labs in a.m. and today Continue to hold off on JANENE inhibitor's Check ultrasound of the kidneys Thank you for the consultation. We will continue to follow the patient with you during her hospitalization
--- NOTE | 2022-09-13 14:46 | US ---
EXAMINATION TYPE: US kidneys/renal and bladder DATE OF EXAM: 09/13/2022 COMPARISON: 05/10/2021 CLINICAL HISTORY: 72-year-old female MIAH. TECHNIQUE: Multiple sonographic images of the kidneys and bladder are obtained. FINDINGS: Parimutuel Cashier notes: Pending EC admit on obese patient who is laying on her left side, sleeping and stacey l not move. EXAM MEASUREMENTS: Right Kidney: 9.4 x 4.0 x 4.5 cm Left Kidney: not seen Right Kidney: No hydronephrosis or masses seen Left Kidney: unable to view due to patient laying on left side and there is no one available to help move patient Bladder: not seen IMPRESSION: 1. Unable to assess the left kidney as the patient was lying on her left side. If visualization is de sired, we will need assistance to move the patient. 2. No hydronephrosis on the right. 3. Unable to adequately visualize the bladder due to patient limitations.
[2022-09-13 15:33] LABS: Basophils % (A) 0 %; Eosinophils % (A) 0 %; HCT 33.4 % (34.0-46.0); HGB 10.9 gm/dL (11.4-16.0); Hypochromasia Slight; Lymphocytes # (A) 0.5 k/uL (1.0-4.8); Lymphocytes % (A) 3 %; MCH 28.5 pg (25.0-35.0); MCHC 32.8 g/dL (31.0-37.0); Mean Platelet Volume 9.9; Monocytes # (A) 0.1 k/uL (0-1.0); Monocytes % (A) 1 %; Neutrophils # (A) 13.7 k/uL (1.3-7.7); Neutrophils % (A) 95 %; Platelet Count 296 k/uL (150-450); RBC 3.84 m/uL (3.80-5.40); RDW 15.1 % (11.5-15.5); WBC 14.4 k/uL (3.8-10.6)
--- NOTE | 2022-09-13 16:29 | HP ---
HISTORY AND PHYSICAL CHIEF COMPLAINT: Fall, change in mental status, hyperkalemia, and multiple medical issues. HISTORY OF PRESENT ILLNESS: This is a 72-year-old woman with a past medical history of multiple medical problems including CAD, COPD, and DVT, being followed by Dr. Lala in the outpatient, who is complaining of fall. The patient also had severe weakness and multiple falls. The patient also had infection in the left leg. The patient was found to have hyperkalemia and renal failure also. Potassium was noted to be 7.7. After admission, it was 5.8. Creatinine is 2.9. Currently, the patient is stuporous, unable to give a coherent history. Most of the history is taken from discussion with the staff and review of the chart. The CT of the brain showed some atrophy. PAST MEDICAL HISTORY: Reviewed includes CAD and COPD. The rest of the history and the rest of the chart are reviewed. HOME MEDICATIONS: They are not confirmed yet, include Norvasc. Doses and the rest of the medications are reviewed. ALLERGIES: Reviewed include amoxicillin. FAMILY HISTORY: Could not be taken because of change in mental status. SOCIAL HISTORY: Could not be taken because of change in mental status. REVIEW OF SYSTEMS: Could not be taken because of change in mental status. PHYSICAL EXAMINATION: VITAL SIGNS: Pulse 101, blood pressure 135/82, respirations 16. HEENT: Conjunctivae are normal. NECK: No jugular venous distention. CARDIOVASCULAR: S1 and S2 muffled. RESPIRATORY: Breath sounds diminished at the bases. Few scattered rhonchi and crackles. ABDOMEN: Soft and nontender. LEGS: Bilateral led edema. Significant ulceration in the left leg also present. NERVOUS SYSTEM: Could not be examined. Diffusely weak. SKIN: No ulcers or rashes. JOINTS: No active deforming arthropathy. LABORATORY DATA: Reviewed personally. IMAGING STUDIES: Chest x-ray reviewed personally. CT scan reviewed personally. Pelvic x-ray reviewed personally. ASSESSMENT: 1. Change in mental status, possibly left leg cellulitis/abscess with sepsis and metabolic encephalopathy. 2. Acute renal failure. 3. Severe hyperkalemia. 4. Increased white blood cell count. 5. History of coronary artery disease. 6. Chronic obstructive pulmonary disease. 7. History of deep venous thrombosis. 8. Hypertension. 9. Hyperlipidemia. 10.Multiple medical issues. RECOMMENDATIONS: This is a 72-year-old woman, who presented with multiple complex medical issues. We will monitor the patient closely, initiate broad-spectrum IV antibiotics, Infectious Disease evaluation. Otherwise, I would resume the home medications also. Closely follow with Infectious Disease, Pulmonary, and Neurology. Overall prognosis is guarded because of multiple complex medical issues. Further recommendations to follow. See orders for the details. MMODL / IJN: [id number] /
--- NOTE | 2022-09-13 16:30 | P.CNPUL ---
History of Present Illness Consult date: 09/13/22 Requesting physician: Fredy Barnes Reason for consult: dyspnea Chief complaint: Weakness, dehydration, falls History of present illness: This 72-year-old female patient who follows with Dr. Lala as her primary care provider. She has a history of coronary artery disease with previous coronary artery bypass grafting, valve replacement, COPD, hypertension, hyperlipidemia, previous ventilatory dependent respiratory failure. Shows has ongoing issues with chronic venous stasis and lower extremity wounds and follows at the wound Center for the same. She was brought into the emergency room with complaints of increasing weakness, falls, dehydration. This x-ray reveals some mild pulmonary fibrotic changes. No heart failure. No change compared to previous of May 2021. She is seen today in consultation in the emergency department. Sitting up in a stretcher. Awake and alert in no acute distress. Maintaining O2 saturation up to 100% on 2 L/m per nasal cannula. She's afebrile. Hemodynamically stable. White count 14.4. Hemoglobin 10.9. Platelets 296. Sodium 134. Potassium 5.7. BUN 71 creatinine 1.67. Urinalysis shows many bacteria. She is initiated on ceftriaxone. D5W with 3 A of bicarbonate 100 MLS per hour. Heparin for DVT prophylaxis. Review of Systems REVIEW OF SYSTEMS: CONSTITUTIONAL: Positive for generalized weakness, falls, dehydration. Denies any recent significant weight loss or weight gain. EYES: Denies change in vision. EARS, NOSE, MOUTH, THROAT: Denies headaches, denies sore throat. CARDIOVASCULAR: Denies chest pain, palpitations or syncopal episodes. RESPIRATORY: Denies shortness of breath, cough, congestion or hemoptysis. GASTROINTESTINAL: Denies change in appetite, denies abdominal pain GENITOURINARY: Denies hematuria, denies infections. MUSKULOSKELETAL: Denies pain, denies swelling. INTEGUMENTARY: Denies rash, denies eczema. NEUROLOGICAL: Denies recent memory loss, no recent seizure activity. PSYCHIATRIC: Denies anxiety, denies depression. HEMATOLOGIC/LYMPHATIC: Denies anemia, denies enlarged lymph nodes. Past Medical History Past Medical History: Coronary Artery Disease (CAD), COPD, Deep Vein Thrombosis (DVT), Hyperlipidemia, Hypertension, Osteoarthritis (OA), Pneumonia, Skin Disorder, Vascular Disorder Additional Past Medical History / Comment(s): varicose veins. pneumonia 10 yrs ago. occ use knee brace(left) walker and cane. open sores on both legs(largest on left leg) LEAKING FLUID, poor circulation/blockage in both legs. urinary leakage. psoriasis. HX DVT'S IN LEGS. PAD. 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 Aortogram 10/23/16. Rt knee replacement. 11/21/16 PTBA W/ SENT LT. Past Anesthesia/Blood Transfusion Reactions: Motion Sickness Past Psychological History: No Psychological Hx Reported Smoking Status: Never smoker Past Alcohol Use History: Rare Past Drug Use History: None Reported - Past Family History Father Family Medical History: No Reported History Mother Family Medical History: Cancer Medications and Allergies Home Medications Medication Instructions Recorded Confirmed Type Atorvastatin [Lipitor] 10 mg PO HS 10/18/16 09/13/22 History Cyclobenzaprine [Flexeril] 10 mg PO TID PRN 10/18/16 09/13/22 History Ergocalciferol (Vitamin D2) 50,000 unit PO CARDENAS 10/18/16 09/13/22 History [Vitamin D2] Warfarin [Coumadin] 2.5 mg PO WEFR 01/25/17 09/13/22 History Warfarin [Coumadin] 5 mg PO SUMOTUTHSA 01/25/17 09/13/22 History Aspirin EC [Ecotrin Low Dose] 81 mg PO DAILY 05/01/21 09/13/22 History Gabapentin [Neurontin] 200 mg PO HS #3 cap 05/16/21 09/13/22 Rx HYDROcodone/APAP 10-325MG [Armstrong 1 tab PO Q6HR PRN #12 cap 05/16/21 09/13/22 Rx 10-325] Enalapril Maleate [Vasotec] 20 mg PO DAILY 09/13/22 09/13/22 History Gabapentin [Neurontin] 100 mg PO QAM 09/13/22 09/13/22 History Metoprolol Tartrate [Lopressor] 50 mg PO BID-W/MEALS 09/13/22 09/13/22 History Allergies Allergy/AdvReac Type Severity Reaction Status Date / Time amoxicillin Allergy Severe Dyspnea Verified 09/13/22 13:12 latex Allergy Severe Anaphylaxis Verified 09/13/22 13:12 nickel Allergy Unknown Rash/Hives Verified 09/13/22 13:12 Sulfa (Sulfonamide Allergy Rash/Hives Verified 09/13/22 13:12 Antibiotics) Physical Exam Vitals: Vital Signs Temp Pulse Pulse Resp BP BP Pulse Ox 09/13/22 15:12 98.5 F 101 H 18 122/67 100 09/13/22 14:07 101 H 09/13/22 11:09 101 H 09/13/22 11:06 98.1 F 101 H 16 134/54 100 09/13/22 10:32 97.8 F 82 18 128/74 97 09/13/22 09:30 104 H 16 116/52 96 09/13/22 09:00 103 H 16 87/67 95 09/13/22 08:30 103 H 16 120/64 95 09/13/22 08:00 103 H 16 108/60 96 09/13/22 07:30 103 H 18 99/59 96 09/13/22 07:00 104 H 12 112/66 95 09/13/22 06:45 101 H 12 111/51 96 09/13/22 06:30 100 12 100/54 95 09/13/22 06:15 102 H 14 95/54 95 09/13/22 06:00 100 14 99/57 95 09/13/22 05:45 100 12 102/70 95 09/13/22 05:30 103 H 14 89/53 99 09/13/22 05:15 96 16 102/57 98 09/13/22 05:00 95 14 103/59 98 09/13/22 04:45 101 H 20 100/68 99 09/13/22 04:30 98 18 100/48 99 09/13/22 04:15 92 12 77/52 100 09/13/22 04:00 94 14 92/45 99 09/13/22 03:45 90 12 92/45 99 09/13/22 03:30 88 12 104/40 98 09/13/22 03:00 86 16 91/35 96 09/13/22 02:45 80 14 107/29 95 09/13/22 02:30 77 19 83/55 96 09/13/22 02:15 75 12 81/53 98 09/13/22 02:00 67 14 89/74 99 09/13/22 01:45 74 14 78/61 95 09/13/22 01:30 73 14 95/65 100 09/13/22 01:15 74 14 116/43 100 09/12/22 23:50 96 09/12/22 23:46 65 14 90/25 09/12/22 23:31 97.4 F L 68 14 79/35 Intake and Output 09/13/22 09/13/22 09/13/22 06:59 14:59 22:59 Intake Total 2700 Output Total 2000 1200 Balance 700 -1200 Intake: Intake, IV Titration 2700 Amount Calcium Gluconate in NaCl 100 2 gm In Saline 1 100ml. bag @ 100 mls/hr IVPB ONCE ONE Rx#:[id number] Sodium Chloride 0.9% 1, 1000 000 ml @ 999 mls/hr IV . Q1H1M ONE Rx#:[id number] Sodium Chloride 0.9% 1, 1000 000 ml @ 999 mls/hr IV . Q1H1M STA Rx#:[id number] Sodium Chloride 0.9% 500 500 ml 500 ml @ 999 mls/hr IV .Q31M STA Rx#:[id number] cefTRIAXone 2 gm In 50 Sodium Chloride 0.9% 50 ml @ 100 mls/hr IVPB ONCE ONE Rx#:[id number] cefTRIAXone 2 gm In 50 Sodium Chloride 0.9% 50 ml @ 100 mls/hr IVPB ONCE STA Rx#:[id number] Oral 0 Output: Urine 1999 1199 Uretheral (Hardy) 1300 Other: Voiding Method Indwelling Catheter Weight 108.409 kg GENERAL EXAM: Alert, pleasant 72-year-old female, on 2 L nasal cannula, comfortable in no apparent distress. HEAD: Normocephalic. EYES: Normal reaction of pupils, equal size. NOSE: Clear with pink turbinates. THROAT: No erythema or exudates. NECK: No masses, no JVD. CHEST: No chest wall deformity. LUNGS: Equal air entry with no crackles, wheeze, rhonchi or dullness. CVS: S1 and S2 normal with no audible murmur, regular rhythm. ABDOMEN: No hepatosplenomegaly, normal bowel sounds, no guarding or rigidity. SPINE: No scoliosis or deformity SKIN: Chronic venous stasis. Open wound on the left posterior calf CENTRAL NERVOUS SYSTEM: No focal deficits, tone is normal in all 4 extremities. EXTREMITIES: Open wound to left posterior calf. Chronic changes of venous stasis. There is 2+ peripheral edema. No clubbing, no cyanosis. Peripheral pulses are intact. Results - Laboratory Findings CBC and BMP: 09/13/22 14:09 09/13/22 11:31 PT/INR, D-dimer PT 18.2 sec (9.0-12.0) H 09/12/22 23:41 INR 1.8 (<1.2) H 09/12/22 23:41 Abnormal lab findings: Abnormal Labs 09/12/22 09/12/22 09/12/22 23:41 23:41 23:41 WBC 16.0 H Hgb 11.2 L Hct Neutrophils # 13.6 H Lymphocytes # 0.9 L Monocytes # 1.2 H PT 18.2 H INR 1.8 H APTT 31.9 H Sodium 124 L Potassium 7.7 H* Carbon Dioxide 14 L BUN 97 H Creatinine 2.99 H Phosphorus 6.1 H Alkaline Phosphatase 131 H Urine Blood Ur Leukocyte Esterase Urine Bacteria Hyaline Casts Urine Mucus 09/13/22 09/13/22 09/13/22 03:04 03:04 11:31 WBC Hgb Hct Neutrophils # Lymphocytes # Monocytes # PT INR APTT Sodium 134 L Potassium 5.8 H 5.7 H Carbon Dioxide 21 L BUN 71 H Creatinine 1.67 H Phosphorus Alkaline Phosphatase Urine Blood Trace H Ur Leukocyte Esterase Small H Urine Bacteria Many H Hyaline Casts 6 H Urine Mucus Rare H 09/13/22 14:09 WBC 14.4 H Hgb 10.9 L Hct 33.4 L Neutrophils # 13.7 H Lymphocytes # 0.5 L Monocytes # PT INR APTT Sodium Potassium Carbon Dioxide BUN Creatinine Phosphorus Alkaline Phosphatase Urine Blood Ur Leukocyte Esterase Urine Bacteria Hyaline Casts Urine Mucus - Diagnostic Findings Chest x-ray: image reviewed Assessment and Plan Assessment: Generalized weakness and falls secondary to dehydration Acute on chronic renal failure secondary to above Acute on chronic wound to the lower extremities currently without open wound of the left posterior and was to be seen in the [facility] tomorrow Coronary disease with previous coronary artery bypass grafting Previous valve replacement History of DVT, anticoagulated with warfarin Hyperlipidemia Hypertension Previous history of acute hypoxemic respiratory failure requiring intubation mechanical ventilatory support in May 2021 Previous hospitalizations for left lower extremity cellulitis History of urinary tract infections Hyperlipidemia Hypertension Obesity Poor functional performance based on the above-mentioned multiple comorbidities Plan: The patient was seen and evaluated Chest x-ray, labs and medications reviewed Obtain cultures of the wound is a left calf Initiate cefepime and daptomycin Await blood and wound culture results Nephrology is consulted Titrate the FiO2 as tolerated We will continue to follow and make further recommendations based on her clinical status I have personally seen and examined the patient, performed the documentation and the assessment and plan as written. Number of minutes spent on the visit: 20. This is a joint evaluation that was done along with the nurse practitioner. The patient presented to us with sepsis, lower extremity cellulitis, lower extremity wounds patient on the left posterior leg area, acute kidney injury and the patient is currently stable on 2 L of Oxymizer nasal cannula. We'll keep the patient was recommended to bodies. We'll consult with services. She is going to be started on cefepime and daptomycin. Obtain cultures. Consult infectious disease. Consult nephrology. Will follow. Overall respiratory status is stable.
[2022-09-13] MEDS ORDERED: IPRATROPIUM-ALBUTEROL 3 ML NEB INHALATION PRN (16:36)
[2022-09-13 20:17] LABS: Glucose,Whole Blood 170 mg/dL (70-110)
[2022-09-13] MEDS: CEFEPIME 1 GM in SODIUM CHLORIDE 0.9% 50 ML IVPB SCH (20:18)
[2022-09-13] MEDS ORDERED: CYCLOBENZAPRINE 10 MG TAB PO PRN (21:19)
[2022-09-13] MEDS: GABAPENTIN 100 MG CAP PO SCH (21:34)
--- NOTE | 2022-09-13 21:50 | P.CONS ---
History of Present Illness - Reason for Consult Consult date: 09/13/22 Sepsis Requesting physician: Princess Waggoner - Chief Complaint Weakness and feeling well x few days - History of Present Illness Patient is a 72-year-old female with multiple comorbidities including hypertension hyperlipidemia coronary bypass grafting COPD and cardiac valve replacement however patient also have bilateral lower extremity venous stasis ulcer patient has been brought into the hospital for evaluation of generalized weakness decreased oral intake and not feeling well symptom has been going on for few days before presentation to the hospital patient on arrival to the ER was afebrile and you for that has been going subsequently patient did not have significant hypoxemia patient did have a white count of 16,000 with a left shift did have elevated BUN and creatinine level exams are normal urine has been negative patient chest x-ray mild pulmonary fibrotic changes no heart failure no change compared to the previous patient did have a abdominal bladder ultrasound unable to adequately visualize the bladder no hydronephrosis on the right patien t did have wound to the right posterior leg that has been culture concerning for cellulitis patient was started on daptomycin and cefepime infectious disease was consulted for further management of antibiotic therapy patient herself elevated good historian she has been complaining of wound has been there for a while some pain but unable to quantify it any further so most information has been obtained from review the chart Review of Systems Positive point has been mentioned in the HPI rest of the systems are negative Past Medical History Past Medical History: Coronary Artery Disease (CAD), COPD, Deep Vein Thrombosis (DVT), Hyperlipidemia, Hypertension, Osteoarthritis (OA), Pneumonia, Skin Disorder, Vascular Disorder Additional Past Medical History / Comment(s): varicose veins. pneumonia 10 yrs ago. occ use knee brace(left) walker and cane. open sores on both legs(largest on left leg) LEAKING FLUID, poor circulation/blockage in both legs. urinary leakage. psoriasis. HX DVT'S IN LEGS. PAD. 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 Aortogram 10/23/16. Rt knee replacement. 11/21/16 PTBA W/ SENT LT. Past Anesthesia/Blood Transfusion Reactions: Motion Sickness Past Psychological History: No Psychological Hx Reported Smoking Status: Never smoker Past Alcohol Use History: Rare Past Drug Use History: None Reported - Past Family History Father Family Medical History: No Reported History Mother Family Medical History: Cancer Medications and Allergies Home Medications Medication Instructions Recorded Confirmed Type Atorvastatin [Lipitor] 10 mg PO HS 10/18/16 09/13/22 History Cyclobenzaprine [Flexeril] 10 mg PO TID PRN 10/18/16 09/13/22 History Ergocalciferol (Vitamin D2) 50,000 unit PO CARDENAS 10/18/16 09/13/22 History [Vitamin D2] Warfarin [Coumadin] 2.5 mg PO WEFR 01/25/17 09/13/22 History Warfarin [Coumadin] 5 mg PO SUMOTUTHSA 01/25/17 09/13/22 History Aspirin EC [Ecotrin Low Dose] 81 mg PO DAILY 05/01/21 09/13/22 History Metoprolol Tartrate [Lopressor] 50 mg PO BID-W/MEALS 09/13/22 09/13/22 History Cefepime [Maxipime] 2 gm IVPB Q8H 14 Days #42 each 09/18/22 Rx Cholestyramine (with Sugar) 4 gm PO BID 7 Days #14 packet 09/18/22 Rx [Questran] Famotidine [Pepcid] 20 mg PO BID tab 09/18/22 Rx Gabapentin [Neurontin] 100 mg PO QAM #2 cap 09/18/22 Rx Gabapentin [Neurontin] 200 mg PO HS #3 cap 09/18/22 Rx HYDROcodone/APAP 10-325MG [Gregory 1 tab PO Q6HR PRN #4 cap 09/18/22 Rx 10-325] Ipratropium-Albuterol Nebulize 3 ml INHALATION RT-Q2H PRN each 09/18/22 Rx [Duoneb 0.5 mg-3 mg/3 ml Soln] Loperamide [Imodium] 2 mg PO QID 7 Days #28 capsule 09/18/22 Rx Tamsulosin [Flomax] 0.4 mg PO PC-SUPPER cap 09/18/22 Rx Allergies Allergy/AdvReac Type Severity Reaction Status Date / Time amoxicillin Allergy Severe Dyspnea Verified 09/13/22 13:12 latex Allergy Severe Anaphylaxis Verified 09/13/22 13:12 nickel Allergy Unknown Rash/Hives Verified 09/13/22 13:12 Sulfa (Sulfonamide Allergy Rash/Hives Verified 09/13/22 13:12 Antibiotics) Physical Exam Vitals: Vital Signs Temp Pulse Pulse Resp BP BP Pulse Ox 09/13/22 11:09 101 H 09/13/22 11:06 98.1 F 101 H 16 134/54 100 09/13/22 10:32 97.8 F 82 18 128/74 97 09/13/22 09:30 104 H 16 116/52 96 09/13/22 09:00 103 H 16 87/67 95 09/13/22 08:30 103 H 16 120/64 95 09/13/22 08:00 103 H 16 108/60 96 09/13/22 07:30 103 H 18 99/59 96 09/13/22 07:00 104 H 12 112/66 95 09/13/22 06:45 101 H 12 111/51 96 09/13/22 06:30 100 12 100/54 95 09/13/22 06:15 102 H 14 95/54 95 09/13/22 06:00 100 14 99/57 95 09/13/22 05:45 100 12 102/70 95 09/13/22 05:30 103 H 14 89/53 99 09/13/22 05:15 96 16 102/57 98 09/13/22 05:00 95 14 103/59 98 09/13/22 04:45 101 H 20 100/68 99 09/13/22 04:30 98 18 100/48 99 09/13/22 04:15 92 12 77/52 100 09/13/22 04:00 94 14 92/45 99 09/13/22 03:45 90 12 92/45 99 09/13/22 03:30 88 12 104/40 98 09/13/22 03:00 86 16 91/35 96 09/13/22 02:45 80 14 107/29 95 09/13/22 02:30 77 19 83/55 96 09/13/22 02:15 75 12 81/53 98 09/13/22 02:00 67 14 89/74 99 09/13/22 01:45 74 14 78/61 95 09/13/22 01:30 73 14 95/65 100 09/13/22 01:15 74 14 116/43 100 09/12/22 23:50 96 09/12/22 23:46 65 14 90/25 09/12/22 23:31 97.4 F L 68 14 79/35 Intake and Output 09/12/22 09/13/22 09/13/22 22:59 06:59 14:59 Intake Total 2700 Output Total 2000 Balance 700 Intake: Intake, IV Titration 2700 Amount Calcium Gluconate in NaCl 100 2 gm In Saline 1 100ml. bag @ 100 mls/hr IVPB ONCE ONE Rx#:[id number] Sodium Chloride 0.9% 1, 1000 000 ml @ 999 mls/hr IV . Q1H1M ONE Rx#:[id number] Sodium Chloride 0.9% 1, 1000 000 ml @ 999 mls/hr IV . Q1H1M STA Rx#:[id number] Sodium Chloride 0.9% 500 500 ml 500 ml @ 999 mls/hr IV .Q31M STA Rx#:[id number] cefTRIAXone 2 gm In 50 Sodium Chloride 0.9% 50 ml @ 100 mls/hr IVPB ONCE ONE Rx#:[id number] cefTRIAXone 2 gm In 50 Sodium Chloride 0.9% 50 ml @ 100 mls/hr IVPB ONCE STA Rx#:[id number] Oral 0 Output: Urine 2000 Uretheral (Hardy) 1300 Other: Voiding Method Indwelling Catheter Weight 108.409 kg GENERAL DESCRIPTION: An elderly female lying in bed, no distress. No tachypnea or accessory muscle of respiration use. HEENT: Shows Pallor , no scleral icterus. Oral mucous membrane is dry. No pharyngeal erythema or thrush NECK: Trachea central, no thyromegaly. LUNGS: Unlabored breathing. Decreased breath sound at the base. No wheeze or crackle. HEART: S1, S2, regular rate and rhythm. No loud murmur ABDOMEN: Soft, no tenderness , guarding or rigidity, no organomegaly EXTREMITIES: Diffuse swelling of bilateral lower extremity left posterior leg did have a wound with slough tissue surrounding swelling and redness no foul- smelling drainage. SKIN: No rash, no masses palpable. NEUROLOGICAL: The patient is awake, alert, oriented x3, mood and affect normal. Results CBC & Chem 7: 09/17/22 06:20 09/17/22 06:20 Labs: Abnormal Lab Results - Last 24 Hours (Table) 09/12/22 09/12/22 09/12/22 Range/Units 23:41 23:41 23:41 WBC 16.0 H (3.8-10.6) k/uL Hgb 11.2 L (11.4-16.0) gm/dL Neutrophils # 13.6 H (1.3-7.7) k/uL Lymphocytes # 0.9 L (1.0-4.8) k/uL Monocytes # 1.2 H (0-1.0) k/uL PT 18.2 H (9.0-12.0) sec INR 1.8 H (<1.2) APTT 31.9 H (22.0-30.0) sec Sodium 124 L (137-145) mmol/L Potassium 7.7 H* (3.5-5.1) mmol/L Carbon Dioxide 14 L (22-30) mmol/L BUN 97 H (7-17) mg/dL Creatinine 2.99 H (0.52-1.04) mg/dL Phosphorus 6.1 H (2.5-4.5) mg/dL Alkaline Phosphatase 131 H (38-126) U/L Urine Blood (Negative) Ur Leukocyte Esterase (Negative) Urine Bacteria (None) /hpf Hyaline Casts (0-2) /lpf Urine Mucus (None) /hpf 09/13/22 09/13/22 09/13/22 Range/Units 03:04 03:04 11:31 WBC (3.8-10.6) k/uL Hgb (11.4-16.0) gm/dL Neutrophils # (1.3-7.7) k/uL Lymphocytes # (1.0-4.8) k/uL Monocytes # (0-1.0) k/uL PT (9.0-12.0) sec INR (<1.2) APTT (22.0-30.0) sec Sodium 134 L (137-145) mmol/L Potassium 5.8 H 5.7 H (3.5-5.1) mmol/L Carbon Dioxide 21 L (22-30) mmol/L BUN 71 H (7-17) mg/dL Creatinine 1.67 H (0.52-1.04) mg/dL Phosphorus (2.5-4.5) mg/dL Alkaline Phosphatase (38-126) U/L Urine Blood Trace H (Negative) Ur Leukocyte Esterase Small H (Negative) Urine Bacteria Many H (None) /hpf Hyaline Casts 6 H (0-2) /lpf Urine Mucus Rare H (None) /hpf Assessment and Plan (1) Left leg cellulitis Status: Acute Code(s): L03.116 - CELLULITIS OF LEFT LOWER LIMB SNOMED Code(s): 486179103 (2) Chronic venous hypertension w/ulcer and inflammation involv left side Status: Acute Code(s): I87.332 - CHRONIC VENOUS HTN W ULCER AND INFLAMMATION OF L LOW EXTREM; L97.929 - NON-PRS CHRONIC ULC UNSP PRT OF L LOW LEG W UNSP SEVERITY SNOMED Code(s): 569125555 Plan: 1patient with the bilateral lower extremity venous stasis ulcer with a wound on the left posterior neck seem to be deep with some slough tissue minimal swelling redness and did have elevated white count with concern for possible secondary cellulitis in view of the chronicity of this wound will need to cover for both gram-positive as well as gram-negative pathogen. 2 Patient with renal insufficiency and high risk of nephrotoxicity from vancomycin. 3patient to continue with Dapto and cefepime while waiting for the culture to finalize 4 local wound care with [facility] followed by moist dressing changes daily We will follow on clinical condition and cultures to further adjust medication if needed Thank you for this consultation we will follow the patient along with you- Time with Patient: Greater than 30
[2022-09-14] MEDS ORDERED: CEFEPIME 2 GM in SODIUM CHLORIDE 0.9% 100 ML IVPB SCH ×2
[2022-09-14] MEDS: HEPARIN SODIUM,PORCINE/PF 5,000 UNIT/0.5 ML SYRINGE SQ SCH ×2 (03:10→15:25)
[2022-09-14] MEDS: DEXTROSE 5% IN WATER 1,000 ML with SODIUM BICARB (1 MEQ/ML) 150 ML IV SCH (03:10)
[2022-09-14] MEDS: CEFEPIME 1 GM in SODIUM CHLORIDE 0.9% 50 ML IVPB SCH (06:11)
[2022-09-14] MEDS: METOPROLOL TARTRATE 50 MG TAB PO SCH ×2 (06:11→18:08)
[2022-09-14 08:34] LABS: Albumin 2.4 g/dL (3.5-5.0); Calcium 8.6 mg/dL (8.4-10.2); Total Bilirubin 0.2 mg/dL (0.2-1.3); Total Protein 4.5 g/dL (6.3-8.2)
[2022-09-14 08:35] LABS: Potassium 4.8 mmol/L (3.5-5.1)
[2022-09-14] MEDS ORDERED: SODIUM CHLORIDE 0.45% 1,000 ML IV ONE (09:04)
--- NOTE | 2022-09-14 09:07 | P.PN ---
Subjective Progress Note Date: 09/14/22 This 72-year-old female patient who follows with Dr. Lala as her primary care provider. She has a history of coronary artery disease with previous coronary artery bypass grafting, valve replacement, COPD, hypertension, hyperlipidemia, previous ventilatory dependent respiratory failure. Shows has ongoing issues with chronic venous stasis and lower extremity wounds and follows at the wound Center for the same. She was brought into the emergency room with complaints of increasing weakness, falls, dehydration. This x-ray reveals some mild pulmonary fibrotic changes. No heart failure. No change compared to previous of May 2021. She is seen today in consultation in the emergency department. Sitting up in a stretcher. Awake and alert in no acute distress. Maintaining O2 saturation up to 100% on 2 L/m per nasal cannula. She's afebrile. Hemodynamically stable. White count 14.4. Hemoglobin 10.9. Platelets 296. Sodium 134. Potassium 5.7. BUN 71 creatinine 1.67. Urinalysis shows many bacteria. She is initiated on ceftriaxone. D5W with 3 A of bicarbonate 100 MLS per hour. Heparin for DVT prophylaxis. On 09/14/2022, no new complaints and the patient is resting comfortably in bed. She is on room air oxygen. She received bicarb drip since yesterday and the patient's serum bicarb is up to 27. Meanwhile, the renal function is improved and it has essentially normalized. She is producing adequate amount of urine output. She has a Hardy catheter in place. She is on a combination of cefepime and daptomycin regarding the lower extremity wounds. Awaiting wound care services to evaluate this patient. She is known to have CAD, valve replacement, COPD, hypertension hyperlipidemia and previous history of ventilatory dependent respiratory failure. No active respiratory issues for now. Objective - Vital Signs Vital signs: Vital Signs Temp 98.4 F 09/14/22 03:15 Pulse 104 H 09/14/22 03:15 Resp 15 09/14/22 03:15 BP 107/51 09/14/22 03:15 Pulse Ox 99 09/14/22 03:15 FiO2 Intake & Output 09/13/22 09/14/22 09/14/22 18:59 06:59 18:59 Intake Total 2700 Output Total 3200 100 Balance -500 -100 Weight 108.409 kg Intake: Intake, IV Titration 2700 Amount Calcium Gluconate in NaCl 100 2 gm In Saline 1 100ml. bag @ 100 mls/hr IVPB ONCE ONE Rx#:[id number] Sodium Chloride 0.9% 1, 1000 000 ml @ 999 mls/hr IV . Q1H1M ONE Rx#:[id number] Sodium Chloride 0.9% 1, 1000 000 ml @ 999 mls/hr IV . Q1H1M STA Rx#:[id number] Sodium Chloride 0.9% 500 500 ml 500 ml @ 999 mls/hr IV .Q31M STA Rx#:[id number] cefTRIAXone 2 gm In 50 Sodium Chloride 0.9% 50 ml @ 100 mls/hr IVPB ONCE ONE Rx#:[id number] cefTRIAXone 2 gm In 50 Sodium Chloride 0.9% 50 ml @ 100 mls/hr IVPB ONCE STA Rx#:[id number] Oral 0 Output: Urine 3200 100 Uretheral (Hardy) 1300 Other: Voiding Method Indwelling Catheter Indwelling Catheter - Exam GENERAL EXAM: Alert, pleasant 72-year-old female, on 2 L nasal cannula, comfortable in no apparent distress. HEAD: Normocephalic. EYES: Normal reaction of pupils, equal size. NOSE: Clear with pink turbinates. THROAT: No erythema or exudates. NECK: No masses, no JVD. CHEST: No chest wall deformity. LUNGS: Equal air entry with no crackles, wheeze, rhonchi or dullness. CVS: S1 and S2 normal with no audible murmur, regular rhythm. ABDOMEN: No hepatosplenomegaly, normal bowel sounds, no guarding or rigidity. SPINE: No scoliosis or deformity SKIN: Chronic venous stasis. Open wound on the left posterior calf CENTRAL NERVOUS SYSTEM: No focal deficits, tone is normal in all 4 extremities. EXTREMITIES: Open wound to left posterior calf. Chronic changes of venous stasis. There is 2+ peripheral edema. No clubbing, no cyanosis. Peripheral pulses are intact. - Labs CBC & Chem 7: 09/13/22 14:09 09/14/22 06:52 Labs: Abnormal Lab Results - Last 24 Hours (Table) 09/13/22 09/13/22 09/13/22 Range/Units 11:31 14:09 16:50 WBC 14.4 H (3.8-10.6) k/uL Hgb 10.9 L (11.4-16.0) gm/dL Hct 33.4 L (34.0-46.0) % Neutrophils # 13.7 H (1.3-7.7) k/uL Lymphocytes # 0.5 L (1.0-4.8) k/uL Sodium 134 L (137-145) mmol/L Potassium 5.7 H 5.2 H (3.5-5.1) mmol/L Carbon Dioxide 21 L (22-30) mmol/L BUN 71 H (7-17) mg/dL Creatinine 1.67 H (0.52-1.04) mg/dL Glucose (74-99) mg/dL POC Glucose (mg/dL) (70-110) mg/dL Total Protein (6.3-8.2) g/dL Albumin (3.5-5.0) g/dL 09/13/22 09/14/22 Range/Units 20:15 06:52 WBC (3.8-10.6) k/uL Hgb (11.4-16.0) gm/dL Hct (34.0-46.0) % Neutrophils # (1.3-7.7) k/uL Lymphocytes # (1.0-4.8) k/uL Sodium 136 L (137-145) mmol/L Potassium (3.5-5.1) mmol/L Carbon Dioxide (22-30) mmol/L BUN 47 H (7-17) mg/dL Creatinine 1.15 H (0.52-1.04) mg/dL Glucose 125 H (74-99) mg/dL POC Glucose (mg/dL) 170 H (70-110) mg/dL Total Protein 4.5 L (6.3-8.2) g/dL Albumin 2.4 L (3.5-5.0) g/dL Microbiology - Last 24 Hours (Table) 09/13/22 16:18 Gram Stain - Preliminary Leg - Left Wound Culture - Preliminary 09/13/22 16:18 Anaerobic Culture - Preliminary Leg - Left Assessment and Plan Assessment: Generalized weakness and falls secondary to dehydration, improved with fluid resuscitation Acute on chronic renal failure secondary to above,, improved and the patient will be taken off the bicarb infusion and placed on normal saline at rate of 50 mL an hour Acute on chronic wound to the lower extremities currently without open wound of the left posterior and was to be seen in the [facility]. The patient currently has cellulitis of the lower extremity in addition to a large wound in the posterior aspect of the left leg. She is covered with a combination of cefepime and daptomycin. Awaiting wound care services to evaluate this patient. Coronary disease with previous coronary artery bypass grafting Previous valve replacement History of DVT, anticoagulated with warfarin Hyperlipidemia Hypertension Previous history of acute hypoxemic respiratory failure requiring intubation mechanical ventilatory support in May 2021 Previous hospitalizations for left lower extremity cellulitis History of urinary tract infections Hyperlipidemia Hypertension Obesity Poor functional performance based on the above-mentioned multiple comorbidities Plan: Continue wound care Continue antibiotics Discontinue the bicarb infusion and put the patient on a normal saline at rate of 50 mL an hour Respiratory status is stable and the patient is on 2 L O2 nasal cannula. Continue using incentive spirometer. Will need wound care services Improved in terms of her dehydration Volume status is adequate for now No active pulmonary or critical care issues and we are going to sign off the case
[2022-09-14] MEDS: HYDROcodone/APAP 10-325MG 1 EACH TAB PO PRN (09:16)
[2022-09-14] MEDS: GABAPENTIN 100 MG CAP PO SCH ×2 (09:17→20:00)
[2022-09-14] MEDS: ASPIRIN 81 MG PO SCH (09:17)
[2022-09-14] MEDS: SODIUM CHLORIDE 0.9% 1,000 ML IV SCH ×3 (09:21→23:07)
--- NOTE | 2022-09-14 09:57 | P.PN ---
Subjective Patient is seen for follow-up for acute kidney injury which was mostly prerenal and associated with urine retention. Hardy catheter was placed in the ER. Serum creatinine has improved from 2.9 on initial admission to 1.15 today. Patient continues to have good urine output. Maintained on IV bicarb for metabolic acidosis Patient is awake, comfortable with no acute distress. She has not been eating much. Objective - Vital Signs Vital signs: Vital Signs Temp 98.4 F 09/14/22 03:15 Pulse 104 H 09/14/22 03:15 Resp 15 09/14/22 03:15 BP 107/51 09/14/22 03:15 Pulse Ox 99 09/14/22 03:15 FiO2 Intake & Output 09/13/22 09/14/22 09/14/22 18:59 06:59 18:59 Intake Total 2700 Output Total 3200 100 Balance -500 -100 Weight 108.409 kg Intake: Intake, IV Titration 2700 Amount Calcium Gluconate in NaCl 100 2 gm In Saline 1 100ml. bag @ 100 mls/hr IVPB ONCE ONE Rx#:[id number] Sodium Chloride 0.9% 1, 1000 000 ml @ 999 mls/hr IV . Q1H1M ONE Rx#:[id number] Sodium Chloride 0.9% 1, 1000 000 ml @ 999 mls/hr IV . Q1H1M STA Rx#:[id number] Sodium Chloride 0.9% 500 500 ml 500 ml @ 999 mls/hr IV .Q31M STA Rx#:[id number] cefTRIAXone 2 gm In 50 Sodium Chloride 0.9% 50 ml @ 100 mls/hr IVPB ONCE ONE Rx#:[id number] cefTRIAXone 2 gm In 50 Sodium Chloride 0.9% 50 ml @ 100 mls/hr IVPB ONCE STA Rx#:[id number] Oral 0 Output: Urine 3200 100 Uretheral (Hardy) 1300 Other: Voiding Method Indwelling Catheter Indwelling Catheter - Exam Patient is awake, comfortable, oriented 2 Examination of the heart S1 and S2 Examination of the lungs bilateral breath sounds are heard Abdomen is soft nontender Examination of the lower extremity shows chronic skin changes. No significant edema noted. [employer] exam shows patient is moving all 4 extremities. - Labs CBC & Chem 7: 09/13/22 14:09 09/14/22 06:52 Labs: Abnormal Lab Results - Last 24 Hours (Table) 09/13/22 09/13/22 09/13/22 Range/Units 11:31 14:09 16:50 WBC 14.4 H (3.8-10.6) k/uL Hgb 10.9 L (11.4-16.0) gm/dL Hct 33.4 L (34.0-46.0) % Neutrophils # 13.7 H (1.3-7.7) k/uL Lymphocytes # 0.5 L (1.0-4.8) k/uL Sodium 134 L (137-145) mmol/L Potassium 5.7 H 5.2 H (3.5-5.1) mmol/L Carbon Dioxide 21 L (22-30) mmol/L BUN 71 H (7-17) mg/dL Creatinine 1.67 H (0.52-1.04) mg/dL Glucose (74-99) mg/dL POC Glucose (mg/dL) (70-110) mg/dL Total Protein (6.3-8.2) g/dL Albumin (3.5-5.0) g/dL 09/13/22 09/14/22 Range/Units 20:15 06:52 WBC (3.8-10.6) k/uL Hgb (11.4-16.0) gm/dL Hct (34.0-46.0) % Neutrophils # (1.3-7.7) k/uL Lymphocytes # (1.0-4.8) k/uL Sodium 136 L (137-145) mmol/L Potassium (3.5-5.1) mmol/L Carbon Dioxide (22-30) mmol/L BUN 47 H (7-17) mg/dL Creatinine 1.15 H (0.52-1.04) mg/dL Glucose 125 H (74-99) mg/dL POC Glucose (mg/dL) 170 H (70-110) mg/dL Total Protein 4.5 L (6.3-8.2) g/dL Albumin 2.4 L (3.5-5.0) g/dL Microbiology - Last 24 Hours (Table) 09/13/22 16:18 Gram Stain - Preliminary Leg - Left Wound Culture - Preliminary 09/13/22 16:18 Anaerobic Culture - Preliminary Leg - Left Assessment and Plan Assessment: 1. Acute kidney injury, ATN currently nonoliguric. Possible urine retention as well with indwelling Hardy catheter presently. Renal function is improving. UA is quite benign. 2. Non-gap metabolic acidosis associated with acute kidney injury, currently improving 3. Hyperkalemia associated with acute kidney injury, urine retention, metabolic acidosis and use of JANENE inhibitor as prior to admission 4. Chronic venous stasis and lower extremity wounds 5. Hypovolemic hyponatremia currently improved Plan: Switch IV fluids to normal saline Continue with Hardy catheter Repeat labs in a.m. Encourage increased oral intake
[2022-09-14 11:31] LABS: Glucose,Whole Blood 124 mg/dL (70-110)
[2022-09-14 13:35] VITALS: BMI 39.7
[2022-09-14 16:28] LABS: Glucose,Whole Blood 113 mg/dL (70-110)
[2022-09-14] MEDS: CEFEPIME 2 GM in SODIUM CHLORIDE 0.9% 100 ML IVPB SCH (18:07)
[2022-09-14] MEDS: ATORVASTATIN 10 MG TAB PO SCH (20:00)
--- NOTE | 2022-09-14 20:53 | P.PN ---
Subjective Progress Note Date: 09/14/22 Principal diagnosis: Left lower extremity wound and cellulitis Patient is a 72-year-old female with multiple comorbidities including hypertension hyperlipidemia coronary bypass grafting COPD and cardiac valve replacement however patient also have bilateral lower extremity venous stasis ulcer patient has been brought into the hospital for evaluation of generalized weakness, patient did have a left lower extremity wound and concern for secondary cellulitis. On today's evaluation and that is 09/14/2022, the patient denies having any fever or chills she is slightly more awake and alert denies any worsening pain to the left lower extremity wound area no chest pain shortness of breath or cough no abdominal pain or diarrhea Objective - Vital Signs Vital signs: Vital Signs Temp 98.5 F 09/14/22 08:00 Pulse 83 09/14/22 08:00 Resp 18 09/14/22 08:00 BP 108/55 09/14/22 08:00 Pulse Ox 94 L 09/14/22 08:00 FiO2 Intake & Output 09/13/22 09/14/22 09/14/22 18:59 06:59 18:59 Intake Total 2700 Output Total 3200 100 Balance -500 -100 Weight 108.409 kg Intake: Intake, IV Titration 2700 Amount Calcium Gluconate in NaCl 100 2 gm In Saline 1 100ml. bag @ 100 mls/hr IVPB ONCE ONE Rx#:[id number] Sodium Chloride 0.9% 1, 1000 000 ml @ 999 mls/hr IV . Q1H1M ONE Rx#:[id number] Sodium Chloride 0.9% 1, 1000 000 ml @ 999 mls/hr IV . Q1H1M STA Rx#:[id number] Sodium Chloride 0.9% 500 500 ml 500 ml @ 999 mls/hr IV .Q31M STA Rx#:[id number] cefTRIAXone 2 gm In 50 Sodium Chloride 0.9% 50 ml @ 100 mls/hr IVPB ONCE ONE Rx#:[id number] cefTRIAXone 2 gm In 50 Sodium Chloride 0.9% 50 ml @ 100 mls/hr IVPB ONCE STA Rx#:[id number] Oral 0 Output: Urine 3200 100 Uretheral (Hardy) 1300 Other: Voiding Method Indwelling Catheter Indwelling Catheter Indwelling Catheter - Exam GENERAL DESCRIPTION: An elderly female lying in bed in no distress RESPIRATORY SYSTEM: Unlabored breathing , decreased breath sounds at bases HEART: S1 S2 regular rate and rhythm , ABDOMEN: Soft , no tenderness EXTREMITIES: Left lower extremity wound with slough tissue and surrounding redness no foul-smelling drainage - Labs CBC & Chem 7: 09/13/22 14:09 09/14/22 06:52 Labs: Abnormal Lab Results - Last 24 Hours (Table) 09/13/22 09/13/22 09/13/22 Range/Units 11:31 14:09 16:50 WBC 14.4 H (3.8-10.6) k/uL Hgb 10.9 L (11.4-16.0) gm/dL Hct 33.4 L (34.0-46.0) % Neutrophils # 13.7 H (1.3-7.7) k/uL Lymphocytes # 0.5 L (1.0-4.8) k/uL Sodium 134 L (137-145) mmol/L Potassium 5.7 H 5.2 H (3.5-5.1) mmol/L Carbon Dioxide 21 L (22-30) mmol/L BUN 71 H (7-17) mg/dL Creatinine 1.67 H (0.52-1.04) mg/dL Glucose (74-99) mg/dL POC Glucose (mg/dL) (70-110) mg/dL Total Protein (6.3-8.2) g/dL Albumin (3.5-5.0) g/dL 09/13/22 09/14/22 09/14/22 Range/Units 20:15 06:52 11:30 WBC (3.8-10.6) k/uL Hgb (11.4-16.0) gm/dL Hct (34.0-46.0) % Neutrophils # (1.3-7.7) k/uL Lymphocytes # (1.0-4.8) k/uL Sodium 136 L (137-145) mmol/L Potassium (3.5-5.1) mmol/L Carbon Dioxide (22-30) mmol/L BUN 47 H (7-17) mg/dL Creatinine 1.15 H (0.52-1.04) mg/dL Glucose 125 H (74-99) mg/dL POC Glucose (mg/dL) 170 H 124 H (70-110) mg/dL Total Protein 4.5 L (6.3-8.2) g/dL Albumin 2.4 L (3.5-5.0) g/dL Microbiology - Last 24 Hours (Table) 09/13/22 08:51 Blood Culture - Preliminary Blood No Growth after 24 hours 09/13/22 08:51 Blood Culture - Preliminary Blood No Growth after 24 hours 09/13/22 16:18 Gram Stain - Preliminary Leg - Left Wound Culture - Preliminary 09/13/22 16:18 Anaerobic Culture - Preliminary Leg - Left Assessment and Plan (1) Chronic venous hypertension w/ulcer and inflammation involv left side Current Visit: No Status: Acute Code(s): I87.332 - CHRONIC VENOUS HTN W ULCER AND INFLAMMATION OF L LOW EXTREM; L97.929 - NON-PRS CHRONIC ULC UNSP PRT OF L LOW LEG W UNSP SEVERITY SNOMED Code(s): 373798587 (2) Left leg cellulitis Current Visit: No Status: Acute Code(s): L03.116 - CELLULITIS OF LEFT LOWER LIMB SNOMED Code(s): 174361698 Plan: 1patient with the bilateral lower extremity venous stasis ulcer with a wound on the left posterior neck seem to be deep with some slough tissue minimal swelling redness and did have elevated white count with concern for secondary cellulitis in view of the chronicity of this wound will need to cover for both gram- positive as well as gram-negative pathogen. 2 Patient with renal insufficiency and high risk of nephrotoxicity from vancomycin. 3patient to continue with Dapto and cefepime while waiting for the culture to finalize 4 local wound care with [facility] followed by moist dressing changes daily
[2022-09-15] MEDS: HEPARIN SODIUM,PORCINE/PF 5,000 UNIT/0.5 ML SYRINGE SQ SCH ×2 (04:07→17:13)
[2022-09-15] MEDS: METOPROLOL TARTRATE 50 MG TAB PO SCH ×2 (06:15→17:12)
[2022-09-15] MEDS: CEFEPIME 2 GM in SODIUM CHLORIDE 0.9% 100 ML IVPB SCH ×2 (06:15→17:13)
--- NOTE | 2022-09-15 10:01 | P.PN ---
Subjective Patient is seen in follow for acute kidney injury. Has Hardy catheter for urinary retention. Renal function is improved. Creatinine 1.15 yesterday. Hemodynamically stable. No active complaints. Vital signs are stable. General: Awake. No acute distress. HEENT: Head exam is unremarkable. LUNGS: Breath sounds decreased. HEART: Rate and Rhythm are regular. ABDOMEN: Soft, no distention. EXTREMITITES: Trace edema. Chronic changes noted. Objective - Vital Signs Vital signs: Vital Signs Temp 98.4 F 09/15/22 03:51 Pulse 65 09/15/22 03:51 Resp 18 09/15/22 03:51 BP 112/56 09/15/22 03:51 Pulse Ox 93 L 09/15/22 03:51 FiO2 21 09/14/22 20:43 Intake & Output 09/14/22 09/15/22 09/15/22 18:59 06:59 18:59 Intake Total 118 Output Total 300 900 Balance -300 -900 118 Weight 108.409 kg Intake: Oral 118 Output: Urine 300 900 Other: Voiding Method Indwelling Catheter Indwelling Catheter - Labs CBC & Chem 7: 09/13/22 14:09 09/14/22 06:52 Labs: Abnormal Lab Results - Last 24 Hours (Table) 09/14/22 09/14/22 Range/Units 11:30 16:27 POC Glucose (mg/dL) 124 H 113 H (70-110) mg/dL Microbiology - Last 24 Hours (Table) 09/13/22 16:18 Gram Stain - Preliminary Leg - Left Wound Culture - Preliminary Gram Neg Bacilli 09/13/22 14:09 Blood Culture - Preliminary Blood No Growth after 24 hours 09/13/22 08:51 Blood Culture - Preliminary Blood No Growth after 24 hours 09/13/22 08:51 Blood Culture - Preliminary Blood No Growth after 24 hours Assessment and Plan Plan: Assessment: 1. Acute kidney injury secondary to urinary retention and component of ATN. Renal function improved. Creatinine 1.15 yesterday. UA quite benign. No hydronephrosis noted on ultrasound. Left kidney wasn't visualized properly. 2. Metabolic acidosis secondary to acute kidney injury. Improved. 3. Hyperkalemia secondary to acute kidney injury, urinary retention, acidosis and use of JANENE inhibitor. 4. Chronic venous stasis and lower extremity wounds. On antibiotics. 5. Hypovolemic hyponatremia. Improved. 6. Urinary retention. Has Hardy catheter. Plan: Maintain IV fluids. Encourage oral intake. Avoid nephrotoxins. Add Flomax. Trial of void in the next 1-2 days.
[2022-09-15] MEDS: ASPIRIN 81 MG PO SCH (10:03)
[2022-09-15] MEDS: GABAPENTIN 100 MG CAP PO SCH ×2 (10:04→22:02)
[2022-09-15] MEDS: HYDROcodone/APAP 10-325MG 1 EACH TAB PO PRN ×3 (10:05→23:33)
[2022-09-15 10:39] LABS: Basophils % (A) 0 %; Eosinophils # (A) 0.1 k/uL (0-0.7); Eosinophils % (A) 1 %; HCT 28.1 % (34.0-46.0); Hypochromasia Moderate; Lymphocytes # (A) 1.2 k/uL (1.0-4.8); Lymphocytes % (A) 13 %; MCH 28.4 pg (25.0-35.0); MCHC 31.8 g/dL (31.0-37.0); MCV 89.3 fL (80.0-100.0); Mean Platelet Volume 8.7; Monocytes # (A) 0.8 k/uL (0-1.0); Monocytes % (A) 9 %; Neutrophils # (A) 6.9 k/uL (1.3-7.7); Neutrophils % (A) 77 %; Platelet Count 236 k/uL (150-450); RBC 3.14 m/uL (3.80-5.40)
[2022-09-15 10:53] LABS: HGB 8.9 gm/dL (11.4-16.0)
[2022-09-15 10:55] LABS: Calcium 8.2 mg/dL (8.4-10.2); Potassium 4.4 mmol/L (3.5-5.1)
--- NOTE | 2022-09-15 14:16 | P.PN ---
Subjective Progress Note Date: 09/15/22 Principal diagnosis: Left lower extremity wound and cellulitis Patient is a 72-year-old female with multiple comorbidities including hypertension hyperlipidemia coronary bypass grafting COPD and cardiac valve replacement however patient also have bilateral lower extremity venous stasis ulcer patient has been brought into the hospital for evaluation of generalized weakness, patient did have a left lower extremity wound and concern for secondary cellulitis. On today's evaluation and that is 09/15/2022, the patient remains to be afebrile, the patient is breathing comfortably on room air, the patient still complains of pain to the left lower extremity wound area but no worsening or any foul-smelling drainage, no chest pain shortness of breath or cough no abdominal pain no diarrhea Objective - Vital Signs Vital signs: Vital Signs Temp 98.4 F 09/15/22 03:51 Pulse 65 09/15/22 03:51 Resp 18 09/15/22 03:51 BP 112/56 09/15/22 03:51 Pulse Ox 93 L 09/15/22 03:51 FiO2 21 09/14/22 20:43 Intake & Output 09/14/22 09/15/22 09/15/22 18:59 06:59 18:59 Intake Total 236 Output Total 300 900 Balance -300 -900 236 Weight 108.409 kg Intake: Oral 236 Output: Urine 300 900 Other: Voiding Method Indwelling Catheter Indwelling Catheter - Exam GENERAL DESCRIPTION: An elderly female lying in bed in no distress RESPIRATORY SYSTEM: Unlabored breathing , decreased breath sounds at bases HEART: S1 S2 regular rate and rhythm , ABDOMEN: Soft , no tenderness EXTREMITIES: Left lower extremity wound with slough tissue and surrounding redness no foul-smelling drainage - Labs CBC & Chem 7: 09/15/22 09:42 09/15/22 09:42 Labs: Abnormal Lab Results - Last 24 Hours (Table) 09/14/22 09/15/22 09/15/22 Range/Units 16:27 09:42 09:42 RBC 3.14 L (3.80-5.40) m/uL Hgb 8.9 L D (11.4-16.0) gm/dL Hct 28.1 L (34.0-46.0) % Chloride 109 H (98-107) mmol/L BUN 31 H (7-17) mg/dL Glucose 103 H (74-99) mg/dL POC Glucose (mg/dL) 113 H (70-110) mg/dL Calcium 8.2 L (8.4-10.2) mg/dL Microbiology - Last 24 Hours (Table) 09/13/22 08:51 Blood Culture - Preliminary Blood No Growth after 48 hours 09/13/22 08:51 Blood Culture - Preliminary Blood No Growth after 48 hours 09/13/22 16:18 Gram Stain - Preliminary Leg - Left Wound Culture - Preliminary Gram Neg Bacilli 09/13/22 14:09 Blood Culture - Preliminary Blood No Growth after 24 hours Assessment and Plan (1) Chronic venous hypertension w/ulcer and inflammation involv left side Current Visit: No Status: Acute Code(s): I87.332 - CHRONIC VENOUS HTN W ULCER AND INFLAMMATION OF L LOW EXTREM; L97.929 - NON-PRS CHRONIC ULC UNSP PRT OF L LOW LEG W UNSP SEVERITY SNOMED Code(s): 832226286 (2) Left leg cellulitis Current Visit: No Status: Acute Code(s): L03.116 - CELLULITIS OF LEFT LOWER LIMB SNOMED Code(s): 331657640 Plan: 1patient with the bilateral lower extremity venous stasis ulcer with a wound on the left posterior neck seem to be deep with some slough tissue minimal swelling redness and did have elevated white count with concern for secondary cellulitis in view of the chronicity of this wound will need to cover for both gram- positive as well as gram-negative pathogen. 2 Patient with renal insufficiency and high risk of nephrotoxicity from vancomycin. 3patient local wound cultures currently growing gram-negative the ID sensitivities pending, patient to continue with Dapto and cefepime while waiting for the culture to finalize 4 local wound care with [facility] followed by moist dressing changes daily Time with Patient: Less than 30
[2022-09-15] MEDS: TAMSULOSIN 0.4 MG CAP.ER.24H PO SCH (17:12)
[2022-09-15] MEDS: SODIUM CHLORIDE 0.9% 1,000 ML IV SCH ×2 (17:15→17:16)
[2022-09-15] MEDS: ATORVASTATIN 10 MG TAB PO SCH (22:02)
[2022-09-16] MEDS: HEPARIN SODIUM,PORCINE/PF 5,000 UNIT/0.5 ML SYRINGE SQ SCH ×2 (02:29→15:52)
[2022-09-16] MEDS: SODIUM CHLORIDE 0.9% 1,000 ML IV SCH ×2 (02:30→09:26)
[2022-09-16] MEDS: CEFEPIME 2 GM in SODIUM CHLORIDE 0.9% 100 ML IVPB SCH ×2 (06:36→17:42)
[2022-09-16] MEDS: METOPROLOL TARTRATE 50 MG TAB PO SCH ×2 (06:36→17:10)
[2022-09-16 07:01] LABS: Calcium 7.8 mg/dL (8.4-10.2); Magnesium 1.6 mg/dL (1.6-2.3)
[2022-09-16 07:02] LABS: Potassium 4.2 mmol/L (3.5-5.1)
[2022-09-16] MEDS ORDERED: Magnesium Replacement Protocol 1 EACH MISC MISCELLANE PRN (07:47)
[2022-09-16] MEDS ORDERED: ERGOCALCIFEROL 1,250 MCG (50,000 IU) CAPSULE PO SCH (09:00)
[2022-09-16] MEDS: MAGNESIUM SULFATE-D5W PMX 1 GM in DEXTROSE/WATER 1 100ML.BAG IVPB SCH ×3 (09:27→23:15)
[2022-09-16] MEDS: ASPIRIN 81 MG PO SCH (09:27)
[2022-09-16] MEDS: GABAPENTIN 100 MG CAP PO SCH ×2 (09:27→20:08)
--- NOTE | 2022-09-16 10:34 | P.PN ---
Subjective Patient is seen in follow for acute kidney injury. Has Hardy catheter for urinary retention. Renal function is improved. Creatinine 0.82 today. Hemodynamically stable. No active complaints. Vital signs are stable. General: Awake. No acute distress. HEENT: Head exam is unremarkable. LUNGS: Breath sounds decreased. HEART: Rate and Rhythm are regular. ABDOMEN: Soft, no distention. EXTREMITITES: Trace edema. Chronic changes noted. Objective - Vital Signs Vital signs: Vital Signs Temp 98.0 F 09/16/22 08:00 Pulse 71 09/16/22 08:00 Resp 18 09/16/22 08:00 BP 108/67 09/16/22 08:00 Pulse Ox 99 09/16/22 08:00 FiO2 21 09/14/22 20:43 Intake & Output 09/15/22 09/16/22 09/16/22 18:59 06:59 18:59 Intake Total 594 240 118 Output Total 550 Balance 594 -310 118 Intake: Intake, IV Titration 240 Amount Sodium Chloride 0.9% 1, 240 000 ml @ 70 mls/hr IV . [id number] [facility] Rx#:[id number] Oral 594 118 Output: Urine 550 Other: Voiding Method Indwelling Catheter Indwelling Catheter Indwelling Catheter - Labs CBC & Chem 7: 09/15/22 09:42 09/16/22 06:31 Labs: Abnormal Lab Results - Last 24 Hours (Table) 09/15/22 09/15/22 09/16/22 Range/Units 09:42 09:42 06:31 RBC 3.14 L (3.80-5.40) m/uL Hgb 8.9 L D (11.4-16.0) gm/dL Hct 28.1 L (34.0-46.0) % Chloride 109 H 109 H (98-107) mmol/L BUN 31 H 24 H (7-17) mg/dL Glucose 103 H (74-99) mg/dL Calcium 8.2 L 7.8 L (8.4-10.2) mg/dL Microbiology - Last 24 Hours (Table) 09/13/22 16:18 Anaerobic Culture - Final Leg - Left 09/13/22 16:18 Gram Stain - Preliminary Leg - Left Wound Culture - Preliminary Morganella morganii 09/13/22 14:09 Blood Culture - Preliminary Blood No Growth after 48 hours 09/13/22 08:51 Blood Culture - Preliminary Blood No Growth after 48 hours 09/13/22 08:51 Blood Culture - Preliminary Blood No Growth after 48 hours Assessment and Plan Plan: Assessment: 1. Acute kidney injury secondary to urinary retention and component of ATN. Renal function improved. Creatinine 0.82 today. UA quite benign. No hydronephrosis noted on ultrasound. Left kidney wasn't visualized properly. 2. Metabolic acidosis secondary to acute kidney injury. Improved. 3. Hyperkalemia secondary to acute kidney injury, urinary retention, acidosis and use of JANENE inhibitor. 4. Chronic venous stasis and lower extremity wounds. On antibiotics. 5. Hypovolemic hyponatremia. Improved. 6. Urinary retention. Has Hardy catheter. On Flomax. Plan: Off IV fluids. Encourage oral intake. Avoid nephrotoxins. Trial of void today. If has persistent retention, will consult urology. Disc ussed with nurse. Please call with any questions or concerns.
[2022-09-16] MEDS: HYDROcodone/APAP 10-325MG 1 EACH TAB PO PRN ×3 (10:50→23:16)
[2022-09-16] MEDS: TAMSULOSIN 0.4 MG CAP.ER.24H PO SCH (17:42)
[2022-09-16] MEDS: ATORVASTATIN 10 MG TAB PO SCH (20:07)
--- NOTE | 2022-09-16 21:22 | P.PN ---
Subjective Progress Note Date: 09/14/22 Patient is a 72-year-old female with a known history of coronary disease, valve replacement, COPD, DVT presents to ER status post fall. Patient has been having severe weakness and multiple falls also had infected left leg. Patient was found to be hyperkalemic with potassium level 7.7 and creatinine on admission was 2.9. 09/14/2022 Patient is currently resting in bed comfortably. Awake alert and able to answer questions. No complaints of chest pain or shortness of breath. Afebrile. Continued on antibiotics of daptomycin and cefepime for the lower extremity wounds. ID and wound care services on board. No cough or sputum production. No nausea vomiting abdominal pain or diarrhea. Laboratory data showed WBC 14.4 hemoglobin 10.9 and platelets 296 Sodium 134 potassium down to 5.7 chloride 107 bicarb is 21 BUN 71 and creatinine 1.67 Urinalysis is negative for infection. Current medications reviewed. Objective - Vital Signs Vital signs: Vital Signs Temp 98.5 F 09/14/22 08:00 Pulse 83 09/14/22 08:00 Resp 18 09/14/22 08:00 BP 108/55 09/14/22 08:00 Pulse Ox 94 L 09/14/22 08:00 FiO2 Intake & Output 09/13/22 09/14/22 09/14/22 18:59 06:59 18:59 Intake Total 2700 Output Total 3200 100 Balance -500 -100 Weight 108.409 kg 108.409 kg Intake: Intake, IV Titration 2700 Amount Calcium Gluconate in NaCl 100 2 gm In Saline 1 100ml. bag @ 100 mls/hr IVPB ONCE ONE Rx#:[id number] Sodium Chloride 0.9% 1, 1000 000 ml @ 999 mls/hr IV . Q1H1M ONE Rx#:[id number] Sodium Chloride 0.9% 1, 1000 000 ml @ 999 mls/hr IV . Q1H1M [facility] Rx#:[id number] Sodium Chloride 0.9% 500 500 ml 500 ml @ 999 mls/hr IV .Q31M [facility] Rx#:[id number] cefTRIAXone 2 gm In 50 Sodium Chloride 0.9% 50 ml @ 100 mls/hr IVPB ONCE ONE Rx#:[id number] cefTRIAXone 2 gm In 50 Sodium Chloride 0.9% 50 ml @ 100 mls/hr IVPB ONCE STA Rx#:[id number] Oral 0 Output: Urine 3200 100 Uretheral (Hardy) 1300 Other: Voiding Method Indwelling Catheter Indwelling Catheter Indwelling Catheter - Exam PHYSICAL EXAMINATION: Patient is lying in the bed comfortably, no acute distress, awake alert and oriented.. Obese. HEENT: Normocephalic. Neck is supple. Pupils reactive. Nostrils clear. Oral cavity is moist. Neck reveals no JVD, carotid bruits, or thyromegaly. CHEST EXAMINATION: Trachea is central. Symmetrical expansion. Lung reed clear to auscultation and percussion. CARDIAC: Normal S1, S2 with no gallops. No murmurs ABDOMEN: Soft. Bowel sounds present. Nontender. No organomegaly. No abdominal bruits. Extremities: Left lower extremity wound on the posterior aspect is bandaged.. No clubbing or cyanosis Neurologically awake, alert, oriented x 2-3 with well-coordinated movements. No gross focal deficits noted Skin: No rash or skin lesions. Psychiatric: Coperative. Nonsuicidal, Musculoskeletal: No joint swelling or deformity. Normal range of motion. - Labs CBC & Chem 7: 09/15/22 09:42 09/16/22 06:31 Labs: Abnormal Lab Results - Last 24 Hours (Table) 09/13/22 09/13/22 09/13/22 Range/Units 14:09 16:50 20:15 WBC 14.4 H (3.8-10.6) k/uL Hgb 10.9 L (11.4-16.0) gm/dL Hct 33.4 L (34.0-46.0) % Neutrophils # 13.7 H (1.3-7.7) k/uL Lymphocytes # 0.5 L (1.0-4.8) k/uL Sodium (137-145) mmol/L Potassium 5.2 H (3.5-5.1) mmol/L BUN (7-17) mg/dL Creatinine (0.52-1.04) mg/dL Glucose (74-99) mg/dL POC Glucose (mg/dL) 170 H (70-110) mg/dL Total Protein (6.3-8.2) g/dL Albumin (3.5-5.0) g/dL 09/14/22 09/14/22 Range/Units 06:52 11:30 WBC (3.8-10.6) k/uL Hgb (11.4-16.0) gm/dL Hct (34.0-46.0) % Neutrophils # (1.3-7.7) k/uL Lymphocytes # (1.0-4.8) k/uL Sodium 136 L (137-145) mmol/L Potassium (3.5-5.1) mmol/L BUN 47 H (7-17) mg/dL Creatinine 1.15 H (0.52-1.04) mg/dL Glucose 125 H (74-99) mg/dL POC Glucose (mg/dL) 124 H (70-110) mg/dL Total Protein 4.5 L (6.3-8.2) g/dL Albumin 2.4 L (3.5-5.0) g/dL Microbiology - Last 24 Hours (Table) 09/13/22 08:51 Blood Culture - Preliminary Blood No Growth after 24 hours 09/13/22 08:51 Blood Culture - Preliminary Blood No Growth after 24 hours 09/13/22 16:18 Gram Stain - Preliminary Leg - Left Wound Culture - Preliminary 09/13/22 16:18 Anaerobic Culture - Preliminary Leg - Left Assessment and Plan Assessment: Generalized weakness and falls likely secondary to dehydration volume depletion. Improved now Acute on chronic kidney disease. Off bicarb drip and will be continued on normal saline. Acute on chronic lower extremity wound and surrounding cellulitis. Large wound in the posterior aspect of the left leg. Coronary artery disease history of CABG Previous history of aortic valve replacement and repair of aneurysm. COPD History of DVT on anticoagulation with warfarin. Duration unknown. She was also on warfarin in April 2021 during previous admission. Hypertension Hyperlipidemia Obesity BMI 39.8 Medical debility and poor functional status DVT prophylaxis with heparin subcu Plan: Patient will be continued on gentle IV hydration and monitor renal function. Bicarb drip is off. Continue with antibiotics daptomycin and cefepime as per ID recommendations Encourage incentive spirometry. Continue with wound care. Time with Patient: Greater than 30
--- NOTE | 2022-09-16 21:26 | P.PN ---
Subjective Progress Note Date: 09/15/22 Patient is a 72-year-old female with a known history of coronary disease, valve replacement, COPD, DVT presents to ER status post fall. Patient has been having severe weakness and multiple falls also had infected left leg. Patient was found to be hyperkalemic with potassium level 7.7 and creatinine on admission was 2.9. 09/14/2022 Patient is currently resting in bed comfortably. Awake alert and able to answer questions. No complaints of chest pain or shortness of breath. Afebrile. Continued on antibiotics of daptomycin and cefepime for the lower extremity wounds. ID and wound care services on board. No cough or sputum production. No nausea vomiting abdominal pain or diarrhea. Laboratory data showed WBC 14.4 hemoglobin 10.9 and platelets 296 Sodium 134 potassium down to 5.7 chloride 107 bicarb is 21 BUN 71 and creatinine 1.67 Urinalysis is negative for infection. 09/15/2022 Patient is currently resting in bed. Awake alert and oriented. No complaints of chest pain or shortness of breath. No nausea vomiting abdominal diarrhea. Tolerating oral diet. Renal function is improved with creatinine 0.86 today. No cough or sputum production. Patient has been afebrile. Wound care is being done left lower extremity. Continue antibiotics. ID and nephrology is on board. Other laboratory data showed WBC 9.0 hemoglobin 8.9 and platelets 236 Sodium 137 potassium 4.4 chloride 109 bicarb is 26 BUN 31 and creatinine 0.86 and blood sugar is 103 and calcium 8.2. Current medications reviewed. Objective - Vital Signs Vital signs: Vital Signs Temp 98.6 F 09/15/22 16:00 Pulse 84 09/15/22 16:00 Resp 18 09/15/22 16:00 BP 118/67 09/15/22 16:00 Pulse Ox 84 L 09/15/22 16:00 FiO2 21 09/14/22 20:43 Intake & Output 09/14/22 09/15/22 09/15/22 18:59 06:59 18:59 Intake Total 594 Output Total 300 900 Balance -300 -900 594 Weight 108.409 kg Intake: Oral 594 Output: Urine 300 900 Other: Voiding Method Indwelling Catheter Indwelling Catheter Indwelling Catheter - Exam PHYSICAL EXAMINATION: Patient is lying in the bed comfortably, no acute distress, awake alert and oriented.. Obese. HEENT: Normocephalic. Neck is supple. Pupils reactive. Nostrils clear. Oral cavity is moist. Neck reveals no JVD, carotid bruits, or thyromegaly. CHEST EXAMINATION: Trachea is central. Symmetrical expansion. Lung reed clear to auscultation and percussion. CARDIAC: Normal S1, S2 with no gallops. No murmurs ABDOMEN: Soft. Bowel sounds present. Nontender. No organomegaly. No abdominal bruits. Extremities: Left lower extremity wound on the posterior aspect is bandaged.. No clubbing or cyanosis Neurologically awake, alert, oriented x 2-3 with well-coordinated movements. No gross focal deficits noted Skin: No rash or skin lesions. Psychiatric: Coperative. Nonsuicidal, Musculoskeletal: No joint swelling or deformity. Normal range of motion. - Labs CBC & Chem 7: 09/15/22 09:42 09/16/22 06:31 Labs: Abnormal Lab Results - Last 24 Hours (Table) 09/15/22 09/15/22 Range/Units 09:42 09:42 RBC 3.14 L (3.80-5.40) m/uL Hgb 8.9 L D (11.4-16.0) gm/dL Hct 28.1 L (34.0-46.0) % Chloride 109 H (98-107) mmol/L BUN 31 H (7-17) mg/dL Glucose 103 H (74-99) mg/dL Calcium 8.2 L (8.4-10.2) mg/dL Microbiology - Last 24 Hours (Table) 09/13/22 14:09 Blood Culture - Preliminary Blood No Growth after 48 hours 09/13/22 08:51 Blood Culture - Preliminary Blood No Growth after 48 hours 09/13/22 08:51 Blood Culture - Preliminary Blood No Growth after 48 hours 09/13/22 16:18 Gram Stain - Preliminary Leg - Left Wound Culture - Preliminary Gram Neg Bacilli Assessment and Plan Assessment: Generalized weakness and falls likely secondary to dehydration volume depletion. Improved now Acute on chronic kidney disease. Off bicarb drip and will be continued on normal saline. Hyperkalemia secondary to above. Resolved now. Urinary retention. Continue Hardy catheter and Flomax was added. Acute on chronic lower extremity wound and surrounding cellulitis. Large wound in the posterior aspect of the left leg. Coronary artery disease history of CABG Previous history of aortic valve replacement and repair of aneurysm. COPD History of DVT on anticoagulation with warfarin. Duration unknown. She was also on warfarin in April 2021 during previous admission. Hypertension Hyperlipidemia Obesity BMI 39.8 Medical debility and poor functional status DVT prophylaxis with heparin subcu Plan: Patient will be continued on gentle IV hydration and monitor renal function. Bicarb drip is off. Continue with antibiotics daptomycin and cefepime as per ID recommendations Encourage incentive spirometry. Continue with wound care. Time with Patient: Greater than 30
--- NOTE | 2022-09-16 21:30 | P.PN ---
Subjective Progress Note Date: 09/16/22 Patient is a 72-year-old female with a known history of coronary disease, valve replacement, COPD, DVT presents to ER status post fall. Patient has been having severe weakness and multiple falls also had infected left leg. Patient was found to be hyperkalemic with potassium level 7.7 and creatinine on admission was 2.9. 09/14/2022 Patient is currently resting in bed comfortably. Awake alert and able to answer questions. No complaints of chest pain or shortness of breath. Afebrile. Continued on antibiotics of daptomycin and cefepime for the lower extremity wounds. ID and wound care services on board. No cough or sputum production. No nausea vomiting abdominal pain or diarrhea. Laboratory data showed WBC 14.4 hemoglobin 10.9 and platelets 296 Sodium 134 potassium down to 5.7 chloride 107 bicarb is 21 BUN 71 and creatinine 1.67 Urinalysis is negative for infection. 09/15/2022 Patient is currently resting in bed. Awake alert and oriented. No complaints of chest pain or shortness of breath. No nausea vomiting abdominal diarrhea. Tolerating oral diet. Renal function is improved with creatinine 0.86 today. No cough or sputum production. Patient has been afebrile. Wound care is being done left lower extremity. Continue antibiotics. ID and nephrology is on board. Other laboratory data showed WBC 9.0 hemoglobin 8.9 and platelets 236 Sodium 137 potassium 4.4 chloride 109 bicarb is 26 BUN 31 and creatinine 0.86 and blood sugar is 103 and calcium 8.2. 09/16/2022 Patient is currently resting in bed. Awake alert and oriented. No complaints of chest pain or shortness of breath. Patient does have good urine output and renal function improved with creatinine level 0.82 today. Hemodynamically stable. Patient remains on Hardy catheter and also was started Flomax. Will continue on wound care and antibiotics in the form of cefepime. Wound cultures are growing Morganella morganii. ID and nephrology is on board. PT OT to follow-up tomorrow and possible discharge to rehab and likely trial void as well. Laboratory data showed sodium 138 potassium 4.2 chloride 101 bicarb is 29 BUN 24 and creatinine 0.8. Calcium 7.8 magnesium 1.6 Current medications reviewed. Objective - Vital Signs Vital signs: Vital Signs Temp 98.0 F 09/16/22 20:05 Pulse 67 09/16/22 20:05 Resp 16 09/16/22 20:05 BP 119/65 09/16/22 20:05 Pulse Ox 98 09/16/22 20:05 FiO2 21 09/14/22 20:43 Intake & Output 09/16/22 09/16/22 09/17/22 06:59 18:59 06:59 Intake Total 240 236 Output Total 550 510 Balance -310 -274 Intake: Intake, IV Titration 240 Amount Sodium Chloride 0.9% 1, 240 000 ml @ 70 mls/hr IV . [id number] [facility] Rx#:[id number] Oral 236 Output: Urine 550 510 Other: Voiding Method Indwelling Catheter External Catheter - Exam PHYSICAL EXAMINATION: Patient is lying in the bed comfortably, no acute distress, awake alert and oriented.. Obese. HEENT: Normocephalic. Neck is supple. Pupils reactive. Nostrils clear. Oral cavity is moist. Neck reveals no JVD, carotid bruits, or thyromegaly. CHEST EXAMINATION: Trachea is central. Symmetrical expansion. Lung reed clear to auscultation and percussion. CARDIAC: Normal S1, S2 with no gallops. No murmurs ABDOMEN: Soft. Bowel sounds present. Nontender. No organomegaly. No abdominal bruits. Extremities: Left lower extremity wound on the posterior aspect is bandaged.. No clubbing or cyanosis Neurologically awake, alert, oriented x 2-3 with well-coordinated movements. No gross focal deficits noted Skin: No rash or skin lesions. Psychiatric: Coperative. Nonsuicidal, Musculoskeletal: No joint swelling or deformity. Normal range of motion. - Labs CBC & Chem 7: 09/15/22 09:42 09/16/22 06:31 Labs: Abnormal Lab Results - Last 24 Hours (Table) 09/16/22 Range/Units 06:31 Chloride 109 H (98-107) mmol/L BUN 24 H (7-17) mg/dL Calcium 7.8 L (8.4-10.2) mg/dL Microbiology - Last 24 Hours (Table) 09/13/22 14:09 Blood Culture - Preliminary Blood No Growth after 72 hours 09/13/22 08:51 Blood Culture - Preliminary Blood No Growth after 72 hours 09/13/22 08:51 Blood Culture - Preliminary Blood No Growth after 72 hours 09/13/22 16:18 Anaerobic Culture - Final Leg - Left 09/13/22 16:18 Gram Stain - Preliminary Leg - Left Wound Culture - Preliminary Morganella morganii Assessment and Plan Assessment: Generalized weakness and falls likely secondary to dehydration volume depletion. Improved now Acute on chronic kidney disease. Off bicarb drip and will be continued on normal saline. Hyperkalemia secondary to above. Resolved now. Urinary retention. Continue Hardy catheter and Flomax was added. Acute on chronic lower extremity wound and surrounding cellulitis. Large wound in the posterior aspect of the left leg. Coronary artery disease history of CABG Previous history of aortic valve replacement and repair of aneurysm. COPD History of DVT on anticoagulation with warfarin. Duration unknown. She was also on warfarin in April 2021 during previous admission. Hypertension Hyperlipidemia Obesity BMI 39.8 Medical debility and poor functional status DVT prophylaxis with heparin subcu Plan: Renal function improved and IV fluids have been discontinued. Patient was on bicarb drip on admission. Continue with antibiotics amoxicillin. Wound cultures growing Morganella morganii. ID and nephrology is on board. PT OT and possible discharge to rehab. Continue with wound care and encourage incentive spirometry. Time with Patient: Greater than 30
[2022-09-17] MEDS: MAGNESIUM SULFATE-D5W PMX 1 GM in DEXTROSE/WATER 1 100ML.BAG IVPB SCH (00:27)
[2022-09-17] MEDS: HEPARIN SODIUM,PORCINE/PF 5,000 UNIT/0.5 ML SYRINGE SQ SCH ×2 (03:18→14:31)
[2022-09-17] MEDS: CEFEPIME 2 GM in SODIUM CHLORIDE 0.9% 100 ML IVPB SCH ×3 (06:07→20:06)
[2022-09-17] MEDS: METOPROLOL TARTRATE 50 MG TAB PO SCH ×2 (06:11→17:08)
[2022-09-17 06:36] LABS: Basophils % (A) 0 %; Eosinophils # (A) 0.3 k/uL (0-0.7); Eosinophils % (A) 5 %; HCT 31.7 % (34.0-46.0); HGB 9.8 gm/dL (11.4-16.0); Hypochromasia Slight; Lymphocytes # (A) 1.3 k/uL (1.0-4.8); Lymphocytes % (A) 19 %; MCH 27.5 pg (25.0-35.0); MCHC 31.1 g/dL (31.0-37.0); MCV 88.3 fL (80.0-100.0); Mean Platelet Volume 8.2; Monocytes # (A) 0.3 k/uL (0-1.0); Monocytes % (A) 5 %; Neutrophils # (A) 4.4 k/uL (1.3-7.7); Neutrophils % (A) 68 %; Platelet Count 222 k/uL (150-450); RBC 3.58 m/uL (3.80-5.40); RDW 14.9 % (11.5-15.5); WBC 6.4 k/uL (3.8-10.6)
[2022-09-17 06:51] LABS: African American GFR (CKD) >90 (>60 ml/min/1.73 sqM); Anion Gap 0 mmol/L; Blood Urea Nitrogen 16 mg/dL (7-17); Calcium 7.9 mg/dL (8.4-10.2); Carbon Dioxide 29 mmol/L (22-30); Chloride 108 mmol/L (98-107); Glucose 100 mg/dL (74-99); Magnesium 2.3 mg/dL (1.6-2.3); Non-African American GFR(CKD) 82 (>60 ml/min/1.73 sqM); Potassium 4.6 mmol/L (3.5-5.1); Sodium 137 mmol/L (137-145)
--- NOTE | 2022-09-17 07:25 | P.PN ---
Subjective Progress Note Date: 09/16/22 Principal diagnosis: Left lower extremity wound and cellulitis Patient is a 72-year-old female with multiple comorbidities including hypertension hyperlipidemia coronary bypass grafting COPD and cardiac valve replacement however patient also have bilateral lower extremity venous stasis ulcer patient has been brought into the hospital for evaluation of generalized weakness, patient did have a left lower extremity wound and concern for secondary cellulitis. On today's evaluation and that is 09/16/2022, the patient continues to be afebrile, the patient is breathing comfortably on room air, the patient pain to the left lower extremity wound area has decreased in intensity, the patient denies chest pain shortness of breath or cough no abdominal pain no diarrhea Objective - Vital Signs Vital signs: Vital Signs Temp 97.9 F 09/16/22 16:00 Pulse 81 09/16/22 16:00 Resp 16 09/16/22 16:00 BP 119/68 09/16/22 16:00 Pulse Ox 98 09/16/22 16:00 FiO2 21 09/14/22 20:43 Intake & Output 09/15/22 09/16/22 09/16/22 18:59 06:59 18:59 Intake Total 594 240 118 Output Total 550 360 Balance 594 310 -242 Intake: Intake, IV Titration 240 Amount Sodium Chloride 0.9% 1, 240 000 ml @ 70 mls/hr IV . [id number] [facility] Rx#:[id number] Oral 594 118 Output: Urine 550 360 Other: Voiding Method Indwelling Catheter Indwelling Catheter External Catheter - Exam GENERAL DESCRIPTION: An elderly female lying in bed in no distress RESPIRATORY SYSTEM: Unlabored breathing , decreased breath sounds at bases HEART: S1 S2 regular rate and rhythm , ABDOMEN: Soft , no tenderness EXTREMITIES: Left lower extremity wound is currently dressed minimal drainage on dressing - Labs CBC & Chem 7: 09/17/22 06:20 09/17/22 06:20 Labs: Abnormal Lab Results - Last 24 Hours (Table) 09/16/22 Range/Units 06:31 Chloride 109 H (98-107) mmol/L BUN 24 H (7-17) mg/dL Calcium 7.8 L (8.4-10.2) mg/dL Microbiology - Last 24 Hours (Table) 09/13/22 14:09 Blood Culture - Preliminary Blood No Growth after 72 hours 09/13/22 08:51 Blood Culture - Preliminary Blood No Growth after 72 hours 09/13/22 08:51 Blood Culture - Preliminary Blood No Growth after 72 hours 09/13/22 16:18 Anaerobic Culture - Final Leg - Left 09/13/22 16:18 Gram Stain - Preliminary Leg - Left Wound Culture - Preliminary Morganella morganii Assessment and Plan (1) Chronic venous hypertension w/ulcer and inflammation involv left side Current Visit: No Status: Acute Code(s): I87.332 - CHRONIC VENOUS HTN W ULCER AND INFLAMMATION OF L LOW EXTREM; L97.929 - NON-PRS CHRONIC ULC UNSP PRT OF L LOW LEG W UNSP SEVERITY SNOMED Code(s): 247469002 (2) Left leg cellulitis Current Visit: No Status: Acute Code(s): L03.116 - CELLULITIS OF LEFT LOWER LIMB SNOMED Code(s): 139175408 Plan: 1patient with the bilateral lower extremity venous stasis ulcer with a wound on the left posterior neck seem to be deep with some slough tissue minimal swelling redness and did have elevated white count with concern for secondary cellulitis in view of the chronicity of this wound will need to cover for both gram- positive as well as gram-negative pathogen. 2 Patient with renal insufficiency and high risk of nephrotoxicity from vancomycin. 3patient local wound cultures grew Morganella we will continue the patient on cefepime however discontinue daptomycin 4 local wound care with Wilder followed by moist dressing changes daily and try to keep the area of pressure Time with Patient: Less than 30
[2022-09-17] MEDS: HYDROcodone/APAP 10-325MG 1 EACH TAB PO PRN ×3 (08:12→23:39)
[2022-09-17] MEDS: GABAPENTIN 100 MG CAP PO SCH ×2 (08:12→20:06)
[2022-09-17] MEDS: ASPIRIN 81 MG PO SCH (08:12)
--- NOTE | 2022-09-17 12:00 | P.PN ---
Subjective Progress Note Date: 09/17/22 Principal diagnosis: Left lower extremity wound and cellulitis Patient is a 72-year-old female with multiple comorbidities including hypertension hyperlipidemia coronary bypass grafting COPD and cardiac valve replacement however patient also have bilateral lower extremity venous stasis ulcer patient has been brought into the hospital for evaluation of generalized weakness, patient did have a left lower extremity wound and concern for secondary cellulitis. On today's evaluation and that is 09/17/2022, the patient remains to be afebrile, the patient is breathing comfortably on room air, the patient denies any worsening pain to the left lower extremity wound area, the patient denies chest pain shortness of breath or cough no abdominal pain no diarrhea, feeling slightly better Objective - Vital Signs Vital signs: Vital Signs Temp 97.9 F 09/17/22 08:00 Pulse 64 09/17/22 08:05 Resp 16 09/17/22 08:00 BP 124/71 09/17/22 08:00 Pulse Ox 98 09/17/22 08:00 FiO2 21 09/14/22 20:43 Intake & Output 09/16/22 09/17/22 09/17/22 18:59 06:59 18:59 Intake Total 236 Output Total 510 275 250 Balance -274 -275 -250 Intake: Oral 236 Output: Urine 510 275 250 Other: Voiding Method External Catheter External Catheter External Catheter - Exam GENERAL DESCRIPTION: An elderly female lying in bed in no distress RESPIRATORY SYSTEM: Unlabored breathing , decreased breath sounds at bases HEART: S1 S2 regular rate and rhythm , ABDOMEN: Soft , no tenderness EXTREMITIES: Left lower extremity wound is currently dressed minimal drainage on dressing - Labs CBC & Chem 7: 09/17/22 06:20 09/17/22 06:20 Labs: Abnormal Lab Results - Last 24 Hours (Table) 09/17/22 09/17/22 Range/Units 06:20 06:20 RBC 3.58 L (3.80-5.40) m/uL Hgb 9.8 L (11.4-16.0) gm/dL Hct 31.7 L (34.0-46.0) % Chloride 108 H (98-107) mmol/L Glucose 100 H (74-99) mg/dL Calcium 7.9 L (8.4-10.2) mg/dL Microbiology - Last 24 Hours (Table) 09/13/22 08:51 Blood Culture - Preliminary Blood No Growth after 96 hours 09/13/22 08:51 Blood Culture - Preliminary Blood No Growth after 96 hours 09/13/22 16:18 Gram Stain - Final Leg - Left Wound Culture - Final Morganella morganii 09/13/22 14:09 Blood Culture - Preliminary Blood No Growth after 72 hours Assessment and Plan (1) Chronic venous hypertension w/ulcer and inflammation involv left side Current Visit: No Status: Acute Code(s): I87.332 - CHRONIC VENOUS HTN W ULCER AND INFLAMMATION OF L LOW EXTREM; L97.929 - NON-PRS CHRONIC ULC UNSP PRT OF L LOW LEG W UNSP SEVERITY SNOMED Code(s): 817546327 (2) Left leg cellulitis Current Visit: No Status: Acute Code(s): L03.116 - CELLULITIS OF LEFT LOWER LIMB SNOMED Code(s): 879706293 Plan: 1patient with the bilateral lower extremity venous stasis ulcer with a wound on the left posterior neck seem to be deep with some slough tissue minimal swelling redness and did have elevated white count with concern for secondary cellulitis in view of the chronicity of this wound will need to cover for both gram- positive as well as gram-negative pathogen. 2 Patient with renal insufficiency and high risk of nephrotoxicity from vancomycin. 3 local wound care with Medihoney followed by moist dressing changes daily and try to keep the area of pressure 4-patient local wound cultures grew Morganella for the patient will continue with cefepime Time with Patient: Less than 30
[2022-09-17] MEDS ORDERED: ONDANSETRON 4 MG/2 ML VIAL IVP PRN (12:25)
--- NOTE | 2022-09-17 14:13 | CDI ---
Documentation Clarification Form Date: 09/17/2022 1:51:04 PM From: Norma Robbins CCS, CCDS Admit Date: 09/13/2022 9:29:00 AM Patient Name: Adali Olivia Visit Number: [id number] Discharge Date: ATTENTION: The Clinical Documentation Specialists (CDI) and [facility] Coding Staff appreciate your assistance in clarifying documentation. Please respond to the clarification below the line at the bottom and electronically sign. The CDI & [facility] Coding staff will review the response and follow-up if needed. Please note: Queries are made part of the Legal Health Record. If you have any questions, please contact the author of this message via ITS. Dr. Isabelle Adams: Sepsis and Shock are documented in the 09/13 ED Note. Sepsis with possible left leg cellulitis/abscess and metabolic encephalopathy are documented in the 09/13 H/P. Presented with Sepsis and lower extremity cellulitis is documented in the 09/13 Pulmonary Consult. Additional clarification regarding Sepsis is requested. History/Risk Factors per the 09/13 H/P: CAD status post CABG and Heart Valve, COPD, DVT, Hypertension, Hyperlipidemia. Clinical Indicators: Presented to the ED on 09/13 via EMS with Weakness, Multiple Falls, Lack of energy, Difficulty walking, decreased appetite, decreased ADLs. Differential Diagnosis: Shock, Sepsis. Admit with Fall, Syncope, Hyperkalemia, MIAH, Hypotension, Hyponatremia. 09/12 VS: T 97.4, P 68, R 14, BP 79/35, PO 96 RA - 3Lnc, BMI: 39.8 09/12 LAB: WBC 16.0, neutrophils 13.6, Lymphocytes 0.9; Na 124, K 7.7, CO2 14, BUN 97, Creatinine 2.99, phosphorus 6.1, Alk Phos 131. 09/13 CXR: Mild pulmonary fibrotic changes. Treatment 09/13: Blood cultures, O2 3Lnc, DNR, IV Na Chl 1,000 mls @ 999 mls/hr q1H x3, IV Solumedrol 125 mg x1, IV Calcium Gluconate/Na Chl 100 mls @ 100 mls/hr x1, IV Dextrose 50 ml x1, IV Insulin 10 units x1, IV Na Bicarb 50 ml x3, IV Rocephin 50 mls @ 100 mls/hr x1. Please clarify if Sepsis is a valid diagnosis? [ ] Yes, Sepsis with Septic Shock is present on admission as evidence by (additional clinical support): [ x ] Yes, Sepsis without Septic Shock is present on admission [ ] No, Sepsis with or without Septic Shock is ruled out [ ] Other (please specify diagnosis) [ ] Unable to determine (Template Last Revised: November 2020) MTDD
--- NOTE | 2022-09-17 14:25 | P.PN ---
Subjective Progress Note Date: 09/17/22 Patient is a 72-year-old female with a known history of coronary disease, valve replacement, COPD, DVT presents to ER status post fall. Patient has been having severe weakness and multiple falls also had infected left leg. Patient was found to be hyperkalemic with potassium level 7.7 and creatinine on admission was 2.9. 09/14/2022 Patient is currently resting in bed comfortably. Awake alert and able to answer questions. No complaints of chest pain or shortness of breath. Afebrile. Continued on antibiotics of daptomycin and cefepime for the lower extremity wounds. ID and wound care services on board. No cough or sputum production. No nausea vomiting abdominal pain or diarrhea. Laboratory data showed WBC 14.4 hemoglobin 10.9 and platelets 296 Sodium 134 potassium down to 5.7 chloride 107 bicarb is 21 BUN 71 and creatinine 1.67 Urinalysis is negative for infection. 09/15/2022 Patient is currently resting in bed. Awake alert and oriented. No complaints of chest pain or shortness of breath. No nausea vomiting abdominal diarrhea. Tolerating oral diet. Renal function is improved with creatinine 0.86 today. No cough or sputum production. Patient has been afebrile. Wound care is being done left lower extremity. Continue antibiotics. ID and nephrology is on board. Other laboratory data showed WBC 9.0 hemoglobin 8.9 and platelets 236 Sodium 137 potassium 4.4 chloride 109 bicarb is 26 BUN 31 and creatinine 0.86 and blood sugar is 103 and calcium 8.2. 09/16/2022 Patient is currently resting in bed. Awake alert and oriented. No complaints of chest pain or shortness of breath. Patient does have good urine output and renal function improved with creatinine level 0.82 today. Hemodynamically stable. Patient remains on Hardy catheter and also was started Flomax. Will continue on wound care and antibiotics in the form of cefepime. Wound cultures are growing Morganella morganii. ID and nephrology is on board. PT OT to follow-up tomorrow and possible discharge to rehab and likely trial void as well. Laboratory data showed sodium 138 potassium 4.2 chloride 101 bicarb is 29 BUN 24 and creatinine 0.8. Calcium 7.8 magnesium 1.6 09/17/2022 Patient evaluated today on stepdown unit. Continues on IV cefepime for left lower extremity wound and cellulitis and local wound care with sary. Will need midline for 2 weeks of IV cefepime outpatient. Working with physical therapy and plans for discharge to rehab possibly tomorrow. Continues with urina ry retention and if unable to void will have catheter reinserted and to see urology outpatient. No acute complaints overnight. Having some nausea today. Did have a BM. Labs today showing white count of 6.4, hemoglobin 9.8, sodium 137, BUN 16, creatinine 0.73. Glucose in the 100s. Magnesium 2.3. Remains afebrile. Blood pressure 146/74, on room air. Heart rate 60s sinus rhythm. Review of Systems Constitutional: Denied any fatigue denied any fever. Cardio vascular: denied any chest pain, palpitations Gastrointestinal: denied any nausea, vomiting, diarrhea Pulmonary: Denied any shortness of breath cough Neurologic denied any new focal deficits All inpatient medications were reviewed and appropriate changes in these medications as dictated in the interval history and assessment and plan. PHYSICAL EXAMINATION: GENERAL: The patient is alert and oriented x3, not in any acute distress. Well developed, well nourished. HEENT: Pupils are round and equally reacting to light. EOMI. No scleral icterus. No conjunctival pallor. Normocephalic, atraumatic. No pharyngeal erythema. No thyromegaly. CARDIOVASCULAR: S1 and S2 present. No murmurs, rubs, or gallops. PULMONARY: Chest is clear to auscultation, no wheezing or crackles. ABDOMEN: Soft, nontender, nondistended, normoactive bowel sounds. No palpable organomegaly. MUSCULOSKELETAL: No joint swelling or deformity. EXTREMITIES: No cyanosis, clubbing, or pedal edema. NEUROLOGICAL: Gross neurological examination did not reveal any focal deficits. Generalized weakness. SKIN: No rashes. Kerlex dressing intact to left lower rextremity Assessment and Plan Assessment Generalized weakness and falls likely secondary to dehydration volume depletion. Improved now Acute on chronic kidney disease. Off bicarb drip. Creatinine improved. Hyperkalemia secondary to above. Resolved now. Urinary retention improved with flomax and IDC has been removed. Acute on chronic lower extremity wound and surrounding cellulitis with sepsis. Large wound in the posterior aspect of the left leg. Coronary artery disease history of CABG Previous history of aortic valve replacement and repair of aneurysm. COPD History of DVT on anticoagulation with warfarin. Duration unknown. She was also on warfarin in April 2021 during previous admission. Hypertension Hyperlipidemia Obesity BMI 39.8 Medical debility and poor functional status DVT prophylaxis with heparin subcu GI prophylaxis Do Not Resuscitate/Do Not Intubate Plan Continue IV cefepime Local wound care per ID Midline ordered will require 2 weeks of IV cefepime outpatient Voiding trial if unable to void, reinsert indwelling catheter and see urology outpatient, continue flomax Antiemetics Pending insurance authorization D/C to rehab in the next 24 to 48 hours The impression and plan of care has been dictated by Cynthia Mason, Nurse Practitioner as directed. Dr. Syeda MD I have performed a history and physical examination and medical decision making of this patient, discussed the same with the dictator, and agree with the dictators assessment and plan as written, documented as a scribe. Based on total visit time, I have performed more than 50% of this visit. Objective - Vital Signs Vital signs: Vital Signs Temp 97.9 F 09/17/22 08:00 Pulse 67 09/17/22 11:30 Resp 16 09/17/22 11:30 BP 146/74 09/17/22 11:30 Pulse Ox 100 09/17/22 11:30 FiO2 21 09/14/22 20:43 Intake & Output 09/16/22 09/17/22 09/17/22 18:59 06:59 18:59 Intake Total 236 Output Total 510 275 650 Balance -274 -275 -650 Intake: Oral 236 Output: Urine 510 275 650 Other: Voiding Method External Catheter External Catheter External Catheter - Labs CBC & Chem 7: 09/17/22 06:20 09/17/22 06:20 Labs: Abnormal Lab Results - Last 24 Hours (Table) 09/17/22 09/17/22 Range/Units 06:20 06:20 RBC 3.58 L (3.80-5.40) m/uL Hgb 9.8 L (11.4-16.0) gm/dL Hct 31.7 L (34.0-46.0) % Chloride 108 H (98-107) mmol/L Glucose 100 H (74-99) mg/dL Calcium 7.9 L (8.4-10.2) mg/dL Microbiology - Last 24 Hours (Table) 09/13/22 16:18 Gram Stain - Final Leg - Left Wound Culture - Final Morganella morganii 09/13/22 08:51 Blood Culture - Preliminary Blood No Growth after 96 hours 09/13/22 08:51 Blood Culture - Preliminary Blood No Growth after 96 hours 09/13/22 14:09 Blood Culture - Preliminary Blood No Growth after 72 hours Assessment and Plan Time with Patient: Less than 30
[2022-09-17] MEDS: TAMSULOSIN 0.4 MG CAP.ER.24H PO SCH (17:08)
[2022-09-17] MEDS: ATORVASTATIN 10 MG TAB PO SCH ×2 (20:05→20:06)
[2022-09-17] MEDS: FAMOTIDINE 20 MG TAB PO SCH (20:06)
[2022-09-18] MEDS: HEPARIN SODIUM,PORCINE/PF 5,000 UNIT/0.5 ML SYRINGE SQ SCH (03:12)
[2022-09-18] MEDS: METOPROLOL TARTRATE 50 MG TAB PO SCH (06:06)
[2022-09-18] MEDS: CEFEPIME 2 GM in SODIUM CHLORIDE 0.9% 100 ML IVPB SCH ×2 (06:06→14:00)
[2022-09-18] MEDS: ASPIRIN 81 MG PO SCH (07:58)
[2022-09-18] MEDS: HYDROcodone/APAP 10-325MG 1 EACH TAB PO PRN (07:58)
[2022-09-18] MEDS: GABAPENTIN 100 MG CAP PO SCH (07:58)
[2022-09-18] MEDS: FAMOTIDINE 20 MG TAB PO SCH (07:58)
[2022-09-18 08:05] VITALS: RESP 18; TEMP 98.4
[2022-09-18 09:07] LABS: INR 1.1 (<1.2); Prothrombin Time 11.8 sec (9.0-12.0)
[2022-09-18 12:35] VITALS: BP 128/73; PULSE 77
--- NOTE | 2022-09-18 13:25 | P.DS ---
Providers Date of admission: 09/13/22 09:29 Attending physician: Fredy Barnes MD Consults: 09/13/22 02:53 Consult Physician Routine Consulting Provider: Gayatri Farris Consult Reason/Comments: renalFAIL Do you want consulting provider notified?: Yes 09/13/22 13:02 Consult Physician Urgent Consulting Provider: Radha Haas Consult Reason/Comments: ams/ shortness of breath, sepsis Do you want consulting provider notified?: Yes 09/13/22 13:03 Consult Physician Urgent Consulting Provider: Duane Trejo Consult Reason/Comments: sepsis, ams Do you want consulting provider notified?: Yes Primary care physician: [facility] Course: Final Diagnosis Generalized weakness and falls likely secondary to dehydration volume depletion. Improved now Acute on chronic kidney disease. Off bicarb drip. Creatinine improved. Hyperkalemia secondary to above. Resolved now. Urinary retention improved with flomax and IDC has been removed. Acute on chronic lower extremity wound and surrounding cellulitis with sepsis. Large wound in the posterior aspect of the left leg cultures positive for morganella Coronary artery disease history of CABG Previous history of aortic valve replacement and repair of aneurysm. COPD History of DVT on anticoagulation with warfarin. Duration unknown. She was also on warfarin in April 2021 during previous admission. Hypertension Hyperlipidemia Obesity BMI 39.8 Medical debility and poor functional status Do Not Resuscitate/Do Not Intubate Discharge Disposition Patient is stable for discharge to subacute rehab. Patient received midline to left upper arm and will continue with IV cefepime every 8 hours for 14 days. Local wound care to lower extremity wound to continue with medihoney followed by moist dressing and change daily. Keep pressure off area. Patient to follow up with Dr. Trejo on discharge. Continue on warfarin with INR monitoring. Hospital Course This is a pleasant 72 year old female with a known history of coronary disease, valve replacement, COPD, DVT presents to ER status post fall. Patient has been having severe weakness and multiple falls also had infected left leg. Patient was found to be hyperkalemic with potassium level 7.7 and creatinine on admission was 2.9. She had CT brain and Cspine done showing cerebral atrophy and chronic small vessel ischemia no acute intracranial abnormality. There is minor degeneration at C5-6 level, no fracture. Left leg wound which is on the posterior aspect of leg was cultured showing morganella and Infectious disease started the patient on IV cefepime and to continue for 2 weeks after discharge. She had midline placed to left upper extremity. Creatinine had improved with hydration and is now normalized. Sodium has normalized. Potassium supplementation has normalized currently 4.6. Her JANENE inhibitor has been placed on hold. She was having issues with urinary retention also this hospital stay and had indwelling catheter placed and was started on flomax. Voiding trial was passed and she has been up to the bedside commode and able to void. She will be continued on local wound care with medihoney to the left lower extremity wound and cover with moist dressing to change daily. Warfarin has been resumed and INR today 1.1. Patient will be discharge to subacute rehab as recommended by PT/OT. 09/18/2022 Patient is evaluated today resting in bed. She did report some loose stools for the last 2 days suspect since being started on the IV antibiotics. A C.Dif sample was collected however was not liquid and lab not able to run the sample. She will be started on questran and imodium as needed. She has no abdominal pain, no nausea or vomiting, Urinating without difficulty now. PVRs negative. Denies chest pain, denies shortness of breath, denies dizziness, lightheadedness. Denies headache. Lungs are clear, S1 S2 auscultated, abdomen is soft and nontender. Normoactive bowel sounds. Kerlex dressing intact to left lower extremity. Most recent labs showing white count of 6.4, hgb 9.8, sodium 137, potassium 4.6, BUN 16, creatinine 0.73, glucose in the 100s. Calcium 7.9, magnesium 2.3. INR today 1.1. Vitals today showing temp 98.4, heart rate 77, blood pressure 128/73, 97% on room air. She will be cleared for discharge to subacute rehab today. Please see medication reconciliation for list of current medication. Thank you for allowing us to per disposition this patient. The impression and plan of care has been dictated by Cynthia Mason, Nurse Practitioner as directed. Dr. Syeda MD I have performed a history and physical examination and medical decision making of this patient, discussed the same with the dictator, and agree with the dictators assessment and plan as written, documented as a scribe. Based on total visit time, I have performed more than 50% of this visit. Patient Condition at Discharge: Stable Plan - Discharge Summary Discharge Rx Participant: No New Discharge Prescriptions: New Loperamide [Imodium] 2 mg PO QID 7 Days #28 capsule Ipratropium-Albuterol Nebulize [Duoneb 0.5 mg-3 mg/3 ml Soln] 3 ml INHALATION RT-Q2H PRN each PRN Reason: Shortness Of Breath Or Wheezing Tamsulosin [Flomax] 0.4 mg PO PC-SUPPER cap Cefepime [Maxipime] 2 gm IVPB Q8H 14 Days #42 each Famotidine [Pepcid] 20 mg PO BID tab Cholestyramine (with Sugar) [Questran] 4 gm PO BID 7 Days #14 packet Continue Ergocalciferol (Vitamin D2) [Vitamin D2] 50,000 unit PO CARDENAS Cyclobenzaprine [Flexeril] 10 mg PO TID PRN PRN Reason: Muscle Spasm Atorvastatin [Lipitor] 10 mg PO HS Warfarin [Coumadin] 2.5 mg PO WEFR Warfarin [Coumadin] 5 mg PO SUMOTUTHSA Metoprolol Tartrate [Lopressor] 50 mg PO BID-W/MEALS Aspirin EC [Ecotrin Low Dose] 81 mg PO DAILY Gabapentin [Neurontin] 200 mg PO HS #3 cap HYDROcodone/APAP 10-325MG [Stratton 10-325] 1 tab PO Q6HR PRN #4 cap PRN Reason: Pain Changed Gabapentin [Neurontin] 100 mg PO QAM #2 cap Discontinued Enalapril Maleate [Vasotec] 20 mg PO DAILY Discharge Medication List Atorvastatin [Lipitor] 10 mg PO HS 10/18/16 [History] Cyclobenzaprine [Flexeril] 10 mg PO TID PRN 10/18/16 [History] Ergocalciferol (Vitamin D2) [Vitamin D2] 50,000 unit PO CARDENAS 10/18/16 [History] Warfarin [Coumadin] 2.5 mg PO WEFR 01/25/17 [History] Warfarin [Coumadin] 5 mg PO SUMOTUTHSA 01/25/17 [History] Aspirin EC [Ecotrin Low Dose] 81 mg PO DAILY 05/01/21 [History] Metoprolol Tartrate [Lopressor] 50 mg PO BID-W/MEALS 09/13/22 [History] Cefepime [Maxipime] 2 gm IVPB Q8H 14 Days #42 each 09/18/22 [Rx] Cholestyramine (with Sugar) [Questran] 4 gm PO BID 7 Days #14 packet 09/18/22 [Rx] Famotidine [Pepcid] 20 mg PO BID tab 09/18/22 [Rx] Gabapentin [Neurontin] 100 mg PO QAM #2 cap 09/18/22 [Rx] Gabapentin [Neurontin] 200 mg PO HS #3 cap 09/18/22 [Rx] HYDROcodone/APAP 10-325MG [Stratton 10-325] 1 tab PO Q6HR PRN #4 cap 09/18/22 [Rx] Ipratropium-Albuterol Nebulize [Duoneb 0.5 mg-3 mg/3 ml Soln] 3 ml INHALATION RT-Q2H PRN each 09/18/22 [Rx] Loperamide [Imodium] 2 mg PO QID 7 Days #28 capsule 09/18/22 [Rx] Tamsulosin [Flomax] 0.4 mg PO PC-SUPPER cap 09/18/22 [Rx] Follow up Appointment(s)/Referral(s): Odell Lala MD [Primary Care Provider] - 1-2 days [facility] Visiting Nurse, [NON-STAFF] - Duane Trejo MD [STAFF PHYSICIAN] - 1 Week Ambulatory/Diagnostic Orders: Basic Metabolic Panel [LAB.AMB] Time Frame: 3 Days, Location: None Selected Complete Blood Count w/diff [LAB.AMB] Time Frame: 3 Days, Location: None Selected Prothrombin Time INR [LAB.AMB] Time Frame: 2 Days, Location: None Selected Activity/Diet/Wound Care/Special Instructions: Patient will continue on IV Cefepime 2 gram every 8 hours for 2 weeks Local wound care with sary followed by moist dressing changes daily and keep the area off pressure Discharge Disposition: TRANSFER TO SNF/ECF
[2022-09-18] MEDS ORDERED: WARFARIN 5 MG TAB PO ONE (18:00)
--- NOTE | 2022-09-18 20:05 | P.PN ---
Subjective Progress Note Date: 09/18/22 Principal diagnosis: Left lower extremity wound and cellulitis Patient is a 72-year-old female with multiple comorbidities including hypertension hyperlipidemia coronary bypass grafting COPD and cardiac valve replacement however patient also have bilateral lower extremity venous stasis ulcer patient has been brought into the hospital for evaluation of generalized weakness, patient did have a left lower extremity wound and concern for secondary cellulitis. On today's evaluation and that is 09/18/2022, the patient continues to be afebrile, the patient is breathing comfortably on room air, the patient pain to the left lower extremity wound area has decreased intensity, the patient denies chest pain shortness of breath or cough no abdominal pain no diarrhea, no new symptoms Objective - Vital Signs Vital signs: Vital Signs Temp 98.4 F 09/18/22 07:56 Pulse 68 09/18/22 07:56 Resp 18 09/18/22 07:56 BP 112/67 09/18/22 07:56 Pulse Ox 99 09/18/22 07:56 FiO2 21 09/14/22 20:43 Intake & Output 09/17/22 09/18/22 09/18/22 18:59 06:59 18:59 Output Total 650 Balance -650 Weight 108.409 kg Output: Urine 650 Other: Voiding Method Bedside Commode Bedside Commode Bedside Commode External Catheter External Catheter External Catheter # Voids 1 1 # Bowel Movements 1 1 - Exam GENERAL DESCRIPTION: An elderly female lying in bed in no distress RESPIRATORY SYSTEM: Unlabored breathing , decreased breath sounds at bases HEART: S1 S2 regular rate and rhythm , ABDOMEN: Soft , no tenderness EXTREMITIES: Left lower extremity wound is currently dressed minimal drainage on dressing - Labs CBC & Chem 7: 09/17/22 06:20 09/17/22 06:20 Labs: Microbiology - Last 24 Hours (Table) 09/13/22 08:51 Blood Culture - Preliminary Blood No Growth after 120 hours 09/13/22 08:51 Blood Culture - Preliminary Blood No Growth after 120 hours 09/13/22 16:18 Anaerobic Culture - Final Leg - Left 09/13/22 14:09 Blood Culture - Preliminary Blood No Growth after 96 hours 09/13/22 16:18 Gram Stain - Final Leg - Left Wound Culture - Final Morganella morganii Assessment and Plan (1) Chronic venous hypertension w/ulcer and inflammation involv left side Status: Acute Code(s): I87.332 - CHRONIC VENOUS HTN W ULCER AND INFLAMMATION OF L LOW EXTREM; L97.929 - NON-PRS CHRONIC ULC UNSP PRT OF L LOW LEG W UNSP SEVERITY SNOMED Code(s): 161087846 (2) Left leg cellulitis Status: Acute Code(s): L03.116 - CELLULITIS OF LEFT LOWER LIMB SNOMED Code(s): 256447027 Plan: 1patient with the bilateral lower extremity venous stasis ulcer with a wound on the left posterior neck seem to be deep with some slough tissue minimal swelling redness and did have elevated white count with concern for secondary cellulitis in view of the chronicity of this wound will need to cover for both gram- positive as well as gram-negative pathogen. 2 Patient with renal insufficiency and high risk of nephrotoxicity from vancomycin. 3 local wound care with Medihoney followed by moist dressing changes daily and try to keep the area of pressure 4-patient local wound cultures grew Morganella for the patient will continue with cefepime 2 weeks on discharged to intermediate and close outpatient follow-up discuss with the SENIOR REVENUE ACCOUNTANT working on discharge Time with Patient: Less than 30
== END 2022-09-18 16:00 | DRG 871 ==
LOC: EC 23:25 → 3SCARD 09-13 09:29
PROVIDERS: ADMIT Internal Medicine; ATTEND Internal Medicine
PROC: 05HF33Z Insertion of Infusion Device into Left Cephalic Vein, Percutaneous Approach (ICD-10-PCS; principal; 2022-09-17 20:25)
DX: A41.9 Sepsis, unspecified organism (principal); N17.0 Acute kidney failure with tubular necrosis; E87.1 Hypo-osmolality and hyponatremia; E87.21 Acute metabolic acidosis; L03.116 Cellulitis of left lower limb; I70.261 Atherosclerosis of native arteries of extremities with gangrene, right leg; L97.419 Non-pressure chronic ulcer of right heel and midfoot with unspecified severity; R29.6 Repeated falls; Z66 Do not resuscitate; I25.10 Atherosclerotic heart disease of native coronary artery without angina pectoris; N18.9 Chronic kidney disease, unspecified; E78.5 Hyperlipidemia, unspecified; E86.0 Dehydration; E86.1 Hypovolemia; I83.019 Varicose veins of right lower extremity with ulcer of unspecified site; J44.9 Chronic obstructive pulmonary disease, unspecified; E87.5 Hyperkalemia; I83.029 Varicose veins of left lower extremity with ulcer of unspecified site; I12.9 Hypertensive chronic kidney disease with stage 1 through stage 4 chronic kidney disease, or unspecified chronic kidney disease; E66.9 Obesity, unspecified; W19.XXXA Unspecified fall, initial encounter; R53.81 Other malaise; Z96.651 Presence of right artificial knee joint; Z20.822 Contact with and (suspected) exposure to COVID-19; Z79.899 Other long term (current) drug therapy; Z79.82 Long term (current) use of aspirin; Z79.01 Long term (current) use of anticoagulants; Z88.2 Allergy status to sulfonamides; Z88.1 Allergy status to other antibiotic agents; Z91.040 Latex allergy status; Z86.14 Personal history of Methicillin resistant Staphylococcus aureus infection; Z86.718 Personal history of other venous thrombosis and embolism; Z68.39 Body mass index [BMI] 39.0-39.9, adult; Z95.1 Presence of aortocoronary bypass graft; Z95.2 Presence of prosthetic heart valve
CPT/HCPCS: 36410; 36415; 51702; 70450; 71045; 72125; 72170; 76770; 76937; 80048; 80053; 81001; 83605; 83735; 83880; 84100; 84132; 84484; 85025; 85610; 85730; 87040; 87070; 87075; 87077; 87186; 87205; 87324; 87635; 93005; 94760; 96361; 96365; 96367; 96372; 96375; 96376; 99291